=== PATIENT | female | born 1995 | race Caucasian/White ===

== ENCOUNTER 2022-11-21 16:41 | Outpatient (AMB) | payer OTHER, SELFPAY ==
--- NOTE | 2022-11-21 15:57 | MHC.PC.OV ---
Intake Visit Reasons: Chronic conditions and medication discussion Intake Note: Patient is here to discuss medications and chronic conditions.Patient would like to talk about medication refills. Allergies doxycycline Allergy (Mild, Verified 11/21/22 16:02) Hives bactrim Allergy (Intermediate, Uncoded 11/21/22 16:02) Hives Tobacco use date assessed: 11/21/22 Dental Screening Dental Screen Date: 11/21/22 Did you have a dental visit in the last 12 months?: No Did you have a dental problem in the last 6 months where you did not have access to dental care?: No Was dental information given to patient?: No HPI Chronic conditions and medication discussion HPI Details Patient was scheduled for a new patient appointment today but her pT1 ride did not show up Will address acute issues with patient today and she is already reschedule for new patient appointment on December 16 Acute Issues: Medication refills Patient is a type 1 diabetic - no current forestry support specialist Fairly recent left BKA awaiting healing so she can be fitted with a prosthesis Hx of substance abuse and some self-harm. Chronic Pain: Neuropathy & Fibromyalgia Depression requests [facility] Currently not doing any rehab/physical therapy. Uses hydroxyzine for anxiety but states has not helped. She reports symptoms of anxiety are constant. 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 Depression Diabetes 1.5, managed as type 1 Diabetic retinopathy Encephalopathy chronic Fibromyalgia Neuropathy Family History (Updated 11/21/22 @ 16:18 by Dariana De Los Santos, [facility]) Mother Substance abuse Other Mental health disorder Social History Housing: Apartment Cigarette Packs Per Day: 1 e-Cigarette/Vaping Use: Currently Using service: No Current occupational status: disabled Cognitive needs: No Hearing needs: No Vision needs: Yes (Patient needs eye exM) Questionnaire PHQ-9 Over the last 2 weeks, how often have you been bothered by any of the following problems? 1. Little interest or pleasure in doing things: more than half the days 2. Feeling down, depressed, or hopeless: more than half the days 3. Trouble falling or staying asleep, or sleeping too much: several days 4. Feeling tired or having little energy: nearly every day 5. Poor appetite or overeating: nearly every day 6. Feeling bad about yourself - or that you are a failure or have let yourself or your family down: several days 7. Trouble concentrating on things, such as reading the newspaper or watching television: more than half the days 8. Moving or speaking so slowly that other people could have noticed. Or the opposite - being so fidgety or restless that you have been moving around a lot more than usual: nearly every day 9. Thoughts that you would be better off or of hurting yourself in some way: not at all Total score: 17 Source: Developed by Drs. Alex Alicea, Vero Reyes, Dimitrios Wesley and colleagues, with an educational nehemias from [employer]. Thrive Questionnaire I am a: Patient What is your living situation today?: I have a steady place to live Within the past 12 months, did the food you bought not last and you didn't have the money to get more?: Often true Within the past 12 months, did you worry whether your food would run out before you got money to buy more?: Often true Do you have trouble paying for medicines?: No Do you have trouble getting transportation to medical appointments?: Yes Do you have trouble paying your heating and electricity bill?: No Do you have trouble taking care of your child, family member or friend?: No Do you have trouble with day-to-day activities such as bathing, preparing meals, shopping, managing finances, etc.?: Yes Are you currently unemployed and looking for a job?: No Are you interested in more education?: No AUDIT C Alcohol Use Questionnaire (AUDIT-C) 1. How often do you have a drink containing alcohol?: Monthly or less 2. How many drinks containing alcohol do you have on a typical day when you are drinking?: 1 or 2 3. How often do you have six or more drinks on one occasion?: Never Total Score: 1 JEANE-7 AMB Questionnaire JEANE-7 Feeling nervous, anxious, or on edge: 3 = Nearly every day Not being able to stop or control worryin = More than half the days Worrying too much about different things: 2 = More than half the days Trouble relaxin = Nearly every day Being so restless that it is hard to sit still: 3 = Nearly every day Becoming easily annoyed or irritable: 3 = Nearly every day Feeling afraid as if something awful might happen: 1 = Several days Total JEANE-7 score (0-4 normal; 5-9 mild; 10-14 moderate; 15-21 severe): 17 Source: Developed by Drs. Alex Alicea, Vero Reyes, Dimitrios Wesley and colleagues, with an educational nehemias from [employer]. ACT Questionnaire In the past 4 weeks, how much of the time did your asthma keep you from getting as much done at work, school or at home?: None of the time During the past 4 weeks, how often have you had shortness of breath?: Not at all During the past 4 weeks, how often did your asthma symptoms wake you up at night or earlier than usual in the morning?: Not at all During the past 4 weeks, how often have you had to use your rescue inhaler or nebulizer medication?: Not at all How would you rate your asthma control during the past 4 weeks?: Completely controlled Score: 25 Physical exam (Primary Care) Tobacco/Smoking Status: Tobacco use Status Tobacco use date assessed 11/21/22 11/21/22 16:25 e-Cigarette/Vaping Use Currently Using 11/21/22 16:25 PHQ-9: PHQ-9 Score PHQ-9: Total score 17 11/21/22 16:39 Telehealth Telehealth Location of provider rendering services: practice address Location of patient: address on file Patient Identification confirmed using: Name, : Yes Telehealth method: voice only Patient verbally consented to treatment: Yes Patient verbally consented to billing insurance company: Yes Patient informed of any privacy concerns related to visit: Yes Minutes spent on Phone/Video with Pt.: 21 Assessment and Plan Assessment & Plan (1) Diabetes 1.5, managed as type 1: Code(s): E13.9 - Other specified diabetes mellitus without complications Plan: Essentially type 1 diabetic and on Lantus and list pro These have been refilled by her prior forestry support specialist Continue current medications for now Will follow and will make a referral for endocrinology (2) Fibromyalgia: Code(s): M79.7 - Fibromyalgia Plan: Chronic pain, neuropathy and fibromyalgia. She is on gabapentin and ibuprofen for pain also taking muscle relaxants No recent pain management evaluation Has not started rehab for physical therapy after her amputation She mentions that she was told she would need to discuss additional pain medications with her PCP. History of substance abuse so will want to avoid abuse of all medications. 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 Declined to start a benzodiazepine at this point as she does have some history of substance abuse. Will follow closely Refer to nurse navigator and I think she should have a therapist and psych med provider. (5) Neuropathy: Code(s): G62.9 - Polyneuropathy, unspecified Plan: Currently on gabapentin. She says she has tried Lyrica in the past Continue gabapentin (6) Chronic pain: Code(s): G89.29 - Other chronic pain Plan: Referred to pain management Starting physical therapy as she also has fibromyalgia and should begin an exercise program though she has recently had a at left BKA for which she needs rehab Orders: Orders PT Evaluation and Treatment 11/21/22 M79.7 - Fibromyalgia, S88.112A - Complete traumatic amputation at level between knee and ankle, left lower leg, initial encounter Referrals Pain Management Referral G62.9 - Polyneuropathy, unspecified, G89.29 - Other chronic pain, M79.7 - Fibromyalgia, S88.112A - Complete traumatic amputation at level between knee and ankle, left lower leg, initial encounter Nurse Navigator Referral F41.8 - Other specified anxiety disorders Medications: New citalopram (Celexa) 10 mg PO DAILY 30 days 30 tabs 0RF Coding Level of Care Code Est Pt Level 3 (80521) Diagnoses Diabetes 1.5, managed as type 1 E13.9 Fibromyalgia M79.7 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
== END 2022-11-21 17:00 | disposition home or self-care (01) ==
LOC: HO.HMGFM 16:41
PROVIDERS: PCP Family Medicine; Visit Provider Family Medicine
DX: E13.9 Other specified diabetes mellitus without complications (principal); M79.7 Fibromyalgia; S88.112A Complete traumatic amputation at level between knee and ankle, left lower leg, initial encounter; F41.8 Other specified anxiety disorders; G62.9 Polyneuropathy, unspecified; G89.29 Other chronic pain
CPT/HCPCS: 99213

== ENCOUNTER 2022-12-21 12:49 | Outpatient (AMB) | payer OTHER, SELFPAY ==
--- NOTE | 2022-12-21 12:51 | MHC.PC.OV ---
Vital Signs 12/21/22 13:01 BMI Reason not done Patient refused/unable BP 98/64 Blood Pressure Location Rt brachial Position Sitting Respiration 12 Pulse 95 Pulse Source Pulse Oximeter Temp 97.8 F Temp Source Temporal Artery Scan Pulse Oximetry (%) 99 Oxygen Delivery Method Room Air Intake Visit Reasons: NPV - Preop Physical and Meds Intake Note: Patient states that she needs pre-op physical for an eye surgery that is coming up. Patient states that she needs meds filled due to her leaving her old practice. Patient is wondering if its possible to go up on dose for Gabapentin. Patient would also like a referral to PT. [employer] Required: No Accompanied by: fiance Allergies doxycycline Allergy (Mild, Verified 11/21/22 16:02) Hives almonds Allergy (Intermediate, Uncoded 12/21/22 13:07) Hives bactrim Allergy (Intermediate, Uncoded 11/21/22 16:02) Hives Medication List - Last Reconciled 12/21/22 by Alexander Coughlin MD albuterol sulfate 90 mcg/actuation (Ventolin HFA) 2 puffs inhalation Q4H PRN baclofen 20 mg PO TID 30 days blood sugar diagnostic (FreeStyle Lite Strips) 3 times a day testing blood-glucose meter (FreeStyle Lite Meter kit) As directed citalopram (Celexa) 10 mg PO DAILY 30 days gabapentin 600 mg PO TID 30 days hydroxyzine pamoate 50 mg PO Q12H PRN 30 days ibuprofen 800 mg PO Q6H insulin glargine (Lantus Solostar U-100 Insulin) 20 units (0.2 mL) subcut DAILY insulin lispro 0-10units subcutaneously 3 times a day; insulin syringe-needle U-100 (BD Insulin Syringe Ultra-Fine) 3 times a day insulin injection lancets (FreeStyle Lancets) As directed loperamide (Anti-Diarrheal (loperamide)) 4 mg (2 x 2 mg) PO Q6H PRN 30 days melatonin 3 mg PO BEDTIME PRN pen needle, diabetic (BD [place] 2nd Gen Pen Needle) As directed Tobacco use date assessed: 11/21/22 Dental Screening Dental Screen Date: 12/21/22 Did you have a dental visit in the last 12 months?: No Did you have a dental problem in the last 6 months where you did not have access to dental care?: Yes Was dental information given to patient?: Yes HPI NPV - Preop Physical and Meds HPI Details Pt presents to f/u meds and preop physical. She is on celexa 10mg daily for her anxiety/depression. She states she sees pain management on Saturday. Pt reports diarrhea daily and uses imodium. Needs briefs, Fibercon. [facility] PMHx: Diabetes 1.5 managed as type 1, neuropathy, smoking, Fibromyalgia, Hep. C, Diarrhea Surgeries: L BKA, T&A. Cyst removal scalp. L Retinal detachment & laser b/l eyes, Social Hx: Cigs 1 ppd x12 years. EtOH Occasionnal 1-2. MJ Occasional to daily. Cocaine methadone clinic. Needs new WC PT for recent L BKA Cardiac Hx: No hx of heart disease. Pulmonary Hx: None Date: January [address] Santiago [facility] No bleeding or clotting disorders. 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 Depression Diabetes 1.5, managed as type 1 Diabetic retinopathy Eczema Encephalopathy chronic Fibromyalgia Incontinence Memory loss Neuropathy PTSD (post-traumatic stress disorder) Surgical History Amputated left leg H/O detached retina repair H/O removal of cyst History of adenoidectomy History of tonsillectomy Hx of LASIK Family History (Updated 12/21/22 @ 13:21 by Clarita Houston MA) Mother Substance abuse Asthma Psychiatric disorder Father Psychiatric disorder Maternal Grandmother Cancer Other Mental health disorder Social History Housing: Apartment Patient Tobacco Use Status: Current everyday Tobacco user Tobacco use type: Cigarette Cigarette Packs Per Day: 1 e-Cigarette/Vaping Use: Currently Using service: No Current occupational status: disabled Cognitive needs: No Hearing needs: No Vision needs: Yes (Patient needs eye exM) Questionnaire PHQ-9 Over the last 2 weeks, how often have you been bothered by any of the following problems? 1. Little interest or pleasure in doing things: more than half the days 2. Feeling down, depressed, or hopeless: more than half the days 3. Trouble falling or staying asleep, or sleeping too much: more than half the days 4. Feeling tired or having little energy: more than half the days 5. Poor appetite or overeating: more than half the days 6. Feeling bad about yourself - or that you are a failure or have let yourself or your family down: more than half the days 7. Trouble concentrating on things, such as reading the newspaper or watching television: more than half the days 8. Moving or speaking so slowly that other people could have noticed. Or the opposite - being so fidgety or restless that you have been moving around a lot more than usual: more than half the days 9. Thoughts that you would be better off or of hurting yourself in some way: more than half the days Total score: 18 Depression Screening Interpretation: Positive 30167 - PHQ-9 Billing: Yes Source: Developed by Drs. Alex Alicea, Vero Reyes, Dimitrios Wesley and colleagues, with an educational nehemias from [employer]. Thrive Questionnaire Date Thrive assessed: 12/21/22 I am a: Patient What is your living situation today?: I have a place to live, but I am worried about losing it in the future Within the past 12 months, did the food you bought not last and you didn't have the money to get more?: Sometimes True Within the past 12 months, did you worry whether your food would run out before you got money to buy more?: Sometimes True Do you have trouble paying for medicines?: Yes Do you have trouble getting transportation to medical appointments?: Yes Do you have trouble paying your heating and electricity bill?: No Do you have trouble taking care of your child, family member or friend?: Yes Do you have trouble with day-to-day activities such as bathing, preparing meals, shopping, managing finances, etc.?: Yes Are you currently unemployed and looking for a job?: Yes Are you interested in more education?: Yes Please select the resources that you would like help with: Housing/Jail, Food, Paying for medicine and Transportation Currently or been in a relationship where the following occur: no concerns reported JEANE-7 AMB Questionnaire JEANE-7 Date JEANE - 7 assessed: 12/21/22 Feeling nervous, anxious, or on edge: 2 = More than half the days Not being able to stop or control worryin = More than half the days Worrying too much about different things: 2 = More than half the days Trouble relaxin = More than half the days Being so restless that it is hard to sit still: 2 = More than half the days Becoming easily annoyed or irritable: 3 = Nearly every day Feeling afraid as if something awful might happen: 2 = More than half the days Total JEANE-7 score (0-4 normal; 5-9 mild; 10-14 moderate; 15-21 severe): 15 Source: Developed by Drs. Alex Alicea, Vero Reyes, Dimitrios Wesley and colleagues, with an educational nehemias from [employer]. Review of Systems Const Denies chills, Denies fatigue, Denies fever(s), Denies headache(s) and Denies weakness ENT Denies dizziness and Denies headache(s) Card Denies chest pain, Denies lightheadedness, Denies dyspnea and Denies other (Palpitations) Resp Denies cough, Denies dyspnea, Denies wheezing and Denies other ( shortness of breath) Musc Denies numbness and Denies tingling Neuro Denies dizziness, Denies headache(s), Denies numbness, Denies tingling, Denies paresthesias and Denies weakness Psych Denies anxiety and Denies depression Endo Denies fatigue Aller/Immun Denies wheezing Physical exam (Primary Care) Vital Signs: Last Vital Signs Temp 97.8 F 12/21/22 13:01 Pulse 95 12/21/22 13:01 Resp 12 12/21/22 13:01 BP 98/64 12/21/22 13:01 Pulse Ox 99 12/21/22 13:01 Oxygen Delivery Method Room Air 12/21/22 13:01 Tobacco/Smoking Status: Tobacco use Status Tobacco use date assessed 11/21/22 12/21/22 12:53 Patient Tobacco Use Status Current everyday Tobacco 12/21/22 13:21 Tobacco use type Cigarette 12/21/22 13:21 e-Cigarette/Vaping Use Currently Using 12/21/22 12:53 PHQ-9: PHQ-9 Score PHQ-9: Total score 18 12/21/22 13:23 Depression Screening Interpretation: Positive Thrive Assessment: Date of Thrive Assessment Date Thrive assessed 12/21/22 12/21/22 13:21 Currently or been in a relationship where the following occur: no concerns reported Const General: no acute distress and well developed Nutritional Appearance: well nourished Orientation/consciousness: patient oriented x3 HENMT Head: Yes normocephalic and Yes atraumatic Eyes General: appearance normal, both eyes and all related structures Pupils: Equal, round and reactive pupils present EOM: EOMs intact bilaterally Resp Effort & Inspection: normal respiratory effort Auscultation: clear to auscultation bilaterally Cardio Rate: regular rate Rhythm: regular rhythm Heart sounds: S1 normal heart sound present, S2 normal heart sound present, no gallops, no murmurs and no rubs Neuro General: patient oriented x3 and gait normal Cranial nerves: Yes Equal, round and reactive pupils present Psych Affect: normal affect Assessment and Plan Assessment & Plan (1) Depression with anxiety: Code(s): F41.8 - Other specified anxiety disorders Plan: Had started patient on Celexa. She has not noticed any improvement but is only on a 10 mg dose. Will increase this to 20 mg. If she is tolerating this but not noting much improvement with her anxiety, will consider a 2nd line medication with caution. (2) Fibromyalgia: Code(s): M79.7 - Fibromyalgia Plan: Fibromyalgia and she has tried duloxetine in the past Has also tried Lyrica She is on gabapentin 600 mg 3 times a day. She notes that she was on 800 mg 4 times a day. Recommended 800 mg 3 times a day. If she is needing greater relief, she can discuss with pain management whom she will see about a week Needs physical therapy (3) History of hepatitis C: Code(s): Z86.19 - Personal history of other infectious and parasitic diseases Plan: Personal history of hepatitis C infection. Patient says she has never been treated for this Will check labs including viral load and genotype Will refer to Gastroenterology (4) Neuropathy: Code(s): G62.9 - Polyneuropathy, unspecified Plan: Increasing gabapentin as above Control blood sugar (5) Diabetes 1.5, managed as type 1: Code(s): E13.9 - Other specified diabetes mellitus without complications Plan: Checking labs Referred to endocrinology Followed by ophthalmology for diabetic retinopathy (6) Smoker: Code(s): F17.200 - Nicotine dependence, unspecified, uncomplicated Plan: Encouraged cessation but patient is precontemplative currently. Will readdress (7) Diarrhea: Code(s): R19.7 - Diarrhea, unspecified Plan: Currently using Imodium Encouraged good hydration and she can use a soluble fiber. Can use Imodium as needed as well She is also needing adult briefs; 2 per day medium (8) Open wound of skin: Code(s): T14.8XXA - Other injury of unspecified body region, initial encounter Plan: Open wounds on left forearm and right ramirez. Patient has anxiety and substance use disorder and says that she picks at her skin. Currently keeping this covered with Xeroform and gauze and she says it has been improving. She will watch for any signs or symptoms of infection which were reviewed with her today and let me know. Would start antibiotics and refer her to wound care. I will follow-up with her in a few weeks and if not improved may send her to wound care. (9) Substance abuse: Code(s): F19.10 - Other psychoactive substance abuse, uncomplicated Plan: Patient goes to the methadone clinic Still using some substances and I encouraged cessation Can follow-up on this and can recommend the addiction medicine clinic at [facility] at next visit. Orders: Orders Comprehensive [place]. Panel Fast Today Z00.00 - Encounter for general adult medical examination without abnormal findings Lipid Panel Today Z00.00 - Encounter for general adult medical examination without abnormal findings TSH reflex Free T4 Today Z00.00 - Encounter for general adult medical examination without abnormal findings Microalbumin, Random (w Creat) Today I10 - Essential (primary) hypertension Complete Blood Count Auto Diff Today Z00.00 - Encounter for general adult medical examination without abnormal findings HIV Ab/Ag Today Z11.3 - Encounter for screening for infections with a predominantly sexual mode of transmission Syphilis Screen Today Z11.3 - Encounter for screening for infections with a predominantly sexual mode of transmission UA and rflx microscopic Today Z00.00 - Encounter for general adult medical examination without abnormal findings Hepatitis B,C Profile Today Z11.3 - Encounter for screening for infections with a predominantly sexual mode of transmission Hepatitis C Genotype Today Z86.19 - Personal history of other infectious and parasitic diseases Hepatitis C Viral Load Today Z86.19 - Personal history of other infectious and parasitic diseases PT Evaluation and Treatment Today M79.7 - Fibromyalgia, S88.112A - Complete traumatic amputation at level between knee and ankle, left lower leg, initial encounter AMB Hemoglobin A1c Today E13.9 - Other specified diabetes mellitus without complications, Z13.9 - Encounter for screening, unspecified CT NG by PCR Today Z11.3 - Encounter for screening for infections with a predominantly sexual mode of transmission Referrals Endocrinology Referral E13.9 - Other specified diabetes mellitus without complications Gastroenterology Referral Z86.19 - Personal history of other infectious and parasitic diseases Medications: New calcium polycarbophil (FiberCon) 625 mg PO DAILY 90 days 90 tabs 1RF diaper,brief,adult,disposable (Disposable Brief) Adult brief, medium. 2 times a day As directed, 90 days 180 ea 3RF E13.9 - Other specified diabetes mellitus without complications, G62.9 - Polyneuropathy, unspecified, R19.7 - Diarrhea, unspecified miscellaneous medical supply Wheelchair. Daily As directed, 999 Days 1 ea 0RF S88.112A - Complete traumatic amputation at level between knee and ankle, left lower leg, initial encounter miscellaneous medical supply Wheelchair. Daily As directed, 999 Days 1 ea 0RF S88.112A - Complete traumatic amputation at level between knee and ankle, left lower leg, initial encounter Changed From gabapentin 600 mg PO TID 30 days 90 tabs 0RF To gabapentin 800 mg PO TID 30 days 90 tabs 0RF From citalopram (Celexa) 10 mg PO DAILY 30 days 30 tabs 0RF To citalopram 20 mg PO DAILY 30 days 30 tabs 2RF Coding Level of Care Code Est Pt Level 4 (36509) Diagnoses Depression with anxiety F41.8 Fibromyalgia M79.7 History of hepatitis C Z86.19 Neuropathy G62.9 Diabetes 1.5, managed as type 1 E13.9 Smoker F17.200 Diarrhea R19.7 Open wound of skin T14.8XXA Substance abuse F19.10
[2022-12-21 13:01] VITALS: BP 98/64; PULSE 95; RESP 12; TEMP 36.6; O2SAT 99
== END 2022-12-21 14:04 | disposition home or self-care (01) ==
PROVIDERS: PCP Family Medicine; Visit Provider Family Medicine
DX: F41.8 Other specified anxiety disorders (principal); E13.9 Other specified diabetes mellitus without complications; Z86.19 Personal history of other infectious and parasitic diseases; F17.210 Nicotine dependence, cigarettes, uncomplicated; F19.10 Other psychoactive substance abuse, uncomplicated; M79.7 Fibromyalgia; G62.9 Polyneuropathy, unspecified; R19.7 Diarrhea, unspecified; T14.8XXA Other injury of unspecified body region, initial encounter
CPT/HCPCS: 99214

== ENCOUNTER 2022-12-31 09:32 | Outpatient (REF) | payer OTHER, SELFPAY | END 2022-12-31 09:33 | disposition home or self-care (01) | LOC: HO.WFDLDS 09:32 | PROVIDERS: Visit Provider Family Medicine | DX: Z13.89 Encounter for screening for other disorder (principal) | CPT/HCPCS: 36415; 85025; 86704; 86706; 87340 ==

== ENCOUNTER 2023-01-08 07:50 | Outpatient (REF) | payer OTHER, SELFPAY ==
[2023-01-08 11:28] LABS: MANUAL DIFF FLAG NO
[2023-01-08 11:34] LABS: Basophils Absolute Auto 0.1 X10*3/uL (0.0-0.2); Basophils Percent Auto 0.6 % (0-2); Eosinophils Absolute Auto 0.3 X10*3/uL (0.0-0.4); Eosinophils Percent Auto 3.5 % (0-4); Hematocrit 34.4 % (37.0-47.0); Hemoglobin 11.2 g/dl (12.0-16.0); Imm Gran Abs Auto 0.02 X10*3/uL (0.00-0.03); Imm Gran Pct Auto 0.2 % (0.0-0.4); Lymphocytes Absolute Auto 3.7 X10*3/uL (1.2-4.9); Lymphocytes Percent Auto 44.2 % (20-40); Mean Corpuscular HGB Conc 32.6 g/dl (31.0-35.0); Mean Corpuscular Hemoglobin 27.2 pg (27.0-33.0); Mean Corpuscular Volume 83.5 fL (80.0-98.0); Mean Platelet Volume 10.7 fL (9.4-12.3); Monocytes Absolute Auto 0.5 X10*3/uL (0.1-1.2); Monocytes Percent Auto 5.5 % (2-11); Neutrophils Absolute Auto 3.8 x10*3/uL (2.0-8.3); Platelet Count 336 X10*3/uL (160-400); Red Blood Count 4.12 X10*6/uL (4.20-5.50); White Blood Count 8.3 X10*3/uL (4.8-10.8)
[2023-01-08 11:42] LABS: Appearance Urine Turbid; Color Urine Yellow; Glucose Urine UA >=1000 mg/dL (Negative); Leukocyte Esterase Urine Moderate (2+) (Negative); Nitrite Urine Negative (Negative); PH 5.5 (5.0-9.0); Specific Gravity - Urine 1.025 (1.005-1.025); UMIC TRIGGER UA YES; Urine Blood Large (3+) (Negative); Urine Ketones Trace mg/dL (Negative); Urine Protein >=1000 (4+) mg/dL (Neg-Trace)
[2023-01-08 11:58] LABS: Bacteria Urine 4+ (None Seen); Hyaline Casts Urine >20 /LPF (0-2); WBC Clumps Urine Present; WBC Urine >50 /HPF (0-5)
[2023-01-08 12:47] LABS: Creatinine Urine 60.65 mg/dL
[2023-01-08 13:01] LABS: Microalbum/Creatinine Ratio Ur 3297.6 ug/mg cr (<30); Microalbumin Urine > 2000.0 mg/L
[2023-01-08 14:56] LABS: Alanine Aminotransferase 17 U/L (0-31); Albumin Level 3.2 g/dL (3.5-5.0); Alkaline Phosphatase 131 U/L (39-117); Anion Gap 13 (12-20); Aspartate Amino Transferase 14 U/L (5-31); Bilirubin Total 0.3 mg/dL (0.0-1.0); Blood Urea Nitrogen 19 mg/dL (9-16); Calcium 9.3 mg/dL (8.4-10.2); Carbon Dioxide 28 mmol/L (22-29); Chloride 97 mmol/L (96-108); Cholesterol 193 mg/dL (<200); Estimated Glomerular Filt Rate > 60; Glucose Fasting 227 mg/dL (60-99); HDL Cholesterol 47 mg/dL (>40); LDL Cholesterol Calculated 82 mg/dL (<100); Potassium 4.7 mmol/L (3.3-5.1); Sodium 133 mmol/L (135-145); TSH reflex Free T4 1.93 uIU/mL (0.32-4.0); Total Protein 7.2 g/dL (6.5-8.0); Triglycerides 322 mg/dL (<150)
[2023-01-09 04:32] LABS: HBS Num1 30.09 mIU/mL (0-7.99); HBc Num1 0.13 S/CO (0.00-0.79); HBsAGNum1 0.46 S/CO (0.00-0.99); HIV AB/AG Nonreactive (Nonreactive); HIV Num 1 0.05 S/CO (0.00-0.99); Hepatitis B Core Antibody Nonreactive (Nonreactive); Hepatitis B Surface Antigen Negative (Negative); ~Hepatitis B Surface Antibody REACTIVE (Nonreactive); ~Hepatitis C Antibody Reactive (Nonreactive)
[2023-01-09 04:39] LABS: Syphilis Screen Nonreactive (Nonreactive)
[2023-01-09 14:48] LABS: HCV Log PCR <1.18 NOT DETECTED Log IU/mL (NOT DETECTED); HepC Viral Load <15 NOT DETECTED IU/mL (NOT DETECTED)
[2023-01-14 15:13] LABS: Hepatitis C Genotype Not Detected
== END 2023-01-08 07:51 | disposition home or self-care (01) ==
LOC: HO.WFDLDS 07:50
PROVIDERS: Visit Provider Family Medicine
DX: Z00.00 Encounter for general adult medical examination without abnormal findings (principal); Z11.3 Encounter for screening for infections with a predominantly sexual mode of transmission; Z11.4 Encounter for screening for human immunodeficiency virus [HIV]; I10 Essential (primary) hypertension; Z86.19 Personal history of other infectious and parasitic diseases
CPT/HCPCS: 36415; 80053; 80061; 81001; 82043; 82570; 84443; 85025; 86704; 86706; 86780; 86803; 87340; 87389; 87522; 87902

== ENCOUNTER 2023-01-17 09:32 | Outpatient (AMB) | payer OTHER, SELFPAY ==
--- NOTE | 2023-01-17 10:09 | AM.OFFVISNUR ---
Intake Intake Visit Reasons: ekg for upcoming procedure Allergies doxycycline Allergy (Mild, Verified 11/21/22 16:02) Hives almonds Allergy (Intermediate, Uncoded 12/21/22 13:07) Hives bactrim Allergy (Intermediate, Uncoded 11/21/22 16:02) Hives Nursing Note pt is here for pre-op EKG. done. pt is alert and cooperative. result given to dr for review. Office Procedures EKG [id number], Complete Coding CPT Codes EKG - CPT: 72601-[id number], Complete ([id number])
== END 2023-01-17 10:16 | disposition home or self-care (01) ==
PROVIDERS: PCP Family Medicine; Visit Provider Family Medicine
DX: Z01.810 Encounter for preprocedural cardiovascular examination (principal)
CPT/HCPCS: 93000

== ENCOUNTER 2023-11-04 12:29 | Outpatient (AMB) | payer OTHER, SELFPAY ==
--- NOTE | 2023-11-04 12:35 | A.OFFPC_ITS ---
Vital Signs 11/04/23 12:36 BP 122/64 Blood Pressure Location Rt brachial Position Sitting Respiration 12 Pulse 116 H Pulse Source Pulse Oximeter Pulse Oximetry (%) 98 Oxygen Delivery Method Room Air Intake Visit Reasons: ep/ medication refill- NEEDS A1C/ hos discharge Intake Note: Patient is here for a hospital follow up, [facility] and a medication refill. Patient also has paperwork she needs her provider to sign. Intramural Director Required: No Accompanied by: Self / Same As Patient Allergies doxycycline Allergy (Mild, Verified 11/04/23 13:02) Hives almonds Allergy (Intermediate, Uncoded 11/04/23 12:40) Hives bactrim Allergy (Intermediate, Uncoded 11/04/23 12:40) Hives Medication List - Last Reconciled 11/04/23 by ZACH Us-NATALY acetaminophen (Infant's Tylenol) 960 mg (30 mL) PO .q8 PRN 30 days albuterol sulfate 90 mcg/actuation (ProAir HFA) 2 puffs inhalation Q4-6H PRN 30 days apixaban (Eliquis) mg PO BID blood sugar diagnostic (FreeStyle Lite Strips) 3 times a day testing blood-glucose meter (FreeStyle Lite Meter kit) As directed buprenorphine ER (Sublocade) mg subcut buprenorphine-naloxone 12-3 mg (Suboxone) film sublingual calcium polycarbophil (FiberCon) 625 mg PO DAILY 90 days cyclobenzaprine 10 mg PO TID diaper,brief,adult,disposable (Disposable Brief) Adult brief, medium. 2 times a day As directed, 90 days ergocalciferol (vitamin D2) 1,250 mcg PO QWEEK escitalopram oxalate (Lexapro) 10 mg PO DAILY gabapentin 600 mg PO TID gabapentin 600 mg PO TID hydroxyzine HCl 50 mg PO TID PRN insulin glargine (Lantus Solostar U-100 Insulin) 13 units in AM, 16 units at Bedtime subcutaneously 2 times a day; insulin lispro 0-10units subcutaneously 3 times a day; insulin syringe-needle U-100 (BD Insulin Syringe Ultra-Fine) 3 times a day insulin injection lancets (FreeStyle Lancets) As directed loperamide (Anti-Diarrheal (loperamide)) 4 mg (2 x 2 mg) PO Q6H PRN 30 days loratadine (Allergy Relief (loratadine)) 10 mg PO DAILY miscellaneous medical supply Wheelchair. 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 C, Diarrhea, CKD, polysub abuse Surgeries: L BKA, T&A. Cyst removal scalp. L Retinal detachment & laser b/l eyes, Social Hx: Cigs 1 ppd x12 years. EtOH Occasional 1-2. MJ Occasional to daily. Cocaine methadone clinic Here today for a Transitional Care Management Visit Discharge summary reviewed. Admission Date: 10/01/2023 Discharge Date: 10/16/2023 Hospital: [facility] Pending diagnostic tests/treatments: Pending consults: Infectious Dz Dr Ed Villegas 10/24/23 and 11/07/2023, [facility] [place], Orthopedics, DME: no new orders PT/OT/CADDY: I see order for [facility]NA however pt and boyfriend report services have not yet started. Needs help w/ wound care, med mgmt and compliance. 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 Medications reconciled & updated. During todays TCM visit, the d/c summary was reviewed, along with the need for or follow-up on pending diagnostic tests and treatments, as necessary interaction with other health transition of care specialist who will assume or reassume care of the beneficiary?s system-specific problems was done or is being worked on, education was provided to the beneficiary, family, guardian, and/or caregiver, referrals to establish or re-establish and arrange needed community resources we completed, assistance in scheduling required follow-up with community providers and services & finally updated medication list given to patient/caregiver This was a very complex admission and discharge. 28-year-old female with active polysubst ance abuse, diabetes type 1 with complication admitted to [facility] with DKA and pancreatitis in the setting of MRSA bacteremia treated with vancomycin. Status post OR aspiration of left joint to rule out septic arthritis. Found to have a pulmonary embolism and was started on Eliquis. Hospital course complicated by iron-deficiency anemia requiring 2 units of packed red blood cells. Course further complicated by pain control. She was discharged home with dalbavacin infusions to be done at the infusion center x2 upon discharge on 10/23 and 11/06. She does have a history of a DVT in the left upper extremity of which Eliquis was prescribed in the past however the patient has been noncompliant. The CTA showed the pulmonary embolism in the right lower lobe. She was also noted to have pancreatitis which is resolved. This is noted on the CT of the abdomen. Recommendation to increase her escitalopram from 10 mg to 20 mg to help with her mood. She was started on vitamin-D for 8 weeks due to low vitamin-D and calcium while hospitalized. Hypophosphatemia which was repleted. Patient will need further workup to include urine phos. Potassium imbalances resolved status post treatment of DKA A1c done today 12.4% Plan: Follow up with Infectious Disease as scheduled for infusions Follow up with endocrinology at [facility]. He referral has been placed in the past however it has been updated and placed stat today. Follow up with Orthopedics, referral to [facility] [place]'s orthopedic replaced today. Continue all medications as currently prescribed the time of discharge. Refills sent for 1 month. Defer to PCP on increase in escitalopram. At this time cont 10mg QD. We will place a nurse navigation referral to ensure that Visiting nurses in place and coming to the home. She also brought in DTA paperwork for disability stating that it is overdue. I did remind her and sig other of our policy regarding paperwork completion 7-10 business days. Advised i would give form to PCP staff & she can get this back when she comes to her visit next week, as she needs close f/u given her chronic conditions. Sig other states they need RX for dressing supplies; advised this can come from the VNA orders & asked him to f/u with them. RTO 1 week with PCP for complex dz mgmt Exam: Chronically ill-appearing sitting in a wheelchair accompanied by boyfriend Conjunctiva injected bilat Eyes closed most of the visit Tachycardic Lung sounds clear to auscultation Left [id number] amputation, open area to left lateral lower leg status post drain without drainage or erythema Skin to bilat arms with open scabbed areas. Patient reports from picking. Patient also reports that she has multiple open areas scattered all over her right lower extremity. However declined for me to look at these today reporting that she just provided dressing care to these and does not want to unwrap them for the visit. 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 Anxiety Depression Asthma Diabetes 1.5, managed as type 1 Surgical History Hx of LASIK H/O detached retina repair History of adenoidectomy History of tonsillectomy H/O removal of cyst Amputated left leg Family History (Updated 12/21/22 @ 13:21 by DB Mccall) Mother Substance abuse Asthma Psychiatric disorder Father Psychiatric disorder Maternal Grandmother Cancer Other Mental health disorder Social History Housing: Apartment Patient Tobacco Use Status: Current everyday Tobacco user Tobacco use type: Cigarette Cigarette Packs Per Day: 1 e-Cigarette/Vaping Use: Currently Using service: No Current occupational status: disabled Cognitive needs: No Hearing needs: No Vision needs: Yes (Patient needs eye exM) Questionnaire PHQ-9 Over the last 2 weeks, how often have you been bothered by any of the following problems? 1. Little interest or pleasure in doing things: nearly every day 2. Feeling down, depressed, or hopeless: nearly every day 3. Trouble falling or staying asleep, or sleeping too much: more than half the days 4. Feeling tired or having little energy: more than half the days 5. Poor appetite or overeating: several days 6. Feeling bad about yourself - or that you are a failure or have let yourself or your family down: nearly every day 7. Trouble concentrating on things, such as reading the newspaper or watching television: not at all 8. Moving or speaking so slowly that other people could have noticed. Or the opposite - being so fidgety or restless that you have been moving around a lot more than usual: nearly every day 9. Thoughts that you would be better off or of hurting yourself in some way: not at all Total score: 17 Depression Screening Interpretation: Positive Depression Screening Follow-up: Existing condition Depression Screening Done: Yes 33644 - PHQ-9 Billing: Yes Source: Developed by Drs. Alex Alicea, Vero Reyes, Dimitrios Wesley and colleagues, with an educational nehemias from [employer]. Thrive Questionnaire Date Thrive assessed: 11/04/23 I am a: Patient What is your living situation today?: I choose not to answer this question Within the past 12 months, did the food you bought not last and you didn't have the money to get more?: I choose not to answer this question Within the past 12 months, did you worry whether your food would run out before you got money to buy more?: I choose not to answer this question Do you have trouble paying for medicines?: I choose not to answer this question Do you have trouble getting transportation to medical appointments?: I choose not to answer this question Do you have trouble paying your heating and electricity bill?: I choose not to answer this question Do you have trouble taking care of your child, family member or friend?: I choose not to answer this question Do you have trouble with day-to-day activities such as bathing, preparing meals, shopping, managing finances, etc.?: I choose not to answer this question Are you currently unemployed and looking for a job?: I choose not to answer this question Are you interested in more education?: I choose not to answer this question Please select the resources that you would like help with: None Currently or been in a relationship where the following occur: No concerns reported THRIVE Score: 0 AUDIT C Alcohol Use Questionnaire (AUDIT-C) 1. How often do you have a drink containing alcohol?: Monthly or less 2. How many drinks containing alcohol do you have on a typical day when you are drinking?: 1 or 2 3. How often do you have six or more drinks on one occasion?: Never Total Score: 1 Score Reviewed/Action Taken: Yes JEANE-7 AMB Questionnaire JEANE-7 Date JEANE - 7 assessed: 11/04/23 Feeling nervous, anxious, or on edge: 2 = More than half the days Not being able to stop or control worryin = More than half the days Worrying too much about different things: 2 = More than half the days Trouble relaxin = More than half the days Being so restless that it is hard to sit still: 0 = Not at all Becoming easily annoyed or irritable: 2 = More than half the days Feeling afraid as if something awful might happen: 2 = More than half the days Total JEANE-7 score (0-4 normal; 5-9 mild; 10-14 moderate; 15-21 severe): 12 Source: Developed by Drs. Alex Alicea, Vero Reyes, Dimitrios Wesley and colleagues, with an educational nehemias from [employer]. JEANE-7 Assessment Billing JEANE-7 Assessment Tool: JEANE-7 Assessment 17932 Review of Systems Const All systems reviewed & are unremarkable except as noted in HPI and below Physical exam (Primary Care) Vital Signs: Last Vital Signs Pulse 116 H 11/04/23 12:36 Resp 12 11/04/23 12:36 BP 122/64 11/04/23 12:36 Pulse Ox 98 11/04/23 12:36 Oxygen Delivery Method Room Air 11/04/23 12:36 Tobacco/Smoking Status: Tobacco use Status Tobacco use date assessed 11/04/23 11/04/23 12:46 Patient Tobacco Use Status Current everyday Tobacco 11/04/23 12:36 Tobacco use type Cigarette 11/04/23 12:36 e-Cigarette/Vaping Use Currently Using 11/04/23 12:36 PHQ-9: PHQ-9 Score PHQ-9: Total score 17 11/04/23 12:59 Depression Screening Interpretation: Positive Depression Screening Follow-up: Existing condition Thrive Assessment: Date of Thrive Assessment Date Thrive assessed 11/04/23 11/04/23 12:54 Currently or been in a relationship where the following occur: No concerns reported Results AMB Hemoglobin A1c AMB Hemoglobin A1c 12.4 % Last Edit by Lee Ann Finch CMA on 4 12:57 AMB Hemoglobin A1c AMB Hemoglobin A1c 12.4 % Last Edit by ZACH Us-BC on 4 15:27 Results Reviewed Results Reviewed: Laboratory Last Values Hgb A1c (Clinic) 12.4 % (4.0-6.0) H 11/04/23 12:55 Assessment and Plan Assessment & Plan (1) Hospital discharge follow-up: Code(s): Z09 - Encounter for follow-up examination after completed treatment for conditions other than malignant neoplasm (2) Diabetes 1.5, managed as type 1: Code(s): E13.9 - Other specified diabetes mellitus without complications (3) 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: Code(s): S88.112A - Complete traumatic amputation at level between knee and ankle, left lower leg, initial encounter Qualifiers: Encounter type: sequela Qualified Code(s): S88.112S - Complete traumatic amputation at level between knee and ankle, left lower leg, sequela (4) Secondary hypercoagulability disorder: Comment: on eliquis for RLL PE 10/2023 and LUE DVT Code(s): D68.69 - Other thrombophilia (5) Pulmonary emboli: Code(s): I26.99 - Other pulmonary embolism without acute cor pulmonale Qualifiers: Pulmonary embolism type: single subsegmental (without acute cor pulmonale) Qualified Code(s): I26.93 - Single subsegmental pulmonary embolism without acute cor pulmonale (6) Substance abuse: Code(s): F19.10 - Other psychoactive substance abuse, uncomplicated (7) MRSA bacteremia: Code(s): R78.81 - Bacteremia; B95.62 - Methicillin resistant Staphylococcus aureus infection as the cause of diseases classified elsewhere (8) Anemia requiring transfusions: Code(s): D64.9 - Anemia, unspecified (9) MDD (major depressive disorder), recurrent episode: Code(s): F33.9 - Major depressive disorder, recurrent, unspecified Qualifiers: Major depression episode severity: severe Psychotic features: without psychotic features Qualified Code(s): F33.2 - Major depressive disorder, recurrent severe without psychotic features (10) Long-term insulin use: Code(s): Z79.4 - senior care (current) use of insulin Plan This note is constructed using voice recognition software. While every effort has been made to ensure accuracy in financial sales professional, still errors may have been included Sometimes, these errors may affect the content or meaning of the given sentence . Total time spent caring for the patient today was 75 minutes. This includes time spent before the visit reviewing the chart, time spent during the visit, and time spent after the visit on documentation Orders: Orders AMB Hemoglobin A1c Today E11.9 - Type 2 diabetes mellitus without complications Referrals Nurse Navigator Referral E13.9 - Other specified diabetes mellitus without complications, F19.10 - Other psychoactive substance abuse, uncomplicated Orthopedics Referral S88.112S - Complete traumatic amputation at level between knee and ankle, left lower leg, sequela Endocrinology Referral E13.9 - Other specified diabetes mellitus without complications, S88.112A - Complete traumatic amputation at level between knee and ankle, left lower leg, initial encounter Medications: New apixaban (Eliquis) 5 mg PO BID 60 tabs 0RF ergocalciferol (vitamin D2) for 8 weeks, started 10/16/2023 1,250 mcg PO QWEEK 4 caps 0RF gabapentin 600 mg PO TID 90 tabs 0RF escitalopram oxalate (Lexapro) 10 mg PO DAILY 30 tabs 0RF Changed From insulin lispro 0-10units subcutaneously 3 times a day; E13.9 - Other specified diabetes mellitus without complications, Z79.4 - terminal worker (current) use of insulin To insulin lispro 10-16 units subcutaneously breakfast & lunch, 7-16 units at dinner PRN ISS 15 mL 0RF hyperglycemia E13.9 - Other specified diabetes mellitus without complications, Z79.4 - terminal worker (current) use of insulin Refilled insulin glargine (Lantus Solostar U-100 Insulin) 20 units (0.2 mL) subcut DAILY 6 mL 0RF E13.9 - Other specified diabetes mellitus without complications Coding Level of Care Code Est Pt Level 5 (27575) Diagnoses Hospital discharge follow-up Z09 Diabetes 1.5, managed as type 1 E13.9 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, sequela S88.112S Encounter type: sequela Secondary hypercoagulability disorder D68.69 Single subsegmental pulmonary embolism without acute cor pulmonale I26.93 Pulmonary embolism type: single subsegmental (without acute cor pulmonale) Substance abuse F19.10 MRSA bacteremia R78.81; B95.62 Anemia requiring transfusions D64.9 Severe episode of recurrent major depressive disorder, without psychotic features F33.2 Major depression episode severity: severe Psychotic features: without psychotic features Long-term insulin use Z79.4 CPT Codes [facility] OUTPT/OFFICE VIS - G2212 Additional Codes JEANE-7 Assessment Billing - JEANE-7 Assessment Tool: JEANE-7 Assessment 14835 ([id number])
[2023-11-04 12:36] VITALS: BP 122/64; PULSE 116; RESP 12; O2SAT 98
== END 2023-11-04 13:35 | disposition home or self-care (01) ==
PROVIDERS: PCP Family Medicine; Visit Provider Nurse Practitioner Family
DX: E11.9 Type 2 diabetes mellitus without complications (principal); D68.69 Other thrombophilia; I26.93 Single subsegmental thrombotic pulmonary embolism without acute cor pulmonale; S88.112S Complete traumatic amputation at level between knee and ankle, left lower leg, sequela; F19.10 Other psychoactive substance abuse, uncomplicated; F33.2 Major depressive disorder, recurrent severe without psychotic features; Z79.4 Long term (current) use of insulin; Z09 Encounter for follow-up examination after completed treatment for conditions other than malignant neoplasm; R78.81 Bacteremia; B95.62 Methicillin resistant Staphylococcus aureus infection as the cause of diseases classified elsewhere; D64.9 Anemia, unspecified
CPT/HCPCS: 83036; 99215; 99417

== ENCOUNTER 2023-11-22 15:01 | Outpatient (AMB) | payer OTHER, SELFPAY ==
--- NOTE | 2023-11-22 15:02 | A.OFFVIS_ITS ---
Vital Signs 11/22/23 15:19 Height 5 ft 4 in BMI Reason not done Patient refused/unable BP 98/58 L Blood Pressure Location Rt brachial Position Sitting Pulse 96 Pulse Source Pulse Oximeter Intake Visit Reasons: T1DM/VMailbox full Intake Note: New patient presents today to establish treatment for DMT1 Last diabetic eye exam was on- 05/2023 Last Podiatry visit was on- Pt does not see a Tab Card Press Operator Random Glucose- 286 mg/dL, Today Most resent HgA1C- 12.4%, 11/04/2023 Paste Mixer Required: No Accompanied by: Significant Other Allergies doxycycline Allergy (Mild, Verified 11/22/23 15:12) Hives almonds Allergy (Intermediate, Uncoded 11/22/23 15:12) Hives bactrim Allergy (Intermediate, Uncoded 11/22/23 15:12) Hives HPI Comments Details: 28-year-old female seen in consultation for T1DM at the request of PCP. She has a h/o of active polysubstance abuse recently started on sublocade, left bka secondary to non healing heel ulcer, diabetes type 1 with multiple prior hospitalizations for DKA,neuropathy, neuropathy, severe retinopathy and cataracts followed by a retinal specialist and pruritus caused by anxiety. She was recently discharged from [facility] with DKA and pancreatitis in the setting of MRSA bacteremia treated with vancomycin in October. She had 2 blood transfusions during her hospital admission. Initially diagnosed with T1DM in [4 year old] has been on insulin since that time. Diabetes has been poorly controlled most of her life. She has been on and off an insulin pump a number of times with her last being a [employer]. She reports she had better control while on a pump. She is interested on in going on a G7. She reports she does check her sugars regularly but did not bring her meter in today. She reports she has high sugars with occasional lows as well. Her current diabetes medications: Lantus 13 units in the morning 16 units in the evening Humalog t.i.d. with meals on a sliding scale from 11/05/2015. She states she has a sliding scale that she follows written at home but does not remember the specifics of the scale. Reports low sugars [occ]. Treats lows with [glucose tablets]. [Checks] sugar after to ensure it is rising. [Follows] the rule of 15's. Has eyes checked yearly, last eye exam [followed several times per year], [severe] retinopathy. [+] neuropathy, does not see podiatry, refused foot exam today. [+] nephropathy, Not on statin. She is due for labs at her PCP and prefers to have them done at her pcp. [Denies] history of CAD. [Had] diabetes education. Diet/Carb counting: [] Weight: [] [Multiple] prior episodes of DKA requiring hospitalization. 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 Hx of LASIK H/O detached retina repair History of adenoidectomy History of tonsillectomy H/O removal of cyst Family History Mother Substance abuse Asthma Psychiatric disorder Father Psychiatric disorder Maternal Grandmother Cancer Other Mental health disorder Social History Housing: Apartment Patient Tobacco Use Status: Current everyday Tobacco user Tobacco use type: Cigarette Cigarette Packs Per Day: 1 e-Cigarette/Vaping Use: Currently Using service: No Current occupational status: disabled Cognitive needs: No Hearing needs: No Vision needs: Yes (Patient needs eye exM) Physical Exam Vital Signs: Last Vital Signs Pulse 96 11/22/23 15:19 BP 98/58 L 11/22/23 15:19 Absence of Cushingoid features. Absence of acromegalic features. Neck exam reveals nl size thyroid about 15 gms. No thyroid nodules palpable. No carotid bruits present. Lungs CTA. Heart S1 S2, Reg R/R. No M/R/ G. Skin exam reveals absence of vitiligo or acanthosis nigricans. Abdominal exam reveals Soft NT/ND with NA BS. No organomegaly present. Const General: no acute distress and tired appearing Nutritional Appearance: average body habitus Orientation/consciousness: oriented to person Resp Effort & Inspection: normal respiratory effort Auscultation: clear to auscultation bilaterally Cardio Jugular venous distension: no JVD Rate: regular rate Rhythm: regular rhythm Heart sounds: S1 normal heart sound present and S2 normal heart sound present Neuro General: oriented to person Extrem Other: patient refused foot exam no edema right bka, left leg with multiple excoriated lesions without s/s infection Results Reviewed Results Reviewed: Laboratory Last Values Glucose (Clinic) 286 mg/dL (60-115) H 11/22/23 15:20 Laboratory Tests 01/08/23 11/04/23 08:00 15:27 Fasting Glucose 227 H Hgb A1c (Clinic) 12.4 H Triglycerides 322 H Cholesterol 193 LDL Cholesterol, Calc 82 HDL Cholesterol 47 Assessment & Plan Assessment & Plan (1) Type 1 diabetes: Code(s): E10.9 - Type 1 diabetes mellitus without complications Category: Medical Plan: Type 1 diabetic since age 4 with longstanding history of poor control and multiple complications and comorbidities. She is requesting to go back on an insulin pump and sensor. She reports her control was best when she was on an insulin pump. She recently started on Sublocade and has a history of active polysubstance abuse so I do not believe we can make a decision on a insulin pump at this time but could proceed to G7. We will switch her from Lantus to Tresiba. Continue same dosing of NovoLog and she was asked to bring her scale in with her on her next visit. She declined blood work here and will have it done at her primary care office at her next visit we can request this. Follow-up with DM educator to start on G7. Patient teaching: Symptoms of DKA were reviewed: early: frequent urination, dry mouth, ketones in the urine, severe symptoms: abdominal pain, nausea, vomiting and weakness. It is important to hydrate with sugar free liquids every 30 minutes and bring the s ugars down to normal levels. The patient was counseled to always carry a source of sugar and on the rule of 15's: Take 3 glucose tablets and repeat again in 15 minutes if blood sugar is not in normal range. Continue to repeat every 15 minutes until blood sugar is normal. Medications: New acetone (urine) test (Ketone Urine Test strips) As directed prn high glucose, nausea/vomiting 50 ea 1RF E10.9 - Type 1 diabetes mellitus without complications insulin degludec (Tresiba FlexTouch U-200 insulin) 30 units (0.15 mL) subcut BEDTIME 30 days 6 mL 3RF E10.9 - Type 1 diabetes mellitus without complications blood-glucose meter,continuous (Dexcom G7 Piggery Worker) As directed 1 ea 1RF blood-glucose sensor (Dexcom G7 Sensor device) As directed 3 ea 11RF Coding Level of Care Code New Pt Level 5 (71017) Complex EM visit Add On G2211 Diagnoses Type 1 diabetes E10.9 Time Spent (min) 60 Comment Time spent reviewing labs/previous provider notes, face to face, chart documentation
[2023-11-22 15:19] VITALS: BP 98/58; PULSE 96
[2023-11-22 15:24] LABS: Glucose, Whole Blood 286 mg/dL (60-115)
== END 2023-11-22 15:54 | disposition home or self-care (01) ==
PROVIDERS: PCP Family Medicine; Visit Provider Nurse Practitioner Adult Health
DX: E10.9 Type 1 diabetes mellitus without complications (principal)
CPT/HCPCS: 99205; G2211

== ENCOUNTER → 2023-11-22 15:01 | Outpatient (BNVA) | payer OTHER, SELFPAY | PROVIDERS: PCP Family Medicine; Visit Provider Nurse Practitioner Adult Health | DX: E10.40 Type 1 diabetes mellitus with diabetic neuropathy, unspecified (principal); E10.319 Type 1 diabetes mellitus with unspecified diabetic retinopathy without macular edema; Z96.41 Presence of insulin pump (external) (internal); Z79.4 Long term (current) use of insulin | CPT/HCPCS: 82947; 99202 ==

== ENCOUNTER 2024-01-21 15:07 | Outpatient (RCR) | payer OTHER, SELFPAY | END 2024-02-10 09:22 | disposition home or self-care (01) | LOC: HO.PT 15:07 | PROVIDERS: PCP Family Medicine; Visit Provider Nurse Practitioner Family | DX: S88 Traumatic amputation of lower leg (principal) | CPT/HCPCS: 97163 ==

== ENCOUNTER 2024-01-23 10:52 | Outpatient (REF) | payer OTHER, SELFPAY ==
[2024-01-23 14:56] LABS: MANUAL DIFF FLAG NO
[2024-01-23 15:10] LABS: Basophils Percent Auto 0.5 % (0-2); Eosinophils Absolute Auto 0.2 X10*3/uL (0.0-0.4); Eosinophils Percent Auto 2.7 % (0-4); Hematocrit 27.8 % (37.0-47.0); Hemoglobin 9.1 g/dl (12.0-16.0); Imm Gran Abs Auto 0.02 X10*3/uL (0.00-0.03); Imm Gran Pct Auto 0.3 % (0.0-0.4); Lymphocytes Absolute Auto 2.4 X10*3/uL (1.2-4.9); Mean Corpuscular HGB Conc 32.7 g/dl (31.0-35.0); Mean Corpuscular Hemoglobin 24.6 pg (27.0-33.0); Mean Corpuscular Volume 75.1 fL (80.0-98.0); Mean Platelet Volume 9.7 fL (9.4-12.3); Monocytes Absolute Auto 0.4 X10*3/uL (0.1-1.2); Monocytes Percent Auto 5.8 % (2-11); Neutrophils Absolute Auto 3.2 x10*3/uL (2.0-8.3); Neutrophils Percent Auto 51.7 % (45-73); Platelet Count 395 X10*3/uL (160-400); Red Cell Distribution Width 13.5 % (11.0-16.0); White Blood Count 6.2 X10*3/uL (4.8-10.8)
[2024-01-23 16:39] LABS: Alanine Aminotransferase 21 U/L (0-31); Albumin Level 2.4 g/dL (3.5-5.0); Alkaline Phosphatase 141 U/L (39-117); Anion Gap 11 (12-20); Aspartate Amino Transferase 32 U/L (5-31); Bilirubin Total 0.1 mg/dL (0.0-1.0); Blood Urea Nitrogen 32 mg/dL (9-16); Calcium 7.7 mg/dL (8.4-10.2); Carbon Dioxide 24 mmol/L (22-29); Chloride 100 mmol/L (96-108); Estimated Glomerular Filt Rate 52; Glucose Random 511 mg/dL (60-115); Potassium 4.6 mmol/L (3.3-5.1); Sodium 130 mmol/L (135-145)
== END 2024-01-23 10:53 | disposition home or self-care (01) ==
LOC: HO.WFDLDS 10:52
PROVIDERS: PCP Family Medicine; Visit Provider Family Medicine
DX: E10.65 Type 1 diabetes mellitus with hyperglycemia (principal); M25.562 Pain in left knee; F19.10 Other psychoactive substance abuse, uncomplicated; H26.9 Unspecified cataract; G62.9 Polyneuropathy, unspecified; T14.8XXA Other injury of unspecified body region, initial encounter; Z89.512 Acquired absence of left leg below knee
CPT/HCPCS: 36415; 80053; 85025; 99212

== ENCOUNTER 2024-01-23 10:52 | Outpatient (AMB) | payer OTHER, SELFPAY ==
--- NOTE | 2024-01-23 11:12 | MHC.PC.OV ---
Vital Signs 01/23/24 11:16 Height 5 ft 4 in Weight 130 lb BMI 22.3 BP 110/60 Blood Pressure Location Rt brachial Position Sitting Respiration 16 Pulse 93 Pulse Source Pulse Oximeter Temp 98 F Temp Source Tympanic Pulse Oximetry (%) 98 Oxygen Delivery Method Room Air Intake Visit Reasons: tcm discharge from [facility] Intake Note: discharge follow up Allergies doxycycline Allergy (Mild, Verified 01/23/24 11:13) Hives almonds Allergy (Intermediate, Uncoded 12/05/23 09:39) Hives bactrim Allergy (Intermediate, Uncoded 12/05/23 09:39) Hives Tobacco use date assessed: 11/04/23 Dental Screening Dental Screen Date: 11/04/23 HPI tcm discharge from [facility] HPI Details Patient?was?admitted?to?[facility]?on?01/13/2024?and?discharged?on?01/16/2024. She?presented?on?January??with?complaints?of?fatigue/malaise?as?well?as?nausea?and?chills?and?complaints?of?left?knee?pain. She?was?found?to?have?hyperglycemia?with?blood?sugars?greater?than?500. Concern?was?for?DKA?and?also?septic?arthritis?of?the?left?knee. ?Both?of?these?conditions?however?were?ruled?out. Patient's?blood?sugar?was?treated?with?IV?fluids?and?insulin?though?it?was?strongly?noted?that?patient?was?not?compliant?with regimen?and?was?found?eating?outside?fast?food?on?numerous?occasions. ?She?also?did?have?ongoing?complaints?of?left?knee?pain likely?secondary?to left?knee?arthritis. Patient?was?discharged?on?her?pre-hospital?diabetes?regimen and?no?active?infection?was?found. A1c 11/04/23 12.4%. A1c today 01/23/24 is 12.8%. Has an appt. scheduled to set up a continuous glucose monitor. Thye note blood sugar at home varies. They report low blood sugars from -. Does not follow a diet. TCM TCM Information Date of Discharge 01/16/24 Discharged From Other ([facility]) Interactive Contact Date (Reference documentation from this date) 01/23/24 HPI Comments History of Present Illness Details Documentation assistance for Alexander Coughlin MD, was provided by Abelardo Diaz,? Cloth Washer Back Tender on 01/23/2024 at 11:30 AM EST. I, Dr. Coughlin, have read, observed, and verified documentation. [facility] Medical History (Updated 01/23/24 @ 11:47 by Abelardo Diaz) Type 1 diabetes Skin-picking disorder Polysubstance use disorder DKA (diabetic ketoacidosis) Depression with anxiety PTSD (post-traumatic stress disorder) Anxiety and depression Eczema Memory loss Incontinence delivery delivered Encephalopathy chronic Diabetic retinopathy Fibromyalgia Neuropathy 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 Anxiety Depression Asthma Diabetes 1.5, managed as type 1 Surgical History 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 Hx of LASIK H/O detached retina repair History of adenoidectomy History of tonsillectomy H/O removal of cyst Family History Mother Substance abuse Asthma Psychiatric disorder Father Psychiatric disorder Maternal Grandmother Cancer Other Mental health disorder Social History Housing: Apartment Patient Tobacco Use Status: Current everyday Tobacco user Tobacco use type: Cigarette Cigarette Packs Per Day: 1 e-Cigarette/Vaping Use: Currently Using service: No Current occupational status: disabled Cognitive needs: No Hearing needs: No Vision needs: Yes (Patient needs eye exM) Questionnaire Thrive Questionnaire Date Thrive assessed: 11/04/23 JEANE-7 AMB Questionnaire JEANE-7 Date JEANE - 7 assessed: 11/04/23 Source: Developed by Drs. Alex Alicea, Vero Reyes, Dimitrios Wesley and colleagues, with an educational nehemias from [employer]. Review of Systems Const Denies chills, Denies fatigue, Denies fever(s), Denies headache(s) and Denies weakness ENT Denies dizziness and Denies headache(s) Card Denies dyspnea Resp Denies cough, Denies dyspnea, Denies wheezing and Denies other (shortness of breath) Musc Denies numbness and Denies tingling Neuro Denies dizziness, Denies headache(s), Denies numbness, Denies tingling and Denies weakness Psych Denies anxiety and Denies depression Endo Denies fatigue Aller/Immun Denies wheezing Physical exam (Primary Care) Vital Signs: Last Vital Signs Temp 98 F 01/23/24 11:16 Pulse 93 01/23/24 11:16 Resp 16 01/23/24 11:16 BP 110/60 01/23/24 11:16 Pulse Ox 98 01/23/24 11:16 Oxygen Delivery Method Room Air 01/23/24 11:16 BMI result Body Mass Index 22.3 Tobacco/Smoking Status: Tobacco use Status Tobacco use date assessed 11/04/23 01/23/24 11:18 Patient Tobacco Use Status Current everyday Tobacco 01/23/24 11:18 Tobacco use type Cigarette 01/23/24 11:18 e-Cigarette/Vaping Use Currently Using 01/23/24 11:18 Thrive Assessment: Date of Thrive Assessment Date Thrive assessed 11/04/23 01/23/24 11:18 Const General: well developed; No acute distress Nutritional Appearance: well nourished Orientation/consciousness: patient oriented x3 [facility] Head: Yes normocephalic and Yes atraumatic Eyes General: appearance normal, both eyes and all related structures Pupils: Equal, round and reactive pupils present EOM: EOMs intact bilaterally Resp Effort & Inspection: normal respiratory effort Auscultation: clear to auscultation bilaterally Cardio Rate: regular rate Rhythm: regular rhythm Heart sounds: S1 normal heart sound present, S2 normal heart sound present, no gallops, no murmurs and no rubs Skin Other: Large open wound on L arm and R leg Neuro General: patient oriented x3 and gait normal Cranial nerves: Yes Equal, round and reactive pupils present Psych Affect: normal affect Assessment and Plan Assessment & Plan (1) Type 1 diabetes: Code(s): E10.9 - Type 1 diabetes mellitus without complications Plan: Recent?hospital?admission?for?hyperglycemia?in?a?patient?with?type?1?diabetes. Difficulties?with?compliance?with?her?medications?and?diabetic?diet She?is?getting?some?low?blood?sugars?as?low?as?20s-40s?though?her?A1c?is?12.8%?today She?has?an?upcoming?appointment?with?her?pipeliner. I?did?not?make?any?changes?to?her?medications?today?due?to?some?significant?lows. I?did?recommend?that?she?work?on?compliance?with?taking?her?medications?and?a?diabetic?diet. (2) Hyperglycemia: Code(s): R73.9 - Hyperglycemia, unspecified Plan: As?above (3) Left knee pain: Code(s): M25.562 - Pain in left knee Plan: Patient?has?a?history?of?fibromyalgia?and?polyarthralgias.??She?has?a?left?vefci-xpw-fohs?amputation. Complaints?left?knee?pain. She?had?been?referred?to?pain?management?in?the?past?and?I?will?refer?her?back?to?pain?management. (4) Substance abuse: Code(s): F19.10 - Other psychoactive substance abuse, uncomplicated Plan: Patient?is?using?IV?drugs?though?she?is?trying?to?discontinue?this She?should?follow-up?with?[facility]?Clinic Continue?to?work?at?abstinence (5) Cataract, left eye: Code(s): H26.9 - Unspecified cataract Plan: Patient?needs?clearance?before?she?can?get?left?cataract?surgery. She?has?an?upcoming?appointment?and?we?will?get?preop?clearance?that?day (6) Wound of skin: Code(s): T14.8XXA - Other injury of unspecified body region, initial encounter Plan: Multiple?wounds?on?skin?at?left?arm?and?right?leg IVDU?patient. Encouraged?abstinence She?can?which?a?triple?antibiotic?ointment?over?wounds?while?awaiting?wound?care?consult. Referred?to?wound?care Orders: Referrals Wound Care Referral T14.8XXA - Other injury of unspecified body region, initial encounter Pain Management Referral G62.9 - Polyneuropathy, unspecified, M25.562 - Pain in left knee, M79.7 - Fibromyalgia, S88.112S - Complete traumatic amputation at level between knee and ankle, left lower leg, sequela Medications: Refilled acetaminophen (Infant's Tylenol) 960 mg (30 mL) PO .q8 30 days PRN 120 mL 3RF pain Coding Level of Care Code TCM Mod MDM <= 7 Days Diagnoses Type 1 diabetes E10.9 Hyperglycemia R73.9 Left knee pain M25.562 Substance abuse F19.10 Cataract, left eye H26.9 Wound of skin T14.8XXA
[2024-01-23 11:16] VITALS: BP 110/60; PULSE 93; RESP 16; TEMP 36.6; O2SAT 98; BMI 22.3
== END 2024-01-23 13:20 | disposition home or self-care (01) ==
PROVIDERS: PCP Family Medicine; Visit Provider Family Medicine
DX: E10.65 Type 1 diabetes mellitus with hyperglycemia (principal); F19.10 Other psychoactive substance abuse, uncomplicated; M25.562 Pain in left knee; H26.9 Unspecified cataract; T14.8XXA Other injury of unspecified body region, initial encounter

== ENCOUNTER 2024-02-06 08:56 | Outpatient (AMB) | payer OTHER, SELFPAY ==
--- NOTE | 2024-02-06 09:03 | A.OFFVIS_ITS ---
Intake Intake Visit Reasons: Type 1 DM-conf Health Counselor Required: No Accompanied by: Other Relationship Allergies doxycycline Allergy (Mild, Verified 01/23/24 11:13) Hives almonds Allergy (Intermediate, Uncoded 12/05/23 09:39) Hives bactrim Allergy (Intermediate, Uncoded 12/05/23 09:39) Hives HPI Comprehensive Diabetes Asmnt General Diabetes type type 1 and insulin-requiring Age of onset 3 y/o Do any samaritan or cultural beliefs play a role in diabetes care No Comorbidities reports history of amputations and depression Most Recent Diabetes Results: Creatinine 1.22 mg/dL (0.5-1.4) 01/23/24 Blood Urea Nitrogen 32 mg/dL (9-16) H 01/23/24 Sodium 130 mmol/L (135-145) L 01/23/24 Potassium 4.6 mmol/L (3.3-5.1) 01/23/24 Chloride 100 mmol/L (96-108) 01/23/24 Carbon Dioxide 24 mmol/L (22-29) 01/23/24 Calcium 7.7 mg/dL (8.4-10.2) L 01/23/24 AST 32 U/L (5-31) H 01/23/24 ALT 21 U/L (0-31) 01/23/24 Total Protein 6.0 g/dL (6.5-8.0) L 01/23/24 Albumin 2.4 g/dL (3.5-5.0) L 01/23/24 [facility] Medical History (Updated 01/23/24 @ 11:47 by Abelardo Diaz) Type 1 diabetes Skin-picking disorder Polysubstance use disorder DKA (diabetic ketoacidosis) Depression with anxiety PTSD (post-traumatic stress disorder) Anxiety and depression Eczema Memory loss Incontinence delivery delivered Encephalopathy chronic Diabetic retinopathy Fibromyalgia Neuropathy 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 Anxiety Depression Asthma Diabetes 1.5, managed as type 1 Surgical History 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 Hx of LASIK H/O detached retina repair History of adenoidectomy History of tonsillectomy H/O removal of cyst Family History Mother Substance abuse Asthma Psychiatric disorder Father Psychiatric disorder Maternal Grandmother Cancer Other Mental health disorder Social History Housing: Apartment Patient Tobacco Use Status: Current everyday Tobacco user Tobacco use type: Cigarette Cigarette Packs Per Day: 1 e-Cigarette/Vaping Use: Currently Using service: No Current occupational status: disabled Cognitive needs: No Hearing needs: No Vision needs: Yes (Patient needs eye exM) Assessment & Plan Assessment & Plan (1) Type 1 diabetes: Code(s): E10.9 - Type 1 diabetes mellitus without complications Plan: Patient at visit to set up an insert Dexcom G7 sensor Instructed patient sensors water proof you can shower, or swim do not submerge sensor in water for over 30 minutes Is sensor falls off cannot put back in you need to replace sensor, customer service number given to patient for sensor replacement Sensor placed on the back of left arm Patient left visit with sensor in warmup Reviewed how to interpret trend arrows Reminded patient that to check finger sticks if symptoms do not match sensor reading. Discussed lag time between finger stick and sensor data.? Instructed patient she should always keep blood glucometer for backup testing if needed Reviewed delay of CGM from fingersticks Reminded pt that if symptoms do not match sensor still needs to check fingersticks. Pt connected to Clinic Dexcom Clarity account Portions of this note were created using voice recognition software, please excuse any words or phrases that may have been misinterpreted. Patient Instructions: Patient instruction: CGM provides information on blood glucose control throughout the day, including hyperglycemia and hypoglycemia. ? Continue to [facility] blood glucose as instructed. Follow nutrition guidelines provided. Report any discomfort promptly to health care provider. ?Stay well-hydrated. You can bathe ,shower, swim and exercise while wearing the glucose sensor. Do not submerge glucose sensor in water for more than 30 minutes. Coding Level of Care Code Est Pt Level 1 (89386) Diagnoses Type 1 diabetes E10.9
== END 2024-02-06 09:39 | disposition home or self-care (01) ==
PROVIDERS: PCP Family Medicine; Visit Provider Registered Nurse Diabetes Educator
DX: E10.9 Type 1 diabetes mellitus without complications (principal)

== ENCOUNTER 2024-02-06 08:56 | Outpatient (AMB) | payer OTHER, SELFPAY ==
--- NOTE | 2024-02-06 07:57 | A.OFFVIS_ITS ---
Vital Signs 02/06/24 09:55 Height 5 ft 4 in BMI Reason not done Patient refused/unable BP 128/72 Blood Pressure Location Rt brachial Position Sitting Pulse 99 Pulse Source Pulse Oximeter Intake Visit Reasons: T1DM(same day as Birgit per pt convenience) Intake Note: Patient presents today for a follow-up on Type 1 Diabetes Mellitus: Last Diabetic eye exam was on: 05/2023 Last Podiatry exam was on: Does not see a Veterinary Technician Instructor Most recent HbA1c: 12.6%, 02/06/2024 Random Glucose- >600 mg/dL, Today at 9:57 AM. Laborer Required: No Accompanied by: Self / Same As Patient Allergies doxycycline Allergy (Mild, Verified 01/23/24 11:13) Hives almonds Allergy (Intermediate, Uncoded 12/05/23 09:39) Hives bactrim Allergy (Intermediate, Uncoded 12/05/23 09:39) Hives HPI Comments Details: 28-year-old female seen in f/u for T1DM. She was last seen as a consult on 11/22/2023 and was started on Tresiba due to multiple lows and inability to achieve reasonable glycemic control. She has a h/o of active polysubstance abuse and is followed by a Addiction Treatment program. Most recent hemoglobin A1c 12.6% on 02/06/2024. Patient?was?admitted?to?[facility]?Center?on?01/13/2024?and?discharged?on?04/2024 for dka, blood clot now on Eliquis and possible septic knee which was ruled out. She saw the tractor mechanic apprentice today to get started on a Dexcom sensor. Glucose in the clinic today was 600. She declined urine sample for ketones as she had just used the restroom. I recommended hospitalization which the patient declined. She had not taken insulin since yesterday morning as she ran out and did not get to the pharmacy which she plans to do immediately. She declined 15 units of insulin and was advised that if she is in DKA that refusal to take insulin/ER evaluation could result in coma, extended hospital stay or . PMH: Polysubstance abuse, left bka secondary to non healing heel ulcer, diabetes type 1 with multiple prior hospitalizations for DKA,neuropathy, neuropathy, fibromyalgia, severe retinopathy and cataracts followed by a retinal specialist and pruritus caused by anxiety. She was discharged 11/2023 from [facility] with DKA and pancreatitis in the setting of MRSA bacteremia treated with vancomycin in October. Initially diagnosed with T1DM at age 4 and has been on insulin since that time. Diabetes has been poorly controlled most of her life. She has been on and off an insulin pump a number of times with her last being a [employer] insulin pump. She reports she had better control while on a pump. She reports she does check her sugars regularly but does not have a glucometer. She has not had any recent lows other than when she was in the hospital and she was unable to take Tresiba. She reports her blood sugars have been running in the 200 range. At her last visit she was given a prescription for ketone test strips which were denied by her insurance and she was also asked to bring in her specific sliding scale for short-acting insulin coverage which she not do today. She does overall report her sugars have been less labile since transitioning from Lantus twice daily to Tresiba. Tresiba 30 units Humalog t.i.d. with meals on a sliding scale from 11/05/2015. She states she has a sliding scale that she follows written at home but does not remember the specifics of the scale. Treats lows with glucose tablets. Checks sugar after to ensure it is rising. Follows the rule of 15's. Has severe retinopathy: Has eyes several times per year and needs to have a cataract extraction for which she has surgical clearance scheduled with her PCP.. + neuropathy: does not see podiatry, self care +nephropathy:01/09/24: eGFR 52 01/26:microalbumin >2000. [Denies] history of CAD. Denies nausea, vomiting, weakness Has low calcium: corrected calcium (low albumin) 8.98. Has had diabetes education. Multiple prior episodes of DKA requiring hospitalization. [facility] Medical History (Updated 01/23/24 @ 11:47 by Abelardo Diaz) Type 1 diabetes Skin-picking disorder Polysubstance use disorder DKA (diabetic ketoacidosis) Depression with anxiety PTSD (post-traumatic stress disorder) Anxiety and depression Eczema Memory loss Incontinence delivery delivered Encephalopathy chronic Diabetic retinopathy Fibromyalgia Neuropathy 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 Anxiety Depression Asthma Diabetes 1.5, managed as type 1 Surgical History 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 Hx of LASIK H/O detached retina repair History of adenoidectomy History of tonsillectomy H/O removal of cyst Family History Mother Substance abuse Asthma Psychiatric disorder Father Psychiatric disorder Maternal Grandmother Cancer Other Mental health disorder Social History Housing: Apartment Patient Tobacco Use Status: Current everyday Tobacco user Tobacco use type: Cigarette Cigarette Packs Per Day: 1 e-Cigarette/Vaping Use: Currently Using service: No Current occupational status: disabled Cognitive needs: No Hearing needs: No Vision needs: Yes (Patient needs eye exM) Physical Exam Vital Signs: Last Vital Signs Pulse 99 02/06/24 09:55 BP 128/72 02/06/24 09:55 Const Other: Presents in wheelchair, Absence of Cushingoid features. Absence of acromegalic features.Skin exam reveals absence of vitiligo or acanthosis nigricans. She has multiple areas of excoriation. Left BKA. Foot exam deferred. Results AMB Hemoglobin A1c AMB Hemoglobin A1c 12.6 % Last Edit by KAM Greenwood on 02/06/24 10:0 6 Results Reviewed Results Reviewed: Laboratory Last Values Glucose (Clinic) > 600 mg/dL (60-115) H* 02/06/24 09:57 Hgb A1c (Clinic) 12.6 % (4.0-6.0) H 02/06/24 10:05 Laboratory Tests 01/08/23 11/04/23 01/23/24 08:00 12:55 Unknown Potassium 4.6 Creatinine 1.22 Estimated GFR 52 Random Glucose 511 H* Hgb A1c (Clinic) 12.4 H Calcium 7.7 L D Albumin 2.4 L Triglycerides 322 H Cholesterol 193 LDL Cholesterol, Calc 82 HDL Cholesterol 47 Urine Microalbumin > 2000.0 Microalb/Creat Ratio 3297.6 H Assessment & Plan Assessment & Plan (1) Type 1 diabetes: Code(s): E10.9 - Type 1 diabetes mellitus without complications Category: Medical Plan: This is a 28-year-old poorly controlled type 1 diabetic with a history of active substance abuse, nephropathy, retinopathy, neuropathy and multiple recent hospital admissions for DKA. I advised that she go to the emergency room today she declined in addition to declining insulin and reports she will go immediately to the pharmacy to sweet pickle maker her insulin. She was advised this was against medical advice and could lead to coma, prolonged ICU stay or . She agrees to return to clinic early next week. She was offered an appointment tomorrow or Saturday which she declined. She was unable to sweet pickle maker ketone test strips as they were not covered by her insurance. She was recommended that she could purchase these [id number] or through [employer] but I will process of prior authorization to see if we can get insurance to cover these. She is aware of the protocol on when to use ketone test strips and how to treat diabetic ketoacidosis. She admits to immediately going to pharmacy to sweet pickle maker her insulin and to resume an insulin. She has had a longstanding history of poorly controlled diabetes with multiple micro/macrovascular complications in his agreed to intensive management until we get her sugars under better control. I advised her that I would be able to either see or speak with her weekly for the next month or two as needed but that it was absolutely essential that she get her DM under control. Foot exam was deferred today as the patient declined and she wanted to get immediately to the pharmacy. Case was discussed with Dr. Bowens. Orders: Orders AMB Hemoglobin A1c Today E10.9 - Type 1 diabetes mellitus without complications Patient Instructions: Symptoms of DKA were reviewed: early: frequent urination, dry mouth, fatigue, feeling ill, severe symptoms: ketones in the urine, abdominal pain, nausea, vomiting and weakness. It is important to hydrate with sugar free liquids every 30 minutes and bring the sugars down to normal levels. The patient was counseled to achieve a target A1C of 7% (154 avg).Reviewed the relationship between poor diabetic control and the developement of complications Coding Level of Care Code Est Pt Level 4 (27376) Diagnoses Type 1 diabetes E10.9
[2024-02-06 09:55] VITALS: BP 128/72; PULSE 99
[2024-02-06 10:02] LABS: Glucose, Whole Blood > 600 mg/dL (60-115)
== END 2024-02-06 10:13 | disposition home or self-care (01) ==
PROVIDERS: PCP Family Medicine; Visit Provider Nurse Practitioner Adult Health
DX: E10.9 Type 1 diabetes mellitus without complications (principal)
CPT/HCPCS: 99214

== ENCOUNTER → 2024-02-06 08:56 | Outpatient (BNVA) | payer OTHER, SELFPAY | PROVIDERS: PCP Family Medicine; Visit Provider Nurse Practitioner Adult Health | DX: E10.9 Type 1 diabetes mellitus without complications (principal); Z79.4 Long term (current) use of insulin | CPT/HCPCS: 82947; 83036; 99211; 99212 ==

== ENCOUNTER 2024-02-11 14:22 | Outpatient (AMB) | payer OTHER, SELFPAY ==
--- NOTE | 2024-02-11 11:25 | A.OFFVIS_ITS ---
Vital Signs 02/11/24 14:26 Height 5 ft 4 in BMI Reason not done Patient refused/unable BP 100/60 Blood Pressure Location Rt brachial Position Sitting Pulse 107 H Pulse Source Pulse Oximeter Intake Visit Reasons: T1DM Intake Note: Patient presents today for a follow-up on Type 1 Diabetes Mellitus: Last Diabetic eye exam was on: 05/2023 Last Podiatry exam was on: Does not see a Uptwister Tender Most recent HbA1c: 12.6%, 02/06/2024 Random Glucose- 241mg/dL, Today Rn Relief Charge Required: No Accompanied by: Self / Same As Patient Allergies doxycycline Allergy (Mild, Verified 02/11/24 14:25) Hives almonds Allergy (Intermediate, Uncoded 02/11/24 14:25) Hives bactrim Allergy (Intermediate, Uncoded 02/11/24 14:25) Hives HPI Comments Details: 28-year-old female seen in f/u for T1DM. She was last seen 5 days ago at which time she had been off insulin for 36 hours as she did not go to the pharmacy to mushroom picker her prescription. Glucose was 600 and she declined ER visit/insulin in clinic. She prevoiusly was seen as a consult on 11/22/2023 and was started on Tresiba due to multiple lows and inability to achieve reasonable glycemic control. She has a h/o of active polysubstance abuse and is followed by a Addiction Treatment program. She has now been on Sublocade + daily film for 4 months. She reports that she is still using some of the time. Most recent hemoglobin A1c 12.6% on 02/06/2024. She is now on a Dexcom glucose sensor. Patient?was?admitted[facility]to[facility]Center?on?01/13/2024?and?disc harged?on?01/16/2024 for dka, blood clot now on Eliquis and possible septic knee which was ruled out. PMH: Polysubstance abuse, left bka secondary to non healing heel ulcer, diabetes type 1 with multiple prior hospitalizations for DKA,neuropathy, neuropathy, fibromyalgia, severe retinopathy and cataracts followed by a retinal specialist and pruritus caused by anxiety. She was discharged 11/2023 from [facility] with DKA and pancreatitis in the setting of MRSA bacteremia treated with vancomycin in October. Initially diagnosed with T1DM at age 4 and has been on insulin since that time. Diabetes has been poorly controlled most of her life. She has been on and off an insulin pump a number of times with her last being a Medtronic insulin pump. She reports she had better control while on a pump. Tresiba 30 units Humalog t.i.d. with meals on a sliding scale from 11/05/2015. 100-129 7 units 130-159 8 units 160-189 9 units 190-219 10 units 220-249 11 units 250-279 12 units 280-309 13 units 310-339 14 units 340-369 15 units 370-399 16 units over 400 17 units Dexcom average glucose: 277 14 day continuous glucose monitor report reviewed Glucose Managment indicator 9.9 % Days with CGM data 99.7 % TIme in ranges: 57 % very high (above 250) 22 % high ?(181-250) 20 % in range ?(70-180] 1 % low (69-55) 1 % ?very low (below 54) Coefficient of variation 37.9% desired less than 36% Interpretation [she is having some low in the morning on 9 and again at 12:00. Because for sliding scale she does not take insulin for less than 100 and subsequently has significant highs after the meals when she does not covered with any insulin. ] Treats lows with glucose tablets. Checks sugar after to ensure it is rising. Follows the rule of 15's. Has severe retinopathy: Has eyes several times per year and needs to have a cataract extraction for which she has surgical clearance scheduled with her PCP.. + neuropathy: does not see podiatry, self care severe neuropathy +nephropathy:01/09/24: eGFR 52 01/26:microalbumin >2000. [Denies] history of CAD. Denies nausea, vomiting, weakness Electrolytes out of balance last check 01/27 while glucose was elevated to 50. She has lab orders to repeat her blood work. Has had diabetes education. Multiple prior episodes of DKA requiring hospitalization. 2023: Malvin accompanies her to visits. 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 Hx of LASIK H/O detached retina repair History of adenoidectomy History of tonsillectomy H/O removal of cyst Family History Mother Substance abuse Asthma Psychiatric disorder Father Psychiatric disorder Maternal Grandmother Cancer Other Mental health disorder Social History Housing: Apartment Patient Tobacco Use Status: Current everyday Tobacco user Tobacco use type: Cigarette Cigarette Packs Per Day: 1 e-Cigarette/Vaping Use: Currently Using service: No Current occupational status: disabled Cognitive needs: No Hearing needs: No Vision needs: Yes (Patient needs eye exM) Physical Exam Vital Signs: Last Vital Signs Pulse 107 H 02/11/24 14:26 BP 100/60 02/11/24 14:26 Const Other: Absence of Cushingoid features. Absence of acromegalic features. Neck exam reveals nl size thyroid about 15 gms. No thyroid nodules palpable. Heart S1 S2, Reg R/R. No M/R G. Skin exam reveals absence of vitiligo or acanthosis nigricans. No edema multiple areas of excoriation left forearm 1/2 inch by 2inch, no purulence or erythema Visual exam of foot performed. Charcot foot right, amputation left No ulcerations or open lesions. No inter digit maceration or fissuring. Few scattered areas of excoriation that look clean, positive onychomycosis on shorty ral nail beds, no callouses. Sensation to monofilament exa: Caused pain Vibratory sensation absent with the exception of pain with 128 Hz tuning fork. Office Procedures Glucose Monitoring Details Details: See [facility] [id number] - Glucose monitoring, continuous-physician I&R Procedure code (CPT) selection complete Results Reviewed Results Reviewed: Laboratory Last Values Glucose (Clinic) 241 mg/dL (60-115) H 02/11/24 14:31 Assessment & Plan Assessment & Plan (1) Type 1 diabetes: Code(s): E10.9 - Type 1 diabetes mellitus without complications Category: Medical Qualifiers: Diabetes mellitus complication status: with other specified complication Qualified Code(s): E10.69 - Type 1 diabetes mellitus with other specified complication Plan: 28-year-old poorly controlled type 1 diabetic on basal bolus insulin with history of retinopathy, nephropathy and severe neuropathy. Glucose sensor shows a lows around 9 in the morning and again at 12pm. On the days she is less than 100 for lunch she does not take any lunch coverage and her blood sugars rise to the 300 range. Tresiba 28 units Humalog t.i.d. with meals on a sliding scale from 11/05/2015. Less than 100 meat 1st wait until sugars start to rise then take 4 units 100-129 7 units 130-159 8 units 160-189 9 units 190-219 10 units 220-249 11 units 250-279 12 units 280-309 13 units 310-339 14 units 340-369 15 units 370-399 16 units over 400 17 units She has regular follow up with Ophthalmology and I will refer her to Podiatry for severe neuropathy, Charcot foot and history of amputation left foot. The patient will call me weekly for the next 3 weeks and we will look at her sensor results and make adjustments on her insulin. I will see her back in 4 weeks' time. She again expressed an interest in going on a pump and I advised her until she is substance free and managed on Sublocade/daily film that I could not consider putting her on an insulin pump. Orders: Orders AMB Glucose Monitoring Today E10.69 - Type 1 diabetes mellitus with other specified complication Medications: Changed From insulin degludec (Tresiba FlexTouch U-200 insulin) 30 units (0.15 mL) subcut BEDTIME 30 days 6 mL 3RF E10.9 - Type 1 diabetes mellitus without complications To insulin degludec (Tresiba FlexTouch U-200 insulin) 28 units (0.14 mL) subcut BEDTIME 90 days 12.6 mL 3RF E10.9 - Type 1 diabetes mellitus without complications From pen needle, diabetic (BD [place] 2nd Gen Pen Needle) As directed 1x daily with lantus 100 ea 1RF To pen needle, diabetic (BD [place] 2nd Gen Pen Needle) As directed 4x daily 500 ea 3RF Patient Instructions: The patient was counseled to achieve a target A1C of 7% (154 avg). Fasting blood sugars should be 90-130 in the morning and less than 180 two hours after meals. Reviewed the relationship between poor diabetic control and the development of complications. Symptoms of DKA were reviewed: early: frequent urination, dry mouth, fatigue, feeling ill, severe symptoms: ketones in the urine, abdominal pain, nausea, vomiting and weakness. It is important to hydrate with sugar free liquids every 30 minutes and bring the sugars down to normal levels. The patient was counseled to wear closed toe shoes, never walk barefooted and to inspect the feet daily. For any signs of infection or open wound patient should notify PCP or go to urgent care. Coding Level of Care Code Est Pt Level 5 (37260) Diagnoses Type 1 diabetes mellitus with other specified complication E10.69 Diabetes mellitus complication status: with other specified complication CPT Codes Details - CPT: 75452 - Glucose monitoring, continuous-physician I&R ([id number]) Time Spent (min) 40 Comment Time spent reviewing labs/provider notes, glucose,sensor reports, face to face, chart doc
[2024-02-11 14:26] VITALS: BP 100/60; PULSE 107
[2024-02-11 14:35] LABS: Glucose, Whole Blood 241 mg/dL (60-115)
== END 2024-02-11 14:58 | disposition home or self-care (01) ==
PROVIDERS: PCP Family Medicine; Visit Provider Nurse Practitioner Adult Health
DX: E10.69 Type 1 diabetes mellitus with other specified complication (principal)
CPT/HCPCS: 95251; 99215

== ENCOUNTER → 2024-02-11 14:22 | Outpatient (BNVA) | payer OTHER, SELFPAY | PROVIDERS: PCP Family Medicine; Visit Provider Nurse Practitioner Adult Health | DX: E10.69 Type 1 diabetes mellitus with other specified complication (principal); Z79.4 Long term (current) use of insulin | CPT/HCPCS: 82947; 99212 ==

== ENCOUNTER 2024-03-10 13:52 | Outpatient (AMB) | payer OTHER, SELFPAY ==
--- NOTE | 2024-03-10 13:55 | A.OFFVIS_ITS ---
Vital Signs 03/10/24 14:06 Height 5 ft 4 in BMI Reason not done Patient refused/unable BP 126/78 Blood Pressure Location Rt brachial Position Sitting Pulse 109 H Pulse Source Pulse Oximeter Intake Visit Reasons: T1DM Intake Note: Patient presents today for a follow-up on Type 1 Diabetes Mellitus: Last Diabetic eye exam was on: 05/2023 Last Podiatry exam was on: Does not see a Gut Cleaner Most recent HbA1c: 12.6%, 02/06/2024 Random Glucose- 361 mg/dL, Today [facility] Required: No Accompanied by: Significant Other Allergies doxycycline Allergy (Mild, Verified 03/10/24 13:55) Hives almonds Allergy (Intermediate, Uncoded 03/10/24 13:55) Hives bactrim Allergy (Intermediate, Uncoded 03/10/24 13:55) Hives HPI Comments Details: 28-year-old female seen in f/u for T1DM. She was last seen 02/11/24 at which time she agreed to call weekly if her numbers were running over 250 which she did not. She is on a dexcom sensor now. She was started on Tresiba insulin several months ago due to multiple lows and inability to achieve reasonable glycemic control on twice daily lantus. She has a h/o of active polysubstance abuse and is followed by a Addiction Treatment program. She has now been on Sublocade + daily film for 5 months. She reports that she is still using some of the time. Most recent hemoglobin A1c 12.6% on 02/06/2024. Patient?was?admitted[facility]to[facility]Center?on?01/13/2024?and?discharged?on?04/2024 for dka, blood clot now on Eliquis and possible septic knee which was ruled out. PMH: Polysubstance abuse, left bka secondary to non healing heel ulcer, diabetes type 1 with multiple prior hospitalizations for DKA,neuropathy, neuropathy, fibromyalgia, severe retinopathy and cataracts followed by a retinal specialist and pruritus caused by anxiety. She was discharged 11/2023 from [facility] with DKA and pancreatitis in the setting of MRSA bacteremia treated with vancomycin in October. Initially diagnosed with T1DM at age 4 and has been on insulin since that time. Diabetes has been poorly controlled most of her life. She has been on and off an insulin pump a number of times with her last being a Medtronic insulin pump. She reports she had better control while on a pump. Currently taking: Has missed several doses of Tresiba over the past week Tresiba 30 units Humalog t.i.d. with meals less than 100 eat first and take 4 units afterward IF she is not eating, she will only take 2 units, if she is eating light she will reduce dosing in half 100-129 7 units 130-159 8 units 160-189 9 units 190-219 10 units 220-249 11 units 250-279 12 units 280-309 13 units 310-339 14 units 340-369 15 units 370-399 16 units over 400 17 units Dexcom average glucose: 342 14 day continuous glucose monitor report reviewed Glucose Managment indicator 11.7% TIme in ranges: 82 % very high (above 250) 11 % high ?(181-250) 7 % in range ?(70-180] 0% low (69-55) Interpretation Persistant highs wigh some near normal readings around 12noon Treats lows with glucose tablets. Checks sugar after to ensure it is rising. Follows the rule of 15's. Has severe retinopathy: Has eyes several times per year and needs to have a cataract extraction for which she has surgical clearance scheduled with her PCP.. + neuropathy: does not see podiatry, self care severe neuropathy has h/o bka +nephropathy:01/09/24: eGFR 52 01/26:microalbumin >2000. [Denies] history of CAD. Denies nausea, vomiting, weakness Has had diabetes education. Multiple prior episodes of DKA requiring hospitalization. 2023: Malvin accompanies her to visits. Two children 5 and 7 Tresiba 30 units Humalog t.i.d. with meals on a sliding scale from 11/05/2015. Less than 100 meat 1st wait until sugars start to rise then take 4 units 100-129 7 units 130-159 8 units 160-189 9 units 190-219 10 units 220-249 11 units 250-279 12 units 280-309 13 units 310-339 14 units 340-369 15 units 370-399 16 units over 400 17 units [facility] Medical History Type 1 diabetes Skin-picking disorder Polysubstance use disorder DKA (diabetic ketoacidosis) Depression with anxiety PTSD (post-traumatic stress disorder) Anxiety and depression Eczema Memory loss Incontinence delivery delivered Encephalopathy chronic Diabetic retinopathy Fibromyalgia Neuropathy 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 Anxiety Depression Asthma Diabetes 1.5, managed as type 1 Surgical History 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 Hx of LASIK H/O detached retina repair History of adenoidectomy History of tonsillectomy H/O removal of cyst Family History Mother Substance abuse Asthma Psychiatric disorder Father Psychiatric disorder Maternal Grandmother Cancer Other Mental health disorder Social History Housing: Apartment Patient Tobacco Use Status: Current everyday Tobacco user Tobacco use type: Cigarette Cigarette Packs Per Day: 1 e-Cigarette/Vaping Use: Currently Using service: No Current occupational status: disabled Cognitive needs: No Hearing needs: No Vision needs: Yes (Patient needs eye exM) Physical Exam Vital Signs: Last Vital Signs Pulse 109 H 03/10/24 14:06 BP 126/78 03/10/24 14:06 Const Other: Absence of Cushingoid features. Absence of acromegalic features. Neck exam reveals nl size thyroid about 15 gms. No thyroid nodules palpable. Heart S1 S2, Reg R/R. No M/R G. Skin exam reveals multiple areas of excoriation, no active bleeding or infection. Wheel chair bound. BKD left Office Procedures Glucose Monitoring Details Details: [facility] [id number] - Glucose monitoring, continuous-physician I&R Procedure code (CPT) selection complete Results Reviewed Results Reviewed: Laboratory Last Values Glucose (Clinic) 361 mg/dL (60-115) H* 03/10/24 14:04 Assessment & Plan Assessment & Plan (1) Type 1 diabetes: Code(s): E10.9 - Type 1 diabetes mellitus without complications Category: Medical Qualifiers: Diabetes mellitus complication status: with other specified complication Qualified Code(s): E10.69 - Type 1 diabetes mellitus with other specified complication Plan: TYpe 1 diabetic with longstanding history of poorly controlled diabetes s/p amputation, retinopathy, neuropathy and substance abuse presents with poor glycemic control. She is missing some doses of Tresiba and she was counseled to regularly take her insulin.Would gradually increase her tresiba as she has had some prior lows in the past.I don't believe going on a pump with her h/o substance abuse and non complicance would be a good idea. I suggested that she discuss with the drywall hanger helper tomorrow using a phone based adam with a correction factor for carbs and glucose readings. Both she and her thought this would be too difficult but it is worth broaching this subject again as she does miss meals and still needs insulin as she is high. She and her will see educator tomorrow. Could consider using a bolus calculator for meal correction only with a standard fixed dose of insulin. Tresiba increased to 32 units (most likely needs additional increase but had missed several doses. Humalog tid with meals If she is not eating, she takes 2 units (may need this increased) If less than 100, eat first then take 4 units 100-129 7 units 130-159 8 units 160-189 9 units 190-219 10 units 220-249 11 units 250- 279 12 units 280- 309 13 units 310-339 14 units over this take 16 units I will see her back in one week. I discussed plan or care with Birgit OSBORNE who she will be seeing tomorrow. The patient had an opportunity to ask questions regarding treatment plan. The patient expressed understanding and agreement with the above treatment plan. The patient is aware they should contact our office by phone for worsening glucose readings or for any low blood sugars which may warrant a change in diabetes medication. Compliance is encouraged with medications and any followup testing/consults which may have been ordered. Orders: Orders AMB Glucose Monitoring Today E10.69 - Type 1 diabetes mellitus with other specified complication Coding Level of Care Code Est Pt Level 4 (11934) Diagnoses Type 1 diabetes mellitus with other specified complication E10.69 Diabetes mellitus complication status: with other specified complication CPT Codes Details - CPT: 35379 - Glucose monitoring, continuous-physician I&R ([id number]) Time Spent (min) 45 Comment Time spent reviewing labs/provider notes, glucose,sensor reports, face to face, chart doc
[2024-03-10 14:06] VITALS: BP 126/78; PULSE 109
[2024-03-10 14:10] LABS: Glucose, Whole Blood 361 mg/dL (60-115)
== END 2024-03-10 14:36 | disposition home or self-care (01) ==
LOC: HO.ENCR 13:53
PROVIDERS: PCP Family Medicine; Visit Provider Nurse Practitioner Adult Health
DX: E10.69 Type 1 diabetes mellitus with other specified complication (principal)
CPT/HCPCS: 95251; 99214

== ENCOUNTER → 2024-03-10 13:52 | Outpatient (BNVA) | payer OTHER, SELFPAY | PROVIDERS: PCP Family Medicine; Visit Provider Nurse Practitioner Adult Health | DX: E10.69 Type 1 diabetes mellitus with other specified complication (principal); E10.10 Type 1 diabetes mellitus with ketoacidosis without coma; E10.319 Type 1 diabetes mellitus with unspecified diabetic retinopathy without macular edema | CPT/HCPCS: 82947; 99212 ==

== ENCOUNTER 2024-03-13 14:26 | Outpatient (AMB) | payer OTHER, SELFPAY ==
--- NOTE | 2024-03-13 14:27 | MHC.OFFVIS ---
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 Tender Required: No Allergies doxycycline Allergy (Mild, Verified 03/13/24 14:33) Hives sulfamethoxazole [From Bactrim] Allergy (Unknown, Verified 03/13/24 14:33) Hives trimethoprim [From Bactrim] Allergy (Unknown, Verified 03/13/24 14:33) Hives almonds Allergy (Intermediate, Uncoded 03/10/24 13:55) Hives HPI HPI Left knee pain: Details: Patient is a 28 years old female with complex past medical history, including type 1 DM (diagnosed at age 4, recent A1C=12.6), left BKA due to non-healing heel ulcer, right knee pain with h/o fracture and restricted ROM to 10 degrees, chronic low back pain, recent hospitalization for MRSA with bacteremia, SUSHANT with recent blood transfusion x2, pancreatitis, aspiration of left joint to rule out septic arthritis and PE right lower lobe in October-November 2023 (started on Eliquis), h/o left upper extremity DVT, multiple hospitalizations for DKA, severe retinopathy and cataracts, pruritis, depression and anxiety, PTSD, fibromyalgia, neuropathy, active polysubstance abuse, presents today for initial evaluation of left knee pain and lower back pain. Patient arrived via wheelchair and accompanied by her fiance who is her primary caregiver. Back pain is localized to the midline back around L4-L5 level with significant tenderness and positive SLR testing. Patient also reports global anterior knee pain bilaterally, worse on the left and paresthesias around left stump. Reports history of back injections at [place] about 8 years ago with mixed results. 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 Reports recent IVDU cocaine on 03/07/24 but is trying to stop it. She is followed at [facility] for Suboxone. She also takes gabapentin with minimal relief. Reports minimal benefit with Mental Therapist in the past. Pain negatively affects her daily activities and functioning, mobility and transfers, sleep, mood, and quality of life. She is awaiting new prosthesis but reports non-weight bearing on the right due to restricted ROM to 10 degrees since right knee fracture. Location: Left knee, lower spine midline back pain Duration: Chronic pain 2 years Characteristics of symptom or complaint: Aching, numbness, tingling, cramping, stabbing, shooting, numbness Aggravating or associated factors: Any movement, bending, cold weather, changing positions Relieving factors: nothing tried duloxetine, gabapentin, Tylenol, cyclobenzaprine Treatment: PT, back injections, multiple ER visits for pain meds [facility] Medical History Type 1 diabetes Skin-picking disorder Polysubstance use disorder DKA (diabetic ketoacidosis) Depression with anxiety PTSD (post-traumatic stress disorder) Anxiety and depression Eczema Memory loss Incontinence delivery delivered Encephalopathy chronic Diabetic retinopathy Fibromyalgia Neuropathy 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 Anxiety Depression Asthma Diabetes 1.5, managed as type 1 Surgical History 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 Hx of LASIK H/O detached retina repair History of adenoidectomy History of tonsillectomy H/O removal of cyst Family History Mother Substance abuse Asthma Psychiatric disorder Father Psychiatric disorder Maternal Grandmother Cancer Other Mental health disorder Social History (Updated 03/13/24 @ 14:35 by Rachel Pagan) Housing: Apartment Alcohol intake: current Alcohol intake frequency: a few times a month Patient Tobacco Use Status: Current everyday Tobacco user Tobacco use type: Cigarette Cigarette Packs Per Day: 1 e-Cigarette/Vaping Use: Currently Using service: No Current occupational status: disabled Cognitive needs: No Hearing needs: No Vision needs: Yes (Patient needs eye exM) Review of Systems Const All systems reviewed & are unremarkable except as noted in HPI and below Reports as per HPI, Denies chills, Reports difficulty sleeping, Reports fatigue, Denies fever(s), Reports headache(s) and Denies malaise ENT Reports headache(s) Card Denies dyspnea on exertion Resp Denies cough and Denies dyspnea on exertion GI Denies abdominal pain and Denies fecal incontinence Denies urinary incontinence Musc Reports as per HPI, Reports back pain, Reports arthralgias, Reports limited range of motion, Reports numbness, Reports radiating pain into limb, Reports stiffness and Reports tingling Skin/Breast Reports as per HPI Neuro Reports burning sensations, Reports headache(s), Reports numbness, Reports tingling and Reports paresthesias Psych Reports anxiety, Reports depression, Reports difficulty concentrating, Denies homicidal ideation and Denies suicidal ideation Endo Reports fatigue Physical Exam Vital Signs: Last Vital Signs Pulse 113 H 03/13/24 14:30 BP 146/71 H 03/13/24 14:30 Pulse Ox 96 03/13/24 14:30 Oxygen Delivery Method Room Air 03/13/24 14:30 BMI result Body Mass Index 23.2 General: Appears afebrile. Alert and oriented. Mood and affect appropriate. Follows and participates in conversation appropriately. Respiratory effort is unlabored. No cough. Patient arrived via W/C. Right BKA. Restricted ROM left knee. Unable to perform lumbar ROM due to pain. +SLR on the left. Significant midline TTP in L4-L5 level. No midline tenderness in the cervical or thoracic spine. Multiple widespread TTPs 16/16 bilaterally, including upper and lower extremities.?? Back/Spine/Pelvis Back: back tenderness Cervical Spine: loss of normal cervical lordosis, cervical muscular tenderness, pain with cervical ROM and No Cervical spine tenderness Thoracic/Lumbar Spine: Lasegue's sign positive on the left and diffuse, pain with thoraco-lumbar ROM, paraspinal muscle tenderness, thoraco-lumbar ROM limited, No thoracic spinal tenderness and lumbar spinal tenderness at L4 and at L5 Extrem Right lower extremity: lower leg (Restricted ROM right knee. Multiple scabbed/healing wounds.) Left lower extremity: knee (Left BKA, +paresthesia dorsal aspect of stump. ) Details: tenderness (global anterior knee) and crepitus; no swelling Results Reviewed Results Reviewed: No imaging reports are available for review. 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: Code(s): S88.112A - Complete traumatic amputation at level between knee and ankle, left lower leg, initial encounter Category: Medical Qualifiers: Encounter type: sequela Qualified Code(s): S88.112S - Complete traumatic amputation at level between knee and ankle, left lower leg, sequela (4) Fibromyalgia: Code(s): M79.7 - Fibromyalgia Category: Medical (5) Lumbar radiculopathy: Code(s): M54.16 - Radiculopathy, lumbar region Category: Medical (6) Low back pain radiating to left lower extremity: Code(s): M54.50 - Low back pain, unspecified; M79.605 - Pain in left leg Category: Medical Plan Advised patient to go to ER for significant midline lower spine tenderness and multiple scabbed and various stages healing wounds, worse in RLE with swelling and redness. Patient reports she has to take PT1 home and then will consider ER evaluation. I will put urgent lumbar spine MRI for concern of osteomyelitis in the setting of active substance use, reported IVDU cocaine 03/07/24, receives Suboxone via [facility]. Current A1C at 12.6, not candidate for therapeutic injections or implantable short or longer term implants given skin-picking disorder and active IVDU. Briefly discussed diagnostic injections for potential RFA procedures in the future, once osteomyelitis is ruled out and A1C is below 8.0. All questions and concerns have been answered and patient agreed with the treatment plan. Follow-up for MRI results and sooner as needed. Orders: Orders MR lumbar spine wo/w con 03/13/24 F19.10 - Other psychoactive substance abuse, uncomplicated, M54.16 - Radiculopathy, lumbar region, M54.50 - Low back pain, unspecified, M79.605 - Pain in left leg, Z86.14 - Personal history of Methicillin resistant Staphylococcus aureus infection Coding Level of Care Code New Pt Level 4 (50826) Diagnoses Substance abuse F19.10 Left knee pain M25.562 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, sequela S88.112S Encounter type: sequela Fibromyalgia M79.7 Lumbar radiculopathy M54.16 Low back pain radiating to left lower extremity M54.50; M79.605
[2024-03-13 14:30] VITALS: BP 146/71; PULSE 113; O2SAT 96; BMI 23.2
== END 2024-03-13 15:00 | disposition home or self-care (01) ==
PROVIDERS: PCP Family Medicine; Visit Provider Nurse Practitioner Family
DX: F19.10 Other psychoactive substance abuse, uncomplicated (principal); M25.562 Pain in left knee; S88.112S Complete traumatic amputation at level between knee and ankle, left lower leg, sequela; M79.7 Fibromyalgia; M54.16 Radiculopathy, lumbar region; M54.50 Low back pain, unspecified; M79.605 Pain in left leg
CPT/HCPCS: 99204

== ENCOUNTER → 2024-03-13 14:26 | Outpatient (BNVA) | payer OTHER, SELFPAY | PROVIDERS: PCP Family Medicine; Visit Provider Nurse Practitioner Family | DX: F19.10 Other psychoactive substance abuse, uncomplicated (principal); M25.562 Pain in left knee; M79.7 Fibromyalgia; M54.16 Radiculopathy, lumbar region; M54.50 Low back pain, unspecified; M79.605 Pain in left leg; S88.112D Complete traumatic amputation at level between knee and ankle, left lower leg, subsequent encounter | CPT/HCPCS: 99202 ==

== ENCOUNTER 2024-03-17 14:08 | Outpatient (AMB) | payer OTHER, SELFPAY ==
--- NOTE | 2024-03-17 09:44 | A.OFFVIS_ITS ---
Vital Signs 03/17/24 14:45 Height 5 ft 4 in BMI Reason not done Patient refused/unable BP 124/78 Blood Pressure Location Rt brachial Position Sitting Pulse 90 Pulse Source Pulse Oximeter Comment A1c 12.6%, 02/06/2024 Intake Visit Reasons: DM Intake Note: Patient presents today for a follow-up on Type 1 Diabetes Mellitus: Last Diabetic eye exam was on: 05/2023 Last Podiatry exam was on: Does not see a Fish Bait Processing Supervisor Most recent HbA1c: 12.6%, 02/06/2024 Random Glucose- 230 mg/dL, Today Vmware Architect Required: No Accompanied by: Significant Other Allergies doxycycline Allergy (Mild, Verified 03/17/24 14:10) Hives sulfamethoxazole [From Bactrim] Allergy (Unknown, Verified 03/17/24 14:10) Hives trimethoprim [From Bactrim] Allergy (Unknown, Verified 03/17/24 14:10) Hives almonds Allergy (Intermediate, Uncoded 03/17/24 14:10) Hives Medication List - Last Reconciled 03/17/24 by Melody Blackburn NP acetaminophen (Infant's Tylenol) 960 mg (30 mL) PO .q8 PRN 30 days acetaminophen (Pain Relief (acetaminophen)) mg PO acetone (urine) test (Ketone Urine Test strips) As directed prn high glucose, nausea/vomiting albuterol sulfate 90 mcg/actuation (ProAir HFA) 2 puffs inhalation Q4-6H PRN 30 days apixaban (Eliquis) 5 mg PO BID benzocaine 20% 1 appl mucous membrane TID PRN 3 days blood sugar diagnostic (FreeStyle Lite Strips) 3 times a day testing blood-glucose meter (FreeStyle Lite Meter kit) As directed blood-glucose meter,continuous (Dexcom G7 Final Dressing Cutter) As directed blood-glucose meter,continuous (DexLa [place] G7 Final Dressing Cutter) As directed blood-glucose sensor (PhotoFix [place] G7 Sensor device) As directed blood-glucose sensor (Dexcom G7 Sensor device) As directed buprenorphine ER (Sublocade) mg subcut buprenorphine-naloxone 12-3 mg (Suboxone) film sublingual buprenorphine-naloxone 8-2 mg (Suboxone) 1 film sublingual DAILY calcium polycarbophil (FiberCon) 625 mg PO DAILY 90 days cyclobenzaprine 10 mg PO TID 30 days diaper,brief,adult,disposable (Disposable Brief) Adult brief, medium. 2 times a day As directed, 90 days ergocalciferol (vitamin D2) 1,250 mcg PO QWEEK escitalopram oxalate (Lexapro) 10 mg PO DAILY 90 days gabapentin 600 mg PO BID 30 days gabapentin 800 mg PO DAILY 30 days glucose (Dex4 Glucose) 16 grams (4 x 4 gram) PO Q15M PRN 30 days MDD 16 tablets hydroxyzine HCl 50 mg PO TID PRN 30 days insulin degludec (Tresiba FlexTouch U-200 insulin) 32 units subcut BEDTIME insulin lispro Sliding Scale 10-16 units subcutaneously 3 times a day PRN; ISS insulin syringe-needle U-100 (BD Insulin Syringe Ultra-Fine) 3 times a day insulin injection lancets (FreeStyle Lancets) As directed loperamide (Anti-Diarrheal (loperamide)) 4 mg (2 x 2 mg) PO Q6H PRN 30 days loperamide mg PO loratadine (Allergy Relief (loratadine)) 10 mg PO DAILY melatonin 3 mg PO BEDTIME PRN 30 days miscellaneous medical supply Wheelchair. Daily As directed, 999 Days naloxone 4 mg/actuation 1 spray intranasal DAILY PRN pen needle, diabetic (BD [place] 2nd Gen Pen Needle) As directed 4x daily tamsulosin 0.4 mg PO DAILY HPI Comments Details: 28-year-old female seen in f/u for T1DM. She was last seen 03/10/24 at which time Tresiba and Humalog were increased due to an avrage glucose of 340. She has a h/o of active polysubstance abuse and is followed by a Addiction Treatment program. She has now been on Sublocade + daily film for 5 months. She reports that she is still using some of the time. Most recent hemoglobin A1c 12.6% on 02/06/2024. Patient?was?admitted[facility]to[facility]on[facility]01/13/2024?and?discharge d?on?01/16/2024 for dka, blood clot now on Eliquis and possible septic knee which was ruled out. PMH: Polysubstance abuse, left bka secondary to non healing heel ulcer, diabetes type 1 with multiple prior hospitalizations for DKA,neuropathy, neuropathy, fibromyalgia, severe retinopathy and cataracts followed by a retinal specialist and pruritus caused by anxiety. She was discharged 11/2023 fr [facility] with DKA and pancreatitis in the setting of MRSA bacteremia treated with vancomycin in October. Initially diagnosed with T1DM at age 4 and has been on insulin since that time. Diabetes has been poorly controlled most of her life. She has been on and off an insulin pump a number of times with her last being a Tiempotronic insulin pump. She reports she had better control while on a pump. SHE REPORTS SHE HAS NOT SKIPPED ANY INSULIN DOSES SINCE LAST VISIT Currently taking: Tresiba 32 units Humalog tid with meals If she is not eating, she takes 2 units If less than 100, eat first then take 4 units 100-129 7 units 130-159 8 units 160-189 9 units 190-219 10 units 220-249 11 units 250- 279 12 units 280- 309 13 units 310-339 14 units over this take 16 units Dexcom average glucose: 336 14 day continuous glucose monitor report reviewed Glucose Managment indicator 11.3 % Days with CGM data 100 % TIme in ranges: 82 % very high (above 250) 10 % high ?(181-250) 8 % in range ?(70-180] 0 % low (69-55) 0 % ?very low (below 54) 82 Standard Deviation Interpretation: highs during the day night time some highs but was 80 on several occasions Treats lows with glucose tablets. Checks sugar after to ensure it is rising. Follows the rule of 15's. Has severe retinopathy: Has eyes several times per year and needs to have a cataract extraction for which she has surgical clearance scheduled with her PCP. seen opth 02/2024 + neuropathy: does not see podiatry, self care severe neuropathy has h/o bka +nephropathy:01/09/24: eGFR 52 01/26:microalbumin >2000. [Denies] history of CAD. Denies nausea, vomiting, weakness Has had diabetes education. Multiple prior episodes of DKA requiring hospitalization. 2023: Malvin accompanies her to visits. 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 Anxiety Depression Asthma Diabetes 1.5, managed as type 1 Surgical History 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 Hx of LASIK H/O detached retina repair History of adenoidectomy History of tonsillectomy H/O removal of cyst Family History Mother Substance abuse Asthma Psychiatric disorder Father Psychiatric disorder Maternal Grandmother Cancer Other Mental health disorder Social History Housing: Apartment Alcohol intake: current Alcohol intake frequency: a few times a month Patient Tobacco Use Status: Current everyday Tobacco user Tobacco use type: Cigarette Cigarette Packs Per Day: 1 e-Cigarette/Vaping Use: Currently Using service: No Current occupational status: disabled Cognitive needs: No Hearing needs: No Vision needs: Yes (Patient needs eye exM) Physical Exam Vital Signs: Last Vital Signs Pulse 90 03/17/24 14:45 BP 124/78 03/17/24 14:45 Const Other: Absence of Cushingoid features. Absence of acromegalic features. Heart S1 S2, Reg R/R. No M/R G. Skin exam reveals absence of vitiligo or acanthosis nigricans. No edema left leg amputation She declined fooot eam which was last done:02/11/24 Office Procedures Glucose Monitoring Details Details: see hpi [id number] - Glucose monitoring, continuous-physician I&R Procedure code (CPT) selection complete Results Reviewed Results Reviewed: Laboratory Last Values Glucose (Clinic) 230 mg/dL (60-115) H 03/17/24 14:21 Assessment & Plan Assessment & Plan (1) Type 1 diabetes: Code(s): E10.9 - Type 1 diabetes mellitus without complications Category: Medical Qualifiers: Diabetes mellitus complication status: with other specified complication Qualified Code(s): E10.69 - Type 1 diabetes mellitus with other specified complication Plan: Type 1 diabetic with nephropathy, neuropathy and retinopathy with poor A1c. She reports she is now consistently taking her insulin dosing. I recommended that she increase her fast acting by 3 units for each part of the scale which she was reluctant to do. I gave her a new scale with a 2 unit increase per 30 points. She was given a sheet to track her blood sugar and how much insulin she took and she will schedule a follow up with the family educator to convert to a insulin carb and correction factor ratio in her phone. We will keep Mable the same as she had some nights where her sugar was in the 80 range. Mable 32 units Humalog tid with meals If she is not eating, she takes 2 units If less than 100, eat first then take 4 units 100-129 9 units 130-159 10 units 160-189 11 units 190-219 12 units 220-249 13 units 250- 279 14 units 280- 309 15 units 310-339 16 units over this take 17 units Orders: Orders AMB Glucose Monitoring Today E10.69 - Type 1 diabetes mellitus with other specified complication Patient Instructions: The patient was counseled to always carry a source of sugar and on the rule of 15's: Take 3 glucose tablets and repeat again in 15 minutes if blood sugar is not in normal range. Continue to repeat every 15 minutes until blood sugar is normal. The patient was counseled to achieve a target A1C of 7% (154 avg). Fasting blood sugars should be 90-130 in the morning and less than 180 two hours after meals. Reviewed the relationship between poor diabetic control and the development of complications. DKA Coding Level of Care Code Tele Est Pt Level 3 (69292) Diagnoses Type 1 diabetes mellitus with other specified complication E10.69 Diabetes mellitus complication status: with other specified complication CPT Codes Details - CPT: 41100 - Glucose monitoring, continuous-physician I&R ([id number]) Time Spent (min) 20 Comment Time spent reviewing labs/provider notes, glucose,sensor reports, face to face, chart doc
[2024-03-17 14:28] LABS: Glucose, Whole Blood 230 mg/dL (60-115)
[2024-03-17 14:45] VITALS: BP 124/78; PULSE 90
== END 2024-03-17 14:39 | disposition home or self-care (01) ==
PROVIDERS: PCP Family Medicine; Visit Provider Nurse Practitioner Adult Health
DX: E10.69 Type 1 diabetes mellitus with other specified complication (principal)
CPT/HCPCS: 95251; 99213

== ENCOUNTER → 2024-03-17 14:08 | Outpatient (BNVA) | payer OTHER, SELFPAY | PROVIDERS: PCP Family Medicine; Visit Provider Nurse Practitioner Adult Health | DX: E10.69 Type 1 diabetes mellitus with other specified complication (principal); E10.21 Type 1 diabetes mellitus with diabetic nephropathy; E10.40 Type 1 diabetes mellitus with diabetic neuropathy, unspecified; E10.319 Type 1 diabetes mellitus with unspecified diabetic retinopathy without macular edema; E10.65 Type 1 diabetes mellitus with hyperglycemia; Z79.4 Long term (current) use of insulin | CPT/HCPCS: 82947 ==

== ENCOUNTER 2024-03-25 11:32 | Outpatient (AMB) | payer OTHER, SELFPAY ==
--- NOTE | 2024-03-25 11:41 | MHC.PC.OV ---
Vital Signs 03/25/24 11:46 03/25/24 12:02 Height 5 ft 4 in BMI Reason not done Patient refused/unable BP 189/84 H 174/80 H Blood Pressure Location Rt radial Rt radial Position Sitting Sitting Respiration 14 Pulse 115 H Pulse Source Pulse Oximeter Temp 97.7 F Temp Source Temporal Artery Scan Pulse Oximetry (%) 99 Oxygen Delivery Method Room Air Intake Visit Reasons: med f/u Intake Note: medication f/u Allergies doxycycline Allergy (Mild, Verified 03/25/24 11:42) Hives sulfamethoxazole [From Bactrim] Allergy (Unknown, Verified 03/25/24 11:42) Hives trimethoprim [From Bactrim] Allergy (Unknown, Verified 03/25/24 11:42) Hives almonds Allergy (Intermediate, Uncoded 03/17/24 14:10) Hives Tobacco use date assessed: 11/04/23 Dental Screening Dental Screen Date: 11/04/23 HPI med f/u HPI Details 28 y/o female presents to f/u meds. Blood pressure today 174/80, 115p. Has complaints of L upper extremity pain and wounds of upper arms/legs. 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 Anxiety Depression Asthma Diabetes 1.5, managed as type 1 Surgical History 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 Hx of LASIK H/O detached retina repair History of adenoidectomy History of tonsillectomy H/O removal of cyst Family History Mother Substance abuse Asthma Psychiatric disorder Father Psychiatric disorder Maternal Grandmother Cancer Other Mental health disorder Social History Housing: Apartment Alcohol intake: current Alcohol intake frequency: a few times a month Patient Tobacco Use Status: Current everyday Tobacco user Tobacco use type: Cigarette Cigarette Packs Per Day: 1 e-Cigarette/Vaping Use: Currently Using service: No Current occupational status: disabled Cognitive needs: No Hearing needs: No Vision needs: Yes (Patient needs eye exM) Questionnaire PHQ-9 Over the last 2 weeks, how often have you been bothered by any of the following problems? 1. Little interest or pleasure in doing things: several days 3. Trouble falling or staying asleep, or sleeping too much: several days 4. Feeling tired or having little energy: several days 5. Poor appetite or overeating: not at all 6. Feeling bad about yourself - or that you are a failure or have let yourself or your family down: several days 7. Trouble concentrating on things, such as reading the newspaper or watching television: several days 8. Moving or speaking so slowly that other people could have noticed. Or the opposite - being so fidgety or restless that you have been moving around a lot more than usual: several days 9. Thoughts that you would be better off or of hurting yourself in some way: not at all Source: Developed by Drs. Alex Alicea, Vero Reyes, Dimitrios Wesley and colleagues, with an educational nehemias from [employer]. Thrive Questionnaire Date Thrive assessed: 11/04/23 I am a: Patient What is your living situation today?: I choose not to answer this question Within the past 12 months, did the food you bought not last and you didn't have the money to get more?: Sometimes True Within the past 12 months, did you worry whether your food would run out before you got money to buy more?: Sometimes True Do you have trouble paying for medicines?: I choose not to answer this question Do you have trouble getting transportation to medical appointments?: Yes Do you have trouble paying your heating and electricity bill?: Yes Do you have trouble taking care of your child, family member or friend?: I choose not to answer this question Do you have trouble with day-to-day activities such as bathing, preparing meals, shopping, managing finances, etc.?: Yes Are you currently unemployed and looking for a job?: I choose not to answer this question Are you interested in more education?: No Please select the resources that you would like help with: Housing/Penitentiary and Food Currently or been in a relationship where the following occur: I choose not to answer THRIVE Score: 4 AUDIT C Alcohol Use Questionnaire (AUDIT-C) 1. How often do you have a drink containing alcohol?: Never Total Score: 0 JEANE-7 AMB Questionnaire JEANE-7 Date JEANE - 7 assessed: 11/04/23 Feeling nervous, anxious, or on edge: 1 = Several days Not being able to stop or control worryin = Several days Worrying too much about different things: 1 = Several days Trouble relaxin = Several days Being so restless that it is hard to sit still: 1 = Several days Becoming easily annoyed or irritable: 1 = Several days Feeling afraid as if something awful might happen: 1 = Several days Total JEANE-7 score (0-4 normal; 5-9 mild; 10-14 moderate; 15-21 severe): 7 Source: Developed by Drs. Alex Alicea, Vero Reyes, Dimitrios Wesley and colleagues, with an educational nehemias from [employer]. Review of Systems Const Denies chills, Denies fatigue, Denies fever(s), Denies headache(s) and Reports weakness ENT Denies dizziness and Denies headache(s) Card Denies dyspnea Resp Denies cough, Denies dyspnea, Denies wheezing and Denies other (shortness of breath) Musc Details: L upper extremity pain Neuro Denies dizziness, Denies headache(s) and Reports weakness Psych Details: Difficulty sleeping Denies anxiety and Denies depression Endo Denies fatigue Aller/Immun Denies wheezing Physical exam (Primary Care) Vital Signs: Last Vital Signs Temp 97.7 F 03/25/24 11:46 Pulse 115 H 03/25/24 11:46 Resp 14 03/25/24 11:46 BP 174/80 H 03/25/24 12:02 Pulse Ox 99 03/25/24 11:46 Oxygen Delivery Method Room Air 03/25/24 11:46 Tobacco/Smoking Status: Tobacco use Status Tobacco use date assessed 11/04/23 03/25/24 11:47 Patient Tobacco Use Status Current everyday Tobacco 03/25/24 11:47 Tobacco use type Cigarette 03/25/24 11:47 e-Cigarette/Vaping Use Currently Using 03/25/24 11:47 Thrive Assessment: Date of Thrive Assessment Date Thrive assessed 11/04/23 03/25/24 11:47 Currently or been in a relationship where the following occur: I choose not to answer Const General: well developed; No acute distress Nutritional Appearance: well nourished Orientation/consciousness: patient oriented x3 HENMT Head: Yes normocephalic and Yes atraumatic Eyes General: appearance normal, both eyes and all related structures Pupils: Equal, round and reactive pupils present EOM: EOMs intact bilaterally Resp Effort & Inspection: normal respiratory effort Auscultation: clear to auscultation bilaterally Cardio Rate: tachycardic Rhythm: regular rhythm Heart sounds: S1 normal heart sound present, S2 normal heart sound present, no gallops, no murmurs and no rubs Neuro General: patient oriented x3 and gait normal Cranial nerves: Yes Equal, round and reactive pupils present Psych Affect: normal affect Coding Level of Care Code Est Pt Level 4 (51256) Diagnoses Hypertension I10 Pain of left upper extremity M79.602 Wound of skin T14.8XXA Difficulty sleeping G47.9 Tachycardia R00.0 Assessment & Plan Assessment & Plan (1) Hypertension: Code(s): I10 - Essential (primary) hypertension Category: Medical Plan: Blood?pressure?is?much?too?high. Start?metoprolol?XR?25?mg?b.i.d. Will?have?her?return?next?week?for?a?nurse?visit?to?ensure?blood?pressure?is?improving Should?follow-up?with?me?in?3?weeks?for?hypertension (2) Pain of left upper extremity: Code(s): M79.602 - Pain in left arm Category: Medical Plan: Pain?and?swelling?at?left?upper?extremity Circulation,?motor?and?sensation?intact?distal?fingertips. Concern?however?for DVT?verses?thrombophlebitis Ultrasound?ordered (3) Wound of skin: Code(s): T14.8XXA - Other injury of unspecified body region, initial encounter Category: Medical Plan: Patient?has?multiple?wounds?on?skin?of?left?leg?and?left?upper?extremity Current?IV?drug?use?and?skin?picking Referred?wound (4) Difficulty sleeping: Code(s): G47.9 - Sleep disorder, unspecified Category: Medical Plan: Continue?melatonin (5) Tachycardia: Code(s): R00.0 - Tachycardia, unspecified Category: Medical Plan: Appear?somewhat?dehydrated he?has?complaints?left?arm Increase?hydration Starting?metoprolol?for blood?pressure?and?tachycardia Orders: Orders US venous duplex UE LT Today M79.603 - Pain in arm, unspecified, M79.89 - Other specified soft tissue disorders Referrals Wound Care Referral T14.8XXA - Other injury of unspecified body region, initial encounter Medications: New metoprolol succinate ER 25 mg PO BID 30 days 60 tabs 1RF amoxicillin-pot clavulanate 500-125 mg (Augmentin) 1 tab PO Q12H 10 days 20 tabs 0RF Changed From melatonin 3 mg PO BEDTIME 30 days PRN 30 tabs 1RF sleep To melatonin 6 mg (2 x 3 mg) PO BEDTIME 30 days PRN 60 tabs 2RF sleep From gabapentin Takes 600mg AM, 800mg midday, 600mg PM 800 mg PO DAILY 30 days 30 tabs 1RF To gabapentin Takes 600mg AM, 800mg midday, 600mg PM 800 mg PO TID 30 days 90 tabs 3RF Discontinued gabapentin Takes 600mg AM, 800mg midday, 600mg PM Discontinued Reason: Doctor's Order 600 mg PO BID 30 days 60 tabs 1RF
[2024-03-25 11:46] VITALS: BP 189/84; PULSE 115; RESP 14; TEMP 36.5; O2SAT 99
[2024-03-25 12:02] VITALS: BP 174/80
== END 2024-03-25 14:02 | disposition home or self-care (01) ==
PROVIDERS: PCP Family Medicine; Visit Provider Family Medicine
DX: I10 Essential (primary) hypertension (principal); M79.602 Pain in left arm; T14.8XXA Other injury of unspecified body region, initial encounter; G47.9 Sleep disorder, unspecified; R00.0 Tachycardia, unspecified

== ENCOUNTER → 2024-03-25 11:32 | Outpatient (BNVA) | payer OTHER, SELFPAY | PROVIDERS: PCP Family Medicine; Visit Provider Family Medicine | DX: I10 Essential (primary) hypertension (principal); M79.602 Pain in left arm; T14.8XXA Other injury of unspecified body region, initial encounter; G47.9 Sleep disorder, unspecified; R00.0 Tachycardia, unspecified | CPT/HCPCS: 96127; 99212 ==

== ENCOUNTER 2024-03-27 14:50 | Outpatient (REF) | payer OTHER, SELFPAY ==
--- NOTE | ~2024-03-27 | US_ITS ---
EXAMINATION: US TRIPLEX UPPER EXTREMITY, LEFT CLINICAL INFORMATION: Left arm pain COMPARISON: None available. TECHNIQUE: Color-flow triplex imaging with spectral analysis and compression Doppler was performed on the left upper extremity. FINDINGS: The left internal jugular, subclavian, and axillary veins are patent and free of thrombus. The imaged segment of the left brachiocephalic vein is patent. Spectral doppler waveforms are normal. The brachial, basilic, cephalic, radial, and ulnar veins are patent and compressible. US/US venous duplex UE LT IMPRESSION: No evidence of deep venous thrombosis involving the left upper extremity. Electronically signed by: Dino Melgoza MD 03/27/2024 04:49 PM JAMMIE RP
== END 2024-03-27 14:51 | disposition home or self-care (01) ==
LOC: HO.US 14:50
PROVIDERS: PCP Family Medicine; Visit Provider Family Medicine
DX: M79.602 Pain in left arm (principal); R60.0 Localized edema
CPT/HCPCS: 93971

== ENCOUNTER 2024-03-31 15:01 | Outpatient (AMB) | payer OTHER, SELFPAY ==
--- NOTE | 2024-03-31 15:03 | A.OFFVIS_ITS ---
Vital Signs 03/31/24 15:04 Height 5 ft 4 in BMI Reason not done Patient refused/unable BP 118/76 Blood Pressure Location Rt brachial Position Sitting Pulse 98 Pulse Source Pulse Oximeter Intake Visit Reasons: DM/CONF Intake Note: Patient presents today for a follow-up on Type 1 Diabetes Mellitus: Last Diabetic eye exam was on: 05/2023 Last Podiatry exam was on: Does not see a [employer] Most recent HbA1c: 12.6%, 02/06/2024 Random Glucose- 159 mg/dL, Today Storage Specialist Required: No Accompanied by: Significant Other Allergies doxycycline Allergy (Mild, Verified 04/21/24 09:41) Hives sulfamethoxazole [From Bactrim] Allergy (Unknown, Verified 04/21/24 09:41) Hives trimethoprim [From Bactrim] Allergy (Unknown, Verified 04/21/24 09:41) Hives almonds Allergy (Intermediate, Uncoded 03/31/24 15:04) Hives HPI Comments Details: 28-year-old female seen in f/u for T1DM. She was last seen 03/10/24 at which time Tresiba and Humalog were increased due to an avrage glucose of 340. She has a h/o of active polysubstance abuse and is followed by a Addiction Treatment program. She has now been on Sublocade + daily film for 5 months. She reports that she is still using some of the time. Most recent hemoglobin A1c 12.6% on 02/06/2024. Patient?was?admitted[facility]to[facility]on[facility]01/13/2024?a nd?discharged?on?01/16/2024 for dka, blood clot now on Eliquis and possible septic knee which was ruled out. PMH: Polysubstance abuse, left bka secondary to non healing heel ulcer, diabetes type 1 with multiple prior hospitalizations for DKA,neuropathy, neuropathy, fibromyalgia, severe retinopathy and cataracts followed by a retinal specialist and pruritus caused by anxiety. She was discharged 11/2023 from [facility] with DKA and pancreatitis in the setting of MRSA bacteremia treated with vancomycin in October. Initially diagnosed with T1DM at age 4 and has been on insulin since that time. Diabetes has been poorly controlled most of her life. She has been on and off an insulin pump a number of times with her last being a [employer] insulin pump. She reports she had better control while on a pump. SHE REPORTS SHE HAS NOT SKIPPED ANY INSULIN DOSES SINCE LAST VISIT Currently taking: Tresiba 32 units am Humalog tid with meals If she is not eating, she takes 2 units If less than 100, eat first then take 4 units 100-129 9 units 130-159 10 units 160-189 11 units 190-219 12 units 220-249 13 units 250- 279 14 units 280- 309 15 units 310-339 16 units over this take 17 units Treats lows with glucose tablets. Checks sugar after to ensure it is rising. Follows the rule of 15's. A1c 222 on dexcom download down from 336 last visit Has severe retinopathy: Has eyes several times per year and needs to have a cataract extraction for which she has surgical clearance scheduled with her PCP. seen opth 02/2024 + neuropathy: does not see podiatry, self care severe neuropathy has h/o bka +nephropathy:01/09/24: eGFR 52 01/26:microalbumin >2000. [Denies] history of CAD. Denies nausea, vomiting, weakness Has had diabetes education. Multiple prior episodes of DKA requiring hospitalization. 2023: Malvin accompanies her to visits. Two children 5 and 7 [facility] Medical History Type 1 diabetes Skin-picking disorder Polysubstance use disorder DKA (diabetic ketoacidosis) Depression with anxiety PTSD (post-traumatic stress disorder) Anxiety and depression Eczema Memory loss Incontinence delivery delivered Encephalopathy chronic Diabetic retinopathy Fibromyalgia Neuropathy 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 Anxiety Depression Asthma Diabetes 1.5, managed as type 1 Surgical History 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 Hx of LASIK H/O detached retina repair History of adenoidectomy History of tonsillectomy H/O removal of cyst Family History Mother Substance abuse Asthma Psychiatric disorder Father Psychiatric disorder Maternal Grandmother Cancer Other Mental health disorder Social History Housing: Apartment Alcohol intake: current Alcohol intake frequency: a few times a month Patient Tobacco Use Status: Current everyday Tobacco user Tobacco use type: Cigarette Cigarette Packs Per Day: 1 e-Cigarette/Vaping Use: Currently Using service: No Current occupational status: disabled Cognitive needs: No Hearing needs: No Vision needs: Yes (Patient needs eye exM) Physical Exam Vital Signs: Last Vital Signs Pulse 98 03/31/24 15:04 BP 118/76 03/31/24 15:04 Const Other: Absence of Cushingoid features. Absence of acromegalic features. Neck exam reveals nl size thyroid about 15 gms. No thyroid nodules palpable. Heart S1 S2, Reg R/R. No M/R G. Skin exam reveals absence of vitiligo or acanthosis nigricans. Status post amputation Results Reviewed Results Reviewed: Laboratory Last Values Glucose (Clinic) 159 mg/dL (60-115) H 03/31/24 15:10 Assessment & Plan Assessment & Plan (1) Type 1 diabetes: Code(s): E10.9 - Type 1 diabetes mellitus without complications Category: Medical Qualifiers: Diabetes mellitus complication status: with other specified complication Qualified Code(s): E10.69 - Type 1 diabetes mellitus with other specified complication Plan: Improving glucose numbers on a type 1 diabetic with multiple comorbidities. Insulin adjusted. She will follow up with health educator to get insulin to carb ratio and correction factor adam set up in her phone Medications: Changed From blood sugar diagnostic 3 times a day testing 100 ea 1RF diabetes mellitus To blood sugar diagnostic (FreeStyle Lite Strips) 3 times a day testing 100 ea 1RF diabetes mellitus Coding Level of Care Code Est Pt Level 4 (01811) Complex EM visit Add On G2211 Diagnoses Type 1 diabetes mellitus with other specified complication E10.69 Diabetes mellitus complication status: with other specified complication Time Spent (min) 30 Comment Time spent reviewing labs/provider notes, face to face, chart doc
[2024-03-31 15:04] VITALS: BP 118/76; PULSE 98
[2024-03-31 15:17] LABS: Glucose, Whole Blood 159 mg/dL (60-115)
== END 2024-03-31 15:52 | disposition home or self-care (01) ==
PROVIDERS: PCP Family Medicine; Visit Provider Nurse Practitioner Adult Health
DX: E10.69 Type 1 diabetes mellitus with other specified complication (principal)
CPT/HCPCS: 99214; G2211

== ENCOUNTER → 2024-03-31 15:01 | Outpatient (BNVA) | payer OTHER, SELFPAY | PROVIDERS: PCP Family Medicine; Visit Provider Nurse Practitioner Adult Health | DX: E10.69 Type 1 diabetes mellitus with other specified complication (principal) | CPT/HCPCS: 82947; 99212 ==

== ENCOUNTER 2024-04-08 13:53 | Outpatient (REF) | payer OTHER, SELFPAY ==
--- NOTE | ~2024-04-08 | XR_ITS ---
EXAMINATION: XR ANKLE, RIGHT CLINICAL INFORMATION: Pain in right ankle and joints of right foot. COMPARISON: None available. TECHNIQUE: AP, lateral, and mortise views of the right ankle. FINDINGS: No acute fracture or dislocation. The ankle mortise is maintained. No talar osteochondral lesion. No joint space narrowing and marginal osteophytes. No osseous erosion. Circumferential soft tissue swelling. XR/XR ankle RT min 3V IMPRESSION: Circumferential soft tissue swelling without acute osseous abnormality. Electronically signed by: Helio Richards MD 04/09/2024 12:02 PM JAMMIE ALLRED
== END 2024-04-08 13:54 | disposition home or self-care (01) ==
LOC: HO.XRAY 13:53
PROVIDERS: PCP Family Medicine; Visit Provider Family Medicine
DX: M25.571 Pain in right ankle and joints of right foot (principal)
CPT/HCPCS: 73610

== ENCOUNTER 2024-04-15 10:08 | Outpatient (AMB) | payer OTHER, SELFPAY ==
--- NOTE | 2024-04-15 10:28 | A.OFFPC_ITS ---
Vital Signs 04/15/24 10:30 Height 5 ft 4 in BMI Reason not done Patient refused/unable BP 140/67 H Blood Pressure Location Rt radial Position Sitting Respiration 14 Pulse 97 Pulse Source Pulse Oximeter Temp 98.2 F Temp Source Temporal Artery Scan Pulse Oximetry (%) 97 Oxygen Delivery Method Room Air Intake Visit Reasons: f/u hypertension, chronic conditions Intake Note: f/u for HTN and chronic conditions Allergies doxycycline Allergy (Mild, Verified 04/15/24 10:30) Hives sulfamethoxazole [From Bactrim] Allergy (Unknown, Verified 04/15/24 10:30) Hives trimethoprim [From Bactrim] Allergy (Unknown, Verified 04/15/24 10:30) Hives almonds Allergy (Intermediate, Uncoded 03/31/24 15:04) Hives Tobacco use date assessed: 11/04/23 Dental Screening Dental Screen Date: 11/04/23 HPI f/u hypertension, chronic conditions HPI Details 28 y/o female presents to f/u hypertensi on. Had ordered venous duplex ultrasound of her L upper extremity to rule out DVT vs thrombophlebitis. Venous duplex 03/27/24 showed no evidence of DVT. Blood pressure today 140/67, 97p. She is on metoprolol 25mg b.i.d. Has upcoming dental extractions. She is on eliquis. Denies any heart disease/valvular problems. [facility] Medical History Type 1 diabetes Skin-picking disorder Polysubstance use disorder DKA (diabetic ketoacidosis) Depression with anxiety PTSD (post-traumatic stress disorder) Anxiety and depression Eczema Memory loss Incontinence delivery delivered Encephalopathy chronic Diabetic retinopathy Fibromyalgia Neuropathy 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 Anxiety Depression Asthma Diabetes 1.5, managed as type 1 Surgical History 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 Hx of LASIK H/O detached retina repair History of adenoidectomy History of tonsillectomy H/O removal of cyst Family History Mother Substance abuse Asthma Psychiatric disorder Father Psychiatric disorder Maternal Grandmother Cancer Other Mental health disorder Social History Housing: Apartment Alcohol intake: current Alcohol intake frequency: a few times a month Patient Tobacco Use Status: Current everyday Tobacco user Tobacco use type: Cigarette Cigarette Packs Per Day: 1 e-Cigarette/Vaping Use: Currently Using service: No Current occupational status: disabled Cognitive needs: No Hearing needs: No Vision needs: Yes (Patient needs eye exM) Questionnaire PHQ-9 Over the last 2 weeks, how often have you been bothered by any of the following problems? 2. Feeling down, depressed, or hopeless: several days Source: Developed by Drs. Alex Alicea, Vero Reyes, Dimitrios Wesley and colleagues, with an educational nehemias from [employer]. Thrive Questionnaire Date Thrive assessed: 03/25/24 I am a: Patient What is your living situation today?: I choose not to answer this question Within the past 12 months, did the food you bought not last and you didn't have the money to get more?: Sometimes True Within the past 12 months, did you worry whether your food would run out before you got money to buy more?: Sometimes True Do you have trouble paying for medicines?: I choose not to answer this question Do you have trouble getting transportation to medical appointments?: Yes Do you have trouble paying your heating and electricity bill?: Yes Do you have trouble taking care of your child, family member or friend?: I choose not to answer this question Do you have trouble with day-to-day activities such as bathing, preparing meals, shopping, managing finances, etc.?: Yes Are you currently unemployed and looking for a job?: I choose not to answer this question Are you interested in more education?: No Currently or been in a relationship where the following occur: I choose not to answer THRIVE Score: 4 JEANE-7 AMB Questionnaire JEANE-7 Date JEANE - 7 assessed: 11/04/23 Source: Developed by Drs. Alex Alicea, Vero Reyes, Dimitrios Wesley and colleagues, with an educational nehemias from [employer]. Physical exam (Primary Care) Vital Signs: Last Vital Signs Temp 98.2 F 04/15/24 10:30 Pulse 97 04/15/24 10:30 Resp 14 04/15/24 10:30 BP 140/67 H 04/15/24 10:30 Pulse Ox 97 04/15/24 10:30 Oxygen Delivery Method Room Air 04/15/24 10:30 Tobacco/Smoking Status: Tobacco use Status Tobacco use date assessed 11/04/23 04/15/24 10:29 Patient Tobacco Use Status Current everyday Tobacco 04/15/24 10:29 Tobacco use type Cigarette 04/15/24 10:29 e-Cigarette/Vaping Use Currently Using 04/15/24 10:29 Thrive Assessment: Date of Thrive Assessment Date Thrive assessed 03/25/24 04/15/24 10:29 Currently or been in a relationship where the following occur: I choose not to answer Coding Level of Care Code Est Pt Level 4 (87955) Diagnoses Secondary hypercoagulability disorder D68.69 Lumbar radiculopathy M54.16 Sprain of right ankle S93.401A Open wound of skin T14.8XXA Bilateral knee pain M25.561; M25.562 Assessment & Plan Assessment & Plan (1) Secondary hypercoagulability disorder: Comment: on eliquis for RLL PE 10/2023 and LUE DVT Code(s): D68.69 - Other thrombophilia Category: Medical Plan: Patient?will?be?undergoing?dental?work?with?up?to?4?extractions?once Can?hold?Eliquis?on?day?of?extractions?and?then?resume?the?following?day No?implanted?hardware?and?patient?does?not?need?antibiotic?prophylaxis. Filled?out?forms?for?patient (2) Lumbar radiculopathy: Code(s): M54.16 - Radiculopathy, lumbar region Category: Medical Plan: Patient?has?chronic?pain?with?lumbar?radiculopathy?bilateral?knee?pain?and?al so?recent?R ankle?sprain She?is?seen?by?pain?management?for?back?and?advised?him?to?see?her?for?the?knees ?and?ankle?as?well. History?of?substance?abuse?and?recent?use.??Not?a?good?candidate?for?opioid s?however?she?is?already?on?Eliquis?we?are?trying?to?decrease?NSAID?use Did?not?get?much?benefit?from?celecoxib.??Will?give?her?a?short?course?of?nabume tone, judiciously She?can?resume?celecoxib?after?nabumetone?runs?out Follow-up?with?pain?management (3) Sprain of right ankle: Code(s): S93.401A - Sprain of unspecified ligament of right ankle, initial encounter Category: Medical Plan: X-ray?showed?no?fracture?just?sprain I?had?sent?a?script?for?a?an?ankle?brace Patient?is?having?some?difficulty?getting?this Asking?the?office?to?help?this (4) Open wound of skin: Code(s): T14.8XXA - Other injury of unspecified body region, initial encounter Category: Medical Plan: Had referred to woundcare but patient?has?not?been?contacted?yet. Asked?the?office?to?get?her?scheduled (5) Bilateral knee pain: Code(s): M25.561 - Pain in right knee; M25.562 - Pain in left knee Category: Medical Plan: As?above,?referred?to?pain?management Orders: Referrals Pain Management Referral M25.561 - Pain in right knee, M25.562 - Pain in left knee, M25.571 - Pain in right ankle and joints of right foot, M54.16 - Radiculopathy, lumbar region Medications: New nabumetone 500 mg PO BID 7 days 14 tabs 0RF Changed From escitalopram oxalate (Lexapro) 10 mg PO DAILY 90 days 90 tabs 2RF To escitalopram oxalate 20 mg PO DAILY 90 days 90 tabs 2RF
[2024-04-15 10:30] VITALS: BP 140/67; PULSE 97; RESP 14; TEMP 36.8; O2SAT 97
== END 2024-04-15 10:55 | disposition home or self-care (01) ==
PROVIDERS: PCP Family Medicine; Visit Provider Family Medicine
DX: D68.69 Other thrombophilia (principal); M54.16 Radiculopathy, lumbar region; S93.401A Sprain of unspecified ligament of right ankle, initial encounter; T14.8XXA Other injury of unspecified body region, initial encounter; M25.561 Pain in right knee; M25.562 Pain in left knee

== ENCOUNTER → 2024-04-15 10:08 | Outpatient (BNVA) | payer OTHER, SELFPAY | PROVIDERS: PCP Family Medicine; Visit Provider Family Medicine | DX: D68.69 Other thrombophilia (principal); M54.16 Radiculopathy, lumbar region; M25.561 Pain in right knee; M25.562 Pain in left knee; S93.401D Sprain of unspecified ligament of right ankle, subsequent encounter | CPT/HCPCS: 99212 ==

== ENCOUNTER 2024-04-16 13:43 | Outpatient (REF) | payer OTHER, SELFPAY ==
--- NOTE | ~2024-04-16 | MR_ITS ---
EXAMINATION: MR LUMBAR SPINE WITHOUT AND WITH CONTRAST CLINICAL INFORMATION: Radiculopathy COMPARISON: None available. TECHNIQUE: MRI of the lumbar spine was obtained using routine sequences with and without contrast. Intravenous contrast: Magnevist 7 mL FINDINGS: There are 5 nonrib-bearing lumbar-type vertebrae. Resolution of the normal lumbar lordosis. Normal alignment. No acute bone marrow abnormality or suspicious bone marrow enhancement. The vertebral body heights are preserved. The disc spaces are also preserved. The visualized spinal cord is normal in caliber. No abnormal cord signal or enhancement. The conus medullaris terminates at T12. T12-L1: No significant canal or neural foraminal narrowing. L1-2: No significant spinal canal and neural foraminal narrowing. L2-3: Shallow right foraminal disc protrusion. No significant spinal canal or neural foraminal narrowing. L3-4: No significant spinal canal and neural foraminal narrowing. L4-5: No significant spinal canal or neural foraminal narrowing. L5-S1: No significant spinal canal or neural foraminal narrowing. The paravertebral soft tissues are unremarkable. Partially imaged large urinary bladder. There is also prominence of the left renal pelvis extending to the proximal segment of the ureter. MR/MR lumbar spine wo/w con IMPRESSION: -Shallow right foraminal disc protrusion at L2-L3. Otherwise, no significant degenerative changes throughout the lumbar spine and no spinal canal or neural foraminal narrowing. -Partially imaged large urinary bladder and prominence of the left renal pelvis extending to the proximal ureter. This may reflect urinary retention. Electronically signed by: Oralia Blanco MD 04/16/2024 04:21 PM JAMMIE
[2024-04-16] MEDS: gadobutroL 7.5 ML VIAL IVPUSH (14:55)
== END 2024-04-16 13:44 | disposition home or self-care (01) ==
LOC: HO.MRI 13:43
PROVIDERS: PCP Family Medicine; Visit Provider Nurse Practitioner Family
DX: M79.605 Pain in left leg (principal); M54.50 Low back pain, unspecified; M54.16 Radiculopathy, lumbar region; F19.10 Other psychoactive substance abuse, uncomplicated; Z86.14 Personal history of Methicillin resistant Staphylococcus aureus infection
CPT/HCPCS: 72158; A9585

== ENCOUNTER 2024-04-21 09:33 | Outpatient (AMB) | payer OTHER, SELFPAY ==
--- NOTE | 2024-04-21 09:35 | A.OFFVIS_ITS ---
Vital Signs 04/21/24 09:40 Height 5 ft 4 in BMI Reason not done Patient refused/unable BP 183/95 H Blood Pressure Location Rt brachial Position Sitting Pulse 108 H Pulse Source Pulse Oximeter Pulse Oximetry (%) 95 Oxygen Delivery Method Room Air Intake Visit Reasons: Lumbar Radiculopathy/ MRI results Intake Note: Pain today 12/13 Rn Call Center Required: No Accompanied by: Spouse Allergies doxycycline Allergy (Mild, Verified 04/21/24 09:41) Hives sulfamethoxazole [From Bactrim] Allergy (Unknown, Verified 04/21/24 09:41) Hives trimethoprim [From Bactrim] Allergy (Unknown, Verified 04/21/24 09:41) Hives almonds Allergy (Intermediate, Uncoded 03/31/24 15:04) Hives HPI Comments Details: Patient presents today for follow up to discuss recent lumbar spine MRI results. Denies any recent cough, cold, infection, fever or other significant changes in medical history since last office visit. PRIOR: Patient is a 28 years old female with complex past medical history, including type 1 DM (diagnosed at age 4, recent A1C=12.6), left BKA due to non-healing heel ulcer, right knee pain with h/o fracture and restricted ROM to 10 degrees, chronic low back pain, recent hospitalization for MRSA with bacteremia, SUSHANT with recent blood transfusion x2, pancreatitis, aspiration of left joint to rule out septic arthritis and PE right lower lobe in October-November 2023 (started on Eliquis), h/o left upper extremity DVT, multiple hospitalizations for DKA, severe retinopathy and cataracts, pruritis, depression and anxiety, PTSD, fibromyalgia, neuropathy, active polysubstance abuse, presents today for initial evaluation of left knee pain and lower back pain. Patient arrived via wheelchair and accompanied by her fiance who is her primary caregiver. Back pain is localized to the midline back around L4-L5 level with significant tenderness and positive SLR testing. Patient also reports global anterior knee pain bilaterally, worse on the left and paresthesias around left stump. Reports history of back injections at [facility] about 8 years ago with mixed results. 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 Reports recent IVDU cocaine on 03/07/24 but is trying to stop it. She is followed at [facility] for Suboxone. She also takes gabapentin with minimal relief. Reports minimal benefit with Mental Therapist in the past. Pain negatively affects her daily activities and functioning, mobility and transfers, sleep, mood, and quality of life. She is awaiting new prosthesis but reports non-weight bearing on the right due to restricted ROM to 10 degrees since right knee fracture. Location: Left knee, lower spine midline back pain Duration: Chronic pain 2 years Characteristics of symptom or complaint: Aching, numbness, tingling, cramping, stabbing, shooting, numbness Aggravating or associated factors: Any movement, bending, cold weather, changing positions Relieving factors: nothing tried duloxetine, gabapentin, Tylenol, cyclobenzaprine Treatment: PT, back injections, multiple ER visits for pain meds 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 Anxiety Depression Asthma Diabetes 1.5, managed as type 1 Surgical History 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 Hx of LASIK H/O detached retina repair History of adenoidectomy History of tonsillectomy H/O removal of cyst Family History Mother Substance abuse Asthma Psychiatric disorder Father Psychiatric disorder Maternal Grandmother Cancer Other Mental health disorder Social History Housing: Apartment Alcohol intake: current Alcohol intake frequency: a few times a month Patient Tobacco Use Status: Current everyday Tobacco user Tobacco use type: Cigarette Cigarette Packs Per Day: 1 e-Cigarette/Vaping Use: Currently Using service: No Current occupational status: disabled Cognitive needs: No Hearing needs: No Vision needs: Yes (Patient needs eye exM) Review of Systems Const All systems reviewed & are unremarkable except as noted in HPI and below Physical Exam Vital Signs: Last Vital Signs Pulse 108 H 04/21/24 09:40 BP 183/95 H 04/21/24 09:40 Pulse Ox 95 04/21/24 09:40 Oxygen Delivery Method Room Air 04/21/24 09:40 General: Appears afebrile. Alert and oriented. Mood and affect appropriate. Follows and participates in conversation appropriately. Respiratory effort is unlabored. No cough. Patient arrived via W/C. Right BKA. Restricted ROM left knee. Unable to perform lumbar ROM due to pain. Mild midline TTP in L4-L5 level. No midline tenderness in the cervical or thoracic spine. Multiple widespread TTPs /16 bilaterally, including upper and lower extremities.?? Back/Spine/Pelvis Back: back tenderness Cervical Spine: loss of normal cervical lordosis, cervical muscular tenderness, pain with cervical ROM and No Cervical spine tenderness Thoracic/Lumbar Spine: thoracic and lumbar spine normal to inspection, Lasegue's sign positive on the left and diffuse, pain with thoraco-lumbar ROM, paraspinal muscle tenderness, thoraco-lumbar ROM limited, No thoracic spinal tenderness and lumbar spinal tenderness at L4 and at L5 Pelvis: buttock tenderness on the left Sacroiliac joints: bilaterally tender to palpation Extrem Right lower extremity: lower leg (Restricted ROM right knee. Multiple scabbed/healing wounds.) Left lower extremity: knee (Left BKA, +paresthesia dorsal aspect of stump. ) Details: tenderness (global anterior knee) and crepitus; no swelling Results Reviewed Results Reviewed: MR LUMBAR SPINE WITHOUT AND WITH CONTRAST 04/16/24 CLINICAL INFORMATION: Radiculopathy FINDINGS: There are 5 nonrib-bearing lumbar-type vertebrae. Resolution of the normal lumbar lordosis. Normal alignment. No acute bone marrow abnormality or suspicious bone marrow enhancement. The vertebral body heights are preserved. The disc spaces are also preserved. The visualized spinal cord is normal in caliber. No abnormal cord signal or enhancement. The conus medullaris terminates at T12. T12-L1: No significant canal or neural foraminal narrowing. L1-2: No significant spinal canal and neural foraminal narrowing. L2-3: Shallow right foraminal disc protrusion. No significant spinal canal or neural foraminal narrowing. L3-4: No significant spinal canal and neural foraminal narrowing. L4-5: No significant spinal canal or neural foraminal narrowing. L5-S1: No significant spinal canal or neural foraminal narrowing. The paravertebral soft tissues are unremarkable. Partially imaged large urinary bladder. There is also prominence of the left renal pelvis extending to the proximal segment of the ureter. IMPRESSION: -Shallow right foraminal disc protrusion at L2-L3. Otherwise, no significant degenerative changes throughout the lumbar spine and no spinal canal or neural foraminal narrowing. -Partially imaged large urinary bladder and prominence of the left renal pelvis extending to the proximal ureter. This may reflect urinary retention. 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: Code(s): S88.112A - Complete traumatic amputation at level between knee and ankle, left lower leg, initial encounter Category: Medical Qualifiers: Encounter type: sequela Qualified Code(s): S88.112S - Complete traumatic amputation at level between knee and ankle, left lower leg, sequela (6) Fibromyalgia: Code(s): M79.7 - Fibromyalgia Category: Medical (7) Lumbar radiculopathy: Code(s): M54.16 - Radiculopathy, lumbar region Category: Medical (8) Low back pain radiating to left lower extremity: Code(s): M54.50 - Low back pain, unspecified; M79.605 - Pain in left leg Category: Medical Plan Lumbar spine MRI results were discussed with patient and family today. MRI negative for osteomyelitis. She continues with mild midline tenderness in the lower spine and axial low back pain. She is interested in diagnostic lumbar MBBs to confirm axial low back pain for potential RFA. Lumbar MRI showed shallow right foraminal disc protrusion at L2-L3. Otherwise, no significant degenerative changes throughout the lumbar spine and no spinal canal or neural foraminal narrowing. MRI also showed partially imaged large urinary bladder and prominence of the left renal pelvis extending to the proximal ureter. This may reflect urinary ret ention. Patient will follow up for this with Urology. Referral sent today. Patient receives Suboxone via [facility]. Reports last IVDU cocaine use on 03/07/24. Patient is now follows with [facility]. Current A1C at 12.6, not candidate for therapeutic injections or implantable short or longer term implants given skin-picking disorder and active IVDU. All questions and concerns have been answered and patient agreed with the treatment plan. Follow-up xray results and sooner as needed. Orders: Orders XR lumbar spine 2-3V Today M47.816 - Spondylosis without myelopathy or radiculopathy, lumbar region, M54.50 - Low back pain, unspecified Referrals Urology Referral R33.9 - Retention of urine, unspecified Coding Level of Care Code Est Pt Level 4 (56501) Complex EM visit Add On G2211 Diagnoses Low back pain M54.50 Lumbar spondylosis M47.816 Urinary retention R33.9 Left knee pain M25.562 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, sequela S88.112S Encounter type: sequela Fibromyalgia M79.7 Lumbar radiculopathy M54.16 Low back pain radiating to left lower extremity M54.50; M79.605
[2024-04-21 09:40] VITALS: BP 183/95; PULSE 108; O2SAT 95
== END 2024-04-21 10:11 | disposition home or self-care (01) ==
PROVIDERS: PCP Family Medicine; Referring Provider Family Medicine; Visit Provider Nurse Practitioner Family
DX: M54.50 Low back pain, unspecified (principal); M47.816 Spondylosis without myelopathy or radiculopathy, lumbar region; R33.9 Retention of urine, unspecified; M25.562 Pain in left knee; S88.112S Complete traumatic amputation at level between knee and ankle, left lower leg, sequela; M79.7 Fibromyalgia; M54.16 Radiculopathy, lumbar region; M79.605 Pain in left leg
CPT/HCPCS: 99214; G2211

== ENCOUNTER → 2024-04-21 09:33 | Outpatient (BNVA) | payer OTHER, SELFPAY | PROVIDERS: PCP Family Medicine; Referring Provider Family Medicine; Visit Provider Nurse Practitioner Family | DX: M54.50 Low back pain, unspecified (principal); M47.816 Spondylosis without myelopathy or radiculopathy, lumbar region; M25.562 Pain in left knee; M79.7 Fibromyalgia; M54.16 Radiculopathy, lumbar region; M79.605 Pain in left leg; R33.9 Retention of urine, unspecified; Z89.512 Acquired absence of left leg below knee | CPT/HCPCS: 99212 ==

== ENCOUNTER 2024-04-27 10:01 | Outpatient (REF) | payer OTHER, SELFPAY | END 2024-04-27 10:02 | disposition home or self-care (01) | LOC: HO.XRAY 10:01 | PROVIDERS: PCP Family Medicine; Visit Provider Nurse Practitioner Family | DX: M54.50 Low back pain, unspecified (principal); M47.816 Spondylosis without myelopathy or radiculopathy, lumbar region | CPT/HCPCS: 72100 ==

== ENCOUNTER 2024-05-19 14:39 | Outpatient (AMB) | payer OTHER, SELFPAY ==
--- NOTE | 2024-05-19 14:00 | A.OFFVIS_ITS ---
Vital Signs 05/19/24 14:47 Height 5 ft 4 in BMI Reason not done Patient refused/unable BP 122/82 Blood Pressure Location Rt brachial Position Sitting Pulse 85 Pulse Source Pulse Oximeter Intake Visit Reasons: T1DM Intake Note: Patient presents today for a follow-up on Type 1 Diabetes Mellitus: Last Diabetic eye exam was on: 05/2023 Last Podiatry exam was on: Does not see a Shirt Sorter Most recent HbA1c : 8.4%, 02/06/2024 Random Glucose- 178 mg/dL, Today Licensed Physical Therapy Assistant Required: No Accompanied by: Significant Other Allergies doxycycline Allergy (Mild, Verified 04/21/24 09:41) Hives sulfamethoxazole [From Bactrim] Allergy (Unknown, Verified 04/21/24 09:41) Hives trimethoprim [From Bactrim] Allergy (Unknown, Verified 04/21/24 09:41) Hives almonds Allergy (Intermediate, Uncoded 03/31/24 15:04) Hives HPI Comments Details: 28-year-old female seen in f/u for T1DM. She was last seen 03/31/24 at which time Tresiba and Humalog were increased due to an elevated readings. She has a h/o of active polysubstance abuse and is followed by a Addiction Treatment program. She is on Sublocade + daily film which was started last year. Most recent hemoglobin A1c 05/19/24 down to 8.4%, 12.6% on 02/06/2024. Patient?was?admitted[facility]to[facility]on?01/13/2024?and?discharged?on?04/2024 for dka, blood clot now on Eliquis and possible septic knee which was ruled out. PMH: Polysubstance abuse, left bka secondary to non healing heel ulcer, diabetes type 1 with multiple prior hospitalizations for DKA,neuropathy, neuropathy, fibromyalgia, severe retinopathy and cataracts followed by a retinal specialist and pruritus caused by anxiety. She was discharged 11/2023 from [facility] with DKA and pancreatitis in the setting of MRSA bacteremia treated with vancomycin in October. Initially diagnosed with T1DM at age 4 and has been on insulin since that time. Diabetes has been poorly controlled most of her life. She has been on and off an insulin pump a number of times with her last being a [employer]onic insulin pump. She reports she had better control while on a pump. SHE REPORTS SHE HAS NOT SKIPPED ANY INSULIN DOSES SINCE LAST VISIT She has a h/o picking disorder secondary to anxiety. She has previously declined foot exam at all recent visits but today agrees to this. Currently taking: Tresiba 34 units am Humalog tid with meals If she is not eating, she takes 2 units If less than 100, eat first then take 4 units 100-129 9 units 130-159 10 units 160-189 11 units 190-219 12 units 220-249 13 units 250- 279 14 units 280- 309 15 units 310-339 16 units over this take 17 units Treats lows with glucose tablets. Checks sugar after to ensure it is rising. Follows the rule of 15's. Dexcom average glucose: 247 14 day continuous glucose monitor report reviewed Glucose Managment indicator 9.2 % Days with CGM data 99 % TIme in ranges: 38 % very high (above 250) 42 % high ?(181-250) 20 % in range ?(70-180] 0 % low (69-55) 0 % ?very low (below 54) 34.2 coefficient of variation desired less than 36 Interpretation [on 7 of the 14 days patient was consistently in the 180 range, other day she had gross elevation of glucose throughout the 24 hours and some days control increased after lunch meal ] Has severe retinopathy: Has eyes several times per year and needs to have a cataract extraction for which she has surgical clearance scheduled with her PCP. seen opth 02/2024 + neuropathy: does not see podiatry, self care severe neuropathy has h/o bka +nephropathy:01/09/24: eGFR 52 :microalbumin >2000. [Denies] history of CAD. Denies nausea, vomiting, weakness HAS REFERRAL FOR WOUND CARE she has several areas on her legs that are excoriated and open but do not look infected. 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 Multiple prior episodes of DKA requiring hospitalization. 2023: Malvin accompanies her to visits. 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 Hx of LASIK H/O detached retina repair History of adenoidectomy History of tonsillectomy H/O removal of cyst Family History Mother Substance abuse Asthma Psychiatric disorder Father Psychiatric disorder Maternal Grandmother Cancer Other Mental health disorder Social History Housing: Apartment Alcohol intake: current Alcohol intake frequency: a few times a month Patient Tobacco Use Status: Current everyday Tobacco user Tobacco use type: Cigarette Cigarette Packs Per Day: 1 e-Cigarette/Vaping Use: Currently Using service: No Current occupational status: disabled Cognitive needs: No Hearing needs: No Vision needs: Yes (Patient needs eye exM) Physical Exam Vital Signs: Last Vital Signs Pulse 85 05/19/24 14:47 BP 122/82 05/19/24 14:47 Const Other: Absence of Cushingoid features. Absence of acromegalic features. Neck exam reveals nl size thyroid about 15 gms. No thyroid nodules palpable. Heart S1 S2, Reg R/R. No M/R G. Skin exam reveals absence of vitiligo or acanthosis nigricans. Wheelchair-bound. Dswxw-oxx-waoc amputation left Visual exam of foot performed. No ulcerations or open lesions on the foot. No inter digit maceration or fissuring. Bunion and extensive callusing Sensation absent to monofilament exam. Vibratory sensation absent with 128 Hz tuning fork. Foot slight cool, slight diminished pulse. dry skin Leg right: several area open appox 2 inches clean with no drainage, multiple area of excoriation. Office Procedures Glucose Monitoring Details Details: see hpi Procedure code (CPT) selection complete Results AMB Hemoglobin A1c AMB Hemoglobin A1c 8.4 % Last Edit by KAM Greenwood on 05/19/24 15:25 Results Reviewed Results Reviewed: Laboratory Last Values Glucose (Clinic) 178 mg/dL (60-115) H 05/19/24 15:07 Hgb A1c (Clinic) 8.4 % (4.0-6.0) H 05/19/24 15:24 Assessment & Plan Assessment & Plan (1) Type 1 diabetes: Code(s): E10.9 - Type 1 diabetes mellitus without complications Category: Medical Qualifiers: Diabetes mellitus complication status: with other specified complication Qualified Code(s): E10.69 - Type 1 diabetes mellitus with other specified complication Plan: Type 1 diabetic on basal bolus insulin with multiple comorbidities including amputation, opioid use disorde, prior history of DKA admissions, severe retinopathy, neuropathy and nephropathy with recent A1c of % on 05/19/2024. Two week pump download shows half of the time she is in reasonable control with a flat 180 average. Several days she was in the 300+ range throughout the entire 24 hour which she reports she was ill at the time. And some postprandial increases after breakfast. She will meet with the elementary educator to set up insulin to carb and co rrection factor adam on her phone as she reports she had better control when she was taking into account for carbs. Secondary to opioid use on Suboxone I do not believe she would be a good pump candidate. Increase Tresiba to 36 units. After one week if am readings over 160 land no lows can increase to 8 units. Urgent referral to [facility], [facility] care and podiatry. The patient had an opportunity to ask questions regarding treatment plan. The patient expressed understanding and agreement with the above treatment plan. The patient is aware they should contact our office by phone for worsening glucose readings or for any low blood sugars which may warrant a change in diabetes medication. Compliance is encouraged with medications and any followup testing/consults which may have been ordered. Orders: Orders AMB Hemoglobin A1c 05/19/24 E13.9 - Other specified diabetes mellitus without complications AMB Glucose Monitoring Today E13.9 - Other specified diabetes mellitus without complications Referrals Wound Care Referral L97.909 - Non-pressure chronic ulcer of unspecified part of unspecified lower leg with unspecified severity Podiatry Referral G62.9 - Polyneuropathy, unspecified, L97.909 - Non-pressure chronic ulcer of unspecified part of unspecified lower leg with unspecified severity Vascular Surgery Referral L97.909 - Non-pressure chronic ulcer of unspecified part of unspecified lower leg with unspecified severity, S88.112S - Complete traumatic amputation at level between knee and ankle, left lower leg, sequela Podiatry Referral E10.69 - Type 1 diabetes mellitus with other specified complication Patient Instructions: The patient was counseled to achieve a target A1C of 7% (154 avg). Fasting blood sugars should be 90-130 in the morning and less than 180 two hours after meals. Reviewed the relationship between poor diabetic control and the development of complications. Check your feet daily looking for any signs of infection, ulceration and seek medical attention if this occurs. Break in shoes gradually and do not wear open-toed shoes or walk barefooted. Symptoms of DKA (diabetic ketoacidosis): early: frequent urination, dry mouth, fatigue, feeling ill, severe symptoms: ketones in the urine, abdominal pain, nausea, vomiting and weakness. It is important to hydrate with sugar free liquids every 15-30 minutes and bring the sugars down to normal levels. If you are moderate or severe with ketones or unable to bring glucose to less than 200, go to the emergency room. Coding Level of Care Code Est Pt Level 5 (68895) Diagnoses Type 1 diabetes mellitus with other specified complication E10.69 Diabetes mellitus complication status: with other specified complication Time Spent (min) 40 Comment Time spent reviewing labs/provider notes, glucose,sensor reports, face to face, chart doc
[2024-05-19 14:47] VITALS: BP 122/82; PULSE 85
[2024-05-19 15:13] LABS: Glucose, Whole Blood 178 mg/dL (60-115)
== END 2024-05-19 15:33 | disposition home or self-care (01) ==
PROVIDERS: PCP Family Medicine; Visit Provider Nurse Practitioner Adult Health
DX: E10.69 Type 1 diabetes mellitus with other specified complication (principal)
CPT/HCPCS: 99215

== ENCOUNTER → 2024-05-19 14:39 | Outpatient (BNVA) | payer OTHER, SELFPAY | PROVIDERS: PCP Family Medicine; Visit Provider Nurse Practitioner Adult Health | DX: E10.69 Type 1 diabetes mellitus with other specified complication (principal); Z79.4 Long term (current) use of insulin | CPT/HCPCS: 82947; 83036; 99212 ==

== ENCOUNTER 2024-07-09 09:14 | Outpatient (AMB) | payer OTHER, SELFPAY ==
--- NOTE | 2024-07-09 09:27 | A.OFFVIS_ITS ---
Intake Intake Visit Reasons: Set up bolus on phone. Advertising Sales Executive Required: No Accompanied by: Significant Other Allergies doxycycline Allergy (Mild, Verified 04/21/24 09:41) Hives sulfamethoxazole [From Bactrim] Allergy (Unknown, Verified 04/21/24 09:41) Hives trimethoprim [From Bactrim] Allergy (Unknown, Verified 04/21/24 09:41) Hives almonds Allergy (Intermediate, Uncoded 03/31/24 15:04) Hives HPI Comprehensive Diabetes Asmnt Most Recent Diabetes Results: No Data to Display [facility] Medical History (Updated 05/19/24 @ 16:24 by Melody Blackburn NP) Neuropathy Leg ulcer Type 1 diabetes Skin-picking disorder Polysubstance use disorder DKA (diabetic ketoacidosis) Depression with anxiety PTSD (post-traumatic stress disorder) Anxiety and depression Eczema Memory loss Incontinence delivery delivered Encephalopathy chronic Diabetic retinopathy Fibromyalgia Neuropathy 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 Anxiety Depression Asthma Diabetes 1.5, managed as type 1 Surgical History 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 Hx of LASIK H/O detached retina repair History of adenoidectomy History of tonsillectomy H/O removal of cyst Family History Mother Substance abuse Asthma Psychiatric disorder Father Psychiatric disorder Maternal Grandmother Cancer Other Mental health disorder Social History Housing: Apartment Alcohol intake: current Alcohol intake frequency: a few times a month Patient Tobacco Use Status: Current everyday Tobacco user Tobacco use type: Cigarette Cigarette Packs Per Day: 1 e-Cigarette/Vaping Use: Currently Using service: No Current occupational status: disabled Cognitive needs: No Hearing needs: No Vision needs: Yes (Patient needs eye exM) Assessment & Plan Assessment & Plan (1) Type 1 diabetes: Code(s): E10.9 - Type 1 diabetes mellitus without complications Qualifiers: Diabetes mellitus complication status: with other specified complication Qualified Code(s): E10.69 - Type 1 diabetes mellitus with other specified complication Plan: Carb Counting Basic Patient presents for appointment carbohydrate counting education. Reviewed the basic principles of carbohydrate counting.? Insulin to carb ratio, and insulin sensitivity factor calculated based on rule of 450 for insulin to carb ratio, and rule of 1500 for insulin sensitivity factor. Instructed patient on the importance of accurate calculation of the amount of carbs per meal for optimal glucose control Reviewed how to calculate mealtime bolus with insulin to carb ratio Reviewed how to calculate correction dose with insulin sensitivity factor Patient's TDD estimate 39 units Insulin to Carbohydrate ratio:1:12 Correction factor:1:38 Target: 120 mg/dL Diet Recall: Breakfast: Hash browns with eggs, approximately 1 cup of potatoes 45 g Patient given carbohydrate counting handout, with food logs to fill out and bring back to BENCH PRESS OPERATOR visit on 07/16/24 Patient given healthy plate handout, for resource for carbohydrate counting Encourage patient to fill out food logs, estimating carbohydrates at meals, noting glucose number prior to meal, and how many units of insulin taken prior to meals Bolus calculator downloaded onto patient's cell phone, insulin to carb ratio, correction factor and target set in adam Demonstrated to patient how to use adam to calculate insulin doses Patient given healthy plate handout with carb list, also recommended to patient she download Medaxion adam to assist in carbohydrate counting Pt able to calculated needed insulin based on estimated carbohydrate content Instructed patient that there may need to be adjustment to insulin to carb ratio and sensitivity factor based on blood glucose trends. Portions of this note were created using voice recognition software, please excuse any words or phrases that may have been misinterpreted. Patient Instructions: Contact Diabetes Education nurse with questions Bring food log to BENCH PRESS OPERATOR appointment on 07/16/24 Follow-up with family living educator in 3 months Coding Level of Care Code Est Pt Level 1 (91974) Diagnoses Type 1 diabetes mellitus with other specified complication E10.69 Diabetes mellitus complication status: with other specified complication
--- OUTSIDE RECORDS SUMMARY | 2024-07-09 10:14 | XMS_ITS | Clinical Summary ---
Author Organization [facility]ly [facility] Facility Address [address] [address] Care Team Providers Care Senior Java J2Ee Developer Name Role Phone Uriel Cyr MD Primary Care Provider Un available Social History Tobacco Use Types Packs/Day Years Used Date Smoking Tobacco: Never Assessed Comments Unknown Sex and Gender Information Value Date Recorded Sex Assigned at Not on file Legal Sex Female 2:54 PM EST Gender Identity Not on file Sexual Orientation Not on file Plan of Treatment Health Maintenance Due Date Last Done Comments Pneumococcal Vaccine: Pediat rics (0 to 5 Years) and At-Risk Patients (6 to 64 Years) (1 of 2 - PCV) 2000 Hepatitis B Vaccine (1 of 3 - 19+ 3-dose series) 10/07 Diabetes: Hemoglobin A1C 06/06/2022 Diabetes: Ophthalmology Exam 06/06/2022 Diabetes: Pedal Pulse Checked 06/06/2022 Diabetes: Sensory Foot Exam 06/06/2022 Diabetes: Visual Foot Exam 06/06/2022 Influenza Vaccine (#1) 2024 Insurance [facility] MEDICAID Care Teams Senior Java J2Ee Developer Relationship Specialty Start Date End Date Uriel Cyr MD PCP - General Family Medicine 06/05/22
--- OUTSIDE RECORDS SUMMARY | 2024-07-09 10:14 | XMS_ITS | Data Portability ---
Author Organization [facility] Omar Katz Nejabari [facility] Surgeons [facility], [facility] Address [address] [place] [address] Assessment Encounter Date Assessment Date Assessment LastModified by Organization Details LastModified Time 10/22/2023 10/22/2023 CC FU after left knee arthrotomy for septic arthritis with bactermia HPI Radha comes from home accompanied by her fiance. She complains of left knee pain. She tells me she was discharged from hospital last week after completeing the course of ABX. She tells me that she was prescribed three days of pain medications. She request another prescription for pain medications. Radha has diabetes and opiate use disorder. EXAM Chronically ill appearing but no acute distress She is in a wheel chair The left knee lateral incision is sealed, the knee is swollen but not warm, motion is guarded A/P FU after surgical and abx treatment for left knee septic arthritis with bacteremia, abx course completed. She complains of significant knee pain and request prescriptions for pain medications. Following safety guidelines I will not presribe these because of the active opiate use disorder. I explained this to her. She has not systemic symptoms of infection. But I cannot say that her knee pain is not due to a persistent infection. I recomended testing with knee joint fluid arthrocentesis. She agreed to this. I performed arthrocentesis staged after injecting the area with lidocain to reduce pain. I skin preped with betadine. In placed the 18 g. needle through a lateral superior patellar spot and obtained a flash of blood tinged clear fluid obtaining 1 cc. This will be sent to lab for analysis ideally cell count gram stain and culture. A routine recheck is in 2 weeks. [email or web address] Not available 10/22/2023 15:23:38 06/16/2024 06/16/2024 SUBJECTIVE Chief Complaint Right knee pain, stiff with deformity. History of Present Illness Radha Olivera, a 28-year-old female, has a history of left knee septic arthritis, arthrotomy in October 2023, left bologna amputation due to complications from a non-healing heel wound, and right knee septic arthritis with a right tibial plateau fracture. She also has poorly controlled diabetes with complications and a history of polysubstance abuse. Radha is accompanied by her significant other and is seeking to correct the right knee deformity to restore motion and begin walking using a prosthesis on the left lower extremity. She is currently receiving treatment for right leg wounds related to compulsive picking and scratching at a wound care clinic in [place]. Radha reports improved diabetes control with a recent hemoglobin A1c of about 8. OBJECTIVE Examination Right lower extremity: Knee flexion fixed at approximately 70 degrees with varus angulation, skin wounds over anterior leg. Imaging X-rays ordered, obtained, and reviewed by me today at [facility] of the right knee show a fusion between the tibia and femur with varus angulation and lateral translation. 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 - Status post left bologna amputation. - Diabetes poorly controlled with complications including neuropathy, hemoglobin A1c at 8. - Active wounds on the right leg. - Substance abuse. PLAN I discussed with Radha Olivera surgical reconstruction options for the right knee deformity, including above knee amputation or osteotomy through the fusion site with refusion in a straight position more compatible with ambulation. Due to her history of infection and poorly controlled diabetes, conversion of the knee fusion to arthroplasty is not advisable. Prior to elective surgery, I would like to see all wounds healed, better diabetes control, substance abuse in remission, and tobacco use discontinued to reduce the risk of wound healing problems and infectious complications. Radha understands these conditions and will plan a recheck appointment once her right leg wounds have healed. [email or web address] Not available 06/16/2024 15:44:56 Plan of Treatment Reminders Order Date Submit Date Provider Last Modified By Organization Details Last Modified Time Details Appointments None recorded. Lab gram stain, synovial fluid - LEFT KNEE STAT 2023 024 [facility], [address], [address], [place], [address], 14:14:05 cell count, synovial fluid - LEFT KNEE STAT 2023 024 [facility], [address], [address], [place], [address], 4 08:07:04 Referral None recorded. Procedures None recorded. Surgeries None recorded. Imaging XR, knee, 1 or 2 view 2024 025 [facility], [address], [facility] [address], [place], [address], 5 15:37:43 Medication Orders None recorded. Patient TargetsNo targets recorded. Patient InstructionsNo instructions recorded. Reason for Referral None Reported. Results Created Date Observation Date Name Description Value Unit Range Abnormal Flag Note LastModifiedBy Organization Detail LastModifiedTime 01/04/20 24 06/05/2022 imagi ng/di agnos tic resul t No observ ation record ed. [email or web address] Not Available 12/06 01:54:57 06/16/19 25 06/16/2024 XR, knee, 1 or 2 view [email or web address] ?Encry pted=s hAaTro YD8dLq bEUv6g %2BXZw aYqtaq 0bqfl% 2Fg9IQ a4ajBk vP9nXo QUaueC m3YtLR FvZlgJ JJ8mAn HZtai3 [id number] AC0Kqb HqBVaC jKiQtr MwF INTERFACE [facility] Office [address], [place], [address], 06/16/2024 13:54:53 06/16/19 25 06/16/2024 XR, knee, 1 or 2 view [email or web address] ?Encry pted=s hAaTro YD8dLq bEUv6g %2BXZw aYqtaq 0bqfl% 2Fg9IQ a4ajBk vP9nXo QUaueC m3YtLR FvZlgJ J8mAn HZtai3 [id number] AC0Kqb HqBVaC jKiQtr MwF INTERFACE [facility] [address], [place], [address], 06/16/2024 13:54:55 Result Notes None recorded. Procedures Surgical History None recorded. Imaging Results Imaging Date Name Status LastModified by Organiz ation Details LastModified Time 06/05/2022 imaging/diag nostic result completed [email or web address] Information not available 01/04/2024 01:54:57 06/16/2024 XR, knee, 1 or 2 view completed INTERFACE [email or web address] [address], [place], [address], 06/16/2024 13:54:53 06/16/2024 XR, knee, 1 or 2 view completed INTERFACE [email or web address] Office [address], [place], [address], 06/16/2024 13:54:55 Procedure Notes None recorded. Medical Equipment None Reported. Allergies Allergen ID Allergen Name Allergen Category Reaction Reaction Severity Criticality Documentation Date Start Date Code Code System Note Provider Name and Address Organization Details Recorded Time 615460 almond oil food,medi cation Not available Not available Not available 07/08/20232021 37569 38 RxNorm Not Available [facility] 4 16:13:12 865348 doxycycli ne hyclate medicatio n Not available Not available Not available 07/08/20232021 18051 RxNorm Not Available [facility] 4 16:13:12 685774 Bactrim medicatio n Not available Not available Not available 07/08/20232021 04548 9 RxNorm Not Available [facility] 4 16:13:12 Medications Name Sig Start Date Stop Date Status Note LastModified by Organization Details LastModified Time cyclobenzap rine 10 mg tablet TAKE 1 TABLET BY MOUTH 3 TIMES A DAY active Not Available Not Available No t Available Anti-Diarrh eal (loperamide ) 2 mg tablet TAKE 2 CAPSULES BY MOUTH EVERY 6 HOURS NEEDED FOR LOOSE STOOL FOR 30 DAYS active Not Available Not Available No t Available clonidine HCl 0.1 mg tablet PLEASE SEE ATTACHED FOR DETAILED DIRECTION S active Not Available Not Available No t Available gabapentin 600 mg tablet TAKE 1 TABLET BY MOUTH TWICE A DAY (MORNING AND EVENING) 06/16 completed Not Available Not Available Not Available nicotine 14 mg/24 hr daily transdermal patch APPLY 1 PATCH TOPICALLY EVERY DAY. REMOVE OLD PATCH BEFORE APPLYING NEW ONE. 10/21 completed Not Available Not Available Not Available loperamide 2 mg capsule TAKE 2 CAPSULE BY MOUTH EVERY 6 HOURS NEEDED FOR LOOSE STOOL 06/16 completed Not Available Not Available Not Available azithromyci n 250 mg tablet TAKE 2 TABLETS BY MOUTH TODAY, THEN TAKE 1 TABLET DAILY FOR 4 DAYS DIRECTED 06/16 completed Not Available Not Available Not Available ibuprofen 800 mg tablet TAKE 1 TABLET BY MOUTH EVERY 6 HOURS active Not Available Not Available No t Available Lidocaine Viscous 2 % mucosal solution SWISH AND SPIT 10 ML BY MOUTH EVERY 4 HOURS NEEDED FOR MOUTH SORE PAIN active Not Available Not Available No t Available ofloxacin 0.3 % eye drops INSTILL 1 DROP INTO RIGHT EYE 4 TIMES A DAY STARTING 3 DAYS PRIOR TO SURGERY AND CONTINUIN G. 10/21 completed Not Available Not Available Not Available citalopram 10 mg tablet TAKE 1 TABLET BY MOUTH EVERY DAY active Not Available Not Available No t Available Nystop 100,000 unit/gram topical powder APPLY TOPICALLY TO AFFECTED AREA TWO TIMES A DAY 10/21 completed Not Available Not Available Not Available Fiber Laxative (calcium polycarboph il) 625 mg tablet TAKE 1 TABLET BY MOUTH DAILY active Not Available Not Available No t Available hydroxyzine pamoate 50 mg capsule TAKE 1 CAPSULE BY MOUTH EVERY 12 HOURS NEEDED FOR ANXIETY 10/21 completed Not Available Not Available Not Available hydroxyzine HCl 50 mg tablet TAKE 1 TABLET BY MOUTH 3 TIMES A DAY NEEDED FOR ANXIETY active Not Available Not Available No t Available melatonin 3 mg tablet TAKE 2 TABLETS BY MOUTH AT BEDTIME NEEDED FOR SLEEP active Not Available Not Available No t Available baclofen 20 mg tablet TAKE 1 TABLET BY MOUTH THREE TIMES A DAY 10/21 completed Not Available Not Available Not Available citalopram 20 mg tablet TAKE 1 TABLET BY MOUTH EVERY DAY 10/21 completed Not Available Not Available Not Available prednisolon e acetate 1 % eye drops,suspe nsion INSTILL 1 DROP INTO THE RIGHT EYE 4 TIMES A DAY. START DAY AFTER SURGERY AND CONTINUIN G. 10/21 completed Not Available Not Available Not Available tamsulosin 0.4 mg capsule TAKE 1 CAPSULE BY MOUTH EVERY DAY active Not Available Not Available No t Available gabapentin 800 mg tablet TAKE 1 TABLET BY MOUTH 3 TIMES A DAY active Not Available Not Available No t Available baclofen 10 mg tablet TAKE 1 TABLET BY MOUTH THREE TIMES A DAY active Not Available Not Available No t Available nicotine 21 mg/24 hr daily transdermal patch APPLY 1 PATCH TOPICALLY EVERY DAY. REMOVE OLD PATCH BEFORE APPLYING NEW ONE. 10/21 completed Not Available Not Available Not Available hydroxyzine HCl 25 mg tablet TAKE 1 TABLET BY MOUTH 3 TIMES A DAY FOR 5 DAYS NEEDED FOR ANXIETY, NAUSEA, OR RUNNY NOSE 06/16 completed Not Available Not Available Not Available mupirocin 2 % topical ointment APPLY TO AFFECTED AREA EVERY DAY active Not Available Not Available No t Available loperamide 2 mg-simethic one 125 mg tablet TAKE 1 TABLET BY MOUTH EVERY 6 HOURS NEEDED FOR LOOSE STOOL 10/21 completed Not Available Not Available Not Available metoprolol succinate ER 25 mg tablet,exte nded release 24 hr TAKE 1 TABLET BY MOUTH TWICE A DAY FOR 90 DAYS active Not Available Not Available No t Available insulin lispro (U-100) 100 unit/mL subcutaneou s solution INJECT 10 TO 19 UNITS SUBCUTANE OUSLY 2 TIMES A DAY PER BREAKFAST /LUNCH SLIDING SCALE AND INJECT 7 TO 16 UNITS EVERY DAY AT BEDTIME PER DINNER SCALE 06/16 completed Not Available Not Available Not Available ibuprofen 600 mg tablet TAKE 1 TABLET BY MOUTH 3 TIMES A DAY NEEDED FOR MODERATE PAIN 06/16 completed Not Available Not Available Not Available Vitamin D2 1,250 mcg (50,000 unit) capsule TAKE 1 CAPSULE BY MOUTH EVERY WEEK FOR 8 WEEKS active Not Available Not Available No t Available celecoxib 100 mg capsule TAKE 1 CAPSULE BY MOUTH 2 TIMES A DAY NEEDED FOR PAIN FOR 30 DAYS active Not Available Not Available No t Available ondansetron 4 mg disintegrat ing tablet PLACE 1 TABLET TWICE A DAY BY TRANSLING UAL ROUTE NEEDED FOR 7 DAYS active Not Available Not Available No t Available loratadine 10 mg tablet TAKE 1 TABLET BY MOUTH EVERY DAY active Not Available Not Available No t Available amoxicillin 875 mg-potassiu m clavulanate 125 mg tablet TAKE 1 TABLET BY MOUTH EVERY 12 HOURS FOR 10 DAYS 10/21 completed Not Available Not Available Not Available nabumetone 500 mg tablet TAKE 1 TABLET BY MOUTH TWICE A DAY FOR 7 DAYS active Not Available Not Available No t Available amoxicillin 500 mg-potassiu m clavulanate 125 mg tablet TAKE 1 TABLET BY MOUTH EVERY 12 HOURS FOR 10 DAYS 06/16 completed Not Available Not Available Not Available nicotine 7 mg/24 hr daily transdermal patch APPLY 1 PATCH TOPICALLY EVERY DAY. REMOVE OLD PATCH BEFORE APPLYING NEW ONE. 10/21 completed Not Available Not Available Not Available Ventolin HFA 90 mcg/actuati on aerosol inhaler INHALE 2 PUFFS EVERY 4 TO 6 HOURS NEEDED FOR WHEEZING OR FOR SHORTNESS OF BREATH active Not Available Not Available No t Available oxycodone 5 mg tablet TAKE 1 AND 1/2 (HALF) TABLET BY MOUTH EVERY 6 HOURS 10/21 completed Not Available Not Available Not Available insulin lispro (U-100) 100 unit/mL subcutaneou s pen PLEASE SEE ATTACHED FOR DETAILED DIRECTION S active Not Available Not Available No t Available escitalopra m 10 mg tablet TAKE 1 TABLET BY MOUTH EVERY DAY active Not Available Not Available No t Available escitalopra m 20 mg tablet TAKE 1 TABLET BY MOUTH EVERY DAY 06/16 completed Not Available Not Available Not Available BD Ultra-Fine Mini Pen Needle 31 gauge x /16 USE TO INJECT INSULIN 5 TIMES A DAY 10/21 completed Not Available Not Available Not Available Pain Relief (acetaminop hen) 160 mg/5 mL oral liquid GIVE 30 ML BY MOUTH EVERY 8 HOURS NEEDED FOR PAIN FOR 30 DAYS active Not Available Not Available No t Available BD Insulin Syringe Ultra-Fine 0.3 mL 30 gauge x 1/2 INJECT INSULIN 3 TIMES A DAY 06/16 completed Not Available Not Available Not Available FreeStyle Lite Meter kit USE DIRECTED 06/16 completed Not Available Not Available Not Available FreeStyle Lite Strips TEST 3 TIMES A DAY 06/16 completed Not Available Not Available Not Available Lantus Solostar U-100 Insulin 100 unit/mL (3 mL) subcutaneou s pen INJECT 13 UNITS SUBCUTANE OUSLY EVERY MORNING AND INJECT 16 UNITS SUBCUTANE OUSLY EVERY DAY AT BEDTIME. ROTATE INJECTION SITES 06/16 completed Not Available Not Available Not Available oxycodone 10 mg tablet TAKE 2 TABLETS BY MOUTH EVERY 8 HOURS FOR 7 DAYS 10/21 completed Not Available Not Available Not Available oxycodone HCl-oxycodo ne-ASA three times a day as needed for pain 10/21 completed Statu s: 'Curr ent'; Not Available Not Available Not Available Suboxone 8 mg-2 mg sublingual film DISSOLVE 1 FILM UNDER THE TONGUE DAILY FOR 5 DAYS NEEDED active Not Available Not Available No t Available Suboxone 4 mg-[address] 1 FILM BY SUBLINGUA L ROUTE EVERY DAY FOR 7 DAYS 06/16 completed Not Available Not Available Not Available Suboxone 12 mg-3 mg sublingual film DISSOLVE 1 FILM UNDER THE TONGUE DAILY NEEDED 06/16 completed Not Available Not Available Not Available Eliquis 5 mg tablet TAKE 1 TABLET BY MOUTH 2 TIMES A DAY active Not Available Not Available No t Available Tresiba FlexTouch U-200 insulin 200 unit/mL (3 mL) subcutaneou s pen INJECT 30 UNITS SUBCUTANE OUSLY AT BEDTIME active Not Available Not Available No t Available naloxone 4 mg/actuatio n nasal spray USE 1 SPRAY IN 1 NOSTRIL NEEDED DIRECTED active Not Available Not Available No t Available Sublocade 300 mg/1.5 mL solution,ex tended release subcutaneou s syringe active Not Available Not Available No t Available Lokelma 5 gram oral powder packet MIX 1 PACKET IN 45 ML OF WATER AND DRINK BY MOUTH DAILY FOR 5 DAYS. DO NOT TAKE WITHIN 2 HOURS OF OTHER MEDICATIO NS 10/21 completed Not Available Not Available Not Available BD [place] 2nd Gen Pen Needle 32 gauge x 5/32 DIRECTED 4X DAILY 06/16 completed Not Available Not Available Not Available insulin glargine-yf gn (U-100) 100 unit/mL (3 mL) subcutaneou s pen 06/16 completed Not Available Not Available Not Available Vitals Date Recorded Body height Body mass index (BMI) Body weight Provider Name and Address Organization Details Last Updated DateTime 10/22/2023 162.56 cm 25.7 kg/m2 29579.86 g LISA BROWN [place] - [facility] 10/22/2023 13:49:00 Date Recorded Body height Body mass index (BMI) Body weight Provider Name and Address Organization Details Last Updated DateTime 06/16/2024 162.56 cm 25.7 kg/m2 09453.86 g LISA BROWN [place] - [facility] 06/16/2024 13:32:58 Social History None recorded. Functional Status None recorded. Mental Status None recorded. Family History Nothing Reported. Medical History Condition Response Allergies/Hayfever N Coronary Artery Disease N Anxiety/Depression Y Breathing or lung disorders N Emphysema N Nerve Disorders Y Thyroid Problems N COPD N Pacemaker N Anemia N Kidney/Bladder Problems N Vascular Disease N Heart Trouble N Heart Attack ([place]) N Gastrointestinal Disease N Cholesterol N Diabetes Y Autoimmune disease N Bleeding Disorder N Orthotics N Arthritis N Seizures/Epilepsy N Blood Clot Y AIDS/HIV N Congestive Heart Failure (CHF) N Acid Reflux (GERD) N Cancer N Stroke N Asthma Y Circulation Problems Y Peripheral Vascular Disease N Sleep Apnea N Hepatitis Y Heart Disease N Rheumatoid Arthritis N Arrhythmia N Pulmonary Embolism Y Headaches Y Fibromyalgia N Hypertension N Osteoporosis N Gynecological HistoryNo gynecological history recorded. Obstetrics History GPAL:G 0 P 0 0 0 0 Past Encounters Encounter ID Performer Location Encounter Start Date Encounter Closed Date Diagnosis/Indication Diagnosis SNOMED-CT Code Diagnosis ICD10 Code Diagnosis Note [id number] MD [facility] [address] [place] [address] 10/22/2023 13:44:12 10/22/2023 15:52:39 Pain of left knee joint 2514647621 31101 M25.333 [id number] Abbi Mueller MD [facility] - [facility] [address] [place] [address] 06/16/2024 13:25:29 07/02/2024 15:37:43 Pain of knee region 8433510751 M25.561 Health Concerns Section Related Observation LastModified by Organization Detai ls LastModified Time None Recorded Concern Status LastModified by Organization Details LastModified Time None Recorded Advance Directives Directive None Recorded Payers Encounter Date Sequence Insurance Name Policy Number Policy Rios Covered Member ID Rios Member ID Guarantor Name 10/22/2023 1 [facility] - GROUP HOME OPTIONS - DUAL ELIGIBLE (MEDICARE-MEDI CAID REPLACEMENT HMO) [place] Oliver[place] [id number] Radha Olivera 06/16/2024 1 [facility] PL[facility] - GROUP HOME OPTIONS - DUAL ELIGIBLE (MEDICARE-MEDI CAID REPLACEMENT HMO) [facility] Radha Olivera [id number] Radha Olivera OBGyn Episode No OBEpisode recorded.
--- OUTSIDE RECORDS SUMMARY | 2024-07-09 10:14 | XMS_ITS | Continuity of Care Document ---
Author Organization [facility] - [facility], [facility] - [facility] [address] Address [address] [place] [address] Assessment Encounter Date Assessment Date Assessment LastModified by Organization Details LastModified Time 06/16/2024 06/16/2024 SUBJECTIVE Chief Complaint Right knee [...] scratching at a wound care clinic in [place]. Radha reports improved diabetes control with a recent hemoglobin A1c of about 8. OBJECTIVE Examination Right lower extremity: Knee flexion fixed at approximately 70 degrees with varus angulation, skin wounds over anterior leg. Imaging X-rays ordered, obtained, and reviewed by me today at [facility] of the right knee show [...] once her right leg wounds have healed. [email or web address] Not available 06/16/2024 15:44:56 Plan of Treatment Reminders Order Date Submit Date Provider Last Modified By Organization Details Last Modified Time Details Appointments None record ed. Lab None record ed. Referral None record ed. Procedures None record ed. Surgeries None record ed. Imaging XR, knee, 1 or 2 view 025 06/16/19 cstamand [facility], [address] [facility], [facility] [address], [place], [address], 15:37:43 Medication Orders None record ed. Patient TargetsNo targets recorded. Patient InstructionsNo instructions recorded. Reason for Referral None Reported. Results Created Date Observation Date Name Description Value Unit Range Abnormal Flag Note LastModifiedBy Organization Detail LastModifiedTime 06/16/19 25 06/16/2024 XR, knee, 1 or 2 view [email or web address] ?Encry pted=s hAaTro YD8dLq bEUv6g %2BXZw aYqtaq 0bqfl% 2Fg9IQ a4ajBk vP9nXo QUaueC m3YtLR FvZlgJ JJ8mAn HZtai3 [id number] AC0Kqb HqBVaC jKiQtr MwF INTERFACE [facility] Office [address], [place], [address], 06/16/2024 13:54:53 06/16/19 25 06/16/2024 XR, knee, 1 or 2 view [email or web address] ?Encry pted=s hAaTro YD8dLq bEUv6g %2BXZw aYqtaq 0bqfl% 2Fg9IQ a4ajBk vP9nXo QUaueC m3YtLR FvZlgJ JJ8mAn HZtai3 [id number] AC0Kqb HqBVaC jKiQtr [facility] INTERFACE [facility] Office [address] [facility] [address], [place], [address], 06/16/2024 13:54:55 Result Notes None recorded. Medical Equipment None Reported. Allergies Allergen ID Allergen Name Allergen Category Reaction Reaction Severity Criticality Documentation Date Start Date Code Code System Note Provider Name and Address Organization Details Recorded Time 10790608 almond oil food,medi cation Not available Not available Not available 07/08/20232021 56172 38 RxNorm Not Available [facility] 4 16:13:12 892578 doxycycli ne hyclate medicatio n Not available Not available Not available 07/08/20232021 73287 RxNorm Not Available [facility] 4 16:13:12 181458 Bactrim medicatio n Not available Not available Not available 07/08/20232021 45983 9 RxNorm Not Available [facility] 4 16:13:12 Medications Name Sig Start Date [...] Ultra-Fine Mini Pen Needle 31 gauge x 3/16 USE TO INJECT INSULIN 5 TIMES A [...] Updated DateTime 06/16/2024 162.56 cm 25.7 kg/m2 97003.86 g LISA BROWN [place] - [facility] 06/16/2024 13:32:58 Social History None recorded. Functional Status None recorded. Mental Status None recorded. Family History Nothing Reported. Medical History Condition Response Allergies/Hayfever N Coronary Artery Disease N Anxiety/Depression Y Breathing or lung disorders N Emphysema N Nerve Disorders Y Thyroid Problems N COPD N Pacemaker N Anemia N Kidney/Bladder Problems N Vascular Disease N Heart Trouble N Heart Attack ([place]) N Gastrointestinal Disease N Cholesterol N Diabetes [...] SNOMED-CT Code Diagnosis ICD10 Code Diagnosis Note [id number] MD [facility] [address] [place] [address] 06/16/2024 13:25:29 07/02/2024 15:37:43 Pain of knee region [id number] M25.561 Health Concerns Section Related Observation LastModified by Organization Detai ls LastModified Time None Recorded Concern Status LastModified by Organization Details LastModified Time None Recorded Payers Encounter Date Sequence Insurance Name Policy Number Policy Rios Covered Member ID Rios Member ID Guarantor Name 06/16/2024 1 [facility] [employer] PLAN - LONG TERM OPTIONS - DUAL ELIGIBLE (MEDICARE-MEDI CAID REPLACEMENT HMO) [facility] Radha Olivera [id number] Radha Olivera OBGyn Episode No OBEpisode recorded.
--- OUTSIDE RECORDS SUMMARY | 2024-07-09 10:15 | XMS_ITS | Data Portability ---
Author Organization [facility], Main Office Address [address] , [address] [place] [address] Care Team Providers Care Director Vaccine Name Role Phone ABYBAUTISTA JASSO Primary Care Provider [facility] ([facility]) OTHER Assessment No assessment recorded. Plan of Treatment Reminders Order Date Submit Date Provider Last Modified By Organization Details Last Modified Time Details Appointments None record ed. Lab None record ed. Referral None record ed. Procedures None record ed. Surgeries None record ed. Imaging None record ed. Medication Orders None record ed. Patient TargetsNo targets recorded. Patient Instructions Encounter Date Encounter Id Patient Instructions Last Modified By Organization Details Last Modified Time 09/19/2021 [id number] Dispo -- awaazalea g confirmation that she can move in with her BF and then will proceed with arranging necessary services and follow-up [email or web address] Not available 09/20/2021 13:14:39 Reason for Referral None Reported. Problems Name Problem SNOMED Code Status Onset Date Resolution Date Notes Provider Name and Address Organization Details Recorded Time Acute bacterial endocarditi s 588686969 Active 2020 ZACH Marin [address] [facility], [address], [place], [address], [facility] 1 14:06:57 Diabetic ketoacidosi s 563073606 Active 2020 ZACH Marin [address] [facility], [address], [place], [address], [facility] 1 14:07:04 Type 1 diabetes mellitus 09397800 Active 2020 ZACH Marin [address] [facility], [address], [place], [address], [facility] 08/06/202 1 14:07:12 Neuropathy 675479259 Active 2020 Britta Wright [employer] [address], [address], [place], [address], [facility] 14:07:31 Polysubstan ce abuse 286385890 Active 2020 Britta Wright [employer] [address], [address], [place], [address], [facility] 14:08:04 Renal mass 485045002 Active 2020 Britta Kyle [employer] [address], [address], [place], [address], [facility] 14:08:31 Posttraumat ic stress disorder 61554000 Active 2020 ZACH Marin [address], [address], [place], [address], [facility] 14:08:38 Chronic depression 846180963 Active 2020 ZACH Marin [address], [place], [address], [facility] 14:08:48 Acute nontraumati c kidney injury 1187950503140 03 Active 2020 Britta Wright [employer] [address], [address], [place], [address], [facility] 14:08:56 Gastrointes tinal hemorrhage 16680149 Active 2020 Britta Wright [employer] [address], [address], [place], [address], [facility] 14:09:04 Vitamin D deficiency 82165197 Active 2020 Britta Wright [employer] [address], [address], [place], [address], [facility] 10:22:19 Acute diarrhea 990093360 Active 2020 ZACH Marin [address], [address], [place], [address], [facility] 1 10:35:07 Low back pain 718561292 Active 2020 Nanette Dubois, [employer] [address] [facility], [address], [place], [address], [facility] 1 17:03:33 Quadriplegi a with quadripares is 6390833006303 0 Active 2020 Thu Li MD [address] [facility], [address], [place], [address], [facility] 1 02:35:48 Chronic pain syndrome 378747283 Active 2020 Thu Li MD [address] [facility], [address], [place], [address], [facility] 1 02:39:20 Uncontrolle d type 1 diabetes mellitus 250276050 Active 2020 Thu Li MD [address] [facility], [address], [place], [address], [facility] 1 02:40:14 Primary insomnia 7916771 Active 2022 Héctor Alexander MD [address] [facility], [address], [place], [address], [facility] 3 10:40:26 Problem Notes None recorded. Medical Equipment None Reported. Allergies Allergen ID Allergen Name Allergen Category Reaction Reaction Severity Criticality Documentation Date Start Date Code Code System Note Provider Name and Address Organization Details Recorded Time 12483 doxycycli ne Not available rash Not available Not available 12/09/2020 3640 RxNorm Not Available Not Available Not Available 79380 Substance with sulfonami de structure and antibacte rial mechanism of action (substanc e) medicatio n rash Not available Not available 12/09/2020 84147 8003 SNOMED Not Available Not Available Not Available 93462 trimethop rim medicatio n rash Not available Not available 12/09/2020 26306 RxNorm Not Available Not Available Not Available 56541 latex environme nt,medica tion hives rash Not available Not available Not available 12/09/2020 90846 91 RxNorm Not Available Not Available Not Available 75210 almond allergeni c extract food hives Not available Not available 12/09/2020 70207 7 RxNorm Not Available Not Available Not Available Medications Not known to be on any medication Vitals Date Recorded Body height Body temperature Respiratory rate Oxygen saturation Oxygen saturation in Arterial blood by Pulse oximetry Systolic blood pressure Diastolic blood pressure Provider Name and Address Organization Details Last Updated DateTime 2 162.56 cm 97.8 [degF] 20 /min 96 % 96 % 130 mm[Hg] 72 mm[Hg] ASA VALENTIN PA-C [address], [place], [address], [facility] 2 13:04:21 Date Recorded Body height Body temperature Respiratory rate Oxygen saturation Oxygen saturation in Arterial blood by Pulse oximetry Provider Name and Address Organization Details Last Updated DateTime 2 162.56 cm 97.8 [degF] 20 /min 96 % 96 % ZACH Marin [address] [facility], [address], [place], [address], [facility] 2 13:32:29 Date Recorded Body height Body temperature Respiratory rate Oxygen saturation Oxygen saturation in Arterial blood by Pulse oximetry Systolic blood pressure Diastolic blood pressure Provider Name and Address Organization Details Last Updated DateTime 2 162.56 cm 97.8 [degF] 20 /min 95 % 95 % 130 mm[Hg] 78 mm[Hg] ASA VALENTIN PA-C [address] [facility], [address], [place], [address], [facility] 2 14:57:39 Date Recorded Body height Body temperature Respiratory rate Heart rate Oxygen saturation Oxygen saturation in Arterial blood by Pulse oximetry Systolic blood pressure Diastolic blood pressure Provider Name and Address Organization Details Last Updated DateTime 2 162.56 cm 98 [degF] 20 /min 68 /min 96 % 96 % 138 mm[Hg] 76 mm[Hg] ASA VALENTIN PA-C [address], [place], [address], [facility] 2 14:40:34 Date Recorded Body height Systolic blood pressure Diastolic blood pressure Provider Name and Address Organization Details Last Updated DateTime 06/01/2022 162.56 cm 138 mm[Hg] 70 mm[Hg] Héctor Alexander MD [address] [facility], [address], [place], [address], [facility] 06/01/2022 10:15:03 Social History Question Answer Notes LastModified by Organizat ion Details LastModified Time Tobacco Smoking Status Current Every Day Smoker ASA VALENTIN PA-C [address] [facility], [address], [place], [address], [facility] 04/16/2021 13:23:32 Do You Have An Advance Directive? Yes Signed By Mother Due To Pt's Inability To Physically Sign For Herself Even Though Not Invoked [email or web address] Information not available 06/21/2021 What Is Your Level Of Alcohol Consumption? None [email or web address] Information not available 12/09/2020 What Is Your Code Status? Full Code [email or web address] Information not available 12/09/2020 Do You Or Have You Ever Used E-cigarettes Or Vape? Former User Of Electronic Cigarettes [email or web address] Information not available 04/16/2021 Legal Guardian? 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 06/21/2021 [email or web address] Information not available 06/21/2021 Do You Or Have You Ever Used Smokeless Tobacco? Never Used Smokeless Tobacco Information not available 04/16/2021 How Much Tobacco Do You Smoke? 1 PPW Information not available 04/16/2021 Do You Use Any Illicit Or Recreational Drugs? No Hx Opiates And Cocaine Information not available 06/21/2021 Has Tobacco Cessation Counseling Been Provided? Yes Not Interested In Quitting [email or web address] Information not available 04/16/2021 On What Date Was Tobacco Cessation Counseling Provided? 06/21/2021 [email or web address] Information not available 06/21/2021 How Many Years Have You Smoked Tobacco? 10 [email or web address] Information not available 04/16/2021 Do You Or Have You Ever Used Any Other Forms Of Tobacco Or Nicotine? Yes [email or web address] Information not available 04/16/2021 Sex: Unknown Functional Status None recorded. Mental Status None recorded. Family History Nothing Reported Notes:n/c Medical History No medical history recorded. Gynecological HistoryNo gynecological history recorded. Obstetrics History GPAL:G 0 P 0 0 0 0 Immunizations Vaccine Type Date Status Note Provider Herberth ku and Address Organization Details Recorded Time COVID-19, mRNA, LNP-S, PF, 30 mcg/0.3 mL dose 12/25/2020 completed ASA VALENTIN PA-C [address], [address], [place], [address], [facility] 12/29/2020 12:58:56 COVID-19, mRNA, LNP-S, PF, 30 mcg/0.3 mL dose 11/25/2020 completed ASA VALENTIN PA-C [address] [facility], [address], [place], [address], [facility] 02/24/2021 19:44:16 COVID-19, mRNA, LNP-S, PF, 30 mcg/0.3 mL dose 08/01/2021 completed ASA VALENTIN PA-C [address] [facility], [address], [place], [address], [facility] 08/05/2021 21:35:07 Past Encounters Encounter ID Performer Location Encounter Start Date Encounter Closed Date Diagnosis/Indication Diagnosis SNOMED-CT Code Diagnosis ICD10 Code Diagnosis Note [id number] ZACH Marin [facility] [address] [place] [address] 12/09/2020 13:59:04 12/20/2020 15:25:04 Acute bacterial endocarditis 301778199 I33.0 see hpifinishe d 6 week course of vanco in hospital, midline removedrep eat echo showed no vegetation staff working on obtaining discharge summary to see if pt needs f/u with ID Diabetic ketoacidosis 42 7208828 E13.10 resolvedla ntus 21 units q am, 25 units qhslispro sliding scaleaccuc hecks and adjust insulin prn Polysubstance abuse 4452 06477 F19.10 no suboxone or methadonep t currently on MSIR 30 mg q 4 hrs and butrans 15 mg patch q week Neuropathy 215755284 G62 .9 severe generalize d body paingabape ntin increased to 900 mg qidflexeri l 10 mg tidbutrans 15 mg patch q weekMSIR 30 mg q 4 hrsibuprof en 600 mg q 8 hrs prnlidocai ne patch left shoulderwi th hx of substance abuse Type 1 iam betes mellitus 77573732 E10.9 meds as above Renal mass 827813771 N28 .89 incidental finding on renal ULneeds out pt f/u with renal UL in 3-6 months or contrast enhanced CT or NILO abdomen Posttrauma tic stress disorder 09856426 F43.10 pt very upset todaygabap entin 900 mg qidcymbalt a 60 mg qdhydroxyz ine 10 mg tid prnpsych referralmo nitor mood Gastrointe stinal hemorrhage 19729977 K92.2 per progress note pt had GI bleed - no hx availables ucralfate 1 gram qidprotoni x 40 mg bidwaiting for dc summary for further recs Chronic depression 33443 0009 F34.1 meds as above Acute nont raumatic kidney injury 2161438292 07950 N17.9 resolved per progress notefollow bmp weeklyavoi d nephrotoxi c meds as able [id number] Bina Bingham MD [facility] on [address] [place] [address] 12/14/2020 06:25:48 12/20/2020 16:22:12 Polysubstance abuse 023283116 F19.10 social work to coordinate support, interdisci plinary team Type 1 iam betes mellitus 62750937 E10.9 Glargine insulin 21U dailyHumal og per sliding scalegabap entin 900 mg qid for neuropathy will monitor Fibromyalgia 829943935 M 79.7 cyclobenza nathen 10 mg tidduloxet ine 60 mg dailyButra ns weekly 15 mcg/hrmorp alison 30 mg q4h prngabapen tin 900 mg qidibuprof en 600 mg q8h prnwill monitor Mixed anxi ety and depressive disorder 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 x 6 weeksfu I.D. Asthenia 49914019 R53.1 PT/OTwill monitor and support as needed [id number] [place] [address] 12/16/2020 13:24:44 12/21/2020 10:09:49 Polysubstance abuse 574830594 F19.10 social work to coordinate support, interdisci plinary team Fibromyalgia 627199675 M 79.7 cyclobenza nathen 10 mg tidduloxet ine 60 mg dailyButra ns weekly 15 mcg/hrmorp alison 30 mg q4h prngabapen tin 900 mg qidibuprof en 600 mg q8h prnwill monitor Dry skin 54483287 L85.3 apply thick barrier cream to bilateral feet BIDmonitor for breakdown Posttrauma tic stress disorder 97238917 F43.10 patient with exaggerate d behaviors, could benefit from psych consult [id number] Isabelle Dowling [facility] on [address] [place] [address] 12/19/2020 15:30:29 12/21/2020 10:32:32 Sinus tachycardia 03178806 R00.0 Concern for infection- hx of endocardit isWill obtain STAT BMP, CBC w diff, blood cultures x 2, UA, C&SMonitor and if decompensa ting transfer to ED Visual hallucinations 64 507953 R44.1 Labs as above [id number] Isabelle Dowling [facility] on [address] [place] [address] 12/21/2020 12:57:39 12/23/2020 14:36:35 Urinary tract infectious disease 17406647 N39.0 Complete course KeflexWill review final urine culture/se nsitivitie s when available and adjust antibiotic PRN Neuropathy 468213749 G62 .9 Currently on Gabapentin 900 mg QID-will start slow taper to decrease this high dose graduallyM onitor for pain control and mental status Sinus tachycardia 789020 01 R00.0 Concern for infection- hx of endocardit isWill obtain STAT BMP, CBC w diff, blood cultures x 2, UA, C&SMonitor and if decompensa ting transfer to ED Visual hallucinations 64 135649 R44.1 Psych evalWill treat UTI and taper Gabapentin dose as aboveMonit or [id number] ZACH Marin [facility] [address] [place] [address] 12/27/2020 09:48:26 01/03/2021 14:49:32 Urinary tract infectious disease 68173891 N39.0 finish keflex 500 mg qid on 01/01monito r for resolution Neuropathy 675698870 G62 .9 see hpibutrans 15 mg patch weeklyibup rofen 600 mg q 8 hrs prn - pt has hx of gi bleed so will need to monitor usechanged flexeril to prn as abovewill need f/u with Dr Bernardo Middleton neurologis tthey will decide what further testing pt will needwill have staff call [facility] for results of copper lab Visual hallucinations 64 166678 R44.1 see hpioff morphine, gabapentin and trazodone with resolution of hallucinat ions and deleriumwi ll change flexeril to 10 mg tid prn spasms - as it was stated in body of DC note that it had been discontinu ed for hallucinat ions and delerium, though it was continued on med listmonito r for sxs Vitamin D deficiency 347 28625 E55.9 Vit D level at 9not started [facility] D 3 5,000 units qdrecheck Vit D level in 6 weeks Type 1 iam betes mellitus 56990582 E10.9 glargine 21 units q am, 25 units qhsaccuche cks with sliding scalemonit or and adjust insulin prn Posttrauma tic stress disorder 53894756 F43.10 mood stablecymb jair 60 mg qdwellbutr in sr 100 mg bidhydroxy zine 10 mg tid prnpsych referralmo nitor mood Polysubstance abuse 3072 49778 F19.10 no suboxone or methadoneb utrans 15 mg patch q week for pain Chronic depression 45686 0009 F34.1 meds as above Acute bact erial endocarditis 222309926 I33.0 finished 6 week course of vanco in hospital, midline removedrep eat echo showed no vegetation Acute diarrhea 037476172 R19.7 get stool for c diff and once results are back - if no c diff then can have imodium Gastrointe stinal hemorrhage 50699538 K92.2 hx of gi bleedsucra lfate 1 gram qidprotoni x 40 mg bid Renal mass 281297837 N28 .89 incidental finding on renal ULneeds out pt f/u with renal UL in 3-6 months or contrast enhanced CT or NILO abdomen [id number] ASA VALENTIN PA-C [facility] on [address] [place] [address] 12/29/2020 12:52:28 01/03/2021 15:28:58 Diarrhea 98532253 R19.7 Resolved without interventi on and prior to the initiation of oral Vancd/c Vanc - does not have acute c-diffPt educated to notify staff if diarrhea recurs of deveops abd painf/u prn Gastrointe stinal hemorrhage 23908234 K92.2 change Protonix 40 mg po bid to Prilosec at same dosing per insurance [id number] ZACH Marin [facility] on [address] [place] [address] 01/02/2021 15:39:37 01/05/2021 09:59:40 Visual hallucinations 18090963 R44.1 resolvedof f morphine, gabapentin and trazodone with resolution of hallucinat ions and deleriummo nitor for sxs Urinary tr act infectious disease 30506664 N39.0 resolvedmo nitor for recurrence Neuropathy 160017593 G62 .9 see hpibutrans 15 mg patch weeklyibup rofen 600 mg q 8 hrs prn - pt has hx of gi bleed so will need to monitor usechange flexeril to 10 mg TID scheduledf /u with Dr Bernardo Middleton neurologis t and they will decide what further testing pt will needresult s of copper lab : 1.3 Vitamin D deficiency 347 19704 E55.9 Vit D level at 9not started on supplement by CDHstarted here on Vit D 3 5,000 units qdrecheck Vit D level in 6 weeks Type 1 iam betes mellitus 94618927 E10.9 glargine 21 units q am, 25 units qhsaccuche cks with sliding scalemonit or and adjust insulin prn Posttrauma tic stress disorder 62715342 F43.10 mood stablecymb jair 60 mg qdwellbutr in sr 100 mg bidhydroxy zine 10 mg tid prnpsych referralmo nitor mood Polysubstance abuse 4452 16266 F19.10 no suboxone or methadoneb utrans 15 mg patch q week for pain Chronic depression 77398 0009 F34.1 meds as above Acute bact erial endocarditis 329557097 I33.0 finished 6 week course of vanco in hospital, midline removedrep eat echo showed no vegetation Gastrointe stinal hemorrhage 41984955 K92.2 hx of gi bleedsucra lfate 1 gram qidprilose c 40 mg bid Renal mass 605744944 N28 .89 incidental finding on renal ULneeds out pt f/u with renal UL in 3-6 months or contrast enhanced CT or NILO abdomen [id number] ZACH Costa [facility] [address] [place] [address] 01/07/2021 16:54:51 01/12/2021 12:58:35 Neuropathy 205105233 G62.9 voltaren gel 2 gm to hands QID. continue butrans 15 mg weekly and flexeril 10 mg TID. Follow up with neuro. Low back pain 909008971 M54.5 voltaren gel 4 gm to lower back QID. d/c lidoderm patch. continue to monitor. [id number] ZACH Marin [facility] [address] [place] [address] 01/13/2021 15:06:57 01/17/2021 12:02:09 Visual hallucinations 06898463 R44.1 resolved off morphine, gabapentin and trazodonem onitor for sxs Urinary tr act infectious disease 64926081 N39.0 resolvedmo nitor for recurrence Neuropathy 667641888 G62 .9 will trial gabapentin 100 mg 1 qd x 3 days then 1 bid x 3 days then 1 tid - stop if any mental status changes noted and notify NPbutrans 15 mg patch weeklyibup rofen 600 mg q 8 hrs prn - pt has hx of gi bleed so will need to monitor useoff flexeril nowf/u with Dr Bernardo Middleton neurologis t and they will decide what further testing pt will needresult s of copper lab : 1.3 Vitamin D deficiency 347 51196 E55.9 Vit D level at 9not started on supplement by CDHstarted here on Vit D 3 5,000 units qdrecheck Vit D level in 5 weeks Type 1 iam betes mellitus 12477841 E10.9 accuchecks btwn 70s and 300scontin ue glargine 21 units q am, 25 units qhsaccuche cks with sliding scalemonit or and adjust insulin prn Posttrauma tic stress disorder 88083116 F43.10 mood stablecymb jair 60 mg qdwellbutr in sr 100 mg bidhydroxy zine 10 mg tid prnpsych referralmo nitor mood Polysubstance abuse 4452 65446 F19.10 no suboxone or methadoneb utrans 15 mg patch q week for pain Chronic depression 98003 0009 F34.1 meds as above Acute bact erial endocarditis 478551344 I33.0 finished 6 week course of vanco in hospital, midline removedrep eat echo showed no vegetation Gastrointe stinal hemorrhage 53302456 K92.2 hx of gi bleedsucra lfate 1 gram qidprilose c 40 mg bid Renal mass 641398699 N28 .89 incidental finding on renal ULneeds out pt f/u with renal UL in 3-6 months or contrast enhanced CT or NILO abdomen [id number] ASA VALENTIN PA-C [facility] on [address] [place] [address] 01/19/2021 11:51:49 01/24/2021 10:53:20 Uncontrolled type 1 diabetes mellitus 622887132 E10.65 Start Humalog 2 ux SQ tidacConti nue correction al HumalogCon tinue Lantus 21 ux SQ q am and 25 ux SQ qhsMonitor sugars and adjust meds prn Quadripleg ia with quadriparesis 6407121341 9100 G82.50 PT/OTNeuro followingR ecent very extensive and essentiall y negative w/uConvers ion D/O should be in the DDx given hx PTSDMonito r and f/u prn Vitamin D deficiency 347 24604 E55.9 RepletingC ontinue D3 5k ux po dailyHas f/iu level next month Gastrointe stinal hemorrhage 56100858 K92.2 Prilosec 40 mg po bid-consid er reduction trial to once daily since GI bleed was 3 months agoConside r d/c Motrin since hx GI bleed and also getting scheduled topical diclofenac Renal mass 754842324 N28 .89 renal u/s to f/u 2.9 cm heterogeno us hypoechoic mildly vascular mass-like structure upper pole of R kidney seen on u[facility]s 11[facility]2020 [facility] [id number] [facility] [address] [place] [address] 01/27/2021 15:01:35 01/31/2021 08:15:11 Uncontrolled type 1 diabetes mellitus 757627990 E10.65 Humalog 2 ux SQ tidacConti nue correction al HumalogCon tinue Lantus 21 ux SQ q am and 25 ux SQ qhsMonitor sugars and adjust meds prn Quadripleg ia with quadriparesis 0238206230 9100 G82.50 cont PT/OTNeeds cervical and lumbar MRI w contrast scheduledA lso request EMG testingRef er to neuro for consultSta rt Baclofen 5 mg TID for spasmsAlso will add Oxycodone 2.5 mg Q6h PRN-patien t states she has tolerated this in pastIf hallucinat ions recur will d/c oxycodone [id number] Isabelle [facility] on [address] [place] [address] 01/30/2021 15:56:19 02/01/2021 12:39:58 Quadriplegia with quadriparesis 7240583612 9100 G82.50 cont PT/OTNeeds cervical and lumbar MRI w contrast scheduledE MG testing orderedAwa iting neuro consultInc rease Baclofen 10 mg TID for spasmsIncr ease Oxycodone 5 mg Q6h PRNIf hallucinat ions recur will d/c oxycodone- patient aware [id number] Thu Li MD [facility] on [address] [place], [place] [address] [address] 02/07/2021 20:14:48 02/13/2021 13:28:21 Quadriplegia with quadriparesis 6808155152 9100 G82.50 Continues to need intensive PT/OT for strengthen ing, balance, gait training, safety and function.C ontinue Baclofen 10 mg TID, voltaren gel to hands, APAP 650 mg q 4 hrs prn, and oxycodone 5 mg q 6 hrs prn.Monito r safety and function. Uncontroll ed type 1 diabetes mellitus 882518235 E10.65 Poor control.Co ntinue Lantus 21 ux SQ q am and 25 ux SQ qhs, humalog 2U with meals and SS as ordered.Mo nitor sugars and adjust meds prn Vitamin D deficiency 347 60878 E56.8 Continue D3 5000 IU qd.Recheck level next month. Gastrointe stinal hemorrhage 75242018 K92.89 Continue omeprazole 40 mg BID.Taper as able.Monit or sxs. Renal mass 878454612 N28 .89 incidental finding on renal ULneeds out pt f/u with renal UL in 3-6 months or contrast enhanced CT or NILO abdomen Visual hallucinations 64 479319 R44.1 No further sxs since return from hospital.M onitor MS. Neuropathy 670291548 G62 .89 As above.F/U with neuro Posttrauma tic stress disorder 91448025 F43.12 Continue duloxetine 60 mg qd, wellbutrin SR 100 mg BID and hydroxyzin e 10 mg TID prnPsych involved. Polysubstance abuse 2962 46383 F19.10 no suboxone or methadoneb utrans 15 mg patch q week for pain Chronic depression 00406 0009 F34.1 meds as above Acute bact erial endocarditis 288005595 I33.0 finished 6 week course of vanco in hospital, midline removedrep eat echo showed no vegetation Chronic pain syndrome 37 6444257 G89.4 Continue meds as above and gabapentin 100 mg TID, butrans 15 mg patch weekly, and ibuprofen 600 mg q 8 hrs prn.Monito r sxs. [id number] ASA VALENTIN PA-C [facility] on [address] [place] [address] [phone] 3 02/10/2021 17:13:12 02/13/2021 14:51:22 Eruption [id number] R21 refuses exam bumps could be a number of thingschec k urine for GC/chlam-f /u when results are availableR e-approach pt for exam next weekNo indication for U/APt educated about:-imp ortance of not having sexual encounters with other patients on the unit-prote cting against HIV/STIs if she is going to engage in such behavior-w as not interested in participat ing in this discussion [id number] ASA VALENTIN PA-C [facility] on [address] [place] [address] [phone] 3 02/17/2021 16:48:48 02/20/2021 16:13:30 Chronic pain syndrome 908687436 G89.4 Increase Baclofen from 10 ux tid to 15 ux tid and titrate aggressive lyd/c Voltaren gel since ineffectiv eStart Lidocaine 3% cream tid prn hand painConsid er rheum w/u given [place] neck deformitie s of handsMonit or and f/u prn Uncontroll ed type 1 diabetes mellitus 595336336 E10.65 Decrease hs Lantus from 25 to 23 uxContinue Lantus 21 ux SQ q amd/c Humalog 2 ux SQ tidacHumal og 4 ux SQ daily with breakfast but hold until eats at least 50% of mealHumalo g 6 ux q lunchHumal og 4 ux q dinnercont inue correction al insulinMon itor sugars and adjust meds prnNot on ERIC/ARB for renal protection -BPs low at times so will hold off on adding at this time but consider in the future Eruption [id number] R21 Bumps resolved per ptNo symptoms or dysuriaRev iew GC/chlam when results are available [id number] ASA VALENTIN PA-C [facility] on [address] [place] [address] [phone] 3 02/23/2021 16:16:37 02/27/2021 16:18:42 Chronic pain syndrome 738784315 G89.4 Increase Baclofen from 15 mg po tid to 20 mg po tidNo change in oxycodone IR 5 mg po q 6 h prn at this time despite her request to make is q 4 h prnCheck CBCD, CMP, RF, RANJAN, and ACPA (anti-citr ullinated peptide antibodies )Monitor and f/u prn [id number] ASA VALENTIN PA-C [facility] on [address] [place] [address] [phone] 3 03/06/2021 18:28:01 03/08/2021 11:32:59 Acute otitis externa 03801334 H60.509 Left ear Cortispori n otic suspension 4 gtt L ear qid x 10 days-benef its of abx outweigh risks of non-treatm ent in this patient Chronic pain syndrome 37 4350592 G89.4 Increase Cymbalta from 60 mg po q am to 60 mg po q am and 30 mg po q 1700Recent labs not revealingM onitor and f/u prn [id number] ASA VALENTIN PA-C [facility] on [address] [place] [address] [phone] 3 03/10/2021 09:35:25 03/14/2021 11:07:45 Unintentional weight loss 520464227 R63.4 Increase frequency of monitoring weights to weekly x 4 weeks then monthly-we ight via same method each time and include when [facility] weightsRD also followingU pdate TSH Uncontroll ed type 1 diabetes mellitus 581801912 E10.65 Pre-lunch sugar remain high, reflecting need for increased pre-breakf ast Humalog-wi ll increase pre-breakf ast Humalog from 4 ux to 6 ux-continu e to hold until pt eats at least 50% of mealHS sugars remain elevated, reflecting need to increase pre-dinner Humalog-wi ll increase pre-dinner Humalog from 4 ux to 6 uxContinue Humalog 6 ux with lunchconti nue correction al insulinMor annika sugars slightly elevated, reflecting need to increase hs Lantus-inc rease Lantus from 23 ux to 24 ux (sugars were a bit low when she was on 25 ux at hs)HS sugars also up but will hold off on adjusting morning Lantus until effect of increased pre-dinner Humalog is observed-p t tends to be non-compli ant with diabetic restrictio ns with dinner as that is when she most often orders take-outMo nitor sugars and adjust meds prnNot on ERIC/ARB for renal protection -BPs low at times so will hold off on adding at this time but consider in the futureUpda te A1c Chronic pain syndrome 37 7832940 G89.4 Continue Cymbalta 60 mg po q am and 30 mg po q 1700-room to increaseIn crease gabapentin from 100 mg po tid to 200 mg po tid-monito r for response, sedation, hallucinat ions-pt agreeable to this trialUnlik mando RA based on labsConsul t rheum for completene ss Vitamin D deficiency 347 36942 E55.9 RepletingC ontinue D3 5k ux po dailyUpdat e Total Vit D-level planned for this month; will coordinate draw with TSH Quadripleg ia with quadriparesis [id number] 9100 G82.50 PT/OTClari fy status of neuro f/u and EMG previously orderedRec ent very extensive and essentiall y negative w/uConvers ion D/O should be in the DDx given hx PTSDMonito r and f/u prn Gastrointe stinal hemorrhage 61639212 K92.2 Continue Prilosec 40 mg po bid for nowd/c CarafateCo nsider decrease Prilosec once she can be assessed off Carafate [id number] ASA VALENTIN PA-C [facility] on [address] [place] [address] 03/13/2021 17:28:09 03/21/2021 10:47:41 Chronic pain syndrome 097352986 G89.4 Increase Cymbalta from 60 mg po q am and 30 mg po q 1700 to 60 mg po bidNo changes to oxycodone at this time script for oxycodone IR 5 mg #60 no refills given to nurse Dyslipidemia 957469608 E 78.5 Add Lipitor 20 mg po qhslipid panel 8 weeks [id number] ASA VALENTIN PA-C [facility] on [address] [place] [address] 3 03/21/2021 18:30:14 03/28/2021 12:19:54 Acute otitis media 8376921 H66.92 Augmentin 875/125 mg po bid x 10 days-benef its of abx outweigh risks of non-treatm ent in this patientDif lucan 150 mg po x 1 on days 2 and 5 to prevent richard vaginitisM onitor and f/u prn [id number] ASA VALENTIN PA-C [facility] on [address] [place] [address] [phone] 3 03/28/2021 19:45:13 04/06/2021 13:45:41 Chronic pain syndrome 571972761 G89.4 Given the interrupti ons in her Butrans beyond her control, will change prn oxycodone 5 mg from q 6 to q 4 h for nowNo other changes at this timeMonito r and f/u prn Pruritic disorder 441581 002 L29.9 Benadryl 50 mg po q 6 h prn itching [id number] ASA VALENTIN PA-C [facility] on [address] [place] [address] [phone] 3 04/06/2021 16:31:22 04/17/2021 16:27:20 Paronychia of toe of left foot [id number] 6832133 L03.032 warm soak L foot qid x 5 days for paronychia L 1st toeNo evidence of cellulitis and no indication for topical or oral abx at this timeMonito r and f/u prn [id number] ASA VALENTIN [facility] on [address] [place] [address] [phone] 3 04/07/2021 16:52:11 04/17/2021 16:31:27 Paronychia of toe of left foot [id number] 5000383 L03.032 Triple antibiotic bid x 5 days L 1st toeAdd Vit C 500 mg po bid x 30 days, Zinc 220 mg po bid x 14 days, and Vit A 10k ux po daily x 10 days to promote wound healing in a diabetic.N o evidence of cellulitis -abx not indicated at this timeMonito r and f/u prn Blister of foot 64183092 3 S90.822A HeelProtec tive dressingMo nitor and f/u prn [id number] ASA VALENTIN PA-C [facility] on [address] [place] [address] [phone] 3 04/13/2021 18:55:30 04/18/2021 09:45:53 Chronic pain syndrome 252767074 G89.4 add Zanaflex 2 mg po q 8 h prn stiffness- monitor for sedation, hallucinat ions-titra te to comfort-pt agreeable to triald/c Lipitor as likely worsening chronic pain Migraine 28724934 G43.90 9 Add Riboflavin 400 mg po daily for migraine prevention -educated that this will likely cause her urine to turn bright yellow-exp lained that it may take up to 3-4 months to experience an improvemen t in migraines- pt agreeable to try this [id number] ASA VALENTIN PA-C [facility] on [address] [place] [address] [phone] 3 04/17/2021 13:27:26 04/20/2021 08:54:46 Uncontrolled type 1 diabetes mellitus 675362299 E10.65 d/c prandial Humalog since meal intake widely variableCo ntinue Humalog sliding scale (correctio nal Humalog) but change to the following: -151-200 1 ux; 201-250 2 ux; 251-300 3 ux; 301-350 4 ux; >350 5 uxNo changes in LantusAsk nursing to document when she requests a lower dose of insulin than what is orderedMon itor sugars and adjust meds prnNot on an ERIC/ARB for renal protection due to soft BPs [id number] Bina Bingham MD [facility] on [address] [place] [address] [phone] 3 04/28/2021 08:13:19 05/01/2021 14:06:27 Type 1 diabetes mellitus 59756447 E10.42 Lantus insulin 24U in eveningHum alog per sliding scalegabap entin 200 mg tid for neuropathy - see meds for chronic painwill monitor Muscle weakness 48559092 M62.81 quadripare sis -seems improved at today's visit - consider psychiatri c componentM RI Cspine, LS spine with contrast recommende dfu neurologyP T/OTwill monitor and support as needed Chronic pain 21402100 G8 9.29 ibuprofen 600 mg q8h prnduloxet ine 60 mg dailygabap entin 200 mg tidtizanid ine 2 mg q8h prnoxycodo ne 5 mg q4h prnButrans patch 15 mcg/hr weeklyAPAP 650 mg q4h prnwill monitorPT/ OT prn Mixed anxi ety and depressive disorder 440081840 F41.8 trazodone 50 mg at hsduloxeti ne 60 mg dailybupro pion 100 mg bidgabapen tin 900 mg tidhydroxy zine 10 mg q8h prnwill monitor and support as needed Gastroesop hageal reflux disease without esophagitis 981547511 K21.9 omeprazole 40 mg bidwill monitor [id number] ASA VALENTIN PA-C [facility] on [address] [place] [address] [phone] 3 05/02/2021 18:19:07 05/04/2021 14:35:08 Uncontrolled type 1 diabetes mellitus 191828371 E10.65 Given morning hypoglycem ia, will d/c hs Lantus 24 ux since can cause thisContin ue morning Lantus 21 ux SQ q amContinue individual ized correction al Humalog-ap preciate that nursing has been documentin g when she refuses coverage or requests a reduced dose of insulin-no coverage at hsSome degree of hyperglyce adri preferable to hypoglycem iaWas on an insulin pump in the past, which was d/c'd when she was hospitaliz edMonitor sugars and adjust meds prnNot on an ERIC/ARB for renal protection due to soft BPs Chronic pain syndrome 37 2663863 G89.4 Complaints out of proportion to exam findingsRe schedule Brain MRI ASAPNo changes to meds at this timeConsid er Chronic Widespread Pain (CWP) Syndrome/C entralized Pain Syndrome-R heum consult still pending [id number] ASA VALENTIN PA-C [facility] on [address] [place] [address] [phone] 3 05/08/2021 17:47:50 05/15/2021 16:00:40 Uncontrolled type 1 diabetes mellitus 896831977 E10.65 Increase Lantus from 21 ux SQ q am to 23 ux SQ q amContinue individual ized correction al insulin, which she still often refusesMon itor sugars and adjust meds prnNot on an ERIC/ARB for renal protection due to soft BPs [id number] ASA VALENTIN PA-C [facility] on [address] [place] [address] 3 05/10/2021 15:19:30 05/16/2021 08:53:19 Nausea 020336163 R11.0 Nausea likely secondary to hyperglyce adri and less likely from Cymbalta although not impossible Has been on Prilosec 40 mg po bid since 12/30/20d/ c Vit C due to nauseaAdd Zofran ODT 4 mg po q 6 h prn N/V-ok to continue despite increased risk of serotonin syndrome with Cymbalta and Wellbutrin Stool for H. pyloriStoo l guaiac x 3Wellbutri n DNRI and Cymbalta SNRI = increased norepi-dec rease Wellbutrin from 100 mg po bid to just once q amCBCD, CMP, Amylase, Lipase, Total CK, ESR, CRP on 05/12/21 Uncontroll ed type 1 diabetes mellitus 135773663 E10.65 Increase Lantus from 23 ux SQ q am to 25 ux SQ q amContinue individual ized correction al insulin, which she still often refusesMon itor sugars and adjust meds prnNot on an ERIC/ARB for renal protection due to soft BPs Chronic pain syndrome 37 3847164 G89.4 Complaints out of proportion to exam findingsRe schedule Brain MRI ASAPIncrea se Baclofen from 20 mg po tid to max dose of 20 mg po qidPlenty of room to increase gabapentin and Zanaflex but do not want to make more than 1 med change at a time with re: pain management Chronic Widespread Pain (CWP) Syndrome/C entralized Pain Syndrome still on DDx-Rheum consult still pending- marty total CK since pain mostly muscularly based Migraine 24748449 G43.90 9 Continue Riboflavin 400 mg po daily for migraine prevention -re-educat ed that this will likely cause her urine to turn bright yellow-re- explained that it may take up to 3-4 months to experience an improvemen t in migrainesA lready has prn oxycodone in place [id number] ASA VALENTIN PA-C [facility] on [address] [place] [address] [phone] 3 05/12/2021 15:20:29 05/22/2021 18:13:36 Chronic pain syndrome 116754504 G89.4 CPK slightly above normal range.DDx includes:- Diabetic muscle infarction -Inflammat ory myopathies EMG, Brain MRI, Neuro consult, and Rheum consult pend-adan fy statusIf diabetic muscle infarction , need to get sugars under much better control as they remain out of control for patient reasons.-e ducate pt about thisKnown chronic widespread pain syndrome, fka fibromyalg iaNo changes at this time Anemia 960635185 D64.9 H&H down from priorStool guaiacs pend and will be reviewed when availableM onitor labs Uncontroll ed type 1 diabetes mellitus 025880836 E10.65 Lantus increased 2 days agoContinu e individual ized correction al insulin, which she still often refusesMon itor sugars and adjust meds prnNot on an ERIC/ARB for renal protection due to soft BPs [id number] ASA VALENTIN PA-C [facility] on [address] [place] [address] [phone] 3 05/24/2021 14:47:08 05/31/2021 11:17:09 Chronic pain syndrome 683907845 G89.4 Talked about diabetic muscle infarction as a possible explanatio n of her muscular pain, which dominates her pain complaints .No changes to pain meds at this time Avulsion i njury of fingernail 639778276 S61.308A No evidence of infectionL ocal careMonito r and f/u prn Anxiety di sorder due to a general medical condition 54917687 F06.4 increase Wellbutrin back to bidadd anxiety x 14 days to the prn Benadryl indication -not adding hydroxyzin e since on Benadryl-b enzos not indicated [id number] ASA VALENTIN PA-C [facility] on [address] [place] [address] [phone] 3 05/25/2021 15:11:09 06/05/2021 13:42:02 COVID-19 896578905 U07.1 Vaccinated , <65 y/o, with at least 1 risk factor for progressio n to severe disease (uncontrol led DM) so would be a candidate for remdesivir ; however she does not want to have an IV placed; she would be a candidate for monoclonal antibody therapy; however, she does not want anything parenteral . She would be a candidate for Paxlovid (nirmatrel vir-ritona vir 300/100 mg po bid x 5 days. Will see if pharmacy can procure this.Suppo rtive careFollow clinically Precaution s per facility protocol Paronychia of finger 444 326177 L03.019 Bacitracin and bandaid to affected fingers daily x 5 daysFollow clinically Uncontroll ed type 1 diabetes mellitus 731374984 E10.65 Increase Lantus from 25 to 28 ux SQ q amContinue individual ized correction al insulin, which she still often refusesMon itor sugars and adjust meds prnNot on an ERIC/ARB for renal protection due to soft BPs [id number] ASA VALENTIN PA-C [facility] on [address] [place] [address] [phone] 3 06/07/2021 19:12:01 06/13/2021 11:45:27 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 SSRIs ideal for this as well as for dermatillo jessica-On Cymbalta (SNRI) and Wellbutrin (DNI)-need s more serotonin- taper Wellbutrin ; would ideally add sertraline ; however, due to ongoing c/o diarrhea, would not choose this so will trial fluoxetine 10 mg po daily with goal of titrating to at least 20 mg (starting low since pt seems to be sensitive to some meds)Hesit ant to add short-acti ng benzo (Ativan,) which seems to be her goal based on her rejection of non-benzo alternativ es-if a brief trial of Ativan were to be introduced while waiting for SSRI to take effect, there is significan t concern that attempts to withdraw the benzo would be met with serious resistance and behavioral disturbanc e COVID-19 332311818 U07.1 Clinically recovered [id number] ASA VALENTIN PA-C [facility] on [address] [place] [address] [phone] 3 06/08/2021 12:10:18 06/13/2021 12:56:00 Uncontrolled type 1 diabetes mellitus 429249149 E10.65 Increase Lantus from 28 to 32 ux SQ q am (conservat ively increasing )Continue individual ized correction al insulin, which she still often refusesMon itor sugars and adjust meds prnNot on an ERIC/ARB for renal protection due to soft BPs [id number] A[facility] VALENTIN [facility] [address] [place] [address] 91802-636 3 06/12/2021 14:19:02 06/29/2021 12:52:22 Uncontrolled type 1 diabetes mellitus 249185281 E10.65 Continue Lantus 32 ux SQ q am-pt hesistant to increase despite elevated sugars due to sugar 67 yesterday amContinue individual ized correction al insulin, which she still often refuses or takes less ofMonitor sugars and adjust meds prnNot on an ERIC/ARB for renal protection due to soft BPs [id number] A[facility] VALENTIN [facility] [address] [place] [address] 72540-524 3 06/21/2021 13:12:50 06/30/2021 10:08:01 Uncontrolled type 1 diabetes mellitus 418513549 E10.65 Continue Lantus 32 ux SQ q am-pt remains hesitant to increase dose despite elevated sugars for fear of hypoglycem iaContinue individual ized correction al insulin, which she still often refuses or takes less ofConsider insulin pump, which she has been on in the past although would need to clarify if can be used in the SNF settingMon itor sugars and adjust meds prnNot on an ERIC/ARB for renal protection due to soft BPs Cellulitis of finger of right hand [id number] 2196620 L03.011 Keflex-cherry efits of abx outweigh risks of non-treatm ent in this patientPro bioticMoni tor and f/u prn Pruritic disorder 770338 002 L29.9 Restart prn BenadrylUn clear of allergen-m ediated or somatiform Monitor and f/u prn Anxiety 33683429 F41.9 Definitely OCD component/ excoriatio n d/o/onycho tillomania Did not tolerate increase in Prozac, which has since been reduced-ex plained to her that the long T1/2 may cause a delay in experienin g the new lower doseIncrea se prn Trazodone from 12.5 mg po q 12 h to 25 mg po q 4 h prn anxiety x 14 days then review to determine ongoing needPsych followingC onsider individual therapy if not already doing thisBenzos still inappropri ate and would be difficult to rescind once startedFlu voxamine would be an option but has too many drug interactio ns Chronic pain syndrome 37 3246529 G89.4 Schedule the Zanaflex and titrateCla rify status of rheum consultCon tinue all other meds as currently orderedPT/ OT prn Nausea 053371455 R11.0 seems improvedf/ u prn Tobacco de pendence syndrome 22790337 F17.200 Counseled 4 minutes on cessation; not interested in quitting Anemia 169472842 D64.9 Clarify stool guaiac resultsUpd ate CBC [id number] ASA VALENTIN PA-C [facility] on [address] [place] [address] 75712-841 3 06/23/2021 16:48:19 06/30/2021 10:48:25 Cellulitis of finger of right hand [id number] 9957828 L03.011 d/c KeflexStar t Levaquin 750 mg po daily x 7 days (since also has uncontroll ed DM)-benefi ts of abx outweigh risks iof non-treatm ent in this patientR hand x-ray to assess for periostial lift although osteo less likelyCons ider labs if not improved with change in abx Uncontroll ed type 1 diabetes mellitus 776413878 E10.65 Monitor sugars and adjust meds prnNot on an ERIC/ARB for renal protection due to soft BPs [id number] ASA VALENTIN PA-C [facility] on [address] [place] [address] 32171-433 3 06/27/2021 18:45:15 07/11/2021 15:46:45 Cellulitis of finger of right hand 5191469181 8900734 L03.011 Improved on LevaquinX- ray without periostial lift or other suggestion s of osteoMonit or and f/u prn Uncontroll ed type 1 diabetes mellitus 621712636 E10.65 Sugars hard to interpret since time-stamp on entered values and pt's report that sugars often aren't being done until after meals supports that these are post-prand ial resultsPt does not want to change current regimen due to fear of hypoglycem iaPrevious ly did best on insulin pump-still exploring feasabilit y of this at HVMonitor sugars and adjust meds prnNot on an ERIC/ARB for renal protection due to soft BPs Chronic pain syndrome 37 7134988 G89.4 Multi-leve l spinal MRIs are unrevealin gHer identifica tion of extreme DKA as the trigger for ongoing pain as well as her poorly controlled sugars/per sistent hyperglyce adri would support diabetic muscle infarction although does not have acute/suba cute onset of worsening pain and does not have rotating isolated sites of pain-had mildly increased CPK-muscle biopsy not required-n eed to improve glycemic control-co nsider adding daily ASA, which would also be helpful in cardioprot ection given her poorly controlled DM although she is also on a prn NSAID, which she utilizes frequently Conversion d/o still on the DDx-consid er neuropsych testingCla rify status of rheum consultNo changes to current pain regimen at this timeFollow clinically Mixed anxi ety and depressive disorder 614297784 F41.8 Improved on decreased ProzacPer EMAR review, pt has been using the Trazodone 25 mg po q 4 h prn anxiety at least once per day on most days, often at night with effect-con application support lead scheduling 25 mg po qhs-renew Trazodone 25 mg po q 4 h prn anxiety x 6 months then review again with provider to determine ongoing needNot at all surprised that she found the Ativan to be very effective at targeting her anxiety; however, benzodiaze pine use would be inappropri ate in this patient.Ps ych also following [id number] ASA VALENTIN [facility] [address] [place] [address] [phone] 3 07/03/2021 16:00:31 07/12/2021 14:25:23 Candidiasis of vagina 39820192 B37.3 Diflucan 150 mg po x 1f/u prn [id number] ASA VALENTIN [facility] [address] [place] [address] [phone] 3 07/07/2021 13:46:53 07/18/2021 14:54:36 Chronic pain syndrome 359074274 G89.4 Reviewed the records from [facility] with pt with focus on insulin neuritis, hyperalges ia secondary to diabetic neuropathy , and somatoform d/o. Reviewed that fernando helm has been unable to provide an explanatio n for her symptoms. Reviewed how sugars remain out of control, partially due to her dietary non-compli ance, partially due to her dictating the amount of insulin she will take despite what is ordered, and partially due to the fact that DM1 can be challengin g to control. No changes to pain meds and this time. Pt would benefit from physiatry referral given that OMT was helpful in the past. Need to plan on taper of oxycodone as opiates are not indicated for this type of pain. Will keep gabapentin for now but also does not seem to be helpful. NSAIDs, which are currently prescribed to her, are not ideal given her hx GI bleed although she remains on PPI for now. Uncontroll ed type 1 diabetes mellitus 069832652 E10.65 Discussed importance of diabetes management , especially in light of new dx end-stage proliferat blaze diabetic retinopath yPt's mother will schedule a follow-up with pt's ankur fisher Endocrinol ogist-like kristie will recommend insulin pump since she was most successful with that-discu ssed with pt concerns that she would inappropri ately bolus herself-sherman ku said that she would not and the only time she ever misused it was when she was in a [facility] program and food was withheld so she would make herself hypoglycem ic in order to be given snacks-she reiterated that she knows that was stupid and she would never do that ever again and would like the opportunit y to have the pump if recommende d by endo Monitor sugars and adjust meds prnNot on an ERIC/ARB for renal protection due to soft BPs 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 [id number] 9101 E10.3593 Oxycodone 10 mg po x 1 upon departure to retinal laser surgery vivian hyde scheduled and prn as recommende d by retinal specialist Anxiety 50904837 F41.9 Willing to trial Abilify 2 mg po daily as recommende d by psych-risk s/benefits /side effects discussed with ptPsych also following [id number] ASA VALENTIN PA-C [facility] on [address] [place] [address] [phone] 3 07/13/2021 14:02:12 07/18/2021 15:54:18 Edema of lower extremity [id number] R60.0 TEDs dailyGabap entin and Motrin can cause/exac erbate edema-cons ider d/c gabapentin as previously referenced Diarrhea 36013861 R19.7 Given comorbidit ies, likely has IBS, diarrhea predominan t-this can be evaluated as an outpatient with GI after d/c back to the communityM ay also be at least partially attributab le to osmotic effects of hyperglyce miaAdjust Imodium to usual dosing of 4 mg po at onset of loose stools then 2 mg for each subsequent loose stool NTE 16 g/24 hMonitor and f/u prn 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 [id number] 9101 E10.3593 Ativan 0.5 mg po x 1 upon departure to laser eye surgery-ok to given with oxycodone IR 10 mg that has also been ordered-sc ript for 0.5 mg #2 with 1 refill given to nurse [id number] ASA VALENTIN PA-C [facility] on [address] [place] [address] [id number] 3 07/24/2021 16:43:31 08/01/2021 15:48:41 Edema of lower extremity [id number] R60.0 Clarify status of TEDsTaper gabapentin -pt in agreement with trial offNo cardiopulm onary symptomsMo nitor and f/u prn 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 on [address] [place] [address] [phone] 3 08/10/2021 15:54:07 08/17/2021 12:42:18 Proliferative retinopathy due to type 1 diabetes mellitus [id number] 9101 E10.3593 No changes to pre-med are indicatedM onitor and f/u prn [id number] Bina Bingham MD [facility] on [address] [place] [address] [phone] 3 08/23/2021 08:11:31 08/25/2021 16:09:18 Quadriplegia with quadriparesis [id number] 9100 G82.50 Type 1 iam betes mellitus 09093836 E10.42 Lantus insulin 32U in eveningHum alog per sliding scalefor neuropathy - see meds for chronic painwill monitor 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 [id number] 9101 E10.3593 fu retina specialist Chronic pain 80765550 G8 9.29 ibuprofen 600 mg q8h prnduloxet ine 60 mg dailytizan idine 2 mg tidoxycodo ne 5 mg q4h prnbaclofe n 20 mg qidButrans patch 15 mcg/hr weeklyAPAP 650 mg q4h prnwill monitorPT/ OT prn Mixed anxi ety and depressive disorder 009859760 F41.8 trazodone 25 mg at hsaripipra zole 2 mg dailydulox etine 60 mg dailywill monitor and support as needed Gastroesop hageal reflux disease without esophagitis 081603111 K21.9 omeprazole 40 mg bidwill monitor [id number] ASA VALENTIN PA-C [facility] on [address] [place] [address] [phone] 3 08/28/2021 20:07:37 08/30/2021 13:12:41 Proliferative retinopathy due to type 1 diabetes mellitus [id number] 9101 E10.3593 Increase Klonopin from 0.5 to 1 mg po upon departure to laser surgery-sc ript for 1 mg #2 with 1 refill given to nurseLaquita gonzalez oxycodone IR 15 mg po upon departure to laser surgery Chronic pain syndrome 37 3734059 G89.4 Pt has been on oxycodone IR 5 mg po q 4 h prn mod-severe pain, which she takes regularly- considerin g that she was on an extended overnight BARBARA without her oxycodone and did not seem to have any negative effects, need to start tapering oxycodone as she has demonstrat ed that she does not require it [id number] ASA VALENTIN PA-C [facility] on [address] [place] [address] [phone] 3 09/08/2021 16:01:05 09/11/2021 15:44:46 Proliferative retinopathy due to type 1 diabetes mellitus [id number] 9101 E10.3593 Klonopin 1 mg and oxycodone IR 15 mg po x 1 upon departure to laser eye surgery-sc ript for Klonopin 1 mg #4 with 5 refills given to nurse [id number] ASA VALENTIN PA-C [facility] on [address] [place] [address] [phone] 3 09/12/2021 14:24:10 09/14/2021 12:35:31 Candidiasis of vagina 81125883 B37.3 Diflucan 150 mg po x 1-ok despite increased risk of QT prolongati on with Abilify-cisneros s tolerated before and Diflucan is a one-time doseReiter ated importance of glycemic control-sa ys she knows this but still chooses to eat foods inconsiste nt with diabetic dietShould have HIV testing - she's not sure yet if she wants to do thisf/u prn [id number] ASA VALENTIN PA-C [facility] on [address] [place] [address] [phone] 3 09/15/2021 15:05:55 09/18/2021 13:39:17 Chronic pain syndrome 905579626 G89.4 Given that patient lied about having an appointmen t and that she has repeatedly gone on overnight LOAs without her oxycodone, it is clear that she does not require the oxycodone for pain management . Will taper oxycodone. Still has Butrans as well as several other meds for pain management . Given that recent MRIs were unrevealin g, conversion d/o is still on the top of the list of DDxMonitor and f/u prn [id number] ASA VALENTIN PA-C [facility] on [address] [place] [address] [phone] 3 09/19/2021 09:24:39 09/21/2021 10:26:50 Pain of right knee joint [id number] 45589 M25.561 no indication for imaging at this timePT consultHas plenty of meds in place for pain management Ice as toleratedW BATLikely patellofem oral syndrome [id number] ZACH Marin [facility] on [address] [place] [address] [phone] 3 09/22/2021 13:31:46 09/25/2021 15:35:51 Pain of right knee joint 4302641712 90436 M25.561 per GAGE who saw pt on 09/19 continues with no indication for imaging at this timecontin ue PT OTHas plenty of meds in place for pain management and explained to pt that I would not increase pain meds at this timeIce as toleratedW BAT [id number] ASA VALENTIN PA-C [facility] on [address] [place] [address] [id number] 3 10/04/2021 20:07:11 10/10/2021 09:10:24 Pain of right knee joint [id number] 26216 M25.561 Would probably benefit from MRI R knee but will defer this [facility]ris [facility] will [facility] need for referral to [facility] plenty of meds in place for pain management -no indication to adjust oxycodoneI ce as toleratedW BATLikely patellofem oral syndrome 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 [id number] 9101 E10.3593 Once appointmen t at [facility] is verified, pt can have Klonopin 1 mg and oxycodone IR 15 mg upon departure to appointmen t [id number] ASA VALENTIN PA-C [facility] on [address] [place] [address] [phone] 3 10/12/2021 13:57:35 10/18/2021 14:48:50 Allergic rhinitis 70449278 J30.9 Add Flonase 1 spray per nostril bid-consid er change to prn when seasons changesNot adding systemic non-sedati ng antihistam ine since has prn Benadryl orderMonit or and f/u prn [id number] Héctor Alexander MD [facility] on [address] [place] [address] [phone] 3 06/01/2022 10:14:03 07/06/2022 12:56:40 Sepsis 06175903 A41.89 see HPIvanco and zosyn through 06/14/22 then to be [facility] cc to ID and update with obieho Juan helm, acting DNS, [employer] REPRESENTATIVE, and therapy present during attempted exampatien t has been refusing to be touched or cared for since arrival at facilityse rachel anxiety / agitiation patient is recent BKA with probable need for new AKA right lower extremitya s she is refusing any care from any staff member including initial skin check she needs to return to an acute setting due to need for care.Patie nt would benefit from in patient medical / psychiatri c admission greater than 90 minutes spent on review and coordinati on of care with staff, nursing, acting DNS, CNAs and therapy Acute oste omyelitis of ankle and/or foot [id number] M86.172 now s/p left BKAplan was tofollow ortho recsPT OT eval and treatstron g concern for need for right AKAupdate ortho and ID with concernsho wever now see above Chronic pain syndrome 37 4140088 G89.4 plan was belowchron ic pain syndrome with polysubsta nce abusenow on oxycodone 30 mg q 6 hours hold for sedationga bapentin 100 mg tidthis is less than patient was receiving in hospitalme dications to be crushed therefore cannot start long actingalso concern for patch utilizatio n that patient may swallow patchhowev er now transfer back to hospital Anemia due to blood loss 888168201 D50.0 acute on chronic anemia transfused with 4 units pRBC suffered delayed transfusio n reactionmo nitor cbc and need for further txheme eval prnadded to PMH Blood spann sfusion reaction 26310706 T80.89XD see abovesurge ry awareadded to PMH Polysubstance abuse 4452 74332 F19.180 polysubsta nce abuse hxadded to PMH Primary insomnia 6608305 F51.01 plan wasmelaton in 3 mg qhs prnmonitor for effect and need to titrateavo id benzo utilizatio nsee above Health Concerns Section Related Observation LastModified by Organization Detai ls LastModified Time None Recorded Concern Status LastModified by Organization Details LastModified Time None Recorded Advance Directives Directive Y: signed by mother due to p t's inability to physically sign for herself even though not invoked Payers Encounter Date Sequence Insurance Name Policy Number Policy Rios Covered Member ID Rios Member ID Guarantor Name 09/19/2021 1 [place] [facility] Radha Olivera [id number] Radha Olivera 09/22/2021 1 [place] [facility] Radha Olivera [id number] Radha Olivera 10/04/2021 1 [place] [facility] Radha Olivera [id number] Radha Olivera 10/12/2021 1 [place] [facility] Radha Olivera [id number] Radha Olivera 06/01/2022 1 [facility] Olivera [id number] Radha Olivera Notes Date Note Type Note Provider Name and Address Organization Details Recorded Time 2 text/html Pt seen for acute rounding visit today for discharge planning. Pt returned last evening from weekend [place]. Has been spending more time at her boyfriend's house in [place] and is hoping to move in with him pend approval from his mother. Having severe R knee pain. Did fall a few weeks ago when the front of her sneaker got stuck in carpeting. Did not sustain any injuries at the time but now reports that she has severe pain and can't even stand up. Convinced she tore something. Continues to work with rehab on ambulation. Prn oxycodone decreased last week after she had consistently demonstrated successful ability to go without it when she is on her LOAs. She was also caught in a lie on 09/18/21 am when she requested her pre-laser eye surgery oxycodone and Klonopin and then nurse confirmed with [facility] that pt never had an appointment for that day. When confronted about this today, pt said she only found out when her aunt picked her up that her aunt had rescheduled it from 09/18 to a different date. This was confirmed to not be true. PMHx reviewed Meds reviewed ASA VALENTIN PA-C [address] [place] [address], [address], [place], [address], [facility] 09/20/2021 13:15:34 2 text/html Pt seen for acute rounding visit today. pt is c/o right knee pain though this was addressed on 09/19/21 with GAGE who determined that she did not need further imaging. pt continues working with rehab. pt is also asking to have her pain meds increased. today. pt did fall a few weeks ago when the front of her sneaker got stuck in carpeting. Did not sustain any injuries at the time but now reports that she has severe pain and can't even stand up. Convinced she tore something. Continues to work with rehab on ambulation. Prn oxycodone decreased last week after she had consistently demonstrated successful ability to go without it when she is on her LOAs. She was also caught in a lie on 09/18/21 am when she requested her pre-laser eye surgery oxycodone and Klonopin and then nurse confirmed with [facility] that pt never had an appointment for that day. When confronted about this today, pt said she only found out when her aunt picked her up that her aunt had rescheduled it from 09/18 to a different date. This was confirmed to not be true. Britta Wright, ZACH [address] [facility], [address], [place], [address], [facility] 09/22/2021 13:37:01 2 text/html Pt seen for acute rounding visit for R knee pain and diabetic retinopathy. Approached by pt who would like an increase in her prn oxycodone. Dose was decreased a few weeks ago since she had been going on weekend BARBARA without the ability to take her oxycodone with her, which suggested that the oxycodone wasn't needed. When re-confronted with this logic, she said, that's mak I'm drinking and smoking. Was referred to [facility] for R knee pain. [place] that insurance referral is required. Says she has another laser eye surgery on 10/13/21 and will need pre-med again with Klonopin and oxycodone. Boyfriend's mother has yet to decide if Radha can move in. Continues to eat foods which are contrary to her diabetes diagnosis. ASA VALENTIN PA-C [address], [address], [place], [address], [facility] 10/09/2021 15:06:47 2 text/html Pt seen for acute rounding visit today for allergies. Approached by pt who requested to be seen for the above. Would like something due to the high pollen count. Main issue is sneezing and nasal congestion. No itchy/watery eyes. No wheezing. No rashes. No hoarse voice. PMHx relevant for: Tobacco use d/o; ; Acute COVID-19 infection 05/2021; DM1 with multiple micro- and macrovascular complications, uncontrolled; Mild-intermittent asthma; Xerophthalmia Meds reviewed and include:Artificial tears 2 gtt each eye qidBenadryl 50 mg po q 6 h prn itch (used once so far this month)Motrin 600 mg po q 8 h prn pain (frequent use)ProAir prn (no use so far this month) ASA VALENTIN PA-C [address] [facility], [address], [place], [address], [facility] 10/12/2021 14:53:35 3 text/html Patient is a 26 yo female admit from hospital after presenting with multiple lower extremity wounds. Blood cultures positive x 2 started on zosyn and vanco. Dx with osteomyelitis left heel, eval by ortho and underwent left BKA. Followed by ID to remain on vanco and zosyn through 06/14/22 then to be re-evaluated by ID. Pain difficult to control in hospital on dilaudid, oxycodone, gabapentin, ibuprophen and tylenol. Discharged to facility only on decreased dose of oxycodone. Of note after arrival at facility by report patient with found with oxycodone in her bed. This was confiscated and destroyed by nursing now with medications to be crushed. Ortho f/u in [address] with strong concern for need to undergo right AKA. Complicated by acute on chronic anemia transfused with 4 units pRBC suffered delayed transfusion reaction. PMH is significant forpolysubstance abusehx GI bleedPTSDdmdepression / anxiety admit to facility for continued care and therapy Héctor Alexander MD [address] [facility], [address], [place], [address], [facility] 06/01/2022 11:42:48 OBGyn Episode No OBEpisode recorded.
== END 2024-07-09 10:03 | disposition home or self-care (01) ==
PROVIDERS: PCP Family Medicine; Visit Provider Registered Nurse Diabetes Educator
DX: E10.69 Type 1 diabetes mellitus with other specified complication (principal)

== ENCOUNTER → 2024-07-09 09:14 | Outpatient (BNVA) | payer OTHER, SELFPAY | PROVIDERS: PCP Family Medicine; Visit Provider Registered Nurse Diabetes Educator | DX: E13.69 Other specified diabetes mellitus with other specified complication (principal); E87.5 Hyperkalemia; D64.9 Anemia, unspecified; F19.10 Other psychoactive substance abuse, uncomplicated; S81.801A Unspecified open wound, right lower leg, initial encounter; X58.XXXA Exposure to other specified factors, initial encounter; Y93.9 Activity, unspecified; Y92.9 Unspecified place or not applicable; Y99.9 Unspecified external cause status; Z89.511 Acquired absence of right leg below knee | CPT/HCPCS: 99211; 99212 ==

== ENCOUNTER 2024-07-09 13:48 | Outpatient (AMB) | payer OTHER, SELFPAY ==
--- NOTE | 2024-07-09 14:09 | A.OFFPC_ITS ---
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 Tresiba?and?lispro?were?adjusted Patient?notes?that?blood?sugars?controlled?again Potassium?level?was?high?and?she?was?given?Lokelma She?has?had?an?ongoing?anemia. Ongoing?right?knee?pain Also?wounds?right?proximal?ramirez?above?amputation. She?is?followed?by?wound?care?but?she?says?that?she?has?not?received?the?dressin g?supplies?that?they?ordered Her?boyfriend?is?using?plain?gau ze?to?wrap?wounds.??These?seem?to?be?getting?stuck?to?the?wound?with?the?dressin g?change. --- Patient?also?notes?that she?has?upcoming dental?procedures?and?Lasix?procedure.??Requests?medication?to ?help?keep?her?calm?during?these Patient?also?notes?that?she?has?had?hepatitis-C?testing?with varying?results. She?would?like?hepatitis?C?testing?again?and?a?referral?to?GI. 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 Hx of LASIK H/O detached retina repair History of adenoidectomy History of tonsillectomy H/O removal of cyst Family History Mother Substance abuse Asthma Psychiatric disorder Father Psychiatric disorder Maternal Grandmother Cancer Other Mental health disorder Social History Housing: Apartment Alcohol intake: current Alcohol intake frequency: a few times a month Patient Tobacco Use Status: Current everyday Tobacco user Tobacco use type: Cigarette Cigarette Packs Per Day: 1 e-Cigarette/Vaping Use: Currently Using service: No Current occupational status: disabled Cognitive needs: No Hearing needs: No Vision needs: Yes (Patient needs eye exM) Questionnaire PHQ-9 Over the last 2 weeks, how often have you been bothered by any of the following problems? 1. Little interest or pleasure in doing things: several days 2. Feeling down, depressed, or hopeless: several days 3. Trouble falling or staying asleep, or sleeping too much: several days 4. Feeling tired or having little energy: several days 5. Poor appetite or overeating: not at all 6. Feeling bad about yourself - or that you are a failure or have let yourself or your family down: not at all 7. Trouble concentrating on things, such as reading the newspaper or watching television: several days 8. Moving or speaking so slowly that other people could have noticed. Or the opposite - being so fidgety or restless that you have been moving around a lot more than usual: not at all 9. Thoughts that you would be better off or of hurting yourself in some way: not at all Total score: 5 Source: Developed by Drs. Alex Alicea, Dimitrios Bahnea and colleagues, with an educational nehemias from [employer]. Thrive Questionnaire Date Thrive assessed: 03/25/24 I am a: Patient What is your living situation today?: I have a steady place to live Within the past 12 months, did the food you bought not last and you didn't have the money to get more?: Sometimes True Within the past 12 months, did you worry whether your food would run out before you got money to buy more?: Sometimes True Do you have trouble paying for medicines?: No Do you have trouble getting transportation to medical appointments?: No Do you have trouble paying your heating and electricity bill?: No Do you have trouble taking care of your child, family member or friend?: Yes Do you have trouble with day-to-day activities such as bathing, preparing meals, shopping, managing finances, etc.?: Yes Are you currently unemployed and looking for a job?: No Are you interested in more education?: No Please select the resources that you would like help with: None Currently or been in a relationship where the following occur: I choose not to answer THRIVE Score: 2 AUDIT C Alcohol Use Questionnaire (AUDIT-C) 1. How often do you have a drink containing alcohol?: Never Total Score: 0 JEANE-7 AMB Questionnaire JEANE-7 Date JEANE - 7 assessed: 11/04/23 Feeling nervous, anxious, or on edge: 1 = Several days Not being able to stop or control worryin = Several days Worrying too much about different things: 1 = Several days Trouble relaxin = Several days Being so restless that it is hard to sit still: 1 = Several days Becoming easily annoyed or irritable: 1 = Several days Feeling afraid as if something awful might happen: 1 = Several days Total JEANE-7 score (0-4 normal; 5-9 mild; 10-14 moderate; 15-21 severe): 7 Source: Developed by Vero Macdonald Kurt Kroenke and colleagues, with an educational nehemias from [employer]. Review of Systems Const Denies chills, Denies fatigue, Denies fever(s), Denies headache(s) and Denies weakness ENT Denies dizziness and Denies headache(s) Card Denies chest pain, Denies lightheadedness, Denies dyspnea and Denies other (Palpitations) Resp Denies cough, Denies dyspnea, Denies wheezing and Denies other ( shortness of breath) Musc Details: Right?leg/knee?pain Denies numbness and Denies tingling Skin/Breast Details: Right?ramirez?wounds?and?surrounding?tenderness Neuro Denies dizziness, Denies headache(s), Denies numbness, Denies tingling, Denies paresthesias and Denies weakness Psych Denies anxiety and Denies depression Endo Denies fatigue Aller/Immun Denies wheezing Physical exam (Primary Care) Vital Signs: Last Vital Signs Temp 98.4 F 07/09/24 14:15 Pulse 83 07/09/24 14:15 Resp 16 07/09/24 14:15 BP 150/80 H 07/09/24 14:15 Pulse Ox 99 07/09/24 14:15 Oxygen Delivery Method Room Air 07/09/24 14:15 Tobacco/Smoking Status: Tobacco use Status Tobacco use date assessed 11/04/23 07/09/24 14:18 Patient Tobacco Use Status Current everyday Tobacco 07/09/24 14:18 Tobacco use type Cigarette 07/09/24 14:18 e-Cigarette/Vaping Use Currently Using 07/09/24 14:18 PHQ-9: PHQ-9 Score PHQ-9: Total score 5 07/09/24 14:18 Thrive Assessment: Date of Thrive Assessment Date Thrive assessed 03/25/24 07/09/24 14:18 Currently or been in a relationship where the following occur: I choose not to answer Const General: no acute distress and well developed Nutritional Appearance: well nourished Orientation/consciousness: patient oriented x3 HENMT Head: Yes normocephalic and Yes atraumatic Eyes General: appearance normal, both eyes and all related structures Pupils: Equal, round and reactive pupils present EOM: EOMs intact bilaterally Resp Effort & Inspection: normal respiratory effort Auscultation: clear to auscultation bilaterally Cardio Rate: regular rate Rhythm: regular rhythm Heart sounds: S1 normal heart sound present, S2 normal heart sound present, no gallops, no murmurs and no rubs Skin Other: Open?wounds?right?proximal?ramirez?with?surrounding?erythema?and?tenderness. Neuro Other: In?wheelchair General: patient oriented x3 Cranial nerves: Yes Equal, round and reactive pupils present Extrem Other: BKA - in?wheelchair Psych Affect: normal affect Coding Level of Care Code Est Pt Level 5 (30301) Diagnoses Diabetes 1.5, managed as type 1 E13.9 Hyperkalemia E87.5 Open wound of skin T14.8XXA History of hepatitis C Z86.19 Anemia D64.9 Substance abuse F19.10 Assessment & Plan Assessment & Plan (1) Diabetes 1.5, managed as type 1: Code(s): E13.9 - Other specified diabetes mellitus without complications Category: Medical Plan: Type?1?diabetes. Had?been?admitted?for?hypoglycemia. Tresiba?and?lispro?adjusted Blood?sugars?now?better?controlled Continue?diabetic?regimen?as?prescribed. (2) Hyperkalemia: Code(s): E87.5 - Hyperkalemia Category: Medical Plan: Check?potassium (3) Open wound of skin: Code(s): T14.8XXA - Other injury of unspecified body region, initial encounter Category: Medical Plan: Mildly?infected Will?give?her?a?script?for?cephalexin Asking?office?to?contact?wound?care?guarding?getting?her dressing?supplies?and?also?getting?her?a?follow-up?appointment (4) History of hepatitis C: Code(s): Z86.19 - Personal history of other infectious and parasitic diseases Category: Medical Plan: Referred?to?Gastroenterology?as?request (5) Anemia: Code(s): D64.9 - Anemia, unspecified Category: Medical Plan: Check?CBC?and?Iron (6) Substance abuse: Comment: IVDU cocaine last use 03/07/24 per patient Code(s): F19.10 - Other psychoactive substance abuse, uncomplicated Category: Medical Plan: Encouraged?abstinence Orders: Orders Hepatitis B,C Profile Today F19.10 - Other psychoactive substance abuse, uncomplicated, Z11.3 - Encounter for screening for infections with a predominantly sexual mode of transmission Complete Blood Count Auto Diff Today T14.8XXA - Other injury of unspecified body region, initial encounter, Z00.00 - Encounter for general adult medical examination without abnormal findings IRON PROFILE Today D64.9 - Anemia, unspecified, T14.8XXA - Other injury of unspecified body region, initial encounter Comprehensive Met. Panel Today T14.8XXA - Other injury of unspecified body region, initial encounter Medications: New cephalexin 500 mg PO Q12H 10 days 20 caps 0RF lorazepam Multiple Procedures. take 30 minutes prior to procedure. 1 mg PO DAILY 10 days PRN 8 tabs 0RF Procedure anxiety blood pressure monitor Automatic, Digital. Dx: I10. Daily As directed, 999 days/lifetime 1 ea 0RF I95.9 - Hypotension, unspecified
[2024-07-09 14:15] VITALS: BP 150/80; PULSE 83; RESP 16; TEMP 36.9; O2SAT 99
--- OUTSIDE RECORDS SUMMARY | 2024-07-09 16:49 | XMS_ITS | Clinical Summary ---
Author Organization [facility] Facility Address [address] [address] Care Team Providers Care Internet Application Developer Name Role Phone Uriel Cyr MD [...] Exam 06/06/2022 Influenza Vaccine (#1) 2024 Insurance [facility] MEDICAID Care Teams Internet Application Developer Relationship Specialty Start Date End Date Uriel Cyr MD PCP - General Family Medicine 06/05/22
== END 2024-07-09 17:05 | disposition home or self-care (01) ==
PROVIDERS: PCP Family Medicine; Visit Provider Family Medicine
DX: E87.5 Hyperkalemia (principal); E13.9 Other specified diabetes mellitus without complications; F19.10 Other psychoactive substance abuse, uncomplicated; T14.8XXA Other injury of unspecified body region, initial encounter; Z86.19 Personal history of other infectious and parasitic diseases; D64.9 Anemia, unspecified

== ENCOUNTER 2024-07-09 15:03 | Outpatient (REF) | payer OTHER, SELFPAY ==
[2024-07-09 17:47] LABS: MANUAL DIFF FLAG NO
[2024-07-09 18:00] LABS: Basophils Percent Auto 0.6 % (0-2); Eosinophils Absolute Auto 0.4 X10*3/uL (0.0-0.4); Eosinophils Percent Auto 6.7 % (0-4); Hemoglobin 7.4 g/dl (12.0-16.0); Imm Gran Abs Auto 0.02 X10*3/uL (0.00-0.03); Imm Gran Pct Auto 0.3 % (0.0-0.4); Mean Corpuscular HGB Conc 29.6 g/dl (31.0-35.0); Mean Corpuscular Hemoglobin 21.6 pg (27.0-33.0); Mean Corpuscular Volume 72.9 fL (80.0-98.0); Mean Platelet Volume 9.8 fL (9.4-12.3); Monocytes Absolute Auto 0.4 X10*3/uL (0.1-1.2); Neutrophils Absolute Auto 2.6 x10*3/uL (2.0-8.3); Neutrophils Percent Auto 40.4 % (45-73); Platelet Count 340 X10*3/uL (160-400); Red Blood Count 3.43 X10*6/uL (4.20-5.50); Red Cell Distribution Width 18.4 % (11.0-16.0); White Blood Count 6.5 X10*3/uL (4.8-10.8)
[2024-07-09 18:20] LABS: Alanine Aminotransferase 12 U/L (0-31); Albumin Level 2.5 g/dL (3.5-5.0); Alkaline Phosphatase 109 U/L (39-117); Anion Gap 9 (12-20); Aspartate Amino Transferase 22 U/L (5-31); Bilirubin Total 0.1 mg/dL (0.0-1.0); Blood Urea Nitrogen 26 mg/dL (9-16); Calcium 7.7 mg/dL (8.4-10.2); Carbon Dioxide 22 mmol/L (22-29); Chloride 110 mmol/L (96-108); Estimated Glomerular Filt Rate 52; Glucose Random 95 mg/dL (60-115); Iron 29 mcg/dL (30-160); Percent Iron Saturation 12 % (15-50); Potassium 5.5 mmol/L (3.3-5.1); Sodium 135 mmol/L (135-145); Total Iron Binding Capacity 237 mcg/dL (228-428); Total Protein 5.7 g/dL (6.5-8.0); Unsaturated Iron Binding 208 ug/dL
--- OUTSIDE RECORDS SUMMARY | 2024-07-09 18:36 | XMS_ITS | Clinical Summary ---
Author Organization [facility] Facility Address [address] [address] Care Team Providers Care Fastener Technologist Name Role Phone Uriel Cyr MD Primary [...] Exam 06/06/2022 Influenza Vaccine (#1) 2024 Insurance [facility] MEDICAID Care Teams Fastener Technologist Relationship Specialty Start Date End Date Uriel Cyr MD PCP - General Family Medicine 06/05/22
[2024-07-10 09:19] LABS: HBS Num1 10.17 mIU/mL (0-7.99); HBc Num1 0.17 S/CO (0.00-0.79); HBsAGNum1 0.31 S/CO (0.00-0.99); Hepatitis B Core Antibody Nonreactive (Nonreactive); Hepatitis B Surface Antigen Negative (Negative); ~HepC Num1 13.54 S/CO (0.00-0.79); ~Hepatitis C Antibody Reactive (Nonreactive)
[2024-07-10 11:36] LABS: HBS Num2 9.83 mIU/mL (0-7.99); HBS Num3 10.54 mIU/mL (0-7.99); ~Hepatitis B Surface Antibody GRAYZONE (Nonreactive)
== END 2024-07-09 15:04 | disposition home or self-care (01) ==
LOC: HO.WFDLDS 15:03
PROVIDERS: Visit Provider Family Medicine
DX: Z00.00 Encounter for general adult medical examination without abnormal findings (principal); D64.9 Anemia, unspecified; F19.10 Other psychoactive substance abuse, uncomplicated; Z11.3 Encounter for screening for infections with a predominantly sexual mode of transmission; T14.8XXA Other injury of unspecified body region, initial encounter
CPT/HCPCS: 36415; 80053; 83540; 85025; 86704; 86706; 86803; 87340

== ENCOUNTER → 2024-08-03 10:38 | Outpatient (BNVA) | payer OTHER, SELFPAY | PROVIDERS: PCP Family Medicine; Visit Provider Family Medicine | DX: R33.9 Retention of urine, unspecified (principal) | CPT/HCPCS: 51798; 99202 ==

== ENCOUNTER 2024-08-03 13:32 | Outpatient (AMB) | payer OTHER, SELFPAY ==
--- NOTE | 2024-08-03 14:27 | A.OFFVIS_ITS ---
Intake Visit Reasons: Retention of Urine Intake Note: New Patient presents for initial visit for retention of urine Urology Medications: tamsulosin Blood Thinner: apixaban PVR: 0ml's Senior Field Engineer Required: No Accompanied by: Unknown Allergies doxycycline Allergy (Mild, Verified 08/03/24 14:55) Hives sulfamethoxazole [From Bactrim] Allergy (Unknown, Verified 08/03/24 14:55) Hives trimethoprim [From Bactrim] Allergy (Unknown, Verified 08/03/24 14:55) Hives almonds Allergy (Intermediate, Uncoded 08/03/24 14:55) Hives Medication List - Last Reconciled 08/03/24 by YEVGENIY Ramirez acetaminophen (Pain Relief (acetaminophen)) mg PO acetaminophen ('s Tylenol) 960 mg (30 mL) PO .q8 PRN 30 days acetone (urine) test (Ketone Urine Test strips) As directed prn high glucose, nausea/vomiting acetone (urine) test (Ketone Urine Test strips) prn glucose over 250, nausea, vomiting or illness up to tid albuterol sulfate 90 mcg/actuation 2 puffs inhalation Q4-6H PRN 30 days apixaban (Eliquis) 5 mg PO BID benzocaine 20% 1 appl mucous membrane TID PRN 3 days blood pressure monitor Automatic, Digital. Dx: I10. Daily As directed, 999 days/lifetime blood sugar diagnostic (FreeStyle Lite Strips) 3 times a day testing blood-glucose meter (FreeStyle Lite Meter kit) As directed blood-glucose meter,continuous ([employer] G7 Science Faculty Member) As directed blood-glucose sensor (Dexcom G7 Sensor device) As directed blood-glucose sensor (Dexcom G7 Sensor device) As directed buprenorphine ER (Sublocade) mg subcut buprenorphine-naloxone 12-3 mg (Suboxone) film sublingual buprenorphine-naloxone 8-2 mg (Suboxone) 1 film sublingual DAILY calcium polycarbophil (FiberCon) 625 mg PO DAILY 90 days cyclobenzaprine 10 mg PO TID 30 days diaper,brief,adult,disposable (Disposable Brief) Adult brief, medium. 2 times a day As directed, 90 days ergocalciferol (vitamin D2) 1,250 mcg PO QWEEK escitalopram oxalate 20 mg PO DAILY 90 days gabapentin 800 mg PO TID 30 days glucose (Dex4 Glucose) 16 grams (4 x 4 gram) PO Q15M PRN 30 days MDD 16 tablets insulin degludec (Tresiba FlexTouch U-200 insulin) 18 units subcut BEDTIME insulin lispro Sliding Scale 10-16 units subcutaneously 3 times a day PRN; ISS insulin syringe-needle U-100 (BD Insulin Syringe Ultra-Fine) 3 times a day insulin injection lancets (FreeStyle Lancets) As directed leg brace (Ankle Brace) Right ankle brace, As directed, 42 days lidocaine 5% 1 ea topical BID PRN 30 days loperamide 4 mg (2 x 2 mg) PO Q6H PRN loratadine (Allergy Relief (loratadine)) 10 mg PO DAILY lorazepam mg PO melatonin 6 mg (2 x 3 mg) PO BEDTIME PRN 90 days metoprolol succinate ER 25 mg PO BID 90 days miscellaneous medical supply Wheelchair. Daily As directed, 999 Days naloxone 4 mg/actuation 1 spray intranasal DAILY PRN pen needle, diabetic (BD [place] 2nd Gen Pen Needle) As directed 4x daily tamsulosin 0.4 mg PO DAILY HPI Comments Details: Radha is a very pleasant 28-year-old female patient of Dr. Coughlin. She has a past medical history neuropathy, leg ulcer, type 1 diabetes, polysubstance abuse, depression, anxiety, PTSD, eczema, memory loss, diabetic retinopathy, fibromyalgia, complete [id number] amputation of lower left lower extremity, and asthma. She presents to the office today as a new patient for urinary retention. In discussion with the patient today she reports feeling her need to urinate is very infrequent. She reports feeling she only utilizes the bathroom 2 to 4 times a day. Unable to provide urine for urinalysis today however PVR 0 mL. She reports having had an episode of urinary retention when at [facility] and has since been on Flomax and feels this has been helpful. She is requesting refill today. She otherwise denies urinary urgency, urinary frequency, incontinence, nocturia, hematuria, dysuria, foul smelling urine, changes to urinary stream, flank pain, fever, and or chills. We discussed potential for neurogenic bladder given history of type 1 diabetes and patient's symptoms. Will obtain retroperitoneal ultrasound for further assessment evaluation. We discussed potential causes of neurogenic bladder as well as further treatment options and risks and benefits of these treatment options she otherwise offers no other issues or concerns at this time. 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 Hx of LASIK H/O detached retina repair History of adenoidectomy History of tonsillectomy H/O removal of cyst Family History Mother Substance abuse Asthma Psychiatric disorder Father Psychiatric disorder Maternal Grandmother Cancer Other Mental health disorder Social History Housing: Apartment Alcohol intake: current Alcohol intake frequency: a few times a month Patient Tobacco Use Status: Current everyday Tobacco user Tobacco use type: Cigarette Cigarette Packs Per Day: 1 e-Cigarette/Vaping Use: Currently Using service: No Current occupational status: disabled Cognitive needs: No Hearing needs: No Vision needs: Yes (Patient needs eye exM) Review of Systems Eyes Reports as per HPI ENT Reports no additional complaints Card Reports as per HPI Resp Reports as per HPI GI Reports as per HPI Reports as per HPI Musc Reports as per HPI Skin/Breast Reports as per HPI Neuro Reports as per HPI Psych Reports as per HPI Endo Reports as per HPI Physical Exam Const General: cooperative, comfortable, no acute distress, well developed, alert and awake Orientation/consciousness: patient oriented x3 Limitations: wheelchair HEENT Head: Yes normal to inspection, Yes normocephalic and Yes atraumatic Ears: hearing grossly normal bilaterally Eyes General: appearance normal, both eyes and all related structures Neck Neck: Yes normal visual inspection and Yes trachea midline Chest Chest palpation & inspection: normal inspection of the chest Resp Effort & Inspection: normal respiratory effort and able to speak in complete sentences Cardio Rate: regular rate GI Inspection: Yes normal to inspection General: Yes no CVA tenderness Back/Spine/Pelvis Back: no CVA tenderness Skin General skin exam: no rashes or lesions noted Neuro General: patient oriented x3 Extrem Other: Patient with [id number] amputation to left lower extremity Psych Appearance: grossly normal and well kempt Mental Status: mental status grossly normal Speech and movement: Normal speech and movement present and Clear speech present Affect: normal affect Attitude: cooperative Thought process: Normal thought process present Thought content: Normal thought content present Insight: Fair insight present (Psych) Judgement: Fair judgement present (Psych) Office Procedures Post Void Residual Post Residual Void Post Void Residual (PVR): 0 [id number] Void Residual by ultrasound Assessment & Plan Assessment & Plan (1) Urinary retention: Code(s): R33.9 - Retention of urine, unspecified Category: Medical Plan Unable to obtain urine for urinalysis however PVR 0 mL. Will obtain retroperitoneal ultrasound for further assessment evaluation. We discussed attempting to timed/scheduled voiding. Continue Flomax as discussed and prescribed; refill provided. We discussed further treatment options of potential neurogenic bladder. We discussed importance of management and diabetes for improvement in bladder health as well as overall health and well-being. We discussed potential near future in office cystoscopy and or urodynamics if symptoms persist and/or worsen. Orders: Orders AMB Post Void Residual by ultrasound Today R33.9 - Retention of urine, unspecified US retroperitoneal comp Today R33.9 - Retention of urine, unspecified Medications: Changed From tamsulosin 0.4 mg PO DAILY To tamsulosin 0.4 mg PO DAILY 90 days 90 caps 1RF Patient Instructions: The patient had an opportunity to ask questions regarding the treatment plan. All questions were answered. Physical exam, labs, and imaging were discussed and reviewed in detail. As well as risks, benefits, and discussion of treatment choices. No major barriers to understanding were identified. The patient expressed understanding and agreement with the above treatment plan. The patient was made aware they should contact our office by phone for worsening of their current condition, the appearance of new symptoms, or with any questions or concerns. Compliance is encouraged with any medications and follow up testing that is ordered. It is a privilege to be allowed the opportunity to participate in? your urological care.? Again, if you have any questions or concerns If you have any questions or concerns please do not hesitate to contact me. The office is [phone]. This note is constructed using voice recognition software. While every effort has been made to ensure accuracy maintenance and utilities supervisor errors may have been included. Yours sincerely, YEVGENIY Ramirez Coding Level of Care Code New Pt Level 3 (38093) Diagnoses Urinary retention R33.9 CPT Codes Post Residual Void - PVR CPT Code: 90858-Zgwn Void Residual by ultrasound ([id number])
--- OUTSIDE RECORDS SUMMARY | 2024-08-03 15:17 | XMS_ITS | Data Portability ---
Author Organization [facility], Main Office Address [address] , [address] [place] [address] Care Team Providers Care Workcell Operator Name Role Phone ABYBAUTISTA JASSO Primary Care Provider [facility] OTHER Assessment No assessment recorded. Plan [...] By Organization Details Last Modified Time 09/19/2021 [id number] Dispo -- awaazalea g confirmation that she can move in with her BF and then will proceed with arranging necessary services and follow-up [email or web address] Not available 09/20/2021 13:14:39 Reason for Referral None Reported. Problems Name Problem SNOMED Code Status Onset Date Resolution Date Notes Provider Name and Address Organization Details Recorded Time Acute bacterial endocarditi s 536972858 Active 2020 ZACH Marin [address] [facility] [facility], [address], [place], [address], [facility] 14:06:57 Diabetic ketoacidosi s 769037871 Active 2020 ZACH Marin [address] [facility] [facility] [facility], [address], [place], [address], [facility] 1 14:07:04 Type 1 diabetes mellitus 96419723 Active 2020 ZACH Marin [address] [facility] [facility] [facility], [address], [place], [address], [facility] 08/06/202 1 14:07:12 Neuropathy 067126842 Active 2020 Britta Wright CREDENTIALING COORDINATOR [address], [address], [place], [address], [facility] 14:07:31 Polysubstan ce abuse 527785362 Active 2020 Britta Wright CREDENTIALING COORDINATOR [address], [address], [place], [address], [facility] 14:08:04 Renal mass 351396149 Active 2020 Britta Kyle CREDENTIALING COORDINATOR [address], [address], [place], [address], [facility] 14:08:31 Posttraumat ic stress disorder 67634117 Active 2020 ZACH Marin [address], [address], [place], [address], [facility] 14:08:38 Chronic depression 907030832 Active 2020 ZACH Marin [address], [place], [address], [facility] 14:08:48 Acute nontraumati c kidney injury 3436165022892 03 Active 2020 Britta Wright CREDENTIALING COORDINATOR [address], [address], [place], [address], [facility] 14:08:56 Gastrointes tinal hemorrhage 97761655 Active 2020 Britta Wright CREDENTIALING COORDINATOR [address], [address], [place], [address], [facility] 14:09:04 Vitamin D deficiency 67521551 Active 2020 Britta Wright CREDENTIALING COORDINATOR [address], [address], [place], [address], [facility] 10:22:19 Acute diarrhea 466954893 Active 2020 ZACH Marin [address], [address], [place], [address], [facility] 1 10:35:07 Low back pain 733437384 Active 2020 Nanette Dubois, CREDENTIALING COORDINATOR [address] [facility] [facility], [address], [place], [address], [facility] 1 17:03:33 Quadriplegi a with quadripares is 1965222055723 0 Active 2020 Thu Li MD [address] [facility], [address], [place], [address], [facility] 1 02:35:48 Chronic pain syndrome 438635412 Active 2020 Thu Li MD [address] [facility] [facility] [facility], [address], [place], [address], [facility] 1 02:39:20 Uncontrolle d type 1 diabetes mellitus 901421723 Active 2020 Thu Li MD [address] [facility] [address] [facility] [facility], [address], [place], [address], [facility] 1 02:40:14 Primary insomnia 4720147 Active 2022 Héctor Alexander MD [address] [facility] [facility] [facility], [address], [place], [address], [facility] 3 10:40:26 Problem Notes None recorded. Medical Equipment None Reported. Allergies Allergen ID Allergen Name Allergen Category Reaction Reaction Severity Criticality Documentation Date Start Date Code Code System Note Provider Name and Address Organization Details Recorded Time 62177 doxycycli ne Not available rash Not available Not available 12/09/2020 3640 RxNorm Not Available Not Available Not Available 41238 Substance with sulfonami de structure and antibacte rial mechanism of action (substanc e) medicatio n rash Not available Not available 12/09/2020 81642 8003 SNOMED Not Available Not Available Not Available 52093 trimethop rim medicatio n rash Not available Not available 12/09/2020 54302 RxNorm Not Available Not Available Not Available 79342 latex environme nt,medica tion hives rash Not available Not available Not available 12/09/2020 05041 91 RxNorm Not Available Not Available Not Available 22931 almond allergeni c extract food hives Not available Not available 12/09/2020 56171 7 RxNorm Not Available Not Available Not [...] mm[Hg] 72 mm[Hg] ASA VALENTIN PA-C [address], [place], [address], [facility] 2 13:04:21 Date Recorded Body height Body temperature Respiratory rate Oxygen saturation Oxygen saturation in Arterial blood by Pulse oximetry Provider Name and Address Organization Details Last Updated DateTime 2 162.56 cm 97.8 [degF] 20 /min 96 % 96 % ZACH Marin [address] [facility] [facility] [facility], [address], [place], [address], [facility] 2 13:32:29 Date Recorded Body height Body temperature Respiratory rate Oxygen saturation Oxygen saturation in Arterial blood by Pulse oximetry Systolic blood pressure Diastolic blood pressure Provider Name and Address Organization Details Last Updated DateTime 2 162.56 cm 97.8 [degF] 20 /min 95 % 95 % 130 mm[Hg] 78 mm[Hg] ASA VALENTIN PA-C [address] [facility], [address], [place], [address], [facility] 2 14:57:39 Date Recorded Body height Body temperature Respiratory rate Heart rate Oxygen saturation Oxygen saturation in Arterial blood by Pulse oximetry Systolic blood pressure Diastolic blood pressure Provider Name and Address Organization Details Last Updated DateTime 2 162.56 cm 98 [degF] 20 /min 68 /min 96 % 96 % 138 mm[Hg] 76 mm[Hg] ASA VALENTIN PA-C [address], [place], [address], [facility] 2 14:40:34 Date Recorded Body height Systolic blood pressure Diastolic blood pressure Provider Name and Address Organization Details Last Updated DateTime 06/01/2022 162.56 cm 138 mm[Hg] 70 mm[Hg] Héctor Alexander MD [address] [facility] [address] [facility] [facility], [address], [place], [address], [facility] 06/01/2022 10:15:03 Social History Question Answer Notes LastModified by Organizat ion Details LastModified Time Tobacco Smoking Status Current Every Day Smoker ASA VALENTIN PA-C [address] [facility] [address] [facility] [facility], [address], [place], [address], [facility] 04/16/2021 13:23:32 Do You Have An Advance Directive? Yes Signed By Mother Due To Pt's Inability To Physically Sign For Herself Even Though Not Invoked [email or web address] Information not available 06/21/2021 What Is Your Level Of Alcohol Consumption? None [email or web address] Information not available 12/09/2020 What Is Your Code Status? Full Code [email or web address] Information not available 12/09/2020 Do You Or Have You Ever Used E-cigarettes Or Vape? Former User Of Electronic Cigarettes [email or web address] Information not available 04/16/2021 Legal Guardian? No [email or web address] Informati on not available 12/09/2020 Do You Have A Medical Power Of Explosive Operator Fuse? Yes Valid HCP On Chart, Not Invoked [email or web address] Information not available 12/29/2020 What Was The Date Of Your Most Recent Tobacco Screening? 06/21/2021 Information not available 06/21/2021 Do You Or Have You Ever Used Smokeless Tobacco? Never Used Smokeless Tobacco [email or web address] Information not available 04/16/2021 How Much Tobacco Do You Smoke? 1 PPW [email or web address] Information not available 04/16/2021 Do You Use Any Illicit Or Recreational Drugs? No Hx Opiates And Cocaine Information not available 06/21/2021 Has Tobacco Cessation Counseling Been Provided? Yes Not Interested In Quitting [email or web address] Information not available 04/16/2021 On What Date Was Tobacco Cessation Counseling Provided? 06/21/2021 [email or web address] Information not available 06/21/2021 How Many Years Have You Smoked Tobacco? 10 [email or web address] Information not available 04/16/2021 Do You Or Have You Ever Used Any Other Forms Of Tobacco Or Nicotine? Yes [email or web address] Information not available 04/16/2021 Sex: Unknown Functional [...] dose 12/25/2020 completed ASA VALENTIN PA-C [address], [address], [place], [address], [facility] 12/29/2020 12:58:56 COVID-19, mRNA, LNP-S, PF, 30 mcg/0.3 mL dose 11/25/2020 completed ASA VALENTIN PA-C [address] [facility] [address] [facility] [facility], [address], [place], [address], [facility] 02/24/2021 19:44:16 COVID-19, mRNA, LNP-S, PF, 30 mcg/0.3 mL dose 08/01/2021 completed ASA VALENTIN PA-C [address] [facility] [address] [facility] [facility], [address], [place], [address], [facility] 08/05/2021 21:35:07 Past Encounters Encounter ID Performer Location Encounter Start Date Encounter Closed Date Diagnosis/Indication Diagnosis SNOMED-CT Code Diagnosis ICD10 Code Diagnosis Note [id number] ZACH Marin [facility] [address] [place] [address] 12/09/2020 13:59:04 12/20/2020 15:25:04 Acute bacterial endocarditis 707531418 I33.0 see hpifinishe d 6 week course of vanco in hospital, midline removedrep eat echo showed no vegetation staff working on obtaining discharge summary to see if pt needs f/u with ID Diabetic ketoacidosis 42 8492301 E13.10 resolvedla ntus 21 units q am, 25 units qhslispro sliding scaleaccuc hecks and adjust insulin prn Polysubstance abuse 4452 26052 F19.10 no suboxone or methadonep t currently on MSIR 30 mg q 4 hrs and butrans 15 mg patch q week Neuropathy 738386649 G62 .9 severe generalize d body paingabape ntin increased to 900 mg qidflexeri l 10 mg tidbutrans 15 mg patch q weekMSIR 30 mg q 4 hrsibuprof en 600 mg q 8 hrs prnlidocai ne patch left shoulderwi th hx of substance abuse Type 1 iam betes mellitus 38507730 E10.9 meds as above Renal mass 053768010 N28 .89 incidental finding on renal ULneeds out pt f/u with renal UL in 3-6 months or contrast enhanced CT or NILO abdomen Posttrauma tic stress disorder 41165572 F43.10 pt very upset todaygabap entin 900 mg qidcymbalt a 60 mg qdhydroxyz ine 10 mg tid prnpsych referralmo nitor mood Gastrointe stinal hemorrhage 60858181 K92.2 per progress note pt had GI bleed - no hx availables ucralfate 1 gram qidprotoni x 40 mg bidwaiting for dc summary for further recs Chronic depression 08743 0009 F34.1 meds as above Acute nont raumatic kidney injury 4229742147 75056 N17.9 resolved per progress notefollow bmp weeklyavoi d nephrotoxi c meds as able [id number] Bina Bingham MD [facility] on [address] [place] [address] 12/14/2020 06:25:48 12/20/2020 16:22:12 Polysubstance abuse 773629737 F19.10 social work to coordinate support, interdisci plinary team Type 1 iam betes mellitus 03584439 E10.9 Glargine insulin 21U dailyHumal og per sliding scalegabap entin 900 mg qid for neuropathy will monitor Fibromyalgia 820885287 M 79.7 cyclobenza nathen 10 mg tidduloxet ine 60 mg dailyButra ns weekly 15 mcg/hrmorp alison 30 mg q4h prngabapen tin 900 mg qidibuprof en 600 mg q8h prnwill monitor Mixed anxi ety and depressive disorder 005351134 F41.8 trazodone 50 mg at hsduloxeti ne 60 mg dailybupro pion 100 mg bidgabapen tin 900 mg tidhydroxy zine 10 mg q8h prnwill monitor and support as needed Gastroesop hageal reflux disease without esophagitis 139013908 K21.9 sucralfate 1 gm qidpantopr azole 40 mg bidwill monitor Bacteremia caused by Methicillin resistant Staphylococcus aureus 7152420482 1926265 R78.81 with likely endocardit isvancomyc in per I.D. x 6 weeksfu I.D. Asthenia 96590774 R53.1 PT/OTwill monitor and support as needed [id number] [place] [address] 12/16/2020 13:24:44 12/21/2020 10:09:49 Polysubstance abuse 690615092 F19.10 social work to coordinate support, interdisci plinary team Fibromyalgia 963312910 M 79.7 cyclobenza nathen 10 mg tidduloxet ine 60 mg dailyButra ns weekly 15 mcg/hrmorp alison 30 mg q4h prngabapen tin 900 mg qidibuprof en 600 mg q8h prnwill monitor Dry skin 13499118 L85.3 apply thick barrier cream to bilateral feet BIDmonitor for breakdown Posttrauma tic stress disorder 36554483 F43.10 patient with exaggerate d behaviors, could benefit from psych consult [id number] Isabelle Dowling [facility] on [address] [place] [address] 12/19/2020 15:30:29 12/21/2020 10:32:32 Sinus tachycardia 09237182 R00.0 Concern for infection- hx of endocardit isWill obtain STAT BMP, CBC w diff, blood cultures x 2, UA, C&SMonitor and if decompensa ting transfer to ED Visual hallucinations 64 055251 R44.1 Labs as above [id number] Isabelle Dowling [facility] on [address] [place] [address] 12/21/2020 12:57:39 12/23/2020 14:36:35 Urinary tract infectious disease 30063228 N39.0 Complete course KeflexWill review final urine culture/se nsitivitie s when available and adjust antibiotic PRN Neuropathy 965703352 G62 .9 Currently on Gabapentin 900 mg QID-will start slow taper to decrease this high dose graduallyM onitor for pain control and mental status Sinus tachycardia 867840 01 R00.0 Concern for infection- hx of endocardit isWill obtain STAT BMP, CBC w diff, blood cultures x 2, UA, C&SMonitor and if decompensa ting transfer to ED Visual hallucinations 64 291462 R44.1 Psych evalWill treat UTI and taper Gabapentin dose as aboveMonit or [id number] ZACH Marin [facility] [address] [place] [address] 12/27/2020 09:48:26 01/03/2021 14:49:32 Urinary tract infectious disease 64106820 N39.0 finish keflex 500 mg qid on 01/01monito r for resolution Neuropathy 819336163 G62 .9 see hpibutrans 15 mg patch weeklyibup rofen 600 mg q 8 hrs prn - pt has hx of gi bleed so will need to monitor usechanged flexeril to prn as abovewill need f/u with Dr Bernardo Middleton neurologis tthey will decide what further testing pt will needwill have staff call [facility] for results of copper lab Visual hallucinations 64 351659 R44.1 see hpioff morphine, gabapentin and trazodone with resolution of hallucinat ions and deleriumwi ll change flexeril to 10 mg tid prn spasms - as it was stated in body of DC note that it had been discontinu ed for hallucinat ions and delerium, though it was continued on med listmonito r for sxs Vitamin D deficiency 347 45042 E55.9 Vit D level at 9not started on supplement [facility] Vit D 3 5,000 units qdrecheck Vit D level in 6 weeks Type 1 iam betes mellitus 69916973 E10.9 glargine 21 units q am, 25 units qhsaccuche cks with sliding scalemonit or and adjust insulin prn Posttrauma tic stress disorder 21674048 F43.10 mood stablecymb jair 60 mg qdwellbutr in sr 100 mg bidhydroxy zine 10 mg tid prnpsych referralmo nitor mood Polysubstance abuse 5112 70895 F19.10 no suboxone or methadoneb utrans 15 mg patch q week for pain Chronic depression 69123 0009 F34.1 meds as above Acute bact erial endocarditis 963839263 I33.0 finished 6 week course of vanco in hospital, midline removedrep eat echo showed no vegetation Acute diarrhea 455000273 R19.7 get stool for c diff and once results are back - if no c diff then can have imodium Gastrointe stinal hemorrhage 76169637 K92.2 hx of gi bleedsucra lfate 1 gram qidprotoni x 40 mg bid Renal mass 743765337 N28 .89 incidental finding on renal ULneeds out pt f/u with renal UL in 3-6 months or contrast enhanced CT or NILO abdomen [id number] ASA VALENTIN PA-C [facility] on [address] [place] [address] 12/29/2020 12:52:28 01/03/2021 15:28:58 Diarrhea 23478005 R19.7 Resolved without interventi on and prior to the initiation of oral Vancd/c Vanc - does not have acute c-diffPt educated to notify staff if diarrhea recurs of deveops abd painf/u prn Gastrointe stinal hemorrhage 22667984 K92.2 change Protonix 40 mg po bid to Prilosec at same dosing per insurance [id number] ZACH Marin [facility] on [address] [place] [address] 01/02/2021 15:39:37 01/05/2021 09:59:40 Visual hallucinations 66031686 R44.1 resolvedof f morphine, gabapentin and trazodone with resolution of hallucinat ions and deleriummo nitor for sxs Urinary tr act infectious disease 73069192 N39.0 resolvedmo nitor for recurrence Neuropathy 467959567 G62 .9 see hpibutrans 15 mg patch weeklyibup rofen 600 mg q 8 hrs prn - pt has hx of gi bleed so will need to monitor usechange flexeril to 10 mg TID scheduledf /u with Dr Bernardo Middleton neurologis t and they will decide what further testing pt will needresult s of copper lab : 1.3 Vitamin D deficiency 347 23843 E55.9 Vit D level at 9not started on supplement by CDHstarted here on Vit D 3 5,000 units qdrecheck Vit D level in 6 weeks Type 1 iam betes mellitus 59684223 E10.9 glargine 21 units q am, 25 units qhsaccuche cks with sliding scalemonit or and adjust insulin prn Posttrauma tic stress disorder 97053746 F43.10 mood stablecymb jair 60 mg qdwellbutr in sr 100 mg bidhydroxy zine 10 mg tid prnpsych referralmo nitor mood Polysubstance abuse 4452 12593 F19.10 no suboxone or methadoneb utrans 15 mg patch q week for pain Chronic depression 13781 0009 F34.1 meds as above Acute bact erial endocarditis 764331767 I33.0 finished 6 week course of vanco in hospital, midline removedrep eat echo showed no vegetation Gastrointe stinal hemorrhage 16384023 K92.2 hx of gi bleedsucra lfate 1 gram qidprilose c 40 mg bid Renal mass 533380484 N28 .89 incidental finding on renal ULneeds out pt f/u with renal UL in 3-6 months or contrast enhanced CT or NILO abdomen [id number] ZACH Costa [facility] [address] [place] [address] 01/07/2021 16:54:51 01/12/2021 12:58:35 Neuropathy 236371955 G62.9 voltaren gel 2 gm to hands QID. continue butrans 15 mg weekly and flexeril 10 mg TID. Follow up with neuro. Low back pain 204108909 M54.5 voltaren gel 4 gm to lower back QID. d/c lidoderm patch. continue to monitor. [id number] ZACH Marin [facility] on [address] [place] [address] 01/13/2021 15:06:57 01/17/2021 12:02:09 Visual hallucinations 92961474 R44.1 resolved off morphine, gabapentin and trazodonem onitor for sxs Urinary tr act infectious disease 44564219 N39.0 resolvedmo nitor for recurrence Neuropathy 174964676 G62 .9 will trial gabapentin 100 mg [...] lab : 1.3 Vitamin D deficiency 347 89592 E55.9 Vit D level at 9not started on supplement by CDHstarted here on Vit D 3 5,000 units qdrecheck Vit D level in 5 weeks Type 1 iam betes mellitus 35266017 E10.9 accuchecks btwn 70s and 300scontin ue glargine 21 units q am, 25 units qhsaccuche cks with sliding scalemonit or and adjust insulin prn Posttrauma tic stress disorder 08100469 F43.10 mood stablecymb jair 60 mg qdwellbutr in sr 100 mg bidhydroxy zine 10 mg tid prnpsych referralmo nitor mood Polysubstance abuse 4452 04726 F19.10 no suboxone or methadoneb utrans 15 mg patch q week for pain Chronic depression 90560 0009 F34.1 meds as above Acute bact erial endocarditis 859111677 I33.0 finished 6 week course of vanco in hospital, midline removedrep eat echo showed no vegetation Gastrointe stinal hemorrhage 66391415 K92.2 hx of gi bleedsucra lfate 1 gram qidprilose c 40 mg bid Renal mass 516778159 N28 .89 incidental finding on renal ULneeds out pt f/u with renal UL in 3-6 months or contrast enhanced CT or NILO abdomen [id number] ASA VALENTIN PA-C [facility] on [address] [place] [address] 01/19/2021 11:51:49 01/24/2021 10:53:20 Uncontrolled type 1 diabetes mellitus 944965548 E10.65 Start Humalog 2 ux SQ tidacConti nue correction al HumalogCon tinue Lantus 21 ux SQ q am and 25 ux SQ qhsMonitor sugars and adjust meds prn Quadripleg ia with quadriparesis 0107795141 9100 G82.50 PT/OTNeuro followingR ecent very extensive and essentiall y negative w/uConvers ion D/O should be in the DDx given hx PTSDMonito r and f/u prn Vitamin D deficiency 347 18873 E55.9 RepletingC ontinue D3 5k ux po dailyHas f/iu level next month Gastrointe stinal hemorrhage 33458747 K92.2 Prilosec 40 mg po bid-consid er reduction trial to once daily since GI bleed was 3 months agoConside r d/c Motrin since hx GI bleed and also getting scheduled topical diclofenac Renal mass 065578525 N28 .89 renal u/s to f/u 2.9 cm heterogeno us hypoechoic mildly vascular mass-like structure upper pole of R kidney seen on u/s 11/2020 at [place] [id number] [facility] [address] [place] [address] 01/27/2021 15:01:35 01/31/2021 08:15:11 Uncontrolled type 1 diabetes mellitus 877849513 E10.65 Humalog 2 ux SQ tidacConti nue correction al HumalogCon tinue Lantus 21 ux SQ q am and 25 ux SQ qhsMonitor sugars and adjust meds prn Quadripleg ia with quadriparesis 0113874727 9100 G82.50 cont PT/OTNeeds cervical and lumbar MRI w contrast scheduledA lso request EMG testingRef er to neuro for consultSta rt Baclofen 5 mg TID for spasmsAlso will add Oxycodone 2.5 mg Q6h PRN-patien t states she has tolerated this in pastIf hallucinat ions recur will d/c oxycodone [id number] Isabelle [facility] on [address] [place] [address] 01/30/2021 15:56:19 02/01/2021 12:39:58 Quadriplegia with quadriparesis 9558468201 9100 G82.50 cont PT/OTNeeds cervical and lumbar MRI w contrast scheduledE MG testing orderedAwa iting neuro consultInc rease Baclofen 10 mg TID for spasmsIncr ease Oxycodone 5 mg Q6h PRNIf hallucinat ions recur will d/c oxycodone- patient aware [id number] Thu Li MD [facility] on [address] [place], [place] [address] [address] 02/07/2021 20:14:48 02/13/2021 13:28:21 Quadriplegia with quadriparesis 3927690679 9100 G82.50 Continues to need intensive PT/OT for strengthen ing, balance, gait training, safety and function.C ontinue Baclofen 10 mg TID, voltaren gel to hands, APAP 650 mg q 4 hrs prn, and oxycodone 5 mg q 6 hrs prn.Monito r safety and function. Uncontroll ed type 1 diabetes mellitus 794387830 E10.65 Poor control.Co ntinue Lantus 21 ux SQ q am and 25 ux SQ qhs, humalog 2U with meals and SS as ordered.Mo nitor sugars and adjust meds prn Vitamin D deficiency 347 72926 E56.8 Continue D3 5000 IU qd.Recheck level next month. Gastrointe stinal hemorrhage 36212977 K92.89 Continue omeprazole 40 mg BID.Taper as able.Monit or sxs. Renal mass 795679053 N28 .89 incidental finding on renal ULneeds out pt f/u with renal UL in 3-6 months or contrast enhanced CT or NILO abdomen Visual hallucinations 64 648202 R44.1 No further sxs since return from hospital.M onitor MS. Neuropathy 055036267 G62 .89 As above.F/U with neuro Posttrauma tic stress disorder 74096886 F43.12 Continue duloxetine 60 mg qd, wellbutrin SR 100 mg BID and hydroxyzin e 10 mg TID prnPsych involved. Polysubstance abuse 1922 22548 F19.10 no suboxone or methadoneb utrans 15 mg patch q week for pain Chronic depression 39510 0009 F34.1 meds as above Acute bact erial endocarditis 569438344 I33.0 finished 6 week course of vanco in hospital, midline removedrep eat echo showed no vegetation Chronic pain syndrome 37 8779823 G89.4 Continue meds as above and gabapentin 100 mg TID, butrans 15 mg patch weekly, and ibuprofen 600 mg q 8 hrs prn.Monito r sxs. [id number] ASA VALENTIN PA-C [facility] on [address] [place] [address] 02/10/2021 17:13:12 02/13/2021 14:51:22 Eruption 412637482 R21 refuses exam bumps could be a number of thingschec k urine for GC/chlam-f /u when results are availableR e-approach pt for exam next weekNo indication for U/APt educated about:-imp ortance of not having sexual encounters with other patients on the unit-prote cting against HIV/STIs if she is going to engage in such behavior-w as not interested in participat ing in this discussion [id number] ASA VALENTIN PA-C [facility] on [address] [place] [address] [phone] 3 02/17/2021 16:48:48 02/20/2021 16:13:30 Chronic pain syndrome 136517532 G89.4 Increase Baclofen from 10 ux tid to 15 ux tid and titrate aggressive lyd/c Voltaren gel since ineffectiv eStart Lidocaine 3% cream tid prn hand painConsid er rheum w/u given Crivitz neck deformitie s of handsMonit or and f/u prn Uncontroll ed type 1 diabetes mellitus 229827845 E10.65 Decrease hs Lantus from 25 to [...] time but consider in the future Eruption 128403204 R21 Bumps resolved per ptNo symptoms or dysuriaRev iew GC/chlam when results are available [id number] ASA VALENTIN PA-C [facility] on [address] [place] [address] [phone] 3 02/23/2021 16:16:37 02/27/2021 16:18:42 Chronic pain syndrome 087185540 G89.4 Increase Baclofen from 15 mg po tid to 20 mg po tidNo change in oxycodone IR 5 mg po q 6 h prn at this time despite her request to make is q 4 h prnCheck CBCD, CMP, RF, RANJAN, and ACPA (anti-citr ullinated peptide antibodies )Monitor and f/u prn [id number] ASA VALENTIN PA-C [facility] on [address] [place] [address] [phone] 3 03/06/2021 18:28:01 03/08/2021 11:32:59 Acute otitis externa 48922241 H60.509 Left ear Cortispori n otic suspension 4 gtt L ear qid x 10 days-benef its of abx outweigh risks of non-treatm ent in this patient Chronic pain syndrome 37 8218898 G89.4 Increase Cymbalta from 60 mg po q am to 60 mg po q am and 30 mg po q 1700Recent labs not revealingM onitor and f/u prn [id number] ASA VALENTIN PA-C [facility] on [address] [place] [address] [id number] 3 03/10/2021 09:35:25 03/14/2021 11:07:45 Unintentional weight loss 476680379 R63.4 Increase frequency of monitoring weights to weekly x 4 weeks then monthly-we ight via same method each time and include when [facility] weightsRD also followingU pdate TSH Uncontroll ed type 1 diabetes mellitus 841875403 E10.65 Pre-lunch sugar remain high, reflecting need [...] futureUpda te A1c Chronic pain syndrome 37 5291055 G89.4 Continue Cymbalta 60 mg po q am and 30 mg po q 1700-room to increaseIn crease gabapentin from 100 mg po tid to 200 mg po tid-monito r for response, sedation, hallucinat ions-pt agreeable to this trialUnlik mando RA based on labsConsul t rheum for completene ss Vitamin D deficiency 347 16947 E55.9 RepletingC ontinue D3 5k ux po dailyUpdat e Total Vit D-level planned for this month; will coordinate draw with TSH Quadripleg ia with quadriparesis [id number] 9100 G82.50 PT/OTClari fy status of neuro f/u and EMG previously orderedRec ent very extensive and essentiall y negative w/uConvers ion D/O should be in the DDx given hx PTSDMonito r and f/u prn Gastrointe stinal hemorrhage 14716472 K92.2 Continue Prilosec 40 mg po bid for nowd/c CarafateCo nsider decrease Prilosec once she can be assessed off Carafate [id number] ASA VALENTIN PA-C [facility] on [address] [place] [address] 3 03/13/2021 17:28:09 03/21/2021 10:47:41 Chronic pain syndrome 494924321 G89.4 Increase Cymbalta from 60 mg po q am and 30 mg po q 1700 to 60 mg po bidNo changes to oxycodone at this time script for oxycodone IR 5 mg #60 no refills given to nurse Dyslipidemia 800502511 E 78.5 Add Lipitor 20 mg po qhslipid panel 8 weeks [id number] ASA VALENTIN PA-C [facility] on [address] [place] [address] 3 03/21/2021 18:30:14 03/28/2021 12:19:54 Acute otitis media 0509639 H66.92 Augmentin 875/125 mg po bid x 10 days-benef its of abx outweigh risks of non-treatm ent in this patientDif lucan 150 mg po x 1 on days 2 and 5 to prevent richard vaginitisM onitor and f/u prn [id number] ASA VALENTIN PA-C [facility] on [address] [place] [address] [phone] 3 03/28/2021 19:45:13 04/06/2021 13:45:41 Chronic pain syndrome 509654346 G89.4 Given the interrupti ons in her Butrans beyond her control, will change prn oxycodone 5 mg from q 6 to q 4 h for nowNo other changes at this timeMonito r and f/u prn Pruritic disorder 240532 002 L29.9 Benadryl 50 mg po q 6 h prn itching [id number] ASA VALENTIN PA-C [facility] on [address] [place] [address] [phone] 3 04/06/2021 16:31:22 04/17/2021 16:27:20 Paronychia of toe of left foot 0517587313 0229731 L03.032 warm soak L foot qid x 5 days for paronychia L 1st toeNo evidence of cellulitis and no indication for topical or oral abx at this timeMonito r and f/u prn [id number] ASA VALENTIN [facility] on [address] [place] [address] [id number] 3 04/07/2021 16:52:11 04/17/2021 16:31:27 Paronychia of toe of left foot 2569178635 0984475 L03.032 Triple antibiotic bid x 5 days L 1st toeAdd Vit C 500 mg po bid x 30 days, Zinc 220 mg po bid x 14 days, and Vit A 10k ux po daily x 10 days to promote wound healing in a diabetic.N o evidence of cellulitis -abx not indicated at this timeMonito r and f/u prn Blister of foot 84648690 3 S90.822A HeelProtec tive dressingMo nitor and f/u prn [id number] ASA VALENTIN PA-C [facility] on [address] [place] [address] [phone] 3 04/13/2021 18:55:30 04/18/2021 09:45:53 Chronic pain syndrome 220314409 G89.4 add Zanaflex 2 mg po q 8 h prn stiffness- monitor for sedation, hallucinat ions-titra te to comfort-pt agreeable to triald/c Lipitor as likely worsening chronic pain Migraine 51616196 G43.90 9 Add Riboflavin 400 mg po daily for migraine prevention -educated that this will likely cause her urine to turn bright yellow-exp lained that it may take up to 3-4 months to experience an improvemen t in migraines- pt agreeable to try this [id number] ASA VALENTIN PA-C [facility] on [address] [place] [address] [phone] 3 04/17/2021 13:27:26 04/20/2021 08:54:46 Uncontrolled type 1 diabetes mellitus 953724320 E10.65 d/c prandial Humalog since meal intake [...] for renal protection due to soft BPs [id number] Bina Bingham MD [facility] on [address] [place] [address] [phone] 3 04/28/2021 08:13:19 05/01/2021 14:06:27 Type 1 diabetes mellitus 97557064 E10.42 Lantus insulin 24U in eveningHum alog per sliding scalegabap entin 200 mg tid for neuropathy - see meds for chronic painwill monitor Muscle weakness 01058238 M62.81 quadripare sis -seems improved at today's visit - consider psychiatri c componentM RI Cspine, LS spine with contrast recommende dfu neurologyP T/OTwill monitor and support as needed Chronic pain 19433386 G8 9.29 ibuprofen 600 mg q8h prnduloxet ine 60 mg dailygabap entin 200 mg tidtizanid ine 2 mg q8h prnoxycodo ne 5 mg q4h prnButrans patch 15 mcg/hr weeklyAPAP 650 mg q4h prnwill monitorPT/ OT prn Mixed anxi ety and depressive disorder 046495060 F41.8 trazodone 50 mg at hsduloxeti ne 60 mg dailybupro pion 100 mg bidgabapen tin 900 mg tidhydroxy zine 10 mg q8h prnwill monitor and support as needed Gastroesop hageal reflux disease without esophagitis 482067843 K21.9 omeprazole 40 mg bidwill monitor [id number] ASA VALENTIN PA-C [facility] on [address] [place] [address] [phone] 3 05/02/2021 18:19:07 05/04/2021 14:35:08 Uncontrolled type 1 diabetes mellitus 601417287 E10.65 Given morning hypoglycem ia, will d/c [...] to soft BPs Chronic pain syndrome 37 6107372 G89.4 Complaints out of proportion to exam findingsRe schedule Brain MRI ASAPNo changes to meds at this timeConsid er Chronic Widespread Pain (CWP) Syndrome/C entralized Pain Syndrome-R heum consult still pending [id number] ASA VALENTIN PA-C [facility] on [address] [place] [address] [phone] 3 05/08/2021 17:47:50 05/15/2021 16:00:40 Uncontrolled type 1 diabetes mellitus 385481143 E10.65 Increase Lantus from 21 ux SQ q am to 23 ux SQ q amContinue individual ized correction al insulin, which she still often refusesMon itor sugars and adjust meds prnNot on an ERIC/ARB for renal protection due to soft BPs [id number] ASA VALENTIN PA-C [facility] on [address] [place] [address] 3 05/10/2021 15:19:30 05/16/2021 08:53:19 Nausea 440470707 R11.0 Nausea likely secondary to hyperglyce adri [...] 05/12/21 Uncontroll ed type 1 diabetes mellitus 547052087 E10.65 Increase Lantus from 23 ux SQ q am to 25 ux SQ q amContinue individual ized correction al insulin, which she still often refusesMon itor sugars and adjust meds prnNot on an ERIC/ARB for renal protection due to soft BPs Chronic pain syndrome 37 1885263 G89.4 Complaints out of proportion to exam [...] CK since pain mostly muscularly based Migraine 98610961 G43.90 9 Continue Riboflavin 400 mg po daily for migraine prevention -re-educat ed that this will likely cause her urine to turn bright yellow-re- explained that it may take up to 3-4 months to experience an improvemen t in migrainesA lready has prn oxycodone in place [id number] ASA VALENTIN PA-C [facility] on [address] [place] [address] [phone] 3 05/12/2021 15:20:29 05/22/2021 18:13:36 Chronic pain syndrome 579352853 G89.4 CPK slightly above normal range.DDx includes:- Diabetic muscle infarction -Inflammat ory myopathies EMG, Brain MRI, Neuro consult, and Rheum consult pend-adan fy statusIf diabetic muscle infarction , need to get sugars under much better control as they remain out of control for patient reasons.-e ducate pt about thisKnown chronic widespread pain syndrome, fka fibromyalg iaNo changes at this time Anemia 137091268 D64.9 H&H down from priorStool guaiacs pend and will be reviewed when availableM onitor labs Uncontroll ed type 1 diabetes mellitus 865931134 E10.65 Lantus increased 2 days agoContinu e individual ized correction al insulin, which she still often refusesMon itor sugars and adjust meds prnNot on an ERIC/ARB for renal protection due to soft BPs [id number] ASA VALENTIN PA-C [facility] on [address] [place] [address] [phone] 3 05/24/2021 14:47:08 05/31/2021 11:17:09 Chronic pain syndrome 796228130 G89.4 Talked about diabetic muscle infarction as a possible explanatio n of her muscular pain, which dominates her pain complaints .No changes to pain meds at this time Avulsion i njury of fingernail 747488127 S61.308A No evidence of infectionL ocal careMonito r and f/u prn Anxiety di sorder due to a general medical condition 34595918 F06.4 increase Wellbutrin back to bidadd anxiety x 14 days to the prn Benadryl indication -not adding hydroxyzin e since on Benadryl-b enzos not indicated [id number] ASA VALENTIN PA-C [facility] on [address] [place] [address] [phone] 3 05/25/2021 15:11:09 06/05/2021 13:42:02 COVID-19 613276600 U07.1 Vaccinated , <65 y/o, with at [...] per facility protocol Paronychia of finger 444 414743 L03.019 Bacitracin and bandaid to affected fingers daily x 5 daysFollow clinically Uncontroll ed type 1 diabetes mellitus 838327295 E10.65 Increase Lantus from 25 to 28 ux SQ q amContinue individual ized correction al insulin, which she still often refusesMon itor sugars and adjust meds prnNot on an ERIC/ARB for renal protection due to soft BPs [id number] ASA VALENTIN PA-C [facility] on [address] [place] [address] [phone] 3 06/07/2021 19:12:01 06/13/2021 11:45:27 Onychotillomania 15623094 F98.8 SSRIs ideal for this as well [...] serious resistance and behavioral disturbanc e COVID-19 584094304 U07.1 Clinically recovered [id number] ASA VALENTIN PA-C [facility] on [address] [place] [address] [phone] 3 06/08/2021 12:10:18 06/13/2021 12:56:00 Uncontrolled type 1 diabetes mellitus 662682859 E10.65 Increase Lantus from 28 to 32 ux SQ q am (conservat ively increasing )Continue individual ized correction al insulin, which she still often refusesMon itor sugars and adjust meds prnNot on an ERIC/ARB for renal protection due to soft BPs [id number] ASA VALENTIN PA[facility] [address] [place] [address] [phone] 3 06/12/2021 14:19:02 06/29/2021 12:52:22 Uncontrolled type 1 diabetes mellitus 131416537 E10.65 Continue Lantus 32 ux SQ q am-pt hesistant to increase despite elevated sugars due to sugar 67 yesterday amContinue individual ized correction al insulin, which she still often refuses or takes less ofMonitor sugars and adjust meds prnNot on an ERIC/ARB for renal protection due to soft BPs [id number] ASA VALENTIN PA[facility]C [facility] [address] [place] [address] [phone] 3 06/21/2021 13:12:50 06/30/2021 10:08:01 Uncontrolled type 1 diabetes mellitus 068001774 E10.65 Continue Lantus 32 ux SQ q [...] BPs Cellulitis of finger of right hand 3902389765 7541942 L03.011 Keflex-cherry efits of abx outweigh risks of non-treatm ent in this patientPro bioticMoni tor and f/u prn Pruritic disorder 567051 002 L29.9 Restart prn BenadrylUn clear of allergen-m ediated or somatiform Monitor and f/u prn Anxiety 32395016 F41.9 Definitely OCD component/ excoriatio n d/o/onycho [...] drug interactio ns Chronic pain syndrome 37 2620740 G89.4 Schedule the Zanaflex and titrateCla rify status of rheum consultCon tinue all other meds as currently orderedPT/ OT prn Nausea 124615537 R11.0 seems improvedf/ u prn Tobacco de pendence syndrome 08789850 F17.200 Counseled 4 minutes on cessation; not interested in quitting Anemia 810607499 D64.9 Clarify stool guaiac resultsUpd ate CBC [id number] ASA VALENTIN PA-C [facility] on [address] [place] [address] [phone] 3 06/23/2021 16:48:19 06/30/2021 10:48:25 Cellulitis of finger of right hand 0700762406 6808726 L03.011 d/c KeflexStar t Levaquin 750 mg po daily x 7 days (since also has uncontroll ed DM)-benefi ts of abx outweigh risks iof non-treatm ent in this patientR hand x-ray to assess for periostial lift although osteo less likelyCons ider labs if not improved with change in abx Uncontroll ed type 1 diabetes mellitus 686191839 E10.65 Monitor sugars and adjust meds prnNot on an ERIC/ARB for renal protection due to soft BPs [id number] ASA VALENTIN PA-C [facility] on [address] [place] [address] [id number] 3 06/27/2021 18:45:15 07/11/2021 15:46:45 Cellulitis of finger of right hand 3116705192 0940974 L03.011 Improved on LevaquinX- ray without periostial lift or other suggestion s of osteoMonit or and f/u prn Uncontroll ed type 1 diabetes mellitus 123587979 E10.65 Sugars hard to interpret since time-stamp [...] to soft BPs Chronic pain syndrome 37 4292276 G89.4 Multi-leve l spinal MRIs are unrevealin [...] clinically Mixed anxi ety and depressive disorder 891642919 F41.8 Improved on decreased ProzacPer EMAR review, pt has been using the Trazodone 25 mg po q 4 h prn anxiety at least once per day on most days, often at night with effect-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 25 mg po qhs-renew Trazodone 25 mg po q 4 h prn anxiety x 6 months then review again with provider to determine ongoing needNot at all surprised that she found the Ativan to be very effective at targeting her anxiety; however, benzodiaze pine use would be inappropri ate in this patient.Ps ych also following [id number] ASA VALENTIN PA-C [facility] [address] [place] [address] [phone] 3 07/03/2021 16:00:31 07/12/2021 14:25:23 Candidiasis of vagina 13265972 B37.3 Diflucan 150 mg po x 1f/u prn [id number] ASA VALENTIN PA-C [facility] on [address] [place] [address] [phone] 3 07/07/2021 13:46:53 07/18/2021 14:54:36 Chronic pain syndrome 215598751 G89.4 Reviewed the records from [place] with pt with focus on insulin neuritis, [...] now. Uncontroll ed type 1 diabetes mellitus 453022005 E10.65 Discussed importance of diabetes management , [...] retinopathy due to type 1 diabetes mellitus 5891352615 9101 E10.3593 Oxycodone 10 mg po x 1 upon departure to retinal laser surgery vivian hyde scheduled and prn as recommende d by retinal specialist Anxiety 00775506 F41.9 Willing to trial Abilify 2 mg po daily as recommende d by psych-risk s/benefits /side effects discussed with ptPsych also following [id number] ASA VALENTIN PA[facility] on [address] [place] [address] [phone] 3 07/13/2021 14:02:12 07/18/2021 15:54:18 Edema of lower extremity 139671968 R60.0 TEDs dailyGabap entin and Motrin can cause/exac erbate edema-cons ider d/c gabapentin as previously referenced Diarrhea 83983834 R19.7 Given comorbidit ies, likely has IBS, [...] retinopathy due to type 1 diabetes mellitus 5017532407 9101 E10.3593 Ativan 0.5 mg po x 1 upon departure to laser eye surgery-ok to given with oxycodone IR 10 mg that has also been ordered-sc ript for 0.5 mg #2 with 1 refill given to nurse [id number] ASA VALENTIN PA[facility]C [facility] on [address] [place] [address] [id number] 3 07/24/2021 16:43:31 08/01/2021 15:48:41 Edema of lower extremity 167107619 R60.0 Clarify status of TEDsTaper gabapentin -pt in agreement with trial offNo cardiopulm onary symptomsMo nitor and f/u prn 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 9871791116 9101 E10.3593 Following with retinal specialist Await official notes from today's visitRevis it pre-meds for next surgerySee if endo can do telehealth with her since she is an establishe d pt Anxiety 68328886 F41.9 re-add anxiety as prn indication for Benadryl since it has been effective and there is no clinical indication to schedule it-can renew x 6 months then review again to determine ongoing needPsych also following [id number] ZACH [facility] on [address] [place] [address] [phone] 3 07/31/2021 15:05:51 08/04/2021 10:55:17 Cellulitis of finger of right hand 3123609778 6522048 L03.011 keflex 500 mg 1 tid x 7 daysprobio tic 1 bid x 10 daysmonito r for resolution [id number] ASA VALENTIN PA-C [facility] on [address] [place] [address] [phone] 3 08/02/2021 19:38:36 08/08/2021 09:56:25 Proliferative retinopathy due to type 1 diabetes mellitus 3856336612 9101 E10.3593 Following with retinal specialist Has upcoming laser eye surgery-tr ial Klonopin 0.5 mg since longer T1/2-upon departure for laser eye surgery-pt agreeable to try this-scrip t for Klonopin 0.5 mg #2 with 5 refills given to nurse-Oxyc odone IR 15 mg po x 1 upon departure for laser eye surgery [id number] ASA VALENTIN PA-C [facility] on [address] [place] [address] [phone] 3 08/10/2021 15:54:07 08/17/2021 12:42:18 Proliferative retinopathy due to type 1 diabetes mellitus 0869247271 9101 E10.3593 No changes to pre-med are indicatedM onitor and f/u prn [id number] Bina Bingham MD [facility] on [address] [place] [address] [phone] 3 08/23/2021 08:11:31 08/25/2021 16:09:18 Quadriplegia with quadriparesis 6873521301 9100 G82.50 Type 1 iam betes mellitus 13876720 E10.42 Lantus insulin 32U in eveningHum alog per sliding scalefor neuropathy - see meds for chronic painwill monitor 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 5508730524 9101 E10.3593 fu retina specialist Chronic pain 94880828 G8 9.29 ibuprofen 600 mg q8h prnduloxet ine 60 mg dailytizan idine 2 mg tidoxycodo ne 5 mg q4h prnbaclofe n 20 mg qidButrans patch 15 mcg/hr weeklyAPAP 650 mg q4h prnwill monitorPT/ OT prn Mixed anxi ety and depressive disorder 096190945 F41.8 trazodone 25 mg at hsaripipra zole 2 mg dailydulox etine 60 mg dailywill monitor and support as needed Gastroesop hageal reflux disease without esophagitis 156335685 K21.9 omeprazole 40 mg bidwill monitor [id number] ASA VALENTIN PA-C [facility] on [address] [place] [address] [phone] 3 08/28/2021 20:07:37 08/30/2021 13:12:41 Proliferative retinopathy due to type 1 diabetes mellitus 9667345257 9101 E10.3593 Increase Klonopin from 0.5 to 1 mg po upon departure to laser surgery-sc ript for 1 mg #2 with 1 refill given to nurseLaquita gonzalez oxycodone IR 15 mg po upon departure to laser surgery Chronic pain syndrome 37 7562188 G89.4 Pt has been on oxycodone IR 5 mg po q 4 h prn mod-severe pain, which she takes regularly- considerin g that she was on an extended overnight BARBARA without her oxycodone and did not seem to have any negative effects, need to start tapering oxycodone as she has demonstrat ed that she does not require it [id number] ASA VALENTIN PA-C [facility] on [address] [place] [address] [phone] 3 09/08/2021 16:01:05 09/11/2021 15:44:46 Proliferative retinopathy due to type 1 diabetes mellitus 2670370511 9101 E10.3593 Klonopin 1 mg and oxycodone IR 15 mg po x 1 upon departure to laser eye surgery-sc ript for Klonopin 1 mg #4 with 5 refills given to nurse [id number] ASA VALENTIN PA-C [facility] on [address] [place] [address] [phone] 3 09/12/2021 14:24:10 09/14/2021 12:35:31 Candidiasis of vagina 01938567 B37.3 Diflucan 150 mg po x 1-ok despite increased risk of QT prolongati on with Abilify-cisneros s tolerated before and Diflucan is a one-time doseReiter ated importance of glycemic control-sa ys she knows this but still chooses to eat foods inconsiste nt with diabetic dietShould have HIV testing - she's not sure yet if she wants to do thisf/u prn [id number] ASA VALENTIN PA-C [facility] [address] [place] [address] [phone] 3 09/15/2021 15:05:55 09/18/2021 13:39:17 Chronic pain syndrome 187897816 G89.4 Given that patient lied about having [...] the list of DDxMonitor and f/u prn [id number] ASA VALENTIN PA-C [facility] [address] [place] [address] [id number] 3 09/19/2021 09:24:39 09/21/2021 10:26:50 Pain of right knee joint 2806262222 17259 M25.561 no indication for imaging at this timePT consultHas plenty of meds in place for pain management Ice as toleratedW BATLikely patellofem oral syndrome [id number] ZACH Marin [facility] [address] [place] [address] [id number] 3 09/22/2021 13:31:46 09/25/2021 15:35:51 Pain of right knee joint 5594553000 40809 M25.561 per GAGE who saw pt on 09/19 continues with no indication for imaging at this timecontin ue PT OTHas plenty of meds in place for pain management and explained to pt that I would not increase pain meds at this timeIce as toleratedW BAT [id number] ASA VALENTIN PA-C [facility] [address] [place] [address] [phone] 3 10/04/2021 20:07:11 10/10/2021 09:10:24 Pain of right knee joint 7991351856 16395 M25.561 Would probably benefit from MRI R knee but will defer this [facility]ris [facility] will [facility] need for referral to PSSPHas plenty of meds in place for pain management -no indication to adjust oxycodoneI ce as toleratedW BATLikely patellofem oral syndrome 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 7533457031 9101 E10.3593 Once appointmen t at [facility] is verified, pt can have Klonopin 1 mg and oxycodone IR 15 mg upon departure to appointmen t [id number] ASA VALENTIN PA-C [facility] on [address] [place] [address] [phone] 3 10/12/2021 13:57:35 10/18/2021 14:48:50 Allergic rhinitis 45545529 J30.9 Add Flonase 1 spray per nostril bid-consid er change to prn when seasons changesNot adding systemic non-sedati ng antihistam ine since has prn Benadryl orderMonit or and f/u prn [id number] Héctor Alexander MD [facility] on [address] [place] [address] [phone] 3 06/01/2022 10:14:03 07/06/2022 12:56:40 Sepsis 86989579 A41.89 see HPIvanco and zosyn through 06/14/22 then to be re-evaluat ed by IDmonitor [facility] labs cc to ID and update with obieho Juan helm, acting DNS, [employer]GING MACHINE [employer]TER, and therapy present during attempted exampatien t [...] Acute oste omyelitis of ankle and/or foot [id number] M86.172 now s/p left BKAplan was tofollow ortho recsPT OT eval and treatstron g concern for need for right AKAupdate ortho and ID with concernsho wever now see above Chronic pain syndrome 37 [id number] G89.4 plan was belowchron ic pain syndrome with polysubsta nce abusenow on oxycodone 30 mg q 6 hours hold for sedationga bapentin 100 mg tidthis is less than patient was receiving in hospitalme dications to be crushed therefore cannot start long actingalso concern for patch utilizatio n that patient may swallow patchhowev er now transfer back to hospital Anemia due to blood loss [id number] D50.0 acute on chronic anemia transfused with 4 units pRBC suffered delayed transfusio n reactionmo nitor cbc and need for further txheme eval prnadded to PMH Blood spann sfusion reaction [id number] T80.89XD see abovesurge ry awareadded to PMH Polysubstance abuse [id number] F19.180 polysubsta nce abuse hxadded to PMH Primary insomnia [id number] F51.01 plan wasmelaton in 3 mg qhs [...] Member ID Guarantor Name 09/19/2021 1 [place] [facility] Radha Olivera [id number] Radha Olivera 09/22/2021 1 [place] [facility] Radha Olivera [id number] Radha Olivera 10/04/2021 1 [place] [facility] Radha Olivera [id number] Radha Olivera 10/12/2021 1 [place] [facility] Radha Olivera [id number] Radha Olivera 06/01/2022 1 [facility] Olivera [id number] Radha Olivera Notes Date Note Type Note Provider Name and Address Organization Details Recorded Time 2 text/html Pt seen for acute rounding visit today for discharge planning. Pt returned last evening from weekend [place]. Has been spending more time at her boyfriend's house in [place] and is hoping to move in with [...] and Klonopin and then nurse confirmed with [facility] that pt never had an appointment for that day. When confronted about this today, pt said she only found out when her aunt picked her up that her aunt had rescheduled it from 09/18 to a different date. This was confirmed to not be true. PMHx reviewed Meds reviewed ASA VALENTIN PA-C [address] [place] [address], [address], [place], [address], [facility] 09/20/2021 13:15:34 2 text/html Pt seen for [...] and Klonopin and then nurse confirmed with [facility] that pt never had an appointment for that day. When confronted about this today, pt said she only found out when her aunt picked her up that her aunt had rescheduled it from 09/18 to a different date. This was confirmed to not be true. Britta Wright, ZACH [address], [address], [place], [address], [facility] 09/22/2021 13:37:01 2 text/html Pt seen [...] referred to [facility] for R knee pain. [place] that insurance referral is required. Says she has another laser eye surgery on 10/13/21 and will need pre-med again with Klonopin and oxycodone. Boyfriend's mother has yet to decide if Radha can move in. Continues to eat foods which are contrary to her diabetes diagnosis. ASA VALENTIN PA-C [address], [address], [place], [address], [facility] 10/09/2021 15:06:47 2 text/html Pt seen [...] far this month) ASA VALENTIN PA-C [address], [address], [place], [address], [facility] 10/12/2021 14:53:35 3 text/html Patient is [...] care and therapy Héctor Alexander MD [address], [address], [place], [address], [facility] 06/01/2022 11:42:48 OBGyn Episode No OBEpisode recorded.
--- OUTSIDE RECORDS SUMMARY | 2024-08-03 15:17 | XMS_ITS | Clinical Summary ---
Author Organization [facility] Facility Address [address] [address] Care Team Providers Care Movie Shot Cameraman Name Role Phone Uriel Cyr MD Primary [...] Exam 06/06/2022 Influenza Vaccine (#1) 2024 Insurance [employer] MEDICA[employer] Care Teams Movie Shot Cameraman Relationship Specialty Start Date End Date Uriel Cyr MD PCP - General Family Medicine 06/05/22
== END 2024-08-03 14:55 | disposition home or self-care (01) ==
LOC: HO.HUSH 13:33
PROVIDERS: PCP Family Medicine; Visit Provider Nurse Practitioner Family
DX: R33.9 Retention of urine, unspecified (principal)
CPT/HCPCS: 99203

== ENCOUNTER 2024-08-10 09:51 | Outpatient (REF) | payer OTHER, SELFPAY ==
--- OUTSIDE RECORDS SUMMARY | 2024-08-10 11:27 | XMS_ITS | Data Portability ---
Author Organization [facility], Main Office Address [address] , [address] [place] [address] Care Team Providers Care Bullet Slugs Inspector Name Role Phone ABYBAUTISTA JASSO Primary Care Provider [facility] ([facility]) OTHER Assessment No assessment recorded. Plan [...] By Organization Details Last Modified Time 09/19/2021 [id number] Dispo -- awaazalae g confirmation that she can move in with her BF and then will proceed with arranging necessary services and follow-up [email or web address] Not available 09/20/2021 13:14:39 Reason for Referral None Reported. Problems Name Problem SNOMED Code Status Onset Date Resolution Date Notes Provider Name and Address Organization Details Recorded Time Acute bacterial endocarditi s 985945411 Active 2020 ZACH Marin [address], [address], [place], [address], [facility] 1 14:06:57 Diabetic ketoacidosi s 589690134 Active 2020 ZACH Marin [address], [address], [place], [address], [facility] 1 14:07:04 Type 1 diabetes mellitus 50282721 Active 2020 ZACH Marin [address], [address], [place], [address], [facility] 08/06/202 1 14:07:12 Neuropathy 119185429 Active 2020 Britta Wright [employer] [address], [address], [place], [address], [facility] 14:07:31 Polysubstan ce abuse 648980077 Active 2020 Britta Wright [employer] [address], [address], [place], [address], [facility] 14:08:04 Renal mass 134130899 Active 2020 Britta Kyle [employer] [address], [address], [place], [address], [facility] 14:08:31 Posttraumat ic stress disorder 42340951 Active 2020 ZACH Marin [address], [address], [place], [address], [facility] 14:08:38 Chronic depression 844927313 Active 2020 ZACH Marin [address], [place], [address], [facility] 14:08:48 Acute nontraumati c kidney injury 9917914602755 03 Active 2020 Britta Wright [employer] [address], [address], [place], [address], [facility] 14:08:56 Gastrointes tinal hemorrhage 62287951 Active 2020 Britta Wright [employer] [address], [address], [place], [address], [facility] 14:09:04 Vitamin D deficiency 00214920 Active 2020 Britta Wright [employer] [address], [address], [place], [address], [facility] 10:22:19 Acute diarrhea 244544463 Active 2020 ZACH Marin [address], [address], [place], [address], [facility] 1 10:35:07 Low back pain 738851398 Active 2020 Nanette Dubois, [employer] [address], [address], [place], [address], [facility] 1 17:03:33 Quadriplegi a with quadripares is 3079737163049 0 Active 2020 Thu Li MD [address], [address], [place], [address], [facility] 1 02:35:48 Chronic pain syndrome 560998408 Active 2020 Thu Li MD [address], [address], [place], [address], [facility] 1 02:39:20 Uncontrolle d type 1 diabetes mellitus 382232967 Active 2020 Thu Li MD [address], [address], [place], [address], [facility] 1 02:40:14 Primary insomnia 4051074 Active 2022 Héctor Alexander MD [address], [address], [place], [address], [facility] 3 10:40:26 Problem Notes None recorded. Medical Equipment None Reported. Allergies Allergen ID Allergen Name Allergen Category Reaction Reaction Severity Criticality Documentation Date Start Date Code Code System Note Provider Name and Address Organization Details Recorded Time 80492 doxycycli ne Not available rash Not available Not available 12/09/2020 3640 RxNorm Not Available Not Available Not Available 70868 Substance with sulfonami de structure and antibacte rial mechanism of action (substanc e) medicatio n rash Not available Not available 12/09/2020 64389 8003 SNOMED Not Available Not Available Not Available 42159 trimethop rim medicatio n rash Not available Not available 12/09/2020 61865 RxNorm Not Available Not Available Not Available 34040 latex environme nt,medica tion hives rash Not available Not available Not available 12/09/2020 33966 91 RxNorm Not Available Not Available Not Available 29720 almond allergeni c extract food hives Not available Not available 12/09/2020 01273 7 RxNorm Not Available Not Available Not [...] mm[Hg] 72 mm[Hg] ASA VALENTIN PA-C [address] , [address], [place], [address], [facility] 2 13:04:21 Date Recorded Body height Body temperature Respiratory rate Oxygen saturation Oxygen saturation in Arterial blood by Pulse oximetry Provider Name and Address Organization Details Last Updated DateTime 2 162.56 cm 97.8 [degF] 20 /min 96 % 96 % ZACH Marin [address], [address], [place], [address], [facility] 2 13:32:29 Date Recorded Body height Body temperature Respiratory rate Oxygen saturation Oxygen saturation in Arterial blood by Pulse oximetry Systolic blood pressure Diastolic blood pressure Provider Name and Address Organization Details Last Updated DateTime 2 162.56 cm 97.8 [degF] 20 /min 95 % 95 % 130 mm[Hg] 78 mm[Hg] ASA VALENTIN PA-C [address], [address], [place], [address], [facility] 2 14:57:39 Date Recorded Body height Body temperature Respiratory rate Heart rate Oxygen saturation Oxygen saturation in Arterial blood by Pulse oximetry Systolic blood pressure Diastolic blood pressure Provider Name and Address Organization Details Last Updated DateTime 2 162.56 cm 98 [degF] 20 /min 68 /min 96 % 96 % 138 mm[Hg] 76 mm[Hg] ASA VALENTIN PA-C [address] , [address], [place], [address], [facility] 2 14:40:34 Date Recorded Body height Systolic blood pressure Diastolic blood pressure Provider Name and Address Organization Details Last Updated DateTime 06/01/2022 162.56 cm 138 mm[Hg] 70 mm[Hg] Héctor Alexander MD [address], [address], [place], [address], [facility] 06/01/2022 10:15:03 Social History Question Answer Notes LastModified by Organizat ion Details LastModified Time Tobacco Smoking Status Current Every Day Smoker ASA VALENTIN PA-C [address], [address], [place], [address], [facility] 04/16/2021 13:23:32 Do You Have An Advance Directive? Yes Signed By Mother Due To Pt's Inability To Physically Sign For Herself Even Though Not Invoked [email or web address] Information not available 06/21/2021 What Is Your Level Of Alcohol Consumption? None [email or web address] Information not available 12/09/2020 What Is Your Code Status? Full Code [email or web address] Information not available 12/09/2020 Do You Or Have You Ever Used E-cigarettes Or Vape? Former User Of Electronic Cigarettes Information not available 04/16/2021 Legal Guardian? No [email or web address] Informati on not available 12/09/2020 Do You Have A Medical Power Of Retail Zone Specialist? Yes Valid HCP On Chart, Not Invoked [email or web address] Information not available 12/29/2020 What Was The Date Of Your Most Recent Tobacco Screening? 06/21/2021 Information not available 06/21/2021 Do You Or Have You Ever Used Smokeless Tobacco? Never Used Smokeless Tobacco [email or web address] Information not available 04/16/2021 How Much Tobacco Do You Smoke? 1 PPW [email or web address] Information not available 04/16/2021 Do You Use Any Illicit Or Recreational Drugs? No Hx Opiates And Cocaine [email or web address] Information not available 06/21/2021 Has Tobacco Cessation Counseling Been Provided? Yes Not Interested In Quitting [email or web address] Information not available 04/16/2021 On What Date Was Tobacco Cessation Counseling Provided? 06/21/2021 [email or web address] Information not available 06/21/2021 How Many Years Have You Smoked Tobacco? 10 [email or web address] Information not available 04/16/2021 Do You Or Have You Ever Used Any Other Forms Of Tobacco Or Nicotine? Yes [email or web address] Information not available 04/16/2021 Sex: Unknown Functional [...] dose 12/25/2020 completed ASA VALENTIN PA-C [address], [address], [place], [address], [facility] 12/29/2020 12:58:56 COVID-19, mRNA, LNP-S, PF, 30 mcg/0.3 mL dose 11/25/2020 completed ASA VALENTIN PA-C [address], [address], [place], [address], [facility] 02/24/2021 19:44:16 COVID-19, mRNA, LNP-S, PF, 30 mcg/0.3 mL dose 08/01/2021 completed ASA VALENTIN PA-C [address], [address], [place], [address], [facility] 08/05/2021 21:35:07 Past Encounters Encounter ID Performer Location Encounter Start Date Encounter Closed Date Diagnosis/Indication Diagnosis SNOMED-CT Code Diagnosis ICD10 Code Diagnosis Note [id number] ZACH Marin [facility] on [address] [place] [address] 12/09/2020 13:59:04 12/20/2020 15:25:04 Acute bacterial endocarditis 373517038 I33.0 see hpifinishe d 6 week course of vanco in hospital, midline removedrep eat echo showed no vegetation staff working on obtaining discharge summary to see if pt needs f/u with ID Diabetic ketoacidosis 42 8461939 E13.10 resolvedla ntus 21 units q am, 25 units qhslispro sliding scaleaccuc hecks and adjust insulin prn Polysubstance abuse 4452 87916 F19.10 no suboxone or methadonep t currently on MSIR 30 mg q 4 hrs and butrans 15 mg patch q week Neuropathy 199157689 G62 .9 severe generalize d body paingabape ntin increased to 900 mg qidflexeri l 10 mg tidbutrans 15 mg patch q weekMSIR 30 mg q 4 hrsibuprof en 600 mg q 8 hrs prnlidocai ne patch left shoulderwi th hx of substance abuse Type 1 iam betes mellitus 30814419 E10.9 meds as above Renal mass 529780932 N28 .89 incidental finding on renal ULneeds out pt f/u with renal UL in 3-6 months or contrast enhanced CT or NILO abdomen Posttrauma tic stress disorder 10249264 F43.10 pt very upset todaygabap entin 900 mg qidcymbalt a 60 mg qdhydroxyz ine 10 mg tid prnpsych referralmo nitor mood Gastrointe stinal hemorrhage 43483873 K92.2 per progress note pt had GI bleed - no hx availables ucralfate 1 gram qidprotoni x 40 mg bidwaiting for dc summary for further recs Chronic depression 30835 0009 F34.1 meds as above Acute nont raumatic kidney injury 4701991826 90643 N17.9 resolved per progress notefollow bmp weeklyavoi d nephrotoxi c meds as able [id number] Bina Bingham MD [facility] on [address] [place] [address] 12/14/2020 06:25:48 12/20/2020 16:22:12 Polysubstance abuse 215855520 F19.10 social work to coordinate support, interdisci plinary team Type 1 iam betes mellitus 17823111 E10.9 Glargine insulin 21U dailyHumal og per sliding scalegabap entin 900 mg qid for neuropathy will monitor Fibromyalgia 645143418 M 79.7 cyclobenza nathen 10 mg tidduloxet ine 60 mg dailyButra ns weekly 15 mcg/hrmorp alison 30 mg q4h prngabapen tin 900 mg qidibuprof en 600 mg q8h prnwill monitor Mixed anxi ety and depressive disorder 775028285 F41.8 trazodone 50 mg at hsduloxeti ne 60 mg dailybupro pion 100 mg bidgabapen tin 900 mg tidhydroxy zine 10 mg q8h prnwill monitor and support as needed Gastroesop hageal reflux disease without esophagitis 123271406 K21.9 sucralfate 1 gm qidpantopr azole 40 mg bidwill monitor Bacteremia caused by Methicillin resistant Staphylococcus aureus 6590795619 5336254 R78.81 with likely endocardit isvancomyc in per I.D. x 6 weeksfu I.D. Asthenia 12958367 R53.1 PT/OTwill monitor and support as needed [id number] [place] [address] 12/16/2020 13:24:44 12/21/2020 10:09:49 Polysubstance abuse 805872553 F19.10 social work to coordinate support, interdisci plinary team Fibromyalgia 133723446 M 79.7 cyclobenza nathen 10 mg tidduloxet ine 60 mg dailyButra ns weekly 15 mcg/hrmorp alison 30 mg q4h prngabapen tin 900 mg qidibuprof en 600 mg q8h prnwill monitor Dry skin 45858927 L85.3 apply thick barrier cream to bilateral feet BIDmonitor for breakdown Posttrauma tic stress disorder 30472849 F43.10 patient with exaggerate d behaviors, could benefit from psych consult [id number] Isabelle Dowling [facility] on [address] [place] [address] 12/19/2020 15:30:29 12/21/2020 10:32:32 Sinus tachycardia 71431637 R00.0 Concern for infection- hx of endocardit isWill obtain STAT BMP, CBC w diff, blood cultures x 2, UA, C&SMonitor and if decompensa ting transfer to ED Visual hallucinations 64 159956 R44.1 Labs as above [id number] Isabelle Dowling [facility] on [address] [place] [address] 12/21/2020 12:57:39 12/23/2020 14:36:35 Urinary tract infectious disease 13441512 N39.0 Complete course KeflexWill review final urine culture/se nsitivitie s when available and adjust antibiotic PRN Neuropathy 113631253 G62 .9 Currently on Gabapentin 900 mg QID-will start slow taper to decrease this high dose graduallyM onitor for pain control and mental status Sinus tachycardia 855360 01 R00.0 Concern for infection- hx of endocardit isWill obtain STAT BMP, CBC w diff, blood cultures x 2, UA, C&SMonitor and if decompensa ting transfer to ED Visual hallucinations 64 769046 R44.1 Psych evalWill treat UTI and taper Gabapentin dose [place]Monit or [id number] ZACH Marin [facility] [address] [place] [address] 12/27/2020 09:48:26 01/03/2021 14:49:32 Urinary tract infectious disease 60967266 N39.0 finish keflex 500 mg qid on 01/01monito r for resolution Neuropathy 550422593 G62 .9 see hpibutrans 15 mg patch weeklyibup rofen 600 mg q 8 hrs prn - pt has hx of gi bleed so will need to monitor usechanged flexeril to prn as abovewill need f/u with Dr Bernardo [place] neurologis tthey will decide what further testing pt will needwill have staff call [facility] for results of copper lab Visual hallucinations 64 394270 R44.1 see hpioff morphine, gabapentin and trazodone with resolution of hallucinat ions and deleriumwi ll change flexeril to 10 mg tid prn spasms - as it was stated in body of DC note that it had been discontinu ed for hallucinat ions and delerium, though it was continued on med listmonito r for sxs Vitamin D deficiency 347 44870 E55.9 Vit D level at 9not started on supplement by [facility] start Vit D 3 5,000 units qdrecheck Vit D level in 6 weeks Type 1 iam betes mellitus 45615402 E10.9 glargine 21 units q am, 25 units qhsaccuche cks with sliding scalemonit or and adjust insulin prn Posttrauma tic stress disorder 76261135 F43.10 mood stablecymb jair 60 mg qdwellbutr in sr 100 mg bidhydroxy zine 10 mg tid prnpsych referralmo nitor mood Polysubstance abuse 2942 86958 F19.10 no suboxone or methadoneb utrans 15 mg patch q week for pain Chronic depression 09868 0009 F34.1 meds as above Acute bact erial endocarditis 658970470 I33.0 finished 6 week course of vanco in hospital, midline removedrep eat echo showed no vegetation Acute diarrhea 835166077 R19.7 get stool for c diff and once results are back - if no c diff then can have imodium Gastrointe stinal hemorrhage 27131100 K92.2 hx of gi bleedsucra lfate 1 gram qidprotoni x 40 mg bid Renal mass 200791950 N28 .89 incidental finding on renal ULneeds out pt f/u with renal UL in 3-6 months or contrast enhanced CT or NILO abdomen [id number] ASA VALENTIN PA-C [facility] on [address] [place] [address] 12/29/2020 12:52:28 01/03/2021 15:28:58 Diarrhea 88387323 R19.7 Resolved without interventi on and prior to the initiation of oral Vancd/c Vanc - does not have acute c-diffPt educated to notify staff if diarrhea recurs of deveops abd painf/u prn Gastrointe stinal hemorrhage 40699819 K92.2 change Protonix 40 mg po bid to Prilosec at same dosing per insurance [id number] ZACH Marin [facility] on [address] [place] [address] 01/02/2021 15:39:37 01/05/2021 09:59:40 Visual hallucinations 47222703 R44.1 resolvedof f morphine, gabapentin and trazodone with resolution of hallucinat ions and deleriummo nitor for sxs Urinary tr act infectious disease 85086670 N39.0 resolvedmo nitor for recurrence Neuropathy 839736175 G62 .9 see hpibutrans 15 mg patch weeklyibup rofen 600 mg q 8 hrs prn - pt has hx of gi bleed so will need to monitor usechange flexeril to 10 mg TID scheduledf /u with Dr Bernardo [place] neurologis t and they will decide what further testing pt will needresult s of copper lab : 1.3 Vitamin D deficiency 347 06740 E55.9 Vit D level at 9not started on supplement by CDHstarted here on Vit D 3 5,000 units qdrecheck Vit D level in 6 weeks Type 1 iam betes mellitus 16730540 E10.9 glargine 21 units q am, 25 units qhsaccuche cks with sliding scalemonit or and adjust insulin prn Posttrauma tic stress disorder 65694566 F43.10 mood stablecymb jair 60 mg qdwellbutr in sr 100 mg bidhydroxy zine 10 mg tid prnpsych referralmo nitor mood Polysubstance abuse 4452 70294 F19.10 no suboxone or methadoneb utrans 15 mg patch q week for pain Chronic depression 25727 0009 F34.1 meds as above Acute bact erial endocarditis 291039526 I33.0 finished 6 week course of vanco in hospital, midline removedrep eat echo showed no vegetation Gastrointe stinal hemorrhage 59506156 K92.2 hx of gi bleedsucra lfate 1 gram qidprilose c 40 mg bid Renal mass 976604755 N28 .89 incidental finding on renal ULneeds out pt f/u with renal UL in 3-6 months or contrast enhanced CT or NILO abdomen [id number] ZACH Costa [facility] on [address] [place] [address] 01/07/2021 16:54:51 01/12/2021 12:58:35 Neuropathy 350891312 G62.9 voltaren gel 2 gm to hands QID. continue butrans 15 mg weekly and flexeril 10 mg TID. Follow up with neuro. Low back pain 688800280 M54.5 voltaren gel 4 gm to lower back QID. d/c lidoderm patch. continue to monitor. [id number] ZACH Marin [facility] on [address] [place] [address] 01/13/2021 15:06:57 01/17/2021 12:02:09 Visual hallucinations 52888369 R44.1 resolved off morphine, gabapentin and trazodonem onitor for sxs Urinary tr act infectious disease 24706013 N39.0 resolvedmo nitor for recurrence Neuropathy 858902868 G62 .9 will trial gabapentin 100 mg [...] lab : 1.3 Vitamin D deficiency 347 54612 E55.9 Vit D level at 9not started on supplement by CDHstarted here on Vit D 3 5,000 units qdrecheck Vit D level in 5 weeks Type 1 iam betes mellitus 19073944 E10.9 accuchecks btwn 70s and 300scontin ue glargine 21 units q am, 25 units qhsaccuche cks with sliding scalemonit or and adjust insulin prn Posttrauma tic stress disorder 24233917 F43.10 mood stablecymb jair 60 mg qdwellbutr in sr 100 mg bidhydroxy zine 10 mg tid prnpsych referralmo nitor mood Polysubstance abuse 4452 23292 F19.10 no suboxone or methadoneb utrans 15 mg patch q week for pain Chronic depression 04286 0009 F34.1 meds as above Acute bact erial endocarditis 544261722 I33.0 finished 6 week course of vanco in hospital, midline removedrep eat echo showed no vegetation Gastrointe stinal hemorrhage 86955869 K92.2 hx of gi bleedsucra lfate 1 gram qidprilose c 40 mg bid Renal mass 823079310 N28 .89 incidental finding on renal ULneeds out pt f/u with renal UL in 3-6 months or contrast enhanced CT or NILO abdomen [id number] ASA VALENTIN PA-C [facility] on [address] [place] [address] 01/19/2021 11:51:49 01/24/2021 10:53:20 Uncontrolled type 1 diabetes mellitus 067508661 E10.65 Start Humalog 2 ux SQ tidacConti nue correction al HumalogCon tinue Lantus 21 ux SQ q am and 25 ux SQ qhsMonitor sugars and adjust meds prn Quadripleg ia with quadriparesis 2363146633 9100 G82.50 PT/OTNeuro followingR ecent very extensive and essentiall y negative w/uConvers ion D/O should be in the DDx given hx PTSDMonito r and f/u prn Vitamin D deficiency 347 94976 E55.9 RepletingC ontinue D3 5k ux po dailyHas f/iu level next month Gastrointe stinal hemorrhage 93352272 K92.2 Prilosec 40 mg po bid-consid er reduction trial to once daily since GI bleed was 3 months agoConside r d/c Motrin since hx GI bleed and also getting scheduled topical diclofenac Renal mass 896793330 N28 .89 renal u/s to f/u 2.9 cm heterogeno us hypoechoic mildly vascular mass-like structure upper pole of R kidney seen on u/s 11/2020 at [facility] [id number] [facility] [address] [place] [address] 01/27/2021 15:01:35 01/31/2021 08:15:11 Uncontrolled type 1 diabetes mellitus 078037984 E10.65 Humalog 2 ux SQ tidacConti nue correction al HumalogCon tinue Lantus 21 ux SQ q am and 25 ux SQ qhsMonitor sugars and adjust meds prn Quadripleg ia with quadriparesis 4966775514 9100 G82.50 cont PT/OTNeeds cervical and lumbar MRI w contrast scheduledA lso request EMG testingRef er to neuro for consultSta rt Baclofen 5 mg TID for spasmsAlso will add Oxycodone 2.5 mg Q6h PRN-patien t states she has tolerated this in pastIf hallucinat ions recur will d/c oxycodone [id number] Isabelle [facility] on [address] [place] [address] 01/30/2021 15:56:19 02/01/2021 12:39:58 Quadriplegia with quadriparesis 5496331015 9100 G82.50 cont PT/OTNeeds cervical and lumbar MRI w contrast scheduledE MG testing orderedAwa iting neuro consultInc rease Baclofen 10 mg TID for spasmsIncr ease Oxycodone 5 mg Q6h PRNIf hallucinat ions recur will d/c oxycodone- patient aware [id number] Thu Li MD [facility] on [address] [place], [place] [address] [address] 02/07/2021 20:14:48 02/13/2021 13:28:21 Quadriplegia with quadriparesis 5254305666 9100 G82.50 Continues to need intensive PT/OT for strengthen ing, balance, gait training, safety and function.C ontinue Baclofen 10 mg TID, voltaren gel to hands, APAP 650 mg q 4 hrs prn, and oxycodone 5 mg q 6 hrs prn.Monito r safety and function. Uncontroll ed type 1 diabetes mellitus 593413383 E10.65 Poor control.Co ntinue Lantus 21 ux SQ q am and 25 ux SQ qhs, humalog 2U with meals and SS as ordered.Mo nitor sugars and adjust meds prn Vitamin D deficiency 347 66328 E56.8 Continue D3 5000 IU qd.Recheck level next month. Gastrointe stinal hemorrhage 06821200 K92.89 Continue omeprazole 40 mg BID.Taper as able.Monit or sxs. Renal mass 560360188 N28 .89 incidental finding on renal ULneeds out pt f/u with renal UL in 3-6 months or contrast enhanced CT or NILO abdomen Visual hallucinations 64 620502 R44.1 No further sxs since return from hospital.M onitor MS. Neuropathy 012782806 G62 .89 As above.F/U with neuro Posttrauma tic stress disorder 63433225 F43.12 Continue duloxetine 60 mg qd, wellbutrin SR 100 mg BID and hydroxyzin e 10 mg TID prnPsych involved. Polysubstance abuse 2172 91279 F19.10 no suboxone or methadoneb utrans 15 mg patch q week for pain Chronic depression 34144 0009 F34.1 meds as above Acute bact erial endocarditis 316251505 I33.0 finished 6 week course of vanco in hospital, midline removedrep eat echo showed no vegetation Chronic pain syndrome 37 2345921 G89.4 Continue meds as above and gabapentin 100 mg TID, butrans 15 mg patch weekly, and ibuprofen 600 mg q 8 hrs prn.Monito r sxs. [id number] ASA VALENTIN PA-C [facility] on [address] [place] [address] 02/10/2021 17:13:12 02/13/2021 14:51:22 Eruption 809646495 R21 refuses exam bumps could be a number of thingschec k urine for GC/chlam-f /u when results are availableR e-approach pt for exam next weekNo indication for U/APt educated about:-imp ortance of not having sexual encounters with other patients on the unit-prote cting against HIV/STIs if she is going to engage in such behavior-w as not interested in participat ing in this discussion [id number] ASA VALENTIN PA-C [facility] on [address] [place] [address] 02/17/2021 16:48:48 02/20/2021 16:13:30 Chronic pain syndrome 393456275 G89.4 Increase Baclofen from 10 ux tid to 15 ux tid and titrate aggressive lyd/c Voltaren gel since ineffectiv eStart Lidocaine 3% cream tid prn hand painConsid er rheum w/u given Roe neck deformitie s of handsMonit or and f/u prn Uncontroll ed type 1 diabetes mellitus 950762299 E10.65 Decrease hs Lantus from 25 to [...] time but consider in the future Eruption 498874426 R21 Bumps resolved per ptNo symptoms or dysuriaRev iew GC/chlam when results are available [id number] ASA VALENTIN PA-C [facility] on [address] [place] [address] [phone] 3 02/23/2021 16:16:37 02/27/2021 16:18:42 Chronic pain syndrome 744204837 G89.4 Increase Baclofen from 15 mg po tid to 20 mg po tidNo change in oxycodone IR 5 mg po q 6 h prn at this time despite her request to make is q 4 h prnCheck CBCD, CMP, RF, RANJAN, and ACPA (anti-citr ullinated peptide antibodies )Monitor and f/u prn [id number] ASA VALENTIN PA-C [facility] on [address] [place] [address] [phone] 3 03/06/2021 18:28:01 03/08/2021 11:32:59 Acute otitis externa 65852180 H60.509 Left ear Cortispori n otic suspension 4 gtt L ear qid x 10 days-benef its of abx outweigh risks of non-treatm ent in this patient Chronic pain syndrome 37 5400872 G89.4 Increase Cymbalta from 60 mg po q am to 60 mg po q am and 30 mg po q 1700Recent labs not revealingM onitor and f/u prn [id number] ASA VALENTIN PA-C [facility] on [address] [place] [address] [phone] 3 03/10/2021 09:35:25 03/14/2021 11:07:45 Unintentional weight loss 737737905 R63.4 Increase frequency of monitoring weights to weekly x 4 weeks then monthly-we ight via same method each time and include when entering data in [facility] weightsRD also followingU pdate TSH Uncontroll ed type 1 diabetes mellitus 342029014 E10.65 Pre-lunch sugar remain high, reflecting need [...] futureUpda te A1c Chronic pain syndrome 37 3850857 G89.4 Continue Cymbalta 60 mg po q am and 30 mg po q 1700-room to increaseIn crease gabapentin from 100 mg po tid to 200 mg po tid-monito r for response, sedation, hallucinat ions-pt agreeable to this trialUnlik mando RA based on labsConsul t rheum for completene ss Vitamin D deficiency 347 07275 E55.9 RepletingC ontinue D3 5k ux po dailyUpdat e Total Vit D-level planned for this month; will coordinate draw with TSH Quadripleg ia with quadriparesis [id number] 9100 G82.50 PT/OTClari fy status of neuro f/u and EMG previously orderedRec ent very extensive and essentiall y negative w/uConvers ion D/O should be in the DDx given hx PTSDMonito r and f/u prn Gastrointe stinal hemorrhage 96345762 K92.2 Continue Prilosec 40 mg po bid for nowd/c CarafateCo nsider decrease Prilosec once she can be assessed off Carafate [id number] ASA VALENTIN PA-C [facility] on [address] [place] [phone] 3 03/13/2021 17:28:09 03/21/2021 10:47:41 Chronic pain syndrome 845566846 G89.4 Increase Cymbalta from 60 mg po q am and 30 mg po q 1700 to 60 mg po bidNo changes to oxycodone at this time script for oxycodone IR 5 mg #60 no refills given to nurse Dyslipidemia 625455448 E 78.5 Add Lipitor 20 mg po qhslipid panel 8 weeks [id number] ASA VALENTIN PA-C [facility] on [address] [place] [phone] 3 03/21/2021 18:30:14 03/28/2021 12:19:54 Acute otitis media 8340670 H66.92 Augmentin 875/125 mg po bid x 10 days-benef its of abx outweigh risks of non-treatm ent in this patientDif lucan 150 mg po x 1 on days 2 and 5 to prevent richard vaginitisM onitor and f/u prn [id number] ASA VALENTIN PA-C [facility] on [address] [place] [address] [phone] 3 03/28/2021 19:45:13 04/06/2021 13:45:41 Chronic pain syndrome 013706908 G89.4 Given the interrupti ons in her Butrans beyond her control, will change prn oxycodone 5 mg from q 6 to q 4 h for nowNo other changes at this timeMonito r and f/u prn Pruritic disorder 910578 002 L29.9 Benadryl 50 mg po q 6 h prn itching [id number] ASA VALENTIN PA-C [facility] on [address] [place] [address] [phone] 3 04/06/2021 16:31:22 04/17/2021 16:27:20 Paronychia of toe of left foot 0106004564 6687866 L03.032 warm soak L foot qid x 5 days for paronychia L 1st toeNo evidence of cellulitis and no indication for topical or oral abx at this timeMonito r and f/u prn [id number] ASA VALENTIN [facility] [address] [place] [address] [phone] 3 04/07/2021 16:52:11 04/17/2021 16:31:27 Paronychia of toe of left foot 7473743218 0030969 L03.032 Triple antibiotic bid x 5 days L 1st toeAdd Vit C 500 mg po bid x 30 days, Zinc 220 mg po bid x 14 days, and Vit A 10k ux po daily x 10 days to promote wound healing in a diabetic.N o evidence of cellulitis -abx not indicated at this timeMonito r and f/u prn Blister of foot 94370585 3 S90.822A HeelProtec tive dressingMo nitor and f/u prn [id number] ASA VALENTIN PA-C [facility] on [address] [place] [address] [phone] 3 04/13/2021 18:55:30 04/18/2021 09:45:53 Chronic pain syndrome 524029858 G89.4 add Zanaflex 2 mg po q 8 h prn stiffness- monitor for sedation, hallucinat ions-titra te to comfort-pt agreeable to triald/c Lipitor as likely worsening chronic pain Migraine 33812208 G43.90 9 Add Riboflavin 400 mg po daily for migraine prevention -educated that this will likely cause her urine to turn bright yellow-exp lained that it may take up to 3-4 months to experience an improvemen t in migraines- pt agreeable to try this [id number] ASA VALENTIN PA-C [facility] on [address] [place] [address] [phone] 3 04/17/2021 13:27:26 04/20/2021 08:54:46 Uncontrolled type 1 diabetes mellitus 467983458 E10.65 d/c prandial Humalog since meal intake [...] for renal protection due to soft BPs [id number] Bina Bingham MD [facility] on [address] [place] [address] [phone] 3 04/28/2021 08:13:19 05/01/2021 14:06:27 Type 1 diabetes mellitus 79561383 E10.42 Lantus insulin 24U in eveningHum alog per sliding scalegabap entin 200 mg tid for neuropathy - see meds for chronic painwill monitor Muscle weakness 54555993 M62.81 quadripare sis -seems improved at today's visit - consider psychiatri c componentM RI Cspine, LS spine with contrast recommende dfu neurologyP T/OTwill monitor and support as needed Chronic pain 21094036 G8 9.29 ibuprofen 600 mg q8h prnduloxet ine 60 mg dailygabap entin 200 mg tidtizanid ine 2 mg q8h prnoxycodo ne 5 mg q4h prnButrans patch 15 mcg/hr weeklyAPAP 650 mg q4h prnwill monitorPT/ OT prn Mixed anxi ety and depressive disorder 512243362 F41.8 trazodone 50 mg at hsduloxeti ne 60 mg dailybupro pion 100 mg bidgabapen tin 900 mg tidhydroxy zine 10 mg q8h prnwill monitor and support as needed Gastroesop hageal reflux disease without esophagitis 044726744 K21.9 omeprazole 40 mg bidwill monitor [id number] ASA VALENTIN PA-C [facility] on [address] [place] [address] [phone] 3 05/02/2021 18:19:07 05/04/2021 14:35:08 Uncontrolled type 1 diabetes mellitus 593212042 E10.65 Given morning hypoglycem ia, will d/c [...] to soft BPs Chronic pain syndrome 37 7804618 G89.4 Complaints out of proportion to exam findingsRe schedule Brain MRI ASAPNo changes to meds at this timeConsid er Chronic Widespread Pain (CWP) Syndrome/C entralized Pain Syndrome-R heum consult still pending [id number] ASA VALENTIN PA-C [facility] on [address] [place] [address] [phone] 3 05/08/2021 17:47:50 05/15/2021 16:00:40 Uncontrolled type 1 diabetes mellitus 225588293 E10.65 Increase Lantus from 21 ux SQ q am to 23 ux SQ q amContinue individual ized correction al insulin, which she still often refusesMon itor sugars and adjust meds prnNot on an ERIC/ARB for renal protection due to soft BPs [id number] ASA VALENTIN PA-C [facility] on [address] [place] [address] 3 05/10/2021 15:19:30 05/16/2021 08:53:19 Nausea 490861655 R11.0 Nausea likely secondary to hyperglyce adri [...] 05/12/21 Uncontroll ed type 1 diabetes mellitus 942087152 E10.65 Increase Lantus from 23 ux SQ q am to 25 ux SQ q amContinue individual ized correction al insulin, which she still often refusesMon itor sugars and adjust meds prnNot on an ERIC/ARB for renal protection due to soft BPs Chronic pain syndrome 37 4532527 G89.4 Complaints out of proportion to exam [...] CK since pain mostly muscularly based Migraine 11971659 G43.90 9 Continue Riboflavin 400 mg po daily for migraine prevention -re-educat ed that this will likely cause her urine to turn bright yellow-re- explained that it may take up to 3-4 months to experience an improvemen t in migrainesA lready has prn oxycodone in place [id number] ASA VALENTIN PA-C [facility] on [address] [place] [address] [phone] 3 05/12/2021 15:20:29 05/22/2021 18:13:36 Chronic pain syndrome 572609400 G89.4 CPK slightly above normal range.DDx includes:- Diabetic muscle infarction -Inflammat ory myopathies EMG, Brain MRI, Neuro consult, and Rheum consult pend-adan fy statusIf diabetic muscle infarction , need to get sugars under much better control as they remain out of control for patient reasons.-e ducate pt about thisKnown chronic widespread pain syndrome, fka fibromyalg iaNo changes at this time Anemia 027587061 D64.9 H&H down from priorStool guaiacs pend and will be reviewed when availableM onitor labs Uncontroll ed type 1 diabetes mellitus 628257527 E10.65 Lantus increased 2 days agoContinu e individual ized correction al insulin, which she still often refusesMon itor sugars and adjust meds prnNot on an ERIC/ARB for renal protection due to soft BPs [id number] ASA VALENTIN PA-C [facility] on [address] [place] [address] [phone] 3 05/24/2021 14:47:08 05/31/2021 11:17:09 Chronic pain syndrome 931312581 G89.4 Talked about diabetic muscle infarction as a possible explanatio n of her muscular pain, which dominates her pain complaints .No changes to pain meds at this time Avulsion i njury of fingernail 911939542 S61.308A No evidence of infectionL ocal careMonito r and f/u prn Anxiety di sorder due to a general medical condition 61843657 F06.4 increase Wellbutrin back to bidadd anxiety x 14 days to the prn Benadryl indication -not adding hydroxyzin e since on Benadryl-b enzos not indicated [id number] ASA VALENTIN PA-C [facility] on [address] [place] [address] [phone] 3 05/25/2021 15:11:09 06/05/2021 13:42:02 COVID-19 264409860 U07.1 Vaccinated , <65 y/o, with at [...] per facility protocol Paronychia of finger 444 453945 L03.019 Bacitracin and bandaid to affected fingers daily x 5 daysFollow clinically Uncontroll ed type 1 diabetes mellitus 396085225 E10.65 Increase Lantus from 25 to 28 ux SQ q amContinue individual ized correction al insulin, which she still often refusesMon itor sugars and adjust meds prnNot on an ERIC/ARB for renal protection due to soft BPs [id number] ASA VALENTIN PA-C [facility] on [address] [place] [address] [phone] 3 06/07/2021 19:12:01 06/13/2021 11:45:27 Onychotillomania 33529273 F98.8 SSRIs ideal for this as well [...] serious resistance and behavioral disturbanc e COVID-19 674406349 U07.1 Clinically recovered [id number] ASA VALENTIN PA-C [facility] on [address] [place] [address] [phone] 3 06/08/2021 12:10:18 06/13/2021 12:56:00 Uncontrolled type 1 diabetes mellitus 523811415 E10.65 Increase Lantus from 28 to 32 ux SQ q am (conservat ively increasing )Continue individual ized correction al insulin, which she still often refusesMon itor sugars and adjust meds prnNot on an ERIC/ARB for renal protection due to soft BPs [id number] ASA VALENTIN [facility] [address] [place] [address] [phone] 3 06/12/2021 14:19:02 06/29/2021 12:52:22 Uncontrolled type 1 diabetes mellitus 475771331 E10.65 Continue Lantus 32 ux SQ q am-pt hesistant to increase despite elevated sugars due to sugar 67 yesterday amContinue individual ized correction al insulin, which she still often refuses or takes less ofMonitor sugars and adjust meds prnNot on an ERIC/ARB for renal protection due to soft BPs [id number] ASA VALENTIN PA[facility] [address] [place] [address] [phone] 3 06/21/2021 13:12:50 06/30/2021 10:08:01 Uncontrolled type 1 diabetes mellitus 697008822 E10.65 Continue Lantus 32 ux SQ q [...] BPs Cellulitis of finger of right hand 8611594699 0511531 L03.011 Keflex-cherry efits of abx outweigh risks of non-treatm ent in this patientPro bioticMoni tor and f/u prn Pruritic disorder 467773 002 L29.9 Restart prn BenadrylUn clear of allergen-m ediated or somatiform Monitor and f/u prn Anxiety 15809606 F41.9 Definitely OCD component/ excoriatio n d/o/onycho [...] drug interactio ns Chronic pain syndrome 37 8147424 G89.4 Schedule the Zanaflex and titrateCla rify status of rheum consultCon tinue all other meds as currently orderedPT/ OT prn Nausea 775312275 R11.0 seems improvedf/ u prn Tobacco de pendence syndrome 94177319 F17.200 Counseled 4 minutes on cessation; not interested in quitting Anemia 485539530 D64.9 Clarify stool guaiac resultsUpd ate CBC [id number] ASA VALENTIN PA-C [facility] on [address] [place] [address] [phone] 3 06/23/2021 16:48:19 06/30/2021 10:48:25 Cellulitis of finger of right hand 6187094770 9229930 L03.011 d/c KeflexStar t Levaquin 750 mg po daily x 7 days (since also has uncontroll ed DM)-benefi ts of abx outweigh risks iof non-treatm ent in this patientR hand x-ray to assess for periostial lift although osteo less likelyCons ider labs if not improved with change in abx Uncontroll ed type 1 diabetes mellitus 098764404 E10.65 Monitor sugars and adjust meds prnNot on an ERIC/ARB for renal protection due to soft BPs [id number] ASA VALENTIN PA-C [facility] on [address] [place] [address] [phone] 3 06/27/2021 18:45:15 07/11/2021 15:46:45 Cellulitis of finger of right hand 8980931077 9439831 L03.011 Improved on LevaquinX- ray without periostial lift or other suggestion s of osteoMonit or and f/u prn Uncontroll ed type 1 diabetes mellitus 849114439 E10.65 Sugars hard to interpret since time-stamp [...] to soft BPs Chronic pain syndrome 37 5268268 G89.4 Multi-leve l spinal MRIs are unrevealin [...] clinically Mixed anxi ety and depressive disorder 087321762 F41.8 Improved on decreased ProzacPer EMAR review, pt has been using the Trazodone 25 mg po q 4 h prn anxiety at least once per day on most days, often at night with effect-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 25 mg po qhs-renew Trazodone 25 mg po q 4 h prn anxiety x 6 months then review again with provider to determine ongoing needNot at all surprised that she found the Ativan to be very effective at targeting her anxiety; however, benzodiaze pine use would be inappropri ate in this patient.Ps ych also following [id number] ASA VALENTIN PA-C [facility] on [address] [place] [address] [phone] 3 07/03/2021 16:00:31 07/12/2021 14:25:23 Candidiasis of vagina 79641091 B37.3 Diflucan 150 mg po x 1f/u prn [id number] ASA VALENTIN PA-C [facility] on [address] [place] [address] [phone] 3 07/07/2021 13:46:53 07/18/2021 14:54:36 Chronic pain syndrome 005823698 G89.4 Reviewed the records from [facility] with pt with focus on insulin neuritis, [...] now. Uncontroll ed type 1 diabetes mellitus 798384575 E10.65 Discussed importance of diabetes management , [...] retinopathy due to type 1 diabetes mellitus 0150317641 9101 E10.3593 Oxycodone 10 mg po x 1 upon departure to retinal laser surgery vivian hyde scheduled and prn as recommende d by retinal specialist Anxiety 83931205 F41.9 Willing to trial Abilify 2 mg po daily as recommende d by psych-risk s/benefits /side effects discussed with ptPsych also following [id number] ASA VALENTIN [facility] [address] [place] [address] [phone] 3 07/13/2021 14:02:12 07/18/2021 15:54:18 Edema of lower extremity 915064985 R60.0 TEDs dailyGabap entin and Motrin can cause/exac erbate edema-cons ider d/c gabapentin as previously referenced Diarrhea 17540579 R19.7 Given comorbidit ies, likely has IBS, [...] retinopathy due to type 1 diabetes mellitus 5391235743 9101 E10.3593 Ativan 0.5 mg po x 1 upon departure to laser eye surgery-ok to given with oxycodone IR 10 mg that has also been ordered-sc ript for 0.5 mg #2 with 1 refill given to nurse [id number] ASA VALENTIN [facility] [address] [place] [address] [phone] 3 07/24/2021 16:43:31 08/01/2021 15:48:41 Edema of lower extremity 045950307 R60.0 Clarify status of TEDsTaper gabapentin -pt in agreement with trial offNo cardiopulm onary symptomsMo nitor and f/u prn 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 3805685601 9101 E10.3593 Following with retinal specialist Await official notes from today's visitRevis it pre-meds for next surgerySee if endo can do telehealth with her since she is an establishe d pt Anxiety 31399722 F41.9 re-add anxiety as prn indication for Benadryl since it has been effective and there is no clinical indication to schedule it-can renew x 6 months then review again to determine ongoing needPsych also following [id number] [facility] [address] [place] [address] [phone] 3 07/31/2021 15:05:51 08/04/2021 10:55:17 Cellulitis of finger of right hand 6227594793 8308374 L03.011 keflex 500 mg 1 tid x 7 daysprobio tic 1 bid x 10 daysmonito r for resolution [id number] ASA VALENTIN PA-C [facility] on [address] [place] [address] [phone] 3 08/02/2021 19:38:36 08/08/2021 09:56:25 Proliferative retinopathy due to type 1 diabetes mellitus 1245787115 9101 E10.3593 Following with retinal specialist Has upcoming laser eye surgery-tr ial Klonopin 0.5 mg since longer T1/2-upon departure for laser eye surgery-pt agreeable to try this-scrip t for Klonopin 0.5 mg #2 with 5 refills given to nurse-Oxyc odone IR 15 mg po x 1 upon departure for laser eye surgery [id number] ASA VALENTIN PA-C [facility] on [address] [place] [address] [phone] 3 08/10/2021 15:54:07 08/17/2021 12:42:18 Proliferative retinopathy due to type 1 diabetes mellitus 8081884163 9101 E10.3593 No changes to pre-med are indicatedM onitor and f/u prn [id number] Bina Bingham MD [facility] on [address] [place] [address] [phone] 3 08/23/2021 08:11:31 08/25/2021 16:09:18 Quadriplegia with quadriparesis 9513467339 9100 G82.50 Type 1 iam betes mellitus 71289263 E10.42 Lantus insulin 32U in eveningHum alog per sliding scalefor neuropathy - see meds for chronic painwill monitor 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 9627627121 9101 E10.3593 fu retina specialist Chronic pain 58473557 G8 9.29 ibuprofen 600 mg q8h prnduloxet ine 60 mg dailytizan idine 2 mg tidoxycodo ne 5 mg q4h prnbaclofe n 20 mg qidButrans patch 15 mcg/hr weeklyAPAP 650 mg q4h prnwill monitorPT/ OT prn Mixed anxi ety and depressive disorder 293524623 F41.8 trazodone 25 mg at hsaripipra zole 2 mg dailydulox etine 60 mg dailywill monitor and support as needed Gastroesop hageal reflux disease without esophagitis 053457127 K21.9 omeprazole 40 mg bidwill monitor [id number] ASA VALENTIN PA-C [facility] on [address] [place] [address] [phone] 3 08/28/2021 20:07:37 08/30/2021 13:12:41 Proliferative retinopathy due to type 1 diabetes mellitus 6171138569 9101 E10.3593 Increase Klonopin from 0.5 to 1 mg po upon departure to laser surgery-sc ript for 1 mg #2 with 1 refill given to nurseLaquita gonzalez oxycodone IR 15 mg po upon departure to laser surgery Chronic pain syndrome 37 7062341 G89.4 Pt has been on oxycodone IR 5 mg po q 4 h prn mod-severe pain, which she takes regularly- considerin g that she was on an extended overnight BARBARA without her oxycodone and did not seem to have any negative effects, need to start tapering oxycodone as she has demonstrat ed that she does not require it [id number] ASA VALENTIN PA-C [facility] on [address] [place] [address] [phone] 3 09/08/2021 16:01:05 09/11/2021 15:44:46 Proliferative retinopathy due to type 1 diabetes mellitus 3728717692 9101 E10.3593 Klonopin 1 mg and oxycodone IR 15 mg po x 1 upon departure to laser eye surgery-sc ript for Klonopin 1 mg #4 with 5 refills given to nurse [id number] ASA VALENTIN PA-C [facility] on [address] [place] [address] [phone] 3 09/12/2021 14:24:10 09/14/2021 12:35:31 Candidiasis of vagina 34726081 B37.3 Diflucan 150 mg po x 1-ok despite increased risk of QT prolongati on with Abilify-cisneros s tolerated before and Diflucan is a one-time doseReiter ated importance of glycemic control-sa ys she knows this but still chooses to eat foods inconsiste nt with diabetic dietShould have HIV testing - she's not sure yet if she wants to do thisf/u prn [id number] ASA VALENTIN PA-C [facility] on [address] [place] [address] [phone] 3 09/15/2021 15:05:55 09/18/2021 13:39:17 Chronic pain syndrome 275650050 G89.4 Given that patient lied about having [...] the list of DDxMonitor and f/u prn [id number] ASA VALENTIN PA-C [facility] on [address] [place] [address] [phone] 3 09/19/2021 09:24:39 09/21/2021 10:26:50 Pain of right knee joint 3487392477 17000 M25.561 no indication for imaging at this timePT consultHas plenty of meds in place for pain management Ice as toleratedW BATLikely patellofem oral syndrome [id number] ZACH Marin [facility] on [address] [place] [address] 48183-549 3 09/22/2021 13:31:46 09/25/2021 15:35:51 Pain of right knee joint 4312635541 34246 M25.561 per GAGE who saw pt on 09/19 continues with no indication for imaging at this timecontin ue PT OTHas plenty of meds in place for pain management and explained to pt that I would not increase pain meds at this timeIce as toleratedW BAT [id number] ASA VALENTIN PA-C [facility] on [address] [place] [address] [phone] 3 10/04/2021 20:07:11 10/10/2021 09:10:24 Pain of right knee joint 1371407267 20200 M25.561 Would probably benefit from MRI R knee but will defer this [facility]ris [facility] will [facility] need for referral to PSSPHas plenty of meds in place for pain management -no indication to adjust oxycodoneI ce as toleratedW BATLikely patellofem oral syndrome 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 4505524472 9101 E10.3593 Once appointmen t at [facility] is verified, pt can have Klonopin 1 mg and oxycodone IR 15 mg upon departure to appointmen t [id number] ASA VALENTIN PA-C [facility] on [address] [place] [address] [phone] 3 10/12/2021 13:57:35 10/18/2021 14:48:50 Allergic rhinitis 84569309 J30.9 Add Flonase 1 spray per nostril bid-consid er change to prn when seasons changesNot adding systemic non-sedati ng antihistam ine since has prn Benadryl orderMonit or and f/u prn [id number] Héctor Alexander MD [facility] on [address] [place] [address] [phone] 3 06/01/2022 10:14:03 07/06/2022 12:56:40 Sepsis 14156063 A41.89 see HPIvanco and zosyn through 06/14/22 then to be re-evaluat ed by IDmonitor [facility] labs cc to ID and update with obieho Juan helm, acting DNS, 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, and therapy present during attempted exampatien t [...] Acute oste omyelitis of ankle and/or foot 727030822 M86.172 now s/p left BKAplan was tofollow ortho recsPT OT eval and treatstron g concern for need for right AKAupdate ortho and ID with concernsho wever now see above Chronic pain syndrome 37 3448519 G89.4 plan was belowchron ic pain syndrome with polysubsta nce abusenow on oxycodone 30 mg q 6 hours hold for sedationga bapentin 100 mg tidthis is less than patient was receiving in hospitalme dications to be crushed therefore cannot start long actingalso concern for patch utilizatio n that patient may swallow patchhowev er now transfer back to hospital Anemia due to blood loss 633132630 D50.0 acute on chronic anemia transfused with 4 units pRBC suffered delayed transfusio n reactionmo nitor cbc and need for further txheme eval prnadded to PMH Blood spann sfusion reaction 18087459 T80.89XD see abovesurge ry awareadded to PMH Polysubstance abuse [id number] F19.180 polysubsta nce abuse hxadded to PMH Primary insomnia [id number] F51.01 plan wasmelaton in 3 mg qhs [...] Member ID Guarantor Name 09/19/2021 1 [place] [facility] Radha Olivera [id number] Radha Olivera 09/22/2021 1 [place] [facility] Radha Olivera [id number] Radha Olivera 10/04/2021 1 [place] [facility] Radha Olivera [id number] Radha Olivera 10/12/2021 1 [place] [facility] Radha Olivera [id number] Radha Olivera 06/01/2022 1 [facility] Olivera [id number] Radha Olivera Notes Date Note Type Note Provider Name and Address Organization Details Recorded Time 2 text/html Pt seen for acute rounding visit today for discharge planning. Pt returned last evening from weekend [place]. Has been spending more time at her boyfriend's house in [place] and is hoping to move in with [...] and Klonopin and then nurse confirmed with [facility] that pt never had an appointment for that day. When confronted about this today, pt said she only found out when her aunt picked her up that her aunt had rescheduled it from 09/18 to a different date. This was confirmed to not be true. PMHx reviewed Meds reviewed ASA VALENTIN PA-C [address] [place] [address], [address], [place], [address], [facility] 09/20/2021 13:15:34 2 text/html Pt seen for [...] and Klonopin and then nurse confirmed with [facility] that pt never had an appointment for that day. When confronted about this today, pt said she only found out when her aunt picked her up that her aunt had rescheduled it from 09/18 to a different date. This was confirmed to not be true. Britta Wright, ZACH [address], [address], [place], [address], [facility] 09/22/2021 13:37:01 2 text/html Pt seen [...] referred to [facility] for R knee pain. Tolu that insurance referral is required. Says she has another laser eye surgery on 10/13/21 and will need pre-med again with Klonopin and oxycodone. Boyfriend's mother has yet to decide if Radha can move in. Continues to eat foods which are contrary to her diabetes diagnosis. ASA VALENTIN PA-C [address], [address], [place], [address], [facility] 10/09/2021 15:06:47 2 text/html Pt seen [...] far this month) ASA VALENTIN PA-C [address], [address], [place], [address], [facility] 10/12/2021 14:53:35 3 text/html Patient is [...] care and therapy Héctor Alexander MD [address], [address], [place], [address], [facility] 06/01/2022 11:42:48 OBGyn Episode No OBEpisode recorded.
--- OUTSIDE RECORDS SUMMARY | 2024-08-10 11:27 | XMS_ITS | Clinical Summary ---
Author Organization [facility] Facility Address [address] [address] Care Team Providers Care Block Placer Name Role Phone Uriel Cyr MD Primary [...] Diabetes: Visual Foot Exam 06/06/2022 Influenza Vaccine (Season Ended) 2025 Insurance [facility] MEDICAID Care Teams Block Placer Relationship Specialty Start Date End Date Uriel Cyr MD PCP - General Family Medicine 06/05/22
--- OUTSIDE RECORDS SUMMARY | 2024-08-10 11:27 | XMS_ITS | Data Portability ---
Author Organization [place] [facility], [facility] Address [address] [place] [address] Assessment Encounter Date Assessment Date Assessment LastModified [...] A routine recheck is in 2 weeks. [email or web address] Not available 10/22/2023 15:23:38 06/16/2024 06/16/2024 SUBJECTIVE [...] scratching at a wound care clinic in [place]. Radha reports improved diabetes control with a recent hemoglobin A1c of about 8. OBJECTIVE Examination Right lower extremity: Knee flexion fixed at approximately 70 degrees with varus angulation, skin wounds over anterior leg. Imaging X-rays ordered, obtained, and reviewed by me today at [facility] of the right knee show a [...] once her right leg wounds have healed. [email or web address] Not available 06/16/2024 15:44:56 Plan of Treatment Reminders Order Date Submit Date Provider Last Modified By Organization Details Last Modified Time Details Appointments None recorded. Lab gram stain, synovial fluid - LEFT KNEE STAT 2023 024 [email or web address], [address], [place], [address], 14:14:05 cell count, synovial fluid - LEFT KNEE STAT 2023 024 [email or web address], [address], [address], [place], [address], 4 08:07:04 Referral None recorded. Procedures None recorded. Surgeries None recorded. Imaging XR, knee, 1 or 2 view 2024 025 [email or web address], [address], [place], [address], 5 15:37:43 Medication Orders None recorded. Patient [...] a4ajBk vP9nXo QUaueC m3YtLR FvZlgJ JJ8mAn HZtai3 [id number] AC0Kqb HqBVaC jKiQtr MwF INTERFACE [facility] [address], [place], [address], 06/16/2024 13:54:53 06/16/19 25 06/16/2024 XR, knee, 1 or 2 view http:/ [email or web address] ?Encry pted=s hAaTro YD8dLq bEUv6g %2BXZw aYqtaq 0bqfl% 2Fg9IQ a4ajBk vP9nXo QUaueC m3YtLR FvZlgJ J8mAn HZtai3 [id number] AC0Kqb HqBVaC jKiQtr MwF INTERFACE [facility] [address], [place], [address], 06/16/2024 13:54:55 Result Notes None recorded. Procedures Surgical History None recorded. Imaging Results Imaging Date Name Status LastModified by Organiz ation Details LastModified Time 06/05/2022 imaging/diag nostic result completed [email or web address] Information not available 01/04/2024 01:54:57 06/16/2024 XR, knee, 1 or 2 view completed INTERFACE [facility] [address], [place], [address], 06/16/2024 13:54:53 06/16/2024 XR, knee, 1 or 2 view completed INTERFACE [facility] [address], [place], [address], 06/16/2024 13:54:55 Procedure Notes None recorded. Medical Equipment None Reported. Allergies Allergen ID Allergen Name Allergen Category Reaction Reaction Severity Criticality Documentation Date Start Date Code Code System Note Provider Name and Address Organization Details Recorded Time 492862 almond oil food,medi cation Not available Not available Not available 07/08/20232021 13232 38 RxNorm Not Available [facility] 4 16:13:12 948959 doxycycli ne hyclate medicatio n Not available Not available Not available 07/08/20232021 80634 RxNorm Not Available [facility] 4 16:13:12 225212 Bactrim medicatio n Not available Not available Not available 07/08/20232021 35670 9 RxNorm Not Available [facility] 4 16:13:12 Medications Name Sig Start Date [...] Updated DateTime 10/22/2023 162.56 cm 25.7 kg/m2 41343.86 g LISA BROWN [place] [facility] 10/22/2023 13:49:00 Date Recorded Body height Body mass index (BMI) Body weight Provider Name and Address Organization Details Last Updated DateTime 06/16/2024 162.56 cm 25.7 kg/m2 15730.86 g LISA BROWN [place] [facility] 06/16/2024 13:32:58 Social History None recorded. Functional Status None recorded. Mental Status None recorded. Family History Nothing Reported. Medical History Condition Response Allergies/Hayfever N Coronary Artery Disease N Anxiety/Depression Y Breathing or lung disorders N Emphysema N Nerve Disorders Y Thyroid Problems N COPD N Pacemaker N Anemia N Kidney/Bladder Problems N Vascular Disease N Heart Trouble N Heart Attack (DC) N Gastrointestinal Disease N Cholesterol N Diabetes [...] SNOMED-CT Code Diagnosis ICD10 Code Diagnosis Note [id number] MD Curtis [address] [place] [address] 10/22/2023 13:44:12 10/22/2023 15:52:39 Pain of left knee joint 6532160062 86366 M25.789 [id number] Abbi Mueller MD [facility] [address] [place] [address] 06/16/2024 13:25:29 07/02/2024 15:37:43 Pain of knee region 1517529627 M25.561 Health Concerns Section Related Observation LastModified by Organization Detai ls LastModified Time None Recorded Concern Status LastModified by Organization Details LastModified Time None Recorded Advance Directives Directive None Recorded Payers Encounter Date Sequence Insurance Name Policy Number Policy Rios Covered Member ID Rios Member ID Guarantor Name 10/22/2023 1 [facility] - HALFWAY OPTIONS - DUAL ELIGIBLE (MEDICARE-MEDI CAID REPLACEMENT HMO) [place] Oliver[place] [id number] Radha Olivera 06/16/2024 1 [facility] PLAN - HALFWAY OPTIONS - DUAL ELIGIBLE (MEDICARE-MEDI CAID REPLACEMENT HMO) [facility] Radha Olivera [id number] Radha Olivera OBGyn Episode No OBEpisode recorded.
[2024-08-10 13:11] LABS: MANUAL DIFF FLAG NO
[2024-08-10 13:16] LABS: Basophils Absolute Auto 0.1 X10*3/uL (0.0-0.2); Basophils Percent Auto 1.2 % (0-2); Eosinophils Absolute Auto 0.4 X10*3/uL (0.0-0.4); Eosinophils Percent Auto 7.1 % (0-4); Hematocrit 28.7 % (37.0-47.0); Hemoglobin 8.7 g/dl (12.0-16.0); Imm Gran Abs Auto 0.01 X10*3/uL (0.00-0.03); Imm Gran Pct Auto 0.2 % (0.0-0.4); Lymphocytes Absolute Auto 2.3 X10*3/uL (1.2-4.9); Lymphocytes Percent Auto 45.3 % (20-40); Mean Corpuscular HGB Conc 30.3 g/dl (31.0-35.0); Mean Corpuscular Hemoglobin 22.3 pg (27.0-33.0); Mean Corpuscular Volume 73.4 fL (80.0-98.0); Mean Platelet Volume 9.6 fL (9.4-12.3); Monocytes Absolute Auto 0.3 X10*3/uL (0.1-1.2); Monocytes Percent Auto 5.7 % (2-11); Neutrophils Absolute Auto 2.1 x10*3/uL (2.0-8.3); Neutrophils Percent Auto 40.5 % (45-73); Platelet Count 365 X10*3/uL (160-400); Red Blood Count 3.91 X10*6/uL (4.20-5.50); Red Cell Distribution Width 19.1 % (11.0-16.0); White Blood Count 5.1 X10*3/uL (4.8-10.8)
[2024-08-10 13:29] LABS: Anion Gap 10 (12-20); Blood Urea Nitrogen 21 mg/dL (9-16); Calcium 8.2 mg/dL (8.4-10.2); Carbon Dioxide 23 mmol/L (22-29); Chloride 111 mmol/L (96-108); Estimated Glomerular Filt Rate 52; Glucose Random 183 mg/dL (60-115); Sodium 139 mmol/L (135-145)
== END 2024-08-10 09:52 | disposition home or self-care (01) ==
LOC: HO.10HDL 09:51
PROVIDERS: Visit Provider Family Medicine
DX: Z00.00 Encounter for general adult medical examination without abnormal findings (principal); D64.9 Anemia, unspecified
CPT/HCPCS: 36415; 80048; 85025

== ENCOUNTER 2024-08-11 13:45 | Outpatient (RCR) | payer OTHER, SELFPAY | END 2024-08-21 10:45 | disposition home or self-care (01) | LOC: HO.WCC 13:45 | PROVIDERS: PCP Family Medicine; Visit Provider Surgery | DX: S81.801A Unspecified open wound, right lower leg, initial encounter (principal); S41.101A Unspecified open wound of right upper arm, initial encounter; S31.104A Unspecified open wound of abdominal wall, left lower quadrant without penetration into peritoneal cavity, initial encounter; S41.102A Unspecified open wound of left upper arm, initial encounter; S51.802A Unspecified open wound of left forearm, initial encounter; S51.801A Unspecified open wound of right forearm, initial encounter; F42.4 Excoriation (skin-picking) disorder; X58.XXXA Exposure to other specified factors, initial encounter; Y93.9 Activity, unspecified; Y92.9 Unspecified place or not applicable; Y99.9 Unspecified external cause status; Z79.891 Long term (current) use of opiate analgesic; Z79.01 Long term (current) use of anticoagulants; Z79.4 Long term (current) use of insulin; Z79.899 Other long term (current) drug therapy | CPT/HCPCS: 97597; 99212; 99215 ==

== ENCOUNTER 2024-08-27 06:21 | Outpatient (REF) | payer OTHER, SELFPAY ==
--- NOTE | ~2024-08-27 | FL_ITS ---
EXAMINATION: FL GUIDANCE ONLY HISTORY: M47.816 - Spondylosis without myelopathy or radiculopathy, lumbar region COMPARISON: None available. TECHNIQUE: Fluoroscopy time: 0.2 minutes. Cumulative Dose: 4.45 mGy. DAP: 0.045 mGym2 Images: 2. FINDINGS: Images demonstrate needles and contrast material in the regions of the bilateral L3-4, L4-5, and L5-S1 facet joints. FL/FL guidance in treatment room IMPRESSION: Fluoroscopy during procedure. Please see procedure report for additional information. Electronically signed by: Alex Shin MD 08/28/2024 11:13 AM EDT
--- OUTSIDE RECORDS SUMMARY | 2024-08-27 06:24 | XMS_ITS | Clinical Summary ---
Author Organization [facility] Facility Address [address] [address] Care Team Providers Care Residence Hall Director Name Role Phone Uriel Cyr MD Primary [...] Health Maintenance Due Date Last Done Comments Hepatitis B Vaccine (1 of 3 - 19+ 3-dose series) 10/07 Pneumococcal Vaccine: Peds ( 0 to 5 Years) and At-Risk Patients (6 to 49 Years) (1 of 2 - PCV) 2013 Diabetes: Hemoglobin A1C 06/06/2022 Diabetes: Ophthalmology Exam 06/06/2022 Diabetes: Pedal Pulse Checked 06/06/2022 Diabetes: Sensory Foot Exam 06/06/2022 Diabetes: Visual Foot Exam 06/06/2022 Influenza Vaccine (Season Ended) 2025 Insurance [facility] Medicaid Care Teams Residence Hall Director Relationship Specialty Start Date End Date Uriel Cyr MD PCP - General Family Medicine 06/05/22
--- OUTSIDE RECORDS SUMMARY | 2024-08-27 06:24 | XMS_ITS | Data Portability ---
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 Plan [...] By Organization Details Last Modified Time 09/19/2021 [id number] Dispo -- awaazalea g confirmation that she can move in with her BF and then will proceed with arranging necessary services and follow-up [email or web address] Not available 09/20/2021 13:14:39 Reason for Referral None Reported. Problems Name Problem SNOMED Code Status Onset Date Resolution Date Notes Provider Name and Address Organization Details Recorded Time Acute bacterial endocarditi s 958108946 Active 2020 ZACH Marin [address] [facility], [address], [place], [address], [facility] 1 14:06:57 Diabetic ketoacidosi s 892420541 Active 2020 ZACH Marin [address] [facility], [address], [place], [address], [facility] 1 14:07:04 Type 1 diabetes mellitus 16729361 Active 2020 ZACH Marin [address] [facility], [address], [place], [address], [facility] [employer] 08/06/202 1 14:07:12 Neuropathy 097003576 Active 2020 Britta Wright [employer] [address], [address], [place], [address], [facility] 14:07:31 Polysubstan ce abuse 683045713 Active 2020 Britta Wright [employer] [address], [address], [place], [address], [facility] 14:08:04 Renal mass 923619753 Active 2020 Britta Kyle [employer] [address], [address], [place], [address], [facility] 14:08:31 Posttraumat ic stress disorder 63288872 Active 2020 ZACH Marin [address], [address], [place], [address], [facility] 14:08:38 Chronic depression 673979551 Active 2020 ZACH Marin [address], [place], [address], [facility] 14:08:48 Acute nontraumati c kidney injury 6402180376808 03 Active 2020 Britta Wright [employer] [address], [address], [place], [address], [facility] 14:08:56 Gastrointes tinal hemorrhage 25146400 Active 2020 Britta Wright [employer] [address], [address], [place], [address], [facility] 14:09:04 Vitamin D deficiency 68725360 Active 2020 Britta Wright [employer] [address], [address], [place], [address], [facility] 10:22:19 Acute diarrhea 763209885 Active 2020 ZACH Marin [address], [address], [place], [address], [facility] 1 10:35:07 Low back pain 573590875 Active 2020 Nanette Dubois, [employer] [address] [facility], [address], [place], [address], [facility] 1 17:03:33 Quadriplegi a with quadripares is 9054197809637 0 Active 2020 Thu Li MD [address] [facility], [address], [place], [address], [facility] 1 02:35:48 Chronic pain syndrome 103299377 Active 2020 Thu Li MD [address] [facility], [address], [place], [address], [facility] 1 02:39:20 Uncontrolle d type 1 diabetes mellitus 836251520 Active 2020 Thu Li MD [address] [facility], [address], [place], [address], [facility] 1 02:40:14 Primary insomnia 6398961 Active 2022 Héctor Alexander MD [address] [facility], [address], [place], [address], [facility] 3 10:40:26 Problem Notes None recorded. Medical Equipment None Reported. Allergies Allergen ID Allergen Name Allergen Category Reaction Reaction Severity Criticality Documentation Date Start Date Code Code System Note Provider Name and Address Organization Details Recorded Time 83149 doxycycli ne Not available rash Not available Not available 12/09/2020 3640 RxNorm Not Available Not Available Not Available 28235 Substance with sulfonami de structure and antibacte rial mechanism of action (substanc e) medicatio n rash Not available Not available 12/09/2020 88139 8003 SNOMED Not Available Not Available Not Available 71462 trimethop rim medicatio n rash Not available Not available 12/09/2020 51470 RxNorm Not Available Not Available Not Available 77426 latex environme nt,medica tion hives rash Not available Not available Not available 12/09/2020 93635 91 RxNorm Not Available Not Available Not Available 51021 almond allergeni c extract food hives Not available Not available 12/09/2020 52121 7 RxNorm Not Available Not Available Not [...] mm[Hg] 72 mm[Hg] ASA VALENTIN PA-C [address], [place], [address], [facility] 2 13:04:21 Date Recorded Body height Body temperature Respiratory rate Oxygen saturation Oxygen saturation in Arterial blood by Pulse oximetry Provider Name and Address Organization Details Last Updated DateTime 2 162.56 cm 97.8 [degF] 20 /min 96 % 96 % ZACH Marin [address] [facility], [address], [place], [address], [facility] 2 13:32:29 Date Recorded Body height Body temperature Respiratory rate Oxygen saturation Oxygen saturation in Arterial blood by Pulse oximetry Systolic blood pressure Diastolic blood pressure Provider Name and Address Organization Details Last Updated DateTime 2 162.56 cm 97.8 [degF] 20 /min 95 % 95 % 130 mm[Hg] 78 mm[Hg] ASA VALENTIN PA-C [address] [facility], [address], [place], [address], [facility] 2 14:57:39 Date Recorded Body height Body temperature Respiratory rate Heart rate Oxygen saturation Oxygen saturation in Arterial blood by Pulse oximetry Systolic blood pressure Diastolic blood pressure Provider Name and Address Organization Details Last Updated DateTime 2 162.56 cm 98 [degF] 20 /min 68 /min 96 % 96 % 138 mm[Hg] 76 mm[Hg] ASA VALENTIN PA-C [address] , [address], [place], [address], [facility] 2 14:40:34 Date Recorded Body height Systolic blood pressure Diastolic blood pressure Provider Name and Address Organization Details Last Updated DateTime 06/01/2022 162.56 cm 138 mm[Hg] 70 mm[Hg] Héctor Alexander MD [address] [facility], [address], [place], [address], [facility] 06/01/2022 10:15:03 Social History Question Answer Notes LastModified by Organizat ion Details LastModified Time Tobacco Smoking Status Current Every Day Smoker ASA VALENTIN PA-C [address] [facility], [address], [place], [address], [facility] 04/16/2021 13:23:32 Do You Have An Advance Directive? Yes Signed By Mother Due To Pt's Inability To Physically Sign For Herself Even Though Not Invoked [email or web address] Information not available 06/21/2021 What Is Your Level Of Alcohol Consumption? None [email or web address] Information not available 12/09/2020 What Is Your Code Status? Full Code [email or web address] Information not available 12/09/2020 Do You Or Have You Ever Used E-cigarettes Or Vape? Former User Of Electronic Cigarettes [email or web address] Information not available 04/16/2021 Legal Guardian? 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 Yes Valid HCP On Chart, Not Invoked [email or web address] Information not available 12/29/2020 What Was The Date Of Your Most Recent Tobacco Screening? 06/21/2021 Information not available 06/21/2021 Do You Or Have You Ever Used Smokeless Tobacco? Never Used Smokeless Tobacco [email or web address] Information not available 04/16/2021 How Much Tobacco Do You Smoke? 1 PPW [email or web address] Information not available 04/16/2021 Do You Use Any Illicit Or Recreational Drugs? No Hx Opiates And Cocaine [email or web address] Information not available 06/21/2021 Has Tobacco Cessation Counseling Been Provided? Yes Not Interested In Quitting [email or web address] Information not available 04/16/2021 On What Date Was Tobacco Cessation Counseling Provided? 06/21/2021 [email or web address] Information not available 06/21/2021 How Many Years Have You Smoked Tobacco? 10 [email or web address] Information not available 04/16/2021 Do You Or Have You Ever Used Any Other Forms Of Tobacco Or Nicotine? Yes [email or web address] Information not available 04/16/2021 Sex: Unknown Functional [...] dose 12/25/2020 completed ASA VALENTIN PA-C [address], [address], [place], [address], [facility] 12/29/2020 12:58:56 COVID-19, mRNA, LNP-S, PF, 30 mcg/0.3 mL dose 11/25/2020 completed ASA VALENTIN PA-C [address] [facility], [address], [place], [address], [facility] 02/24/2021 19:44:16 COVID-19, mRNA, LNP-S, PF, 30 mcg/0.3 mL dose 08/01/2021 completed ASA VALENTIN PA-C [address] [facility], [address], [place], [address], [facility] 08/05/2021 21:35:07 Past Encounters Encounter ID Performer Location Encounter Start Date Encounter Closed Date Diagnosis/Indication Diagnosis SNOMED-CT Code Diagnosis ICD10 Code Diagnosis Note [id number] ZACH Marin [facility] on [address] [place] [address] 12/09/2020 13:59:04 12/20/2020 15:25:04 Acute bacterial endocarditis 838269940 I33.0 see hpifinishe d 6 week course of vanco in hospital, midline removedrep eat echo showed no vegetation staff working on obtaining discharge summary to see if pt needs f/u with ID Diabetic ketoacidosis 42 7866870 E13.10 resolvedla ntus 21 units q am, 25 units qhslispro sliding scaleaccuc hecks and adjust insulin prn Polysubstance abuse 4452 28948 F19.10 no suboxone or methadonep t currently on MSIR 30 mg q 4 hrs and butrans 15 mg patch q week Neuropathy 925969773 G62 .9 severe generalize d body paingabape ntin increased to 900 mg qidflexeri l 10 mg tidbutrans 15 mg patch q weekMSIR 30 mg q 4 hrsibuprof en 600 mg q 8 hrs prnlidocai ne patch left shoulderwi th hx of substance abuse Type 1 iam betes mellitus 57293934 E10.9 meds as above Renal mass 256189455 N28 .89 incidental finding on renal ULneeds out pt f/u with renal UL in 3-6 months or contrast enhanced CT or NILO abdomen Posttrauma tic stress disorder 82901533 F43.10 pt very upset todaygabap entin 900 mg qidcymbalt a 60 mg qdhydroxyz ine 10 mg tid prnpsych referralmo nitor mood Gastrointe stinal hemorrhage 55346778 K92.2 per progress note pt had GI bleed - no hx availables ucralfate 1 gram qidprotoni x 40 mg bidwaiting for dc summary for further recs Chronic depression 03657 0009 F34.1 meds as above Acute nont raumatic kidney injury 5511806456 56797 N17.9 resolved per progress notefollow bmp weeklyavoi d nephrotoxi c meds as able [id number] Bina Bingham MD [facility] on [address] [place] [address] 12/14/2020 06:25:48 12/20/2020 16:22:12 Polysubstance abuse 412899451 F19.10 social work to coordinate support, interdisci plinary team Type 1 iam betes mellitus 25673956 E10.9 Glargine insulin 21U dailyHumal og per sliding scalegabap entin 900 mg qid for neuropathy will monitor Fibromyalgia 889675096 M 79.7 cyclobenza nathen 10 mg tidduloxet ine 60 mg dailyButra ns weekly 15 mcg/hrmorp alison 30 mg q4h prngabapen tin 900 mg qidibuprof en 600 mg q8h prnwill monitor Mixed anxi ety and depressive disorder 986614746 F41.8 trazodone 50 mg at hsduloxeti ne 60 mg dailybupro pion 100 mg bidgabapen tin 900 mg tidhydroxy zine 10 mg q8h prnwill monitor and support as needed Gastroesop hageal reflux disease without esophagitis 994511788 K21.9 sucralfate 1 gm qidpantopr azole 40 mg bidwill monitor Bacteremia caused by Methicillin resistant Staphylococcus aureus 2066503770 4289191 R78.81 with likely endocardit isvancomyc in per I.D. x 6 weeksfu I.D. Asthenia 62917091 R53.1 PT/OTwill monitor and support as needed [id number] [place] [address] 12/16/2020 13:24:44 12/21/2020 10:09:49 Polysubstance abuse 918444707 F19.10 social work to coordinate support, interdisci plinary team Fibromyalgia 326988524 M 79.7 cyclobenza nathen 10 mg tidduloxet ine 60 mg dailyButra ns weekly 15 mcg/hrmorp alison 30 mg q4h prngabapen tin 900 mg qidibuprof en 600 mg q8h prnwill monitor Dry skin 41152123 L85.3 apply thick barrier cream to bilateral feet BIDmonitor for breakdown Posttrauma tic stress disorder 93865423 F43.10 patient with exaggerate d behaviors, could benefit from psych consult [id number] Isabelle Dowling [facility] on [address] [place] [address] 12/19/2020 15:30:29 12/21/2020 10:32:32 Sinus tachycardia 39305023 R00.0 Concern for infection- hx of endocardit isWill obtain STAT BMP, CBC w diff, blood cultures x 2, UA, C&SMonitor and if decompensa ting transfer to ED Visual hallucinations 64 761855 R44.1 Labs as above [id number] Isabelle Dowling [facility] on [address] [place] [address] 12/21/2020 12:57:39 12/23/2020 14:36:35 Urinary tract infectious disease 60183362 N39.0 Complete course KeflexWill review final urine culture/se nsitivitie s when available and adjust antibiotic PRN Neuropathy 532520287 G62 .9 Currently on Gabapentin 900 mg QID-will start slow taper to decrease this high dose graduallyM onitor for pain control and mental status Sinus tachycardia 038115 01 R00.0 Concern for infection- hx of endocardit isWill obtain STAT BMP, CBC w diff, blood cultures x 2, UA, C&SMonitor and if decompensa ting transfer to ED Visual hallucinations 64 937257 R44.1 Psych evalWill treat UTI and taper Gabapentin dose as aboveMonit or [id number] ZACH Marin [facility] on [address] [place] [address] 12/27/2020 09:48:26 01/03/2021 14:49:32 Urinary tract infectious disease 22629364 N39.0 finish keflex 500 mg qid on 01/01monito r for resolution Neuropathy 989355785 G62 .9 see hpibutrans 15 mg patch weeklyibup rofen 600 mg q 8 hrs prn - pt has hx of gi bleed so will need to monitor usechanged flexeril to prn as abovewill need f/u with Dr Bernardo [place] neurologis tthey will decide what further testing pt will needwill have staff call [facility] for results of copper lab Visual hallucinations 64 187818 R44.1 see hpioff morphine, gabapentin and trazodone with resolution of hallucinat ions and deleriumwi ll change flexeril to 10 mg tid prn spasms - as it was stated in body of DC note that it had been discontinu ed for hallucinat ions and delerium, though it was continued on med listmonito r for sxs Vitamin D deficiency 347 23722 E55.9 Vit D level at 9not started [facility] Vit D 3 5,000 units qdrecheck Vit D level in 6 weeks Type 1 iam betes mellitus 57801227 E10.9 glargine 21 units q am, 25 units qhsaccuche cks with sliding scalemonit or and adjust insulin prn Posttrauma tic stress disorder 47835874 F43.10 mood stablecymb jair 60 mg qdwellbutr in sr 100 mg bidhydroxy zine 10 mg tid prnpsych referralmo nitor mood Polysubstance abuse 4562 76945 F19.10 no suboxone or methadoneb utrans 15 mg patch q week for pain Chronic depression 86450 0009 F34.1 meds as above Acute bact erial endocarditis 045630407 I33.0 finished 6 week course of vanco in hospital, midline removedrep eat echo showed no vegetation Acute diarrhea 785265228 R19.7 get stool for c diff and once results are back - if no c diff then can have imodium Gastrointe stinal hemorrhage 83460969 K92.2 hx of gi bleedsucra lfate 1 gram qidprotoni x 40 mg bid Renal mass 970303679 N28 .89 incidental finding on renal ULneeds out pt f/u with renal UL in 3-6 months or contrast enhanced CT or NILO abdomen [id number] ASA VALENTIN PA-C [facility] on [address] [place] [address] 12/29/2020 12:52:28 01/03/2021 15:28:58 Diarrhea 56320832 R19.7 Resolved without interventi on and prior to the initiation of oral Vancd/c Vanc - does not have acute c-diffPt educated to notify staff if diarrhea recurs of deveops abd painf/u prn Gastrointe stinal hemorrhage 70687282 K92.2 change Protonix 40 mg po bid to Prilosec at same dosing per insurance [id number] ZACH Marin [facility] on [address] [place] [address] 01/02/2021 15:39:37 01/05/2021 09:59:40 Visual hallucinations 62130761 R44.1 resolvedof f morphine, gabapentin and trazodone with resolution of hallucinat ions and deleriummo nitor for sxs Urinary tr act infectious disease 12225270 N39.0 resolvedmo nitor for recurrence Neuropathy 942309909 G62 .9 see hpibutrans 15 mg patch weeklyibup rofen 600 mg q 8 hrs prn - pt has hx of gi bleed so will need to monitor usechange flexeril to 10 mg TID scheduledf /u with Dr Bernardo [place]leton neurologis t and they will decide what further testing pt will needresult s of copper lab : 1.3 Vitamin D deficiency 347 45280 E55.9 Vit D level at 9not started on supplement by CDHstarted here on Vit D 3 5,000 units qdrecheck Vit D level in 6 weeks Type 1 iam betes mellitus 37725235 E10.9 glargine 21 units q am, 25 units qhsaccuche cks with sliding scalemonit or and adjust insulin prn Posttrauma tic stress disorder 83831290 F43.10 mood stablecymb jair 60 mg qdwellbutr in sr 100 mg bidhydroxy zine 10 mg tid prnpsych referralmo nitor mood Polysubstance abuse 4452 19843 F19.10 no suboxone or methadoneb utrans 15 mg patch q week for pain Chronic depression 89887 0009 F34.1 meds as above Acute bact erial endocarditis 892317728 I33.0 finished 6 week course of vanco in hospital, midline removedrep eat echo showed no vegetation Gastrointe stinal hemorrhage 50875476 K92.2 hx of gi bleedsucra lfate 1 gram qidprilose c 40 mg bid Renal mass 175178983 N28 .89 incidental finding on renal ULneeds out pt f/u with renal UL in 3-6 months or contrast enhanced CT or NILO abdomen [id number] ZACH Costa [facility] on [address] [place] [address] 01/07/2021 16:54:51 01/12/2021 12:58:35 Neuropathy 570839733 G62.9 voltaren gel 2 gm to hands QID. continue butrans 15 mg weekly and flexeril 10 mg TID. Follow up with neuro. Low back pain 838583113 M54.5 voltaren gel 4 gm to lower back QID. d/c lidoderm patch. continue to monitor. [id number] ZACH Marin [facility] on [address] [place] [address] 01/13/2021 15:06:57 01/17/2021 12:02:09 Visual hallucinations 12194843 R44.1 resolved off morphine, gabapentin and trazodonem onitor for sxs Urinary tr act infectious disease 31496761 N39.0 resolvedmo nitor for recurrence Neuropathy 449062092 G62 .9 will trial gabapentin 100 mg [...] lab : 1.3 Vitamin D deficiency 347 78372 E55.9 Vit D level at 9not started on supplement by CDHstarted here on Vit D 3 5,000 units qdrecheck Vit D level in 5 weeks Type 1 iam betes mellitus 16721754 E10.9 accuchecks btwn 70s and 300scontin ue glargine 21 units q am, 25 units qhsaccuche cks with sliding scalemonit or and adjust insulin prn Posttrauma tic stress disorder 32686815 F43.10 mood stablecymb jair 60 mg qdwellbutr in sr 100 mg bidhydroxy zine 10 mg tid prnpsych referralmo nitor mood Polysubstance abuse 4452 42228 F19.10 no suboxone or methadoneb utrans 15 mg patch q week for pain Chronic depression 27947 0009 F34.1 meds as above Acute bact erial endocarditis 835942754 I33.0 finished 6 week course of vanco in hospital, midline removedrep eat echo showed no vegetation Gastrointe stinal hemorrhage 51256044 K92.2 hx of gi bleedsucra lfate 1 gram qidprilose c 40 mg bid Renal mass 121319715 N28 .89 incidental finding on renal ULneeds out pt f/u with renal UL in 3-6 months or contrast enhanced CT or NILO abdomen [id number] ASA VALENTIN PA-C [facility] on [address] [place] [address] 01/19/2021 11:51:49 01/24/2021 10:53:20 Uncontrolled type 1 diabetes mellitus 301363422 E10.65 Start Humalog 2 ux SQ tidacConti nue correction al HumalogCon tinue Lantus 21 ux SQ q am and 25 ux SQ qhsMonitor sugars and adjust meds prn Quadripleg ia with quadriparesis 2718271769 9100 G82.50 PT/OTNeuro followingR ecent very extensive and essentiall y negative w/uConvers ion D/O should be in the DDx given hx PTSDMonito r and f/u prn Vitamin D deficiency 347 72740 E55.9 RepletingC ontinue D3 5k ux po dailyHas f/iu level next month Gastrointe stinal hemorrhage 07436183 K92.2 Prilosec 40 mg po bid-consid er reduction trial to once daily since GI bleed was 3 months agoConside r d/c Motrin since hx GI bleed and also getting scheduled topical diclofenac Renal mass 062095265 N28 .89 renal u/s to f/u 2.9 cm heterogeno us hypoechoic mildly vascular mass-like structure upper pole of R kidney seen on u/s 11/2020 at [place] [id number] [facility] [address] [place] [address] 01/27/2021 15:01:35 01/31/2021 08:15:11 Uncontrolled type 1 diabetes mellitus 820342415 E10.65 Humalog 2 ux SQ tidacConti nue correction al HumalogCon tinue Lantus 21 ux SQ q am and 25 ux SQ qhsMonitor sugars and adjust meds prn Quadripleg ia with quadriparesis 8531099462 9100 G82.50 cont PT/OTNeeds cervical and lumbar MRI w contrast scheduledA lso request EMG testingRef er to neuro for consultSta rt Baclofen 5 mg TID for spasmsAlso will add Oxycodone 2.5 mg Q6h PRN-patien t states she has tolerated this in pastIf hallucinat ions recur will d/c oxycodone [id number] Isabelle [facility] on [address] [place] [address] 01/30/2021 15:56:19 02/01/2021 12:39:58 Quadriplegia with quadriparesis 7786451973 9100 G82.50 cont PT/OTNeeds cervical and lumbar MRI w contrast scheduledE MG testing orderedAwa iting neuro consultInc rease Baclofen 10 mg TID for spasmsIncr ease Oxycodone 5 mg Q6h PRNIf hallucinat ions recur will d/c oxycodone- patient aware [id number] Thu Li MD [facility] on [address] [place], [place] [address] [address] 02/07/2021 20:14:48 02/13/2021 13:28:21 Quadriplegia with quadriparesis 3166541555 9100 G82.50 Continues to need intensive PT/OT for strengthen ing, balance, gait training, safety and function.C ontinue Baclofen 10 mg TID, voltaren gel to hands, APAP 650 mg q 4 hrs prn, and oxycodone 5 mg q 6 hrs prn.Monito r safety and function. Uncontroll ed type 1 diabetes mellitus 689355377 E10.65 Poor control.Co ntinue Lantus 21 ux SQ q am and 25 ux SQ qhs, humalog 2U with meals and SS as ordered.Mo nitor sugars and adjust meds prn Vitamin D deficiency 347 01398 E56.8 Continue D3 5000 IU qd.Recheck level next month. Gastrointe stinal hemorrhage 06613081 K92.89 Continue omeprazole 40 mg BID.Taper as able.Monit or sxs. Renal mass 728765156 N28 .89 incidental finding on renal ULneeds out pt f/u with renal UL in 3-6 months or contrast enhanced CT or NILO abdomen Visual hallucinations 64 323826 R44.1 No further sxs since return from hospital.M onitor MS. Neuropathy 663622937 G62 .89 As above.F/U with neuro Posttrauma tic stress disorder 96528696 F43.12 Continue duloxetine 60 mg qd, wellbutrin SR 100 mg BID and hydroxyzin e 10 mg TID prnPsych involved. Polysubstance abuse 9952 29747 F19.10 no suboxone or methadoneb utrans 15 mg patch q week for pain Chronic depression 09232 0009 F34.1 meds as above Acute bact erial endocarditis 519398758 I33.0 finished 6 week course of vanco in hospital, midline removedrep eat echo showed no vegetation Chronic pain syndrome 37 1015679 G89.4 Continue meds as above and gabapentin 100 mg TID, butrans 15 mg patch weekly, and ibuprofen 600 mg q 8 hrs prn.Monito r sxs. [id number] ASA VALENTIN PA-C [facility] on [address] [place] [address] 02/10/2021 17:13:12 02/13/2021 14:51:22 Eruption 534521270 R21 refuses exam bumps could be a number of thingschec k urine for GC/chlam-f /u when results are availableR e-approach pt for exam next weekNo indication for U/APt educated about:-imp ortance of not having sexual encounters with other patients on the unit-prote cting against HIV/STIs if she is going to engage in such behavior-w as not interested in participat ing in this discussion [id number] ASA VALENTIN PA-C [facility] on [address] [place] [address] [phone] 3 02/17/2021 16:48:48 02/20/2021 16:13:30 Chronic pain syndrome 092602868 G89.4 Increase Baclofen from 10 ux tid to 15 ux tid and titrate aggressive lyd/c Voltaren gel since ineffectiv eStart Lidocaine 3% cream tid prn hand painConsid er rheum w/u given Verona neck deformitie s of handsMonit or and f/u prn Uncontroll ed type 1 diabetes mellitus 548872885 E10.65 Decrease hs Lantus from 25 to [...] time but consider in the future Eruption [id number] R21 Bumps resolved per ptNo symptoms or dysuriaRev iew GC/chlam when results are available [id number] ASA VALENTIN PA-C [facility] on [address] [place] [address] [phone] 3 02/23/2021 16:16:37 02/27/2021 16:18:42 Chronic pain syndrome 062562950 G89.4 Increase Baclofen from 15 mg po tid to 20 mg po tidNo change in oxycodone IR 5 mg po q 6 h prn at this time despite her request to make is q 4 h prnCheck CBCD, CMP, RF, RANJAN, and ACPA (anti-citr ullinated peptide antibodies )Monitor and f/u prn [id number] ASA VALENTIN PA-C [facility] on [address] [place] [address] [phone] 3 03/06/2021 18:28:01 03/08/2021 11:32:59 Acute otitis externa 60242650 H60.509 Left ear Cortispori n otic suspension 4 gtt L ear qid x 10 days-benef its of abx outweigh risks of non-treatm ent in this patient Chronic pain syndrome 37 6439375 G89.4 Increase Cymbalta from 60 mg po q am to 60 mg po q am and 30 mg po q 1700Recent labs not revealingM onitor and f/u prn [id number] ASA VALENTIN PA-C [facility] on [address] [place] [address] [phone] 3 03/10/2021 09:35:25 03/14/2021 11:07:45 Unintentional weight loss 315849025 R63.4 Increase frequency of monitoring weights to weekly x 4 weeks then monthly-we ight via same method each time and include when entering [facility] weightsRD also followingU pdate TSH Uncontroll ed type 1 diabetes mellitus 115001458 E10.65 Pre-lunch sugar remain high, reflecting need [...] futureUpda te A1c Chronic pain syndrome 37 5814793 G89.4 Continue Cymbalta 60 mg po q am and 30 mg po q 1700-room to increaseIn crease gabapentin from 100 mg po tid to 200 mg po tid-monito r for response, sedation, hallucinat ions-pt agreeable to this trialUnlik mando RA based on labsConsul t rheum for completene ss Vitamin D deficiency 347 11117 E55.9 RepletingC ontinue D3 5k ux po dailyUpdat e Total Vit D-level planned for this month; will coordinate draw with TSH Quadripleg ia with quadriparesis [id number] 9100 G82.50 PT/OTClari fy status of neuro f/u and EMG previously orderedRec ent very extensive and essentiall y negative w/uConvers ion D/O should be in the DDx given hx PTSDMonito r and f/u prn Gastrointe stinal hemorrhage 76918792 K92.2 Continue Prilosec 40 mg po bid for nowd/c CarafateCo nsider decrease Prilosec once she can be assessed off Carafate [id number] ASA VALENTIN PA-C [facility] on [address] [place] [phone] 3 03/13/2021 17:28:09 03/21/2021 10:47:41 Chronic pain syndrome 419643352 G89.4 Increase Cymbalta from 60 mg po q am and 30 mg po q 1700 to 60 mg po bidNo changes to oxycodone at this time script for oxycodone IR 5 mg #60 no refills given to nurse Dyslipidemia 106467915 E 78.5 Add Lipitor 20 mg po qhslipid panel 8 weeks [id number] ASA VALENTIN PA-C [facility] on [address] [place] [phone] 3 03/21/2021 18:30:14 03/28/2021 12:19:54 Acute otitis media 2113602 H66.92 Augmentin 875/125 mg po bid x 10 days-benef its of abx outweigh risks of non-treatm ent in this patientDif lucan 150 mg po x 1 on days 2 and 5 to prevent richard vaginitisM onitor and f/u prn [id number] ASA VALENTIN PA-C [facility] on [address] [place] [address] [phone] 3 03/28/2021 19:45:13 04/06/2021 13:45:41 Chronic pain syndrome 570395661 G89.4 Given the interrupti ons in her Butrans beyond her control, will change prn oxycodone 5 mg from q 6 to q 4 h for nowNo other changes at this timeMonito r and f/u prn Pruritic disorder 862977 002 L29.9 Benadryl 50 mg po q 6 h prn itching [id number] ASA VALENTIN PA-C [facility] on [address] [place] [address] [phone] 3 04/06/2021 16:31:22 04/17/2021 16:27:20 Paronychia of toe of left foot [id number] 0850272 L03.032 warm soak L foot qid x 5 days for paronychia L 1st toeNo evidence of cellulitis and no indication for topical or oral abx at this timeMonito r and f/u prn [id number] ASA VALENTIN [facility]C [facility] [address] [place] [address] [phone] 3 04/07/2021 16:52:11 04/17/2021 16:31:27 Paronychia of toe of left foot [id number] 8292529 L03.032 Triple antibiotic bid x 5 days L 1st toeAdd Vit C 500 mg po bid x 30 days, Zinc 220 mg po bid x 14 days, and Vit A 10k ux po daily x 10 days to promote wound healing in a diabetic.N o evidence of cellulitis -abx not indicated at this timeMonito r and f/u prn Blister of foot 11221520 3 S90.822A HeelProtec tive dressingMo nitor and f/u prn [id number] ASA VALENTIN PA-C [facility] on [address] [place] [address] [phone] 3 04/13/2021 18:55:30 04/18/2021 09:45:53 Chronic pain syndrome 822903897 G89.4 add Zanaflex 2 mg po q 8 h prn stiffness- monitor for sedation, hallucinat ions-titra te to comfort-pt agreeable to triald/c Lipitor as likely worsening chronic pain Migraine 03210549 G43.90 9 Add Riboflavin 400 mg po daily for migraine prevention -educated that this will likely cause her urine to turn bright yellow-exp lained that it may take up to 3-4 months to experience an improvemen t in migraines- pt agreeable to try this [id number] ASA VALENTIN PA-C [facility] on [address] [place] [address] [phone] 3 04/17/2021 13:27:26 04/20/2021 08:54:46 Uncontrolled type 1 diabetes mellitus 644015255 E10.65 d/c prandial Humalog since meal intake [...] for renal protection due to soft BPs [id number] Bina Bingham MD [facility] on [address] [place] [address] [phone] 3 04/28/2021 08:13:19 05/01/2021 14:06:27 Type 1 diabetes mellitus 44240997 E10.42 Lantus insulin 24U in eveningHum alog per sliding scalegabap entin 200 mg tid for neuropathy - see meds for chronic painwill monitor Muscle weakness 60979599 M62.81 quadripare sis -seems improved at today's visit - consider psychiatri c componentM RI Cspine, LS spine with contrast recommende dfu neurologyP T/OTwill monitor and support as needed Chronic pain 96723672 G8 9.29 ibuprofen 600 mg q8h prnduloxet ine 60 mg dailygabap entin 200 mg tidtizanid ine 2 mg q8h prnoxycodo ne 5 mg q4h prnButrans patch 15 mcg/hr weeklyAPAP 650 mg q4h prnwill monitorPT/ OT prn Mixed anxi ety and depressive disorder 118233086 F41.8 trazodone 50 mg at hsduloxeti ne 60 mg dailybupro pion 100 mg bidgabapen tin 900 mg tidhydroxy zine 10 mg q8h prnwill monitor and support as needed Gastroesop hageal reflux disease without esophagitis 565345951 K21.9 omeprazole 40 mg bidwill monitor [id number] ASA VALENTIN PA-C [facility] on [address] [place] [address] [phone] 3 05/02/2021 18:19:07 05/04/2021 14:35:08 Uncontrolled type 1 diabetes mellitus 915806778 E10.65 Given morning hypoglycem ia, will d/c [...] to soft BPs Chronic pain syndrome 37 0730937 G89.4 Complaints out of proportion to exam findingsRe schedule Brain MRI ASAPNo changes to meds at this timeConsid er Chronic Widespread Pain (CWP) Syndrome/C entralized Pain Syndrome-R heum consult still pending [id number] ASA VALENTIN PA-C [facility] on [address] [place] [address] [phone] 3 05/08/2021 17:47:50 05/15/2021 16:00:40 Uncontrolled type 1 diabetes mellitus 445585649 E10.65 Increase Lantus from 21 ux SQ q am to 23 ux SQ q amContinue individual ized correction al insulin, which she still often refusesMon itor sugars and adjust meds prnNot on an ERIC/ARB for renal protection due to soft BPs [id number] ASA VALENTIN PA-C [facility] on [address] [place] [phone] 3 05/10/2021 15:19:30 05/16/2021 08:53:19 Nausea 315711976 R11.0 Nausea likely secondary to hyperglyce adri [...] 05/12/21 Uncontroll ed type 1 diabetes mellitus 461026829 E10.65 Increase Lantus from 23 ux SQ q am to 25 ux SQ q amContinue individual ized correction al insulin, which she still often refusesMon itor sugars and adjust meds prnNot on an ERIC/ARB for renal protection due to soft BPs Chronic pain syndrome 37 6991211 G89.4 Complaints out of proportion to exam [...] CK since pain mostly muscularly based Migraine 44877218 G43.90 9 Continue Riboflavin 400 mg po daily for migraine prevention -re-educat ed that this will likely cause her urine to turn bright yellow-re- explained that it may take up to 3-4 months to experience an improvemen t in migrainesA lready has prn oxycodone in place [id number] ASA VALENTIN PA-C [facility] on [address] [place] [address] [phone] 3 05/12/2021 15:20:29 05/22/2021 18:13:36 Chronic pain syndrome 494282442 G89.4 CPK slightly above normal range.DDx includes:- Diabetic muscle infarction -Inflammat ory myopathies EMG, Brain MRI, Neuro consult, and Rheum consult pend-adan fy statusIf diabetic muscle infarction , need to get sugars under much better control as they remain out of control for patient reasons.-e ducate pt about thisKnown chronic widespread pain syndrome, fka fibromyalg iaNo changes at this time Anemia 005375392 D64.9 H&H down from priorStool guaiacs pend and will be reviewed when availableM onitor labs Uncontroll ed type 1 diabetes mellitus 880447668 E10.65 Lantus increased 2 days agoContinu e individual ized correction al insulin, which she still often refusesMon itor sugars and adjust meds prnNot on an ERIC/ARB for renal protection due to soft BPs [id number] ASA VALENTIN PA-C [facility] on [address] [place] [address] [phone] 3 05/24/2021 14:47:08 05/31/2021 11:17:09 Chronic pain syndrome 892609588 G89.4 Talked about diabetic muscle infarction as a possible explanatio n of her muscular pain, which dominates her pain complaints .No changes to pain meds at this time Avulsion i njury of fingernail 489965864 S61.308A No evidence of infectionL ocal careMonito r and f/u prn Anxiety di sorder due to a general medical condition 24677370 F06.4 increase Wellbutrin back to bidadd anxiety x 14 days to the prn Benadryl indication -not adding hydroxyzin e since on Benadryl-b enzos not indicated [id number] ASA VALENTIN PA-C [facility] on [address] [place] [address] [phone] 3 05/25/2021 15:11:09 06/05/2021 13:42:02 COVID-19 828844204 U07.1 Vaccinated , <65 y/o, with at [...] per facility protocol Paronychia of finger 444 821335 L03.019 Bacitracin and bandaid to affected fingers daily x 5 daysFollow clinically Uncontroll ed type 1 diabetes mellitus 468272814 E10.65 Increase Lantus from 25 to 28 ux SQ q amContinue individual ized correction al insulin, which she still often refusesMon itor sugars and adjust meds prnNot on an ERIC/ARB for renal protection due to soft BPs [id number] ASA VALENTIN PA-C [facility] on [address] [place] [address] [phone] 3 06/07/2021 19:12:01 06/13/2021 11:45:27 Onychotillomania 45182806 F98.8 SSRIs ideal for this as well [...] serious resistance and behavioral disturbanc e COVID-19 657762670 U07.1 Clinically recovered [id number] ASA VALENTIN PA-C [facility] on [address] [place] [address] [phone] 3 06/08/2021 12:10:18 06/13/2021 12:56:00 Uncontrolled type 1 diabetes mellitus 574197977 E10.65 Increase Lantus from 28 to 32 ux SQ q am (conservat ively increasing )Continue individual ized correction al insulin, which she still often refusesMon itor sugars and adjust meds prnNot on an ERIC/ARB for renal protection due to soft BPs [id number] ASA VALENTIN [facility] [address] [place] [address] [phone] 3 06/12/2021 14:19:02 06/29/2021 12:52:22 Uncontrolled type 1 diabetes mellitus 775508025 E10.65 Continue Lantus 32 ux SQ q am-pt hesistant to increase despite elevated sugars due to sugar 67 yesterday amContinue individual ized correction al insulin, which she still often refuses or takes less ofMonitor sugars and adjust meds prnNot on an ERIC/ARB for renal protection due to soft BPs [id number] ASA VALENTIN [facility] [address] [place] [address] [phone] 3 06/21/2021 13:12:50 06/30/2021 10:08:01 Uncontrolled type 1 diabetes mellitus 425344263 E10.65 Continue Lantus 32 ux SQ q [...] BPs Cellulitis of finger of right hand 7441142155 8512802 L03.011 Keflex-cherry efits of abx outweigh risks of non-treatm ent in this patientPro bioticMoni tor and f/u prn Pruritic disorder 019727 002 L29.9 Restart prn BenadrylUn clear of allergen-m ediated or somatiform Monitor and f/u prn Anxiety 83698474 F41.9 Definitely OCD component/ excoriatio n d/o/onycho [...] drug interactio ns Chronic pain syndrome 37 1168631 G89.4 Schedule the Zanaflex and titrateCla rify status of rheum consultCon tinue all other meds as currently orderedPT/ OT prn Nausea 618248640 R11.0 seems improvedf/ u prn Tobacco de pendence syndrome 20764610 F17.200 Counseled 4 minutes on cessation; not interested in quitting Anemia 302047054 D64.9 Clarify stool guaiac resultsUpd ate CBC [id number] ASA VALENTIN PA-C [facility] on [address] [place] [address] [phone] 3 06/23/2021 16:48:19 06/30/2021 10:48:25 Cellulitis of finger of right hand 0836826375 3622439 L03.011 d/c KeflexStar t Levaquin 750 mg po daily x 7 days (since also has uncontroll ed DM)-benefi ts of abx outweigh risks iof non-treatm ent in this patientR hand x-ray to assess for periostial lift although osteo less likelyCons ider labs if not improved with change in abx Uncontroll ed type 1 diabetes mellitus 375073674 E10.65 Monitor sugars and adjust meds prnNot on an ERIC/ARB for renal protection due to soft BPs [id number] ASA VALENTIN PA-C [facility] on [address] [place] [address] [phone] 3 06/27/2021 18:45:15 07/11/2021 15:46:45 Cellulitis of finger of right hand 8877730002 6119450 L03.011 Improved on LevaquinX- ray without periostial lift or other suggestion s of osteoMonit or and f/u prn Uncontroll ed type 1 diabetes mellitus 351938082 E10.65 Sugars hard to interpret since time-stamp [...] to soft BPs Chronic pain syndrome 37 5929697 G89.4 Multi-leve l spinal MRIs are unrevealin [...] clinically Mixed anxi ety and depressive disorder 049735963 F41.8 Improved on decreased ProzacPer EMAR review, pt has been using the Trazodone 25 mg po q 4 h prn anxiety at least once per day on most days, often at night with effect-con weigher and crusher scheduling 25 mg po qhs-renew Trazodone 25 mg po q 4 h prn anxiety x 6 months then review again with provider to determine ongoing needNot at all surprised that she found the Ativan to be very effective at targeting her anxiety; however, benzodiaze pine use would be inappropri ate in this patient.Ps ych also following [id number] ASA VALENTIN PA-C [facility] [address] [place] [address] [phone] 3 07/03/2021 16:00:31 07/12/2021 14:25:23 Candidiasis of vagina 54208676 B37.3 Diflucan 150 mg po x 1f/u prn [id number] ASA VALENTIN PA-C [facility] on [address] [place] [address] [phone] 3 07/07/2021 13:46:53 07/18/2021 14:54:36 Chronic pain syndrome 331987469 G89.4 Reviewed the records from [place] with pt with focus on insulin neuritis, [...] now. Uncontroll ed type 1 diabetes mellitus 997876006 E10.65 Discussed importance of diabetes management , [...] retinopathy due to type 1 diabetes mellitus 1151882313 9101 E10.3593 Oxycodone 10 mg po x 1 upon departure to retinal laser surgery vivian hyde scheduled and prn as recommende d by retinal specialist Anxiety 39867876 F41.9 Willing to trial Abilify 2 mg po daily as recommende d by psych-risk s/benefits /side effects discussed with ptPsych also following [id number] ASA VALENTIN [facility] [address] [place] [address] [phone] 3 07/13/2021 14:02:12 07/18/2021 15:54:18 Edema of lower extremity 103811163 R60.0 TEDs dailyGabap entin and Motrin can cause/exac erbate edema-cons ider d/c gabapentin as previously referenced Diarrhea 21156040 R19.7 Given comorbidit ies, likely has IBS, [...] retinopathy due to type 1 diabetes mellitus 0177780808 9101 E10.3593 Ativan 0.5 mg po x 1 upon departure to laser eye surgery-ok to given with oxycodone IR 10 mg that has also been ordered-sc ript for 0.5 mg #2 with 1 refill given to nurse [id number] ASA VALENTIN [facility]C [facility] [address] [place] [address] [phone] 3 07/24/2021 16:43:31 08/01/2021 15:48:41 Edema of lower extremity 154128826 R60.0 Clarify status of TEDsTaper gabapentin -pt in agreement with trial offNo cardiopulm onary symptomsMo nitor and f/u prn 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 8273343435 9101 E10.3593 Following with retinal specialist Await official notes from today's visitRevis it pre-meds for next surgerySee if endo can do telehealth with her since she is an establishe d pt Anxiety 49636975 F41.9 re-add anxiety as prn indication for Benadryl since it has been effective and there is no clinical indication to schedule it-can renew x 6 months then review again to determine ongoing needPsych also following [id number] ZACH [facility] on [address] [place] [address] [phone] 3 07/31/2021 15:05:51 08/04/2021 10:55:17 Cellulitis of finger of right hand 4265203945 5326729 L03.011 keflex 500 mg 1 tid x 7 daysprobio tic 1 bid x 10 daysmonito r for resolution [id number] ASA VALENTIN PA-C [facility] on [address] [place] [address] [phone] 3 08/02/2021 19:38:36 08/08/2021 09:56:25 Proliferative retinopathy due to type 1 diabetes mellitus 3634147916 9101 E10.3593 Following with retinal specialist Has upcoming laser eye surgery-tr ial Klonopin 0.5 mg since longer T1/2-upon departure for laser eye surgery-pt agreeable to try this-scrip t for Klonopin 0.5 mg #2 with 5 refills given to nurse-Oxyc odone IR 15 mg po x 1 upon departure for laser eye surgery [id number] ASA VALENTIN PA-C [facility] on [address] [place] [address] [phone] 3 08/10/2021 15:54:07 08/17/2021 12:42:18 Proliferative retinopathy due to type 1 diabetes mellitus 9787105023 9101 E10.3593 No changes to pre-med are indicatedM onitor and f/u prn [id number] Bina Bingham MD [facility] [address] [place] [address] [phone] 3 08/23/2021 08:11:31 08/25/2021 16:09:18 Quadriplegia with quadriparesis 6406079359 9100 G82.50 Type 1 iam betes mellitus 61895232 E10.42 Lantus insulin 32U in eveningHum alog per sliding scalefor neuropathy - see meds for chronic painwill monitor 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 7736014951 9101 E10.3593 fu retina specialist Chronic pain 80875464 G8 9.29 ibuprofen 600 mg q8h prnduloxet ine 60 mg dailytizan idine 2 mg tidoxycodo ne 5 mg q4h prnbaclofe n 20 mg qidButrans patch 15 mcg/hr weeklyAPAP 650 mg q4h prnwill monitorPT/ OT prn Mixed anxi ety and depressive disorder 981246810 F41.8 trazodone 25 mg at hsaripipra zole 2 mg dailydulox etine 60 mg dailywill monitor and support as needed Gastroesop hageal reflux disease without esophagitis 356534564 K21.9 omeprazole 40 mg bidwill monitor [id number] ASA VALENTIN PA-C [facility] on [address] [place] [address] [phone] 3 08/28/2021 20:07:37 08/30/2021 13:12:41 Proliferative retinopathy due to type 1 diabetes mellitus 7037194915 9101 E10.3593 Increase Klonopin from 0.5 to 1 mg po upon departure to laser surgery-sc ript for 1 mg #2 with 1 refill given to nurseLaquita gonzalez oxycodone IR 15 mg po upon departure to laser surgery Chronic pain syndrome 37 6597437 G89.4 Pt has been on oxycodone IR 5 mg po q 4 h prn mod-severe pain, which she takes regularly- considerin g that she was on an extended overnight BARBARA without her oxycodone and did not seem to have any negative effects, need to start tapering oxycodone as she has demonstrat ed that she does not require it [id number] ASA VALENTIN PA-C [facility] on [address] [place] [address] [phone] 3 09/08/2021 16:01:05 09/11/2021 15:44:46 Proliferative retinopathy due to type 1 diabetes mellitus 3586403780 9101 E10.3593 Klonopin 1 mg and oxycodone IR 15 mg po x 1 upon departure to laser eye surgery-sc ript for Klonopin 1 mg #4 with 5 refills given to nurse [id number] ASA VALENTIN PA-C [facility] on [address] [place] [address] [phone] 3 09/12/2021 14:24:10 09/14/2021 12:35:31 Candidiasis of vagina 38124012 B37.3 Diflucan 150 mg po x 1-ok despite increased risk of QT prolongati on with Abilify-cisneros s tolerated before and Diflucan is a one-time doseReiter ated importance of glycemic control-sa ys she knows this but still chooses to eat foods inconsiste nt with diabetic dietShould have HIV testing - she's not sure yet if she wants to do thisf/u prn [id number] ASA VALENTIN PA[facility]C [facility] [address] [place] [address] [phone] 3 09/15/2021 15:05:55 09/18/2021 13:39:17 Chronic pain syndrome 433352003 G89.4 Given that patient lied about having [...] the list of DDxMonitor and f/u prn [id number] ASA VALENTIN [facility] [address] [place] [address] [phone] 3 09/19/2021 09:24:39 09/21/2021 10:26:50 Pain of right knee joint 4758064532 52670 M25.561 no indication for imaging at this timePT consultHas plenty of meds in place for pain management Ice as toleratedW BATLikely patellofem oral syndrome [id number] ZACH [facility] [address] [place] [address] [phone] 3 09/22/2021 13:31:46 09/25/2021 15:35:51 Pain of right knee joint 1372860678 43490 M25.561 per GAGE who saw pt on 09/19 continues with no indication for imaging at this timecontin ue PT OTHas plenty of meds in place for pain management and explained to pt that I would not increase pain meds at this timeIce as toleratedW BAT [id number] ASA VALENTIN [facility] [address] [place] [address] [phone] 3 10/04/2021 20:07:11 10/10/2021 09:10:24 Pain of right knee joint 3848854524 04926 M25.561 Would probably benefit from MRI R knee but will defer this [facility]ris [facility] will [facility] need for referral to PSSPHas plenty of meds in place for pain management -no indication to adjust oxycodoneI ce as toleratedW BATLikely patellofem oral syndrome 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 7483353580 9101 E10.3593 Once appointmen t at [facility] is verified, pt can have Klonopin 1 mg and oxycodone IR 15 mg upon departure to appointmen t [id number] ASA VALENTIN PA-C [facility] on [address] [place] [address] [phone] 3 10/12/2021 13:57:35 10/18/2021 14:48:50 Allergic rhinitis 13538597 J30.9 Add Flonase 1 spray per nostril bid-consid er change to prn when seasons changesNot adding systemic non-sedati ng antihistam ine since has prn Benadryl orderMonit or and f/u prn [id number] Héctor Alexander MD [facility] on [address] [place] [id number] 3 06/01/2022 10:14:03 07/06/2022 12:56:40 Sepsis [id number] A41.89 see HPIvanco and zosyn through 06/14/22 then to be re-evaluat ed by [facility] labs cc to ID and update with obieho Juan helm, acting DNS, MANAGER STATISTICAL PROGRAMMING, and therapy present during attempted exampatien t [...] Acute oste omyelitis of ankle and/or foot [id number] M86.172 now s/p left BKAplan was tofollow ortho recsPT OT eval and treatstron g concern for need for right AKAupdate ortho and ID with concernsho wever now see above Chronic pain syndrome 37 [id number] G89.4 plan was belowchron ic pain syndrome with polysubsta nce abusenow on oxycodone 30 mg q 6 hours hold for sedationga bapentin 100 mg tidthis is less than patient was receiving in hospitalme dications to be crushed therefore cannot start long actingalso concern for patch utilizatio n that patient may swallow patchhowev er now transfer back to hospital Anemia due to blood loss [id number] D50.0 acute on chronic anemia transfused with 4 units pRBC suffered delayed transfusio n reactionmo nitor cbc and need for further txheme eval prnadded to PMH Blood spann sfusion reaction 92471175 T80.89XD see abovesurge ry awareadded to PMH Polysubstance abuse 4452 42363 F19.180 polysubsta nce abuse hxadded to PMH Primary insomnia 4497547 F51.01 plan wasmelaton in 3 mg qhs [...] Member ID Guarantor Name 09/19/2021 1 [place] [facility] Radha Olivera [id number] Radha Olivera 09/22/2021 1 [place] [facility] Radha Olivera [id number] Radha Olivera 10/04/2021 1 [place] [facility] Radha Olivera [id number] Radha Olivera 10/12/2021 1 [place] [facility] Radha Olivera [id number] Radha Olivera 06/01/2022 1 [facility] [place] [id number] Radha Olivera Notes Date Note Type Note Provider Name and Address Organization Details Recorded Time 2 text/html Pt seen for acute rounding visit today for discharge planning. Pt returned last evening from weekend [place]. Has been spending more time at her boyfriend's house in [place] and is hoping to move in with [...] and Klonopin and then nurse confirmed with [facility] that pt never had an appointment for that day. When confronted about this today, pt said she only found out when her aunt picked her up that her aunt had rescheduled it from 09/18 to a different date. This was confirmed to not be true. PMHx reviewed Meds reviewed ASA VALENTIN PA-C [address] [place] [address], [address], [place], [address], [facility] 09/20/2021 13:15:34 2 text/html Pt seen for [...] and Klonopin and then nurse confirmed with [facility] that pt never had an appointment for that day. When confronted about this today, pt said she only found out when her aunt picked her up that her aunt had rescheduled it from 09/18 to a different date. This was confirmed to not be true. Britta Wright, ZACH [address] [facility], [address], [place], [address], [facility] 09/22/2021 13:37:01 2 text/html Pt seen [...] referred to [facility] for R knee pain. Altha that insurance referral is required. Says she has another laser eye surgery on 10/13/21 and will need pre-med again with Klonopin and oxycodone. Boyfriend's mother has yet to decide if Radha can move in. Continues to eat foods which are contrary to her diabetes diagnosis. ASA VALENTIN PA-C [address] [facility], [address], [place], [address], [facility] 10/09/2021 15:06:47 2 text/html Pt seen [...] (no use so far this month) ASA VALENITN PA-C [address] [facility], [address], [place], [address], [facility] 10/12/2021 14:53:35 3 text/html Patient is [...] care and therapy Héctor Alexander MD [address] [facility], [address], [place], [address], [facility] 06/01/2022 11:42:48 OBGyn Episode No OBEpisode recorded.
== END 2024-08-27 06:22 | disposition home or self-care (01) ==
LOC: CF 06:21
PROVIDERS: Visit Provider Internal Medicine
DX: M47.816 Spondylosis without myelopathy or radiculopathy, lumbar region (principal)
CPT/HCPCS: 64493; 64494; J2003; J2795; Q9967

== ENCOUNTER 2024-08-27 11:08 | Outpatient (AMB) | payer OTHER, SELFPAY ==
[2024-08-27 11:17] VITALS: BP 133/79; PULSE 81; RESP 16; O2SAT 97
--- NOTE | 2024-08-27 11:17 | MHC.OFFVIS ---
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: No Allergies doxycycline Allergy (Mild, Verified 08/27/24 11:17) Hives sulfamethoxazole [From Bactrim] Allergy (Unknown, Verified 08/27/24 11:17) Hives trimethoprim [From Bactrim] Allergy (Unknown, Verified 08/27/24 11:17) Hives almonds Allergy (Intermediate, Uncoded 08/27/24 11:17) Hives Medication List - Last Reconciled 08/27/24 by Nikki Taylor LPN acetaminophen (Infant's Tylenol) 960 mg (30 mL) PO .q8 PRN 30 days acetaminophen (Pain Relief (acetaminophen)) mg PO acetone (urine) test (Ketone Urine Test strips) As directed prn high glucose, nausea/vomiting acetone (urine) test (Ketone Urine Test strips) prn glucose over 250, nausea, vomiting or illness up to tid albuterol sulfate 90 mcg/actuation 2 puffs inhalation Q4-6H PRN 30 days apixaban (Eliquis) 5 mg PO BID benzocaine 20% 1 appl mucous membrane TID PRN 3 days blood pressure monitor Automatic, Digital. Dx: I10. Daily As directed, 999 days/lifetime blood sugar diagnostic (FreeStyle Lite Strips) 3 times a day testing blood-glucose meter (FreeStyle Lite Meter kit) As directed blood-glucose sensor (Dexcom G7 Sensor device) As directed blood-glucose sensor (Dexcom G7 Sensor device) As directed blood-glucose,energy advisor,cont (Dexcom G7 Microfilmer) As directed buprenorphine ER (Sublocade) mg subcut buprenorphine-naloxone 12-3 mg (Suboxone) film sublingual buprenorphine-naloxone 8-2 mg (Suboxone) 1 film sublingual DAILY calcium polycarbophil (FiberCon) 625 mg PO DAILY 90 days cyclobenzaprine 10 mg PO TID 30 days diaper,brief,adult,disposable (Disposable Brief) Adult brief, medium. 2 times a day As directed, 90 days ergocalciferol (vitamin D2) 1,250 mcg PO QWEEK escitalopram oxalate 20 mg PO DAILY 90 days gabapentin 800 mg PO TID 30 days glucose (Dex4 Glucose) 16 grams (4 x 4 gram) PO Q15M PRN 30 days MDD 16 tablets insulin degludec (Tresiba FlexTouch U-200 insulin) 18 units subcut BEDTIME insulin lispro Sliding Scale 10-16 units subcutaneously 3 times a day PRN; ISS insulin syringe-needle U-100 3 times a day insulin injection lancets (FreeStyle Lancets) As directed leg brace (Ankle Brace) Right ankle brace, As directed, 42 days lidocaine 5% 1 ea topical BID PRN 30 days loperamide 4 mg (2 x 2 mg) PO Q6H PRN loratadine (Allergy Relief (loratadine)) 10 mg PO DAILY lorazepam 1 mg PO ONCE PRN 1 day melatonin 6 mg (2 x 3 mg) PO BEDTIME PRN 90 days metoprolol succinate ER 25 mg PO BID 90 days miscellaneous medical supply Wheelchair. Daily As directed, 999 Days naloxone 4 mg/actuation 1 spray intranasal DAILY PRN pen needle, diabetic (BD [place] 2nd Gen Pen Needle) As directed 4x daily tamsulosin 0.4 mg PO DAILY 90 days HPI HPI Oliverio Dx L3-L4-DR-L5 MBB: Details: Patient presents for scheduled procedure. Denies any recent cough, cold, infection, fever or other significant changes in medical history since last office visit. 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 Anxiety Depression Asthma Diabetes 1.5, managed as type 1 Surgical History 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 Hx of LASIK H/O detached retina repair History of adenoidectomy History of tonsillectomy H/O removal of cyst Family History Mother Substance abuse Asthma Psychiatric disorder Father Psychiatric disorder Maternal Grandmother Cancer Other Mental health disorder Social History Housing: Apartment Alcohol intake: current Alcohol intake frequency: a few times a month Patient Tobacco Use Status: Current everyday Tobacco user Tobacco use type: Cigarette Cigarette Packs Per Day: 1 e-Cigarette/Vaping Use: Currently Using service: No Current occupational status: disabled Cognitive needs: No Hearing needs: No Vision needs: Yes (Patient needs eye exM) Physical Exam Vital Signs: Last Vital Signs Pulse 89 08/27/24 11:59 Resp 16 08/27/24 11:59 BP 158/83 H 08/27/24 11:59 Pulse Ox 98 08/27/24 11:59 Oxygen Delivery Method Room Air 08/27/24 11:59 Office Procedures Lumbar/Sacral Facet Inj Details: Lumbar Medial Branch Block, Bilateral L3, L4 medial branches and L5 Dorsal Ramus (2 levels, 3 nerves) After obtaining written consent, pre-procedure blood pressure and pulse were recorded and are in the nursing record for review. The patient was placed in a prone position. The respective lumbosacral area was prepped with chloraprep and draped in sterile fashion. The skin over the target medial branch nerves was anesthetized with 0.5% lidocaine. A 22 gauge 3.5 inch needle was inserted into the target medial branch nerve under fluoroscopic guidance. No paresthesias were elicited with needle placement and aspiration was negative for blood and CSF. Next, 0.2cc of omnipaque 180 was injected to verify positioning. Next 0.5 ml 0.5% ropivicaine was injected (0.5cc total per level). The identical procedure was performed at the remaining levels. The skin was cleansed and a sterile bandage was applied. Following the procedure the patient's vital signs were stable. The patient tolerated the procedure well and no complications were encountered. Following the procedure the patient's vital signs were stable. The patient was discharged home in good condition with post-procedural instructions. Time Out: Immediately prior to the procedure, the following was verbally confirmed that there is a signed consent form and that the correct patient, planned procedure, site and side are consistent with documentation and that necessary equipment and/or blood products are available prior to the start of the case. Complications: none EBL: <5 cc 67158 - with Fluoroscopy (bilateral) 90931 - second level, with Fluoroscopy Procedure code (CPT) selection complete Assessment & Plan Assessment & Plan (1) Lumbar spondylosis: Code(s): M47.816 - Spondylosis without myelopathy or radiculopathy, lumbar region Category: Medical Plan Patient is status post bilateral L3, L4 medial branches and L5 dorsal ramus diagnostic nerve blocks. Patient tolerated procedure well and was discharged home in stable condition with discharge instructions. All questions were answered. We will follow-up via telephone or in clinic to assess response to therapy. A follow-up appointment was made during today's visit. Orders: Orders FL guidance in treatment room Today M47.816 - Spondylosis without myelopathy or radiculopathy, lumbar region Coding Level of Care Code Procedure Only Diagnoses Lumbar spondylosis M47.816 CPT Codes Facet Injection-Lumbar/Sacral - CPT: 00837 - with Fluoroscopy ([id number]) Facet Injection-Lumbar/Sacral - CPT: 23366 - second level, with Fluoroscopy ([id number])
[2024-08-27 11:59] VITALS: BP 158/83; PULSE 89; RESP 16; O2SAT 98
--- OUTSIDE RECORDS SUMMARY | 2024-08-27 13:13 | XMS_ITS | Clinical Summary ---
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
--- OUTSIDE RECORDS SUMMARY | 2024-08-27 13:13 | XMS_ITS | Data Portability ---
Author Organization [facility] [place] [facility] Address [address] [place] [address] Assessment Encounter Date Assessment Date Assessment LastModified [...] A routine recheck is in 2 weeks. [email or web address] Not available 10/22/2023 15:23:38 06/16/2024 06/16/2024 SUBJECTIVE [...] scratching at a wound care clinic in [place]. Radha reports improved diabetes control with a recent hemoglobin A1c of about 8. OBJECTIVE Examination Right lower extremity: Knee flexion fixed at approximately 70 degrees with varus angulation, skin wounds over anterior leg. Imaging X-rays ordered, obtained, and reviewed by me today at [facility] of the right knee show a [...] once her right leg wounds have healed. [email or web address] Not available 06/16/2024 15:44:56 Plan of Treatment Reminders Order Date Submit Date Provider Last Modified By Organization Details Last Modified Time Details Appointments None recorded. Lab gram stain, synovial fluid - LEFT KNEE STAT 2023 024 [employer], [address], [address], [place], [address], 14:14:05 cell count, synovial fluid - LEFT KNEE STAT 2023 024 [employer], [address], [address], [place], [address], 4 08:07:04 Referral None recorded. Procedures None recorded. Surgeries None recorded. Imaging XR, knee, 1 or 2 view 2024 025 [email or web address], [address], [address], [place], [address], 5 15:37:43 Medication Orders None recorded. Patient [...] a4ajBk vP9nXo QUaueC m3YtLR FvZlgJ JJ8mAn HZtai3 1v1933 AC0Kqb HqBVaC jKiQtr MwF INTERFACE [facility] [address], [place], [address], 06/16/2024 13:54:53 06/16/19 25 06/16/2024 XR, knee, 1 or 2 view http:/ [email or web address] ?Encry pted=s hAaTro YD8dLq bEUv6g %2BXZw aYqtaq 0bqfl% 2Fg9IQ a4ajBk vP9nXo QUaueC m3YtLR FvZlgJ J8mAn HZtai3 0n2420 AC0Kqb HqBVaC jKiQtr MwF INTERFACE [facility] [address], [place], [address], 06/16/2024 13:54:55 Result Notes None recorded. Procedures Surgical History None recorded. Imaging Results Imaging Date Name Status LastModified by Organiz ation Details LastModified Time 06/05/2022 imaging/diag nostic result completed [email or web address] Information not available 01/04/2024 01:54:57 06/16/2024 XR, knee, 1 or 2 view completed INTERFACE [facility] [address], [place], [address], 06/16/2024 13:54:53 06/16/2024 XR, knee, 1 or 2 view completed INTERFACE [facility] [address], [place], [address], 06/16/2024 13:54:55 Procedure Notes None recorded. Medical Equipment None Reported. Allergies Allergen ID Allergen Name Allergen Category Reaction Reaction Severity Criticality Documentation Date Start Date Code Code System Note Provider Name and Address Organization Details Recorded Time 436898 almond oil food,medi cation Not available Not available Not available 07/08/20232021 54378 38 RxNorm Not Available [facility] 4 16:13:12 128486 doxycycli ne hyclate medicatio n Not available Not available Not available 07/08/20232021 01903 RxNorm Not Available [facility] 4 16:13:12 140806 Bactrim medicatio n Not available Not available Not available 07/08/20232021 00553 9 RxNorm Not Available Critical [facility] hospital 4 16:13:12 Medications Name Sig Start Date [...] Updated DateTime 10/22/2023 162.56 cm 25.7 kg/m2 67317.86 g LISA BROWN [place] - [facility] 10/22/2023 13:49:00 Date Recorded Body height Body mass index (BMI) Body weight Provider Name and Address Organization Details Last Updated DateTime 06/16/2024 162.56 cm 25.7 kg/m2 38422.86 g LISA BROWN [place] - [facility] 06/16/2024 13:32:58 Social History None recorded. Functional Status None recorded. Mental Status None recorded. Family History Nothing Reported. Medical History Condition Response Coronary Artery Disease N Anxiety/Depression Y Emphysema N COPD N Pacemaker N Vascular Disease N Heart Trouble N Gastrointestinal Disease N Autoimmune disease N Orthotics N Arthritis N Blood Clot Y Acid Reflux (GERD) N Cancer N Stroke N Circulation Problems Y Rheumatoid Arthritis N Arrhythmia N Headaches Y Fibromyalgia N Allergies/Hayfever N Breathing or lung disorders N Nerve Disorders Y Thyroid Problems N Kidney/Bladder Problems N Anemia N Heart Attack ([place]) N Cholesterol N Diabetes Y Bleeding Disorder N Seizures/Epilepsy N AIDS/HIV N Congestive Heart Failure (CHF) N Asthma Y Peripheral Vascular Disease N Sleep Apnea N Hepatitis Y Heart Disease N Pulmonary Embolism Y Hypertension N Osteoporosis N Gynecological HistoryNo gynecological history recorded. Obstetrics History GPAL:G 0 P 0 0 0 0 Past Encounters Encounter ID Performer Location Encounter Start Date Encounter Closed Date Diagnosis/Indication Diagnosis SNOMED-CT Code Diagnosis ICD10 Code Diagnosis Note [id number] MD [facility] [address] [place] [address] 10/22/2023 13:44:12 10/22/2023 15:52:39 Pain of left knee joint [id number] 02286 M25.309 [id number] Abbi Mueller MD [facility] [address] [place] [address] 06/16/2024 13:25:29 07/02/2024 15:37:43 Pain of knee region 7593883123 M25.561 Health Concerns Section Related Observation LastModified by Organization Detai ls LastModified Time None Recorded Concern Status LastModified by Organization Details LastModified Time None Recorded Advance Directives Directive None Recorded Payers Encounter Date Sequence Insurance Name Policy Number Policy Rios Covered Member ID Rios Member ID Guarantor Name 10/22/2023 1 [facility] - SKILLED NURSING OPTIONS - DUAL ELIGIBLE (MEDICARE-MEDI CAID REPLACEMENT HMO) [place] Oliver[place] [id number] Radha Olivera 06/16/2024 1 [facility] PL[employer] - SKILLED NURSING OPTIONS - DUAL ELIGIBLE (MEDICARE-MEDI CAID REPLACEMENT HMO) [facility] Radha Olivera [id number] Radha Olivera OBGyn Episode No OBEpisode recorded.
== END 2024-08-27 12:12 | disposition home or self-care (01) ==
LOC: HO.PMCPRC 11:08
PROVIDERS: PCP Family Medicine; Visit Provider Internal Medicine
DX: M47.816 Spondylosis without myelopathy or radiculopathy, lumbar region (principal)
CPT/HCPCS: 64493; 64494

== ENCOUNTER 2024-11-16 13:42 | Outpatient (AMB) | payer OTHER, SELFPAY ==
--- NOTE | 2024-11-16 13:39 | A.OFFPC_ITS ---
Intake Visit Reasons: Meds review Intake Note: patient is scheduled to review labs and go over medication list Allergies doxycycline Allergy (Mild, Verified 11/16/24 13:39) Hives sulfamethoxazole (From Bactrim) Allergy (Unknown, Verified 11/16/24 13:39) Hives trimethoprim (From Bactrim) Allergy (Unknown, Verified 11/16/24 13:39) Hives almonds Allergy (Intermediate, Uncoded 08/27/24 11:17) Hives Medication List - Last Reconciled 11/16/24 by Alexander Coughlin MD acetaminophen (Infant's Tylenol) 960 mg (30 mL) PO .q8 PRN 30 days acetaminophen (Pain Relief (acetaminophen)) mg PO acetone (urine) test (Ketone Urine Test strips) As directed prn high glucose, nausea/vomiting acetone (urine) test (Ketone Urine Test strips) prn glucose over 250, nausea, vomiting or illness up to tid albuterol sulfate 90 mcg/actuation 2 puffs inhalation Q4-6H PRN 30 days apixaban (Eliquis) 5 mg PO BID benzocaine 20% 1 appl mucous membrane TID PRN 3 days blood pressure monitor Automatic, Digital. Dx: I10. Daily As directed, 999 days/lifetime blood-glucose meter (FreeStyle Lite Meter kit) As directed blood-glucose sensor (Dexcom G7 Sensor device) As directed blood-glucose sensor (Dexcom G7 Sensor device) As directed blood-glucose,supervisor char house,cont (Dexcom G7 Claim Auditor) As directed buprenorphine ER (Sublocade) mg subcut buprenorphine-naloxone 12-3 mg (Suboxone) film sublingual buprenorphine-naloxone 8-2 mg (Suboxone) 1 film sublingual DAILY calcium polycarbophil (FiberCon) 625 mg PO DAILY 90 days cyclobenzaprine 10 mg PO TID 30 days diaper,brief,adult,disposable (Disposable Brief) Adult brief, medium. 2 times a day As directed, 90 days ergocalciferol (vitamin D2) 1,250 mcg PO QWEEK escitalopram oxalate 20 mg PO DAILY 90 days FreeStyle Lite Strips (blood sugar diagnostic) 3 times a day testing NS gabapentin 800 mg PO TID 30 days glucose (Dex4 Glucose) 16 grams (4 x 4 gram) PO Q15M PRN 30 days MDD 16 tablets insulin degludec (Tresiba FlexTouch U-200 insulin) 18 units subcut BEDTIME insulin lispro Sliding Scale 10-16 units subcutaneously 3 times a day PRN; ISS insulin syringe-needle U-100 3 times a day insulin injection lancets (FreeStyle Lancets) As directed leg brace (Ankle Brace) Right ankle brace, As directed, 42 days lidocaine 5% 1 ea topical BID PRN 30 days loperamide 4 mg (2 x 2 mg) PO Q6H PRN loratadine (Allergy Relief (loratadine)) 10 mg PO DAILY 90 days lorazepam 1 mg PO DAILY PRN 2 days melatonin 6 mg (2 x 3 mg) PO BEDTIME PRN 90 days metoprolol succinate ER 25 mg PO BID 90 days miscellaneous medical supply Wheelchair. Daily As directed, 999 Days naloxone 4 mg/actuation 1 spray intranasal DAILY PRN pen needle, diabetic (BD [place] 2nd Gen Pen Needle) As directed 4x daily tamsulosin 0.4 mg PO DAILY 90 days Tobacco use date assessed: 11/04/23 Dental Screening Dental Screen Date: 11/04/23 HPI Meds review HPI Details Patient presents I have telemedicine for follow-up chronic conditions Reviewed lab work including anemia. She is not taking iron any longer Agrees to try to take this but needs script. Just got a new insulin pump and she says her blood sugars are much improved. Still has ongoing back pain and leg pain. Recent nerve block did not help She has a follow-up when with pain management Patient has left leg amputation and just got a new prosthesis. She was like some physical therapy to help her with walking. [facility] Medical History Neuropathy Leg ulcer Type 1 diabetes Skin-picking disorder Polysubstance use disorder DKA (diabetic ketoacidosis) Depression with anxiety PTSD (post-traumatic stress disorder) Anxiety and depression Eczema Memory loss Incontinence delivery delivered Encephalopathy chronic Diabetic retinopathy Fibromyalgia Neuropathy 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 Anxiety Depression Asthma Diabetes 1.5, managed as type 1 Surgical History 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 Hx of LASIK H/O detached retina repair History of adenoidectomy History of tonsillectomy H/O removal of cyst Family History Mother Substance abuse Asthma Psychiatric disorder Father Psychiatric disorder Maternal Grandmother Cancer Other Mental health disorder Social History Housing: Apartment Alcohol intake: current Alcohol intake frequency: a few times a month Patient Tobacco Use Status: Current everyday Tobacco user Tobacco use type: Cigarette Cigarette Packs Per Day: 1 e-Cigarette/Vaping Use: Currently Using service: No Current occupational status: disabled Cognitive needs: No Hearing needs: No Vision needs: Yes (Patient needs eye exM) Questionnaire Thrive Questionnaire Date Thrive assessed: 07/09/24 JEANE-7 AMB Questionnaire JEANE-7 Date JEANE - 7 assessed: 11/04/23 Source: Developed by Drs. Alex Alicea, Vero Reyes, Dimitrios Wesley and colleagues, with an educational nehemias from [employer]. Review of Systems Const Denies chills, Denies fatigue, Denies fever(s), Denies headache(s) and Denies weakness ENT Denies dizziness and Denies headache(s) Card Denies chest pain, Denies lightheadedness, Denies dyspnea and Denies other (Palpitations) Resp Denies cough, Denies dyspnea, Denies wheezing and Denies other ( shortness of breath) Musc Denies numbness and Denies tingling Neuro Denies dizziness, Denies headache(s), Denies numbness, Denies tingling, Denies paresthesias and Denies weakness Psych Denies anxiety and Denies depression Endo Denies fatigue Aller/Immun Denies wheezing Physical exam (Primary Care) Tobacco/Smoking Status: Tobacco use Status Tobacco use date assessed 11/04/23 11/16/24 13:42 Patient Tobacco Use Status Current everyday Tobacco 11/16/24 13:42 Tobacco use type Cigarette 11/16/24 13:42 e-Cigarette/Vaping Use Currently Using 11/16/24 13:42 Thrive Assessment: Date of Thrive Assessment Date Thrive assessed 07/09/24 11/16/24 13:42 Telehealth Telehealth Telehealth Platform: Telephone Location of provider rendering services: practice address Location of patient: address on file Patient Identification confirmed using: Name, : Yes Telehealth method: voice only Patient verbally consented to treatment: Yes Patient verbally consented to billing insurance company: Yes Patient informed of any privacy concerns related to visit: Yes Minutes spent on Phone/Video with Pt.: 12 Coding Level of Care Code Tele Est Pt Level 2 (32419) Diagnoses Anemia D64.9 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, sequela S88.112S Encounter type: sequela Hyperkalemia E87.5 Diabetes 1.5, managed as type 1 E13.9 Assessment & Plan Assessment & Plan (1) Anemia: Code(s): D64.9 - Anemia, unspecified Category: Medical Plan: The patient has ongoing anemia She is not on iron and I sent script Hydrate well (2) 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: Code(s): S88.112A - Complete traumatic amputation at level between knee and ankle, left lower leg, initial encounter Category: Medical Qualifiers: Encounter type: sequela Qualified Code(s): S88.112S - Complete traumatic amputation at level between knee and ankle, left lower leg, sequela Plan: Left leg amputation And prosthesis Patient has new prosthesis and would like physical therapy to help with mechanics and balance training Referred (3) Hyperkalemia: Code(s): E87.5 - Hyperkalemia Category: Medical Plan: This has resolved Hydrate well (4) Diabetes 1.5, managed as type 1: Code(s): E13.9 - Other specified diabetes mellitus without complications Category: Medical Plan: Just got her new insulin pump and says her blood sugars have been much better improve Follow-up with endocrinology as recommended Orders: Orders PT Evaluation and Treatment Today S88.112S - Complete traumatic amputation at level between knee and ankle, left lower leg, sequela, Z97.10 - Presence of artificial limb (complete) (partial), unspecified Medications: New ferrous sulfate 325 mg PO DAILY 30 tabs 2RF 30 days Changed From lorazepam 1 mg PO DAILY 2 days PRN 2 tabs 0RF procedure To lorazepam 1 mg PO DAILY PRN 2 tabs 0RF procedure 30 days
--- OUTSIDE RECORDS SUMMARY | 2024-11-16 14:54 | XMS_ITS | Data Portability ---
Author Organization [facility] - Omar Posey [facility], [facility] Address [address] [place] [address] Assessment Encounter Date Assessment Date Assessment LastModified [...] A routine recheck is in 2 weeks. Not available 10/22/2023 15:23:38 06/16/2024 06/16/2024 SUBJECTIVE [...] scratching at a wound care clinic in [place]. Radha reports improved diabetes control with a recent hemoglobin A1c of about 8. OBJECTIVE Examination Right lower extremity: Knee flexion fixed at approximately 70 degrees with varus angulation, skin wounds over anterior leg. Imaging X-rays ordered, obtained, and reviewed by me today at [facility] of the right knee show a fusion [...] once her right leg wounds have healed. [email or web address] Not available 06/16/2024 15:44:56 Plan of Treatment Reminders Order Date Submit Date Provider Last Modified By Organization Details Last Modified Time Details Appointments None recorded. Lab gram stain, synovial fluid - LEFT KNEE STAT 2023 024 [employer], [address], [place], [address], 4 14:14:05 cell count, synovial fluid - LEFT KNEE STAT 2023 024 [employer], [address], [address], [place], [address], 4 08:07:04 Referral None recorded. Procedures None recorded. Surgeries None recorded. Imaging XR, knee, 1 or 2 view 2024 025 [email or web address], [address], [address], [place], [address], 5 15:37:43 Medication Orders None recorded. Patient [...] a4ajBk vP9nXo QUaueC m3YtLR FvZlgJ JJ8mAn HZtai3 1m6041 AC0Kqb HqBVaC jKiQtr MwF INTERFACE [facility] Office [address], [place], [address], 06/16/2024 13:54:53 06/16/19 25 06/16/2024 XR, knee, 1 or 2 view http:/ [email or web address] ?Encry pted=s hAaTro YD8dLq bEUv6g %2BXZw aYqtaq 0bqfl% 2Fg9IQ a4ajBk vP9nXo QUaueC m3YtLR FvZl J8mAn HZtai3 9d5693 AC0Kqb HqBVaC jKiQtr MwF INTERFACE [facility] [address] [facility] [address], [place], [address], 06/16/2024 13:54:55 Result Notes Documentation Provider Name and Address Organization Details Recorded Time Xr, Knee, 1 Or 2 View : [email or web address]? Encrypted=hyWaDrbYA6bZcxQ Uv6g%2WZNckHecnv9wtol%2Fg 6GXz6zwWvaV2mVhQDngpDc9Ls CGQePecDVG2uQuJDnhz48g644 7RJ8WymBhQAgAfKsMbzWsP Not Available [facility] 06/16/2024 13:54: 53 Xr, Knee, 1 Or 2 View : [email or web address]? Encrypted=idIsJncHJ1jRilA Uv6g%5LGRlfCavmh8ajla%2Fg 3XYo1htUmoO1hUcCGxdnKq6Wn WRAkAybAYX1lZnNRwbb75v321 2YT6ItrLdXOkRpAzShpBhH Not Available [facility] 06/16/2024 13:54: 55 Medical Equipment None Reported. Allergies Allergen ID Allergen Name Allergen Category Reaction Reaction Severity Criticality Documentation Date Start Date Code Code System Note Provider Name and Address Organization Details Recorded Time 10790608 almond oil food,medi cation Not available Not available Not available 07/08/20232021 49020 38 RxNorm Not Available [facility] 16:13:12 530649 doxycycli ne hyclate medicatio n Not available Not available Not available 07/08/20232021 56388 RxNorm Not Available [facility] 16:13:12 246604 Bactrim medicatio n Not available Not available Not available 07/08/20232021 21845 9 RxNorm Not Available [facility] 16:13:12 Medications Name Sig Start Date Stop [...] Updated DateTime 06/16/2024 162.56 cm 25.7 kg/m2 67977.86 g LISA BROWN [facility] 06/16/2024 13:32:58 Date Recorded Body height Body mass index (BMI) Body weight Provider Name and Address Organization Details Last Updated DateTime 10/22/2023 162.56 cm 25.7 kg/m2 54979.86 g LISA BROWN [facility] 10/22/2023 13:49:00 Social History None recorded. Functional Status None [...] Kidney/Bladder Problems N Anemia N Heart Attack ([place]) N Cholesterol N Diabetes Y Bleeding Disorder [...] SNOMED-CT Code Diagnosis ICD10 Code Diagnosis Note [id number] MD Curtis Cameron [address] [place] [address] 10/22/2023 13:44:12 10/22/2023 15:52:39 Pain of left knee joint [id number] 47711 M25.738 [id number] MD JALIL Cameron [address] [place] [address] 06/16/2024 13:25:29 07/02/2024 15:37:43 Pain of knee region 7788424909 M25.561 Health Concerns Section Related Observation LastModified by Organization Detai ls LastModified Time None Recorded Concern Status LastModified by Organization Details LastModified Time None Recorded Advance Directives Directive None Recorded Payers Insurance Date Sequence Insurance Name Policy Number Policy Rios Covered Member ID Rios Member ID Guarantor Name 07/02/2024 1 [facility] PLAN - [facility] OPTIONS - DUAL ELIGIBLE (MEDICARE-MEDI CAID REPLACEMENT HMO) [facility] Radha Olivera [id number] Radha Olivera OBGyn Episode No OBEpisode recorded.
--- OUTSIDE RECORDS SUMMARY | 2024-11-16 14:54 | XMS_ITS | Clinical Summary ---
Author Organization [facility] Address [address] [address] Care Team Providers Care Auto Salvage Worker Name Role Phone Uriel Cyr MD Primary [...] Visual Foot Exam 06/06/2022 Influenza Vaccine (#1) 2025 Insurance [facility] Medicaid Care Teams Auto Salvage Worker Relationship Specialty Start Date End Date Uriel Cyr MD PCP - General Family Medicine 06/05/22
== END 2024-11-16 17:05 ==
LOC: HO.HMCFM 13:42
PROVIDERS: PCP Family Medicine; Visit Provider Family Medicine
DX: D64.9 Anemia, unspecified (principal); S88.112S Complete traumatic amputation at level between knee and ankle, left lower leg, sequela; E87.5 Hyperkalemia; E13.9 Other specified diabetes mellitus without complications

== ENCOUNTER 2024-12-30 11:09 | Outpatient (AMB) | payer OTHER, SELFPAY ==
--- NOTE | 2024-12-30 11:15 | A.OFFPC_ITS ---
Vital Signs 12/30/24 11:18 12/30/24 11:44 Height 5 ft 4 in BMI Reason not done Patient refused/unable BP 183/99 H 158/80 H Blood Pressure Location Rt brachial Rt brachial Position Sitting Respiration 16 Pulse 122 H Pulse Source Pulse Oximeter Temp 98.4 F Temp Source Oral Pulse Oximetry (%) 99 Oxygen Delivery Method Room Air Intake Visit Reasons: dentist preop Intake Note: patient here for dentist pre op Career Technical Education Teacher Required: No Is last menstrual period known: No Post menopausal: No Patient : No Allergies doxycycline Allergy (Mild, Verified 12/30/24 11:17) Hives sulfamethoxazole (From Bactrim) Allergy (Unknown, Verified 12/30/24 11:17) Hives trimethoprim (From Bactrim) Allergy (Unknown, Verified 12/30/24 11:17) Hives almonds Allergy (Intermediate, Uncoded 08/27/24 11:17) Hives Tobacco use date assessed: 12/30/24 Dental Screening Dental Screen Date: 12/30/24 Did you have a dental visit in the last 12 months?: Yes Did you have a dental problem in the last 6 months where you did not have access to dental care?: No Was dental information given to patient?: Patient has dentist HPI dentist preop HPI Details Patient presents for preoperative clearance prior to Dental surgery Procedure: Dental Extractions x 3 Date:? TBD Surgeon: Helio Aceves Anesthesia: General Cardiac Hx: None Pulmonary Hx: Hx of PE Prior Surgical Complications: None Prior Anesthesia Complications: None Coag issues: Hypercoag State and Hx or DVT & PE Functional [place]: Wheelchair-bound [facility] Medical History Neuropathy Leg ulcer Type 1 diabetes Skin-picking disorder Polysubstance use disorder DKA (diabetic ketoacidosis) Depression with anxiety PTSD (post-traumatic stress disorder) Anxiety and depression Eczema Memory loss Incontinence delivery delivered Encephalopathy chronic Diabetic retinopathy Fibromyalgia Neuropathy 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 Anxiety Depression Asthma Diabetes 1.5, managed as type 1 Surgical History 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 Hx of LASIK H/O detached retina repair History of adenoidectomy History of tonsillectomy H/O removal of cyst Family History Mother Substance abuse Asthma Psychiatric disorder Father Psychiatric disorder Maternal Grandmother Cancer Other Mental health disorder Social History Housing: Apartment Alcohol intake: current Alcohol intake frequency: a few times a month Patient Tobacco Use Status: Current everyday Tobacco user Tobacco use type: Cigarette Cigarette Packs Per Day: 1 e-Cigarette/Vaping Use: Currently Using service: No Current occupational status: disabled Cognitive needs: No Hearing needs: No Vision needs: Yes (Patient needs eye exM) Questionnaire Thrive Questionnaire Date Thrive assessed: 07/09/24 I am a: Patient What is your living situation today?: I have a steady place to live Within the past 12 months, did the food you bought not last and you didn't have the money to get more?: Sometimes True Within the past 12 months, did you worry whether your food would run out before you got money to buy more?: Sometimes True Do you have trouble paying for medicines?: No Do you have trouble getting transportation to medical appointments?: No Do you have trouble paying your heating and electricity bill?: No Do you have trouble taking care of your child, family member or friend?: Yes Do you have trouble with day-to-day activities such as bathing, preparing meals, shopping, managing finances, etc.?: Yes Are you currently unemployed and looking for a job?: No Are you interested in more education?: No Please select the resources that you would like help with: None Currently or been in a relationship where the following occur: I choose not to answer THRIVE Score: 2 JEANE-7 AMB Questionnaire JEANE-7 Date JEANE - 7 assessed: 11/04/23 Source: Developed by Drs. Alex Alicea, Vero Reyes, Dimitrios Wesley and colleagues, with an educational nehemias from [employer]. Review of Systems Const Denies chills, Denies fatigue, Denies fever(s), Denies headache(s) and Denies weakness ENT Denies dizziness and Denies headache(s) Card Denies chest pain, Denies lightheadedness, Denies dyspnea and Denies other (Palpitations) Resp Denies cough, Denies dyspnea, Denies wheezing and Denies other ( shortness of breath) Musc Denies numbness and Denies tingling Neuro Denies dizziness, Denies headache(s), Denies numbness, Denies tingling, Denies paresthesias and Denies weakness Psych Denies anxiety and Denies depression Endo Denies fatigue Aller/Immun Denies wheezing Physical exam (Primary Care) Vital Signs: Last Vital Signs Temp 98.4 F 12/30/24 11:18 Pulse 122 H 12/30/24 11:18 Resp 16 12/30/24 11:18 BP 158/80 H 12/30/24 11:44 Pulse Ox 99 12/30/24 11:18 Oxygen Delivery Method Room Air 12/30/24 11:18 Tobacco/Smoking Status: Tobacco use Status Tobacco use date assessed 12/30/24 12/30/24 11:21 Patient Tobacco Use Status Current everyday Tobacco 12/30/24 11:16 Tobacco use type Cigarette 12/30/24 11:16 e-Cigarette/Vaping Use Currently Using 12/30/24 11:16 Thrive Assessment: Date of Thrive Assessment Date Thrive assessed 07/09/24 12/30/24 11:16 Currently or been in a relationship where the following occur: I choose not to a nswer Const General: no acute distress and well developed Nutritional Appearance: well nourished Orientation/consciousness: patient oriented x3 HENMT Head: Yes normocephalic and Yes atraumatic Eyes General: appearance normal, both eyes and all related structures Pupils: Equal, round and reactive pupils present EOM: EOMs intact bilaterally Resp Effort & Inspection: normal respiratory effort Auscultation: clear to auscultation bilaterally Cardio Rate: regular rate Rhythm: regular rhythm Heart sounds: S1 normal heart sound present, S2 normal heart sound present, no gallops, no murmurs and no rubs Neuro Other: Wheelchair bound General: patient oriented x3 and No gait normal Cranial nerves: Yes Equal, round and reactive pupils present Psych Affect: normal affect Coding Level of Care Code Est Pt Level 3 (59345) Diagnoses Pre-operative clearance Z01.818 Hypertension I10 Assessment & Plan Assessment & Plan (1) Pre-operative clearance: Code(s): Z01.818 - Encounter for other preprocedural examination Category: Medical Plan: 29-year-old female h/o Diabetes & hypercoagulable state presents for preoperative clearance prior to dental extractions x3 No history of cardiac disease. EKG: Sinus tachycardia, normal axis, no hypertrophy, no ST-T-wave changes. Cardiac exam within normal limits History of hypertension and tachycardia which are controlled by metoprolol. She did not take medication today. Blood pressure is elevated and heart rate is elevated. No history of pulmonary disease but did have PE secondary to hypercoagulable state-see below Pulmonary exam by auscultation is within normal limits No history of complications with prior surgeries or anesthesia Patient does have a hypercoagulable state with history of DVT and PE. She is on Eliquis. History of left lower leg amputation and patient is wheelchair-bound. Fair- suboptimal functional reserve. *Low-intermediate risk patient for low risk procedure Blood pressure is elevated and patient has not taken her medication today. She will return for nurse visit as I will append this note - otherwise is optimized for proposed procedure. She will hold Eliquis on the day of her procedure and resume the following day. (2) Hypertension: Code(s): I10 - Essential (primary) hypertension Category: Medical Plan: As above, blood pressure is too high. She did not take her medication today. She return for nurse visit. Will append note and adjust medication to optimize if needed. Medications: New ibuprofen 800 mg PO Q8H PRN 42 tabs 0RF pain 14 days cholecalciferol (vitamin D3) 1,250 mcg PO QWEEK 12 caps 0RF 84 days Discontinued ergocalciferol (vitamin D2) for 8 weeks, started 10/16/2023 Discontinued Reason: Doctor's Order 1,250 mcg PO QWEEK 4 caps 0RF
[2024-12-30 11:18] VITALS: BP 183/99; PULSE 122; RESP 16; TEMP 36.9; O2SAT 99
[2024-12-30 11:44] VITALS: BP 158/80
--- OUTSIDE RECORDS SUMMARY | 2024-12-30 12:05 | XMS_ITS | Encounter Summary ---
Author Organization [facility] Address [address] [employer] [facility] [address] [place] [address] Phone Care Team Providers Care Gambling Box Person Name Role Phone Uriel Rosario MD Primary Care Provide r Pcp, Unknown Unavailable Unavailable [place] Coughlin MD Primary Care Provider Encounter Details Date Type Department Care Team (Late st Contact Info) Description 05/23/2021 Transcribe Orders [facility] [address] [place] [address] Héctor [place] MD [address] [place] [address] [address], [address] [place] [address] [email or web address] Encounter for screening for COVID-19 (Primary Dx) Social History Tobacco Use Types Packs/Day Years Used Date Smoking Tobacco: Every Day Cigarettes Smokeless Tobacco: Never Alcohol Use Standard Drinks/Week Comments Never 0 (1 standard drink = 0.6 oz pur e alcohol) Comments Unknown Sex and Gender Information Value Date Recorded Sex Assigned at Female 12/07/2020 11:54 AM EDT Legal Sex Female 1:04 PM EDT Gender Identity Female 12/07/2020 11:54 AM EDT Sexual Orientation Not on file documented as of this encounter Plan of Treatment Not on file documented as of this encounter Results * COVID-19 PCR Order (05/22/2021 11:47 AM EST) COVID Testing Status Specimen received in analyzing lab. Results should be available within 24 to 48 hrs. [facility] Symptomatic? NO [facility] Other 05/22/2021 11:4 7 AM EST 05/23/2021 12:02 PM EST us Héctor [place] MD BODY FLUIDS AND STOOLS ORDERABLE S Final Result [facility] [address] [place] [address] [facility] [address] [place] [address] documented in this encounter Visit Diagnoses Diagnosis Encounter for screening for COVID-19- Primary documented in this encounter Additional Health Concerns Infection Onset Date Last Indicated Resolved Time MRSA 05/01/2020 05/01/2020 06/20/2022 1:45 AM EST CoV-Exposed Comment:Positive COVID-19 05/11/2021 05/11/2021 05/24/2021 8:3 7 PM EST COVID-19 05/22/2021 05/22/2021 06/12/2021 1:25 AM EST documented as of this encounter Care Teams Gambling Box Person Relationship Specialty Start Date End Date Uriel Rosario MD [address] [place] [address] PCP - General Family Medicine 04/30/20 08/13/24 [place] Coughlin MD [address] [place] [address] PCP - General Family Medicine 08/14/24 Pcp, Unknown 04/30/20 documented as of this encounter Additional Source Comments The information contained in this document represents components of the legal health record. It is not the complete legal health record.[facility]
--- OUTSIDE RECORDS SUMMARY | 2024-12-30 12:05 | XMS_ITS | Encounter Summary ---
Author Organization [facility] Address [address] [employer] [facility] [address] [place] [address] Phone Care Team Providers Care Security Control Center Operator Name Role Phone Uriel Rosario MD Primary Care Provide r Pcp, Unknown Unavailable Unavailable [place] Coughlin MD Primary Care Provider Encounter Details Date Type Department Care Team (Late st Contact Info) Description 06/07/2021 Procedure Pass [facility], [address] [address] Social History Tobacco Use Types Packs/Day Years [...] on file documented as of this encounter Visit Diagnoses Not on filedocumented in this encounter Additional Health Concerns Infection Onset Date Last Indicated Resolved Time MRSA 05/01/2020 05/01/2020 06/20/2022 1:45 AM EST COVID-19 05/22/2021 05/22/2021 06/12/2021 1:25 AM EST documented as of this encounter Care Teams Security Control Center Operator Relationship Specialty Start Date End Date Uriel Rosario MD [address] [place] [address] PCP - General Family Medicine 04/30/20 08/13/24 [place] Coughlin MD [address] [place] [address] PCP - General Family Medicine 08/14/24 Pcp, Unknown 04/30/20 documented as of this encounter Additional Source Comments The information contained in this document represents components of the legal health record. It is not the complete legal health record.[facility]
--- OUTSIDE RECORDS SUMMARY | 2024-12-30 12:05 | XMS_ITS | Encounter Summary ---
Author Organization [facility] Address [address] [employer] [facility] [address] [place] [address] Phone Care Team Providers Care Dehairer Name Role Phone Uriel Rosario MD Primary Care Provide r Pcp, Unknown Unavailable Unavailable [place] Coughlin MD Primary Care Provider Encounter Details Date Type Department Care Team (Late st Contact Info) Description 06/26/2021 Procedure Pass [facility], [address] [address] Social History Tobacco Use Types Packs/Day Years [...] MRSA 05/01/2020 05/01/2020 06/20/2022 1:45 AM EST documented as of this encounter Care Teams Dehairer Relationship Specialty Start Date End Date Uriel Rosario MD [address] [place] [address] PCP - General Family Medicine 04/30/20 08/13/24 [place] Coughlin MD [address] [place] [address] PCP - General Family Medicine 08/14/24 Pcp, Unknown 04/30/20 documented as of this encounter Additional Source Comments The information contained in this document represents components of the legal health record. It is not the complete legal health record.[facility]
--- OUTSIDE RECORDS SUMMARY | 2024-12-30 12:05 | XMS_ITS | Encounter Summary ---
Author Organization [facility] Address [address] [employer] [facility] [address] [place] [address] Phone Care Team Providers Care Food Demonstrator Name Role Phone Uriel Rosario MD Primary Care Provide r Pcp, Unknown Unavailable Unavailable [place] Coughlin MD Primary Care Provider Encounter Details Date Type Department Care Team (Late st Contact Info) Description 06/07/2021 Procedure Pass [facility], [address] [address] Social History Tobacco Use Types Packs/Day Years [...] documented as of this encounter Care Teams Food Demonstrator Relationship Specialty Start Date End Date Uriel Rosario MD [address] [place] [address] PCP - General Family Medicine 04/30/20 08/13/24 [place] Coughlin MD [address] [place] [address] PCP - General Family Medicine 08/14/24 Pcp, Unknown 04/30/20 documented as of this encounter Additional Source Comments The information contained in this document represents components of the legal health record. It is not the complete legal health record.[facility]
--- OUTSIDE RECORDS SUMMARY | 2024-12-30 12:05 | XMS_ITS | Encounter Summary ---
Author Organization [facility] Address [address] [employer] [facility] [address] [place] [address] Phone Care Team Providers Care Filter Machine Operator Name Role Phone Uriel Rosario MD Primary Care Provide r Pcp, Unknown Unavailable Unavailable [place] Coughlin MD Primary Care Provider Encounter Details Date Type Department Care Team (Late st Contact Info) Description 05/01/2020 Procedure Pass [facility], Ct Scan - [address] [address] Social History Tobacco Use Types Packs/Day Years Used Date Smoking Tobacco: Every Day Cigarettes Alcohol Use Standard Drinks/Week Comments Never 0 [...] MRSA 05/01/2020 05/01/2020 06/20/2022 1:45 AM EST CoV-Risk Comment:Per note documentation 12/22/2020 12/22/2020 7:55 AM EDT C. diff 12/28/2020 12/28/2020 01/27/2021 1:22 AM EDT CoV-Exposed Comment:Positive COVID-19 05/11/2021 05/11/2021 05/24/2021 8:3 7 PM EST COVID-19 05/22/2021 05/22/2021 06/12/2021 1:25 AM EST documented as of this encounter Care Teams Filter Machine Operator Relationship Specialty Start Date End Date Uriel Rosario MD [address] [place] [address] PCP - General Family Medicine 04/30/20 08/13/24 [place] Coughlin MD [address] [place] [address] PCP - General Family Medicine 08/14/24 Pcp, Unknown 04/30/20 documented as of this encounter Additional Source Comments The information contained in this document represents components of the legal health record. It is not the complete legal health record.[facility]
--- OUTSIDE RECORDS SUMMARY | 2024-12-30 12:05 | XMS_ITS | Clinical Summary ---
Author Organization [facility] Address [address] [address] Care Team Providers Care Commercial Reporter Name Role Phone Uriel Cyr MD Primary [...] Exam 06/06/2022 Influenza Vaccine (#1) 2025 Insurance [facility] Medicaid Care Teams Commercial Reporter Relationship Specialty Start Date End Date Uriel Cyr MD PCP - General Family Medicine 06/05/22
--- OUTSIDE RECORDS SUMMARY | 2024-12-30 12:05 | XMS_ITS ---
Author Name [facility] Organization Unknown Care Team Organization Name Specialty Phone Email Start Date End Da te [facility] Dasha Vigil [facility] 01/10/2023 12/23/2023
--- OUTSIDE RECORDS SUMMARY | 2024-12-30 12:05 | XMS_ITS | Encounter Summary ---
Author Organization [facility] Address [address] [employer] [address] [address] Phone Care Team Providers Care Advanced Manufacturing Associate Name Role Phone Uriel Rosario MD Primary Care Provide r Pcp, Unknown Unavailable Unavailable [place] Coughlin MD Primary Care Provider Encounter Details Date Type Department Care Team (Late st Contact Info) Description 02/11/2021 Transcribe Orders [facility] [address] [place] [address] Héctor [place] MD [address] [place] [address] [address] [place] [address] [email or web address] Possible exposure to STD (Primary Dx) Social History Tobacco Use Types [...] as of this encounter Plan of Treatment Pending Results Name Type Priority Associated Diagnoses Date /Time Chlamydia Trachomatis and Neisseria Gonorrhoeae Nucleic Acid Detection Microbiology Routine Possible exposure to STD 02/11/2021 6:30 AM EDT documented as of this encounter Visit Diagnoses Diagnosis Possible exposure to STD- Primary documented in this encounter Additional Health Concerns Infection Onset Date Last Indicated Resolved Time MRSA 05/01/2020 05/01/2020 06/20/2022 1:45 AM EST CoV-Exposed Comment:Positive COVID-19 05/11/2021 05/11/2021 05/24/2021 8:3 7 PM EST COVID-19 05/22/2021 05/22/2021 06/12/2021 1:25 AM EST documented as of this encounter Care Teams Advanced Manufacturing Associate Relationship Specialty Start Date End Date Uriel Rosario MD [address] [place] [address] PCP - General Family Medicine 04/30/20 08/13/24 [place] Coughlin MD [address] [place] [address] PCP - General Family Medicine 08/14/24 Pcp, Unknown 04/30/20 documented as of this encounter Additional Source Comments The information contained in this document represents components of the legal health record. It is not the complete legal health record.[facility]
--- OUTSIDE RECORDS SUMMARY | 2024-12-30 12:05 | XMS_ITS | Encounter Summary ---
Author Organization [facility] Address [address] [employer] [facility] [address] [place] [address] Phone Care Team Providers Care Draw Press Operator Name Role Phone Uriel Rosario MD Primary Care Provide r Pcp, Unknown Unavailable Unavailable [place] Coughlin MD Primary Care Provider Encounter Details Date Type Department Care Team (Late st Contact Info) Description 05/01/2020 Procedure Pass [facility] [address] [place] [address] Social History Tobacco Use Types Packs/Day Years [...] documented as of this encounter Care Teams Draw Press Operator Relationship Specialty Start Date End Date Uriel Rosario MD [address] [place] [address] PCP - General Family Medicine 04/30/20 08/13/24 [place] Coughlin MD [address] [place] [address] PCP - General Family Medicine 08/14/24 Pcp, Unknown 04/30/20 documented as of this encounter Additional Source Comments The information contained in this document represents components of the legal health record. It is not the complete legal health record.[facility]
--- OUTSIDE RECORDS SUMMARY | 2024-12-30 12:05 | XMS_ITS | Encounter Summary ---
Author Organization [facility] Address [address] [address] Phone Care Team Providers Care News Video Editor Name Role Phone Uriel Rosario MD Primary Care Provide r Pcp, Unknown Unavailable Unavailable [place] Coguhlin MD Primary Care Provider Reason for Referral * MRI/CAT Scan - Closed Specialty Diagnoses / Procedures Referred By Contac t Referred To Contact Radiology Diagnoses Lumbar radiculopathy Weakness Quadriplegia and quadriparesis Procedures MRI Lumbar Spine MRI Lumbar Spine Héctor [place] MD Phone: tel: fax: [email or web address] Referral ID Status Reason Start Date Expiration Date Visits Re quested Visits Authorized [id number] Closed 06/07/2021 06/07/2022 1 1 * MRI/CAT Scan - Closed Specialty Diagnoses / Procedures Referred By Contac t Referred To Contact Radiology Diagnoses Lumbar radiculopathy Weakness Quadriplegia and quadriparesis Procedures MRI Cervical Spine MRI Cervical Spine Héctor [place] MD Phone: tel: fax: [email or web address]:[email or web address] Referral ID Status Reason Start Date Expiration Date Visits Re quested Visits Authorized [id number] Closed 06/07/2021 06/07/2022 1 1 Encounter Details Date Type Department Care Team (Late st Contact Info) Description 06/26/2021 Ancillary Orders Virtual Department [address] [place] [address] Héctor [place] MD [address] [facility], [address] [place] [address] [email or web address] Lumbar radiculopathy; Weakness; Quadriplegia and quadriparesis Social History Tobacco Use Types Packs/Day Years [...] documented as of this encounter Results * MRI CERVICAL SPINE (BONE) WITHOUT CONTRAST (06/27/2021 12:02 PM EST) Anatomical Region Laterality Modality C-spine Magnetic Resonan ce 06/27/2021 12:1 1 PM EST Impressions 06/27/2021 12:22 PM EST Mildly limited resolution due to motion but essentially normal MRI of the cervical spine and cord. POS [id number] Narrative 06/27/2021 12:22 PM EST TECHNIQUE: 1.5 Alesha scanner. Nonenhanced exam. Compare to the total spine exam from 12/23/2020. Resolution on today's exam is also mildly limited by motion on a few sequences but not as severe as the prior study. FINDINGS: No abnormal signal is seen within the cord at any level to suggest myelopathy, mass or syrinx. The vertebral bodies are well-aligned. No marrow changes worrisome for bony trauma, tumor or infection. Disc heights are well-maintained without significant desiccation, bulge or focal protrusion at any level. No spinal stenosis No cerebellar tonsillar ectopia. Procedure Note Haseeb Zhang MD - 06/27/2021 TECHNIQUE: 1.5 Alesha scanner. Nonenhanced exam. Compare to the total spine exam from 12/23/2020. Resolution on today's exam is also mildly limited by motion on a fewsequences but not as severe as the prior study. FINDINGS: No abnormal signal is seen within the cord at any level to suggestmyelopathy, mass or syrinx. The vertebral bodies are well-aligned. No marrow changes worrisome forbony trauma, tumor or infection. Disc heights are well-maintained without significant desiccation, bulge orfocal protrusion at any level. No spinal stenosis No cerebellar tonsillar ectopia. IMPRESSION: Mildly limited resolution due to motion but essentially normal MRI of thecervical spine and cord. POS [id number] us Héctor [place] MD IMG MR XSPECIALTY Final Result * MRI LUMBAR SPINE (BONE) WITHOUT CONTRAST (06/27/2021 12:02 PM EST) Anatomical Region Laterality Modality L-spine Magnetic Resonan ce 06/27/2021 12:3 0 PM EST Impressions 06/27/2021 12:38 PM EST 1. No distal cord or cauda equina pathology. 2. No significant disc bulge or focal protrusion at any level. 3. Facet arthropathy at all levels, most conspicuous at L4-5 where there is mild central and bilateral foraminal stenosis. No other stenosis. POS [id number] Narrative 06/27/2021 12:38 PM EST TECHNIQUE: 1.5 Alesha scanner. Nonenhanced exam. Compare to total spine exam from 12/23/2020. Minimal loss of resolution on today's exam due to motion artifact, improved compared to the prior study. FINDINGS: The distal cord/conus and the cauda equina are normal in appearance. Well aligned vertebral bodies with normal marrow signal. T11-L4 disc are all normal in appearance; no bulge or focal protrusion. Mild facet hypertrophy at most levels but no significant stenosis. At L4-5 the disc height is well-maintained without desiccation but there is mild broad bulge. No focal disc protrusion. Pedicles are developmentally short and there is fairly bulky posterior facet and ligamentous hypertrophy overall resulting in mild central and bilateral foraminal stenosis. L5-S1 disc is normal. Moderate facet hypertrophy but no significant stenosis. No paraspinous or epidural soft tissue abnormalities. Procedure Note Haseeb Zhang MD - 06/27/2021 TECHNIQUE: 1.5 Alesha scanner. Nonenhanced exam. Compare to total spine exam from 12/23/2020. Minimal loss of resolution on today's exam due to motion artifact,improved compared to the prior study. FINDINGS: The distal cord/conus and the cauda equina are normal in appearance. Well aligned vertebral bodies with normal marrow signal. T11-L4 disc are all normal in appearance; no bulge or focal protrusion.Mild facet hypertrophy at most levels but no significant stenosis. At L4-5 the disc height is well-maintained without desiccation but thereis mild broad bulge. No focal disc protrusion. Pedicles aredevelopmentally short and there is fairly bulky posterior facet andligamentous hypertrophy overall resulting in mild central and bilateralforaminal stenosis. L5-S1 disc is normal. Moderate facet hypertrophy but no significantstenosis. No paraspinous or epidural soft tissue abnormalities. IMPRESSION: 1. No distal cord or cauda equina pathology. 2. No significant disc bulge or focal protrusion at any level. 3. Facet arthropathy at all levels, most conspicuous at L4-5 where thereis mild central and bilateral foraminal stenosis. No other stenosis. POS [id number] Héctor [place] MD IMG MR XSPECIALTY Final Result documented in this encounter Visit Diagnoses Diagnosis Lumbar radiculopathy Thoracic or lumbosacral neuritis or radiculitis, unspecified Weakness Other malaise and fatigue Quadriplegia and quadriparesis Lumbar radiculopathy Thoracic or lumbosacral neuritis or radiculitis, unspecified Weakness Other malaise and fatigue Quadriplegia and quadriparesis Lumbar radiculopathy Thoracic or lumbosacral neuritis or radiculitis, unspecified Weakness Other malaise and fatigue Quadriplegia and quadriparesis documented in this encounter Additional Health Concerns Infection Onset Date Last Indicated Resolved Time MRSA 05/01/2020 05/01/2020 06/20/2022 1:45 AM EST documented as of this encounter Care Teams News Video Editor Relationship Specialty Start Date End Date Uriel Rosario MD [address] [place] [address] PCP - General Family Medicine 04/30/20 08/13/24 [place] Coughlin MD [address] [place] [address] PCP - General Family Medicine 08/14/24 Pcp, Unknown 04/30/20 documented as of this encounter Additional Source Comments The information contained in this document represents components of the legal health record. It is not the complete legal health record.[facility]
--- OUTSIDE RECORDS SUMMARY | 2024-12-30 12:05 | XMS_ITS | Encounter Summary ---
Author Organization [facility] Address [address] [employer] [address] [place] [address] Phone Care Team Providers Care Flatwork Ironer Name Role Phone Uriel Rosario MD Primary Care Provide r Pcp, Unknown Unavailable Unavailable [place] Coughlin MD Primary Care Provider Encounter Details Date Type Department Care Team (Late st Contact Info) Description 12/20/2020 Procedure Pass [facility], Ct Scan - [address] [address] Social History Tobacco Use Types Packs/Day Years [...] on file documented as of this encounter Functional Status * Calculated C-SSRS Risk Score (Lifetime/Recent) Answer Date of Assessment Author No Risk Indicated 12/23/2020 3:09 AM Alex Patel i, RN * [place] Suicide Severity Rating Scale (Screener/Recent Self-Report) Question Answer Date of Assessment Author 1. Wish to be (Past 1 Month) No 12/23/2020 3:09 AM Alex Dunlap RN 2. Non-Specific Active Suicidal Thoughts (Past 1 Month) No 12/23/2020 3:09 AM EDT Alex Tellez RN 6. Suicidal Behavior (Lifetime) No 12/23/2020 3:09 AM EDT Alex Tellez, RN documented as of this encounter Plan of [...] documented as of this encounter Care Teams Flatwork Ironer Relationship Specialty Start Date End Date Uriel Rosario MD [address] [place] [address] PCP - General Family Medicine 04/30/20 08/13/24 [place] Coughlin MD [address] [place] [address] PCP - General Family Medicine 08/14/24 Pcp, Unknown 04/30/20 documented as of this encounter Additional Source Comments The information contained in this document represents components of the legal health record. It is not the complete legal health record.[facility]
--- OUTSIDE RECORDS SUMMARY | 2024-12-30 12:05 | XMS_ITS | Encounter Summary ---
Author Organization [facility] Address [address] [place] [address] Phone Care Team Providers Care Lead C Developer Name Role Phone Uriel Rosario MD Primary Care Provide r Pcp, Unknown Unavailable Unavailable [place] Coughlin MD Primary Care Provider Encounter Details Date Type Department Care Team (Late st Contact Info) Description 12/23/2020 Procedure Pass [facility], [address] [address] Social History Tobacco Use Types Packs/Day Years [...] Author No Risk Indicated 12/23/2020 3:09 AM REUBENT Alex Hernandez i, RN * [place] Suicide Severity Rating Scale (Screener/Recent Self-Report) Question Answer Date of Assessment Author 1. Wish to be (Past 1 Month) No 12/23/2020 3:09 AM EDT Alex Tellez, DEBORA 2. Non-Specific Active Suicidal Thoughts (Past 1 Month) No 12/23/2020 3:09 AM EDT Alex Tellez RN 6. Suicidal Behavior (Lifetime) No 12/23/2020 3:09 AM EDT Alex Tellez RN documented as of this encounter Plan [...] documented as of this encounter Care Teams Lead C Developer Relationship Specialty Start Date End Date Uriel Rosario MD [address] [place] [address] PCP - General Family Medicine 04/30/20 08/13/24 [place] Coughlin MD [address] [place] [address] PCP - General Family Medicine 08/14/24 Pcp, Unknown 04/30/20 documented as of this encounter Additional Source Comments The information contained in this document represents components of the legal health record. It is not the complete legal health record.[facility]
--- OUTSIDE RECORDS SUMMARY | 2024-12-30 12:05 | XMS_ITS | Encounter Summary ---
Author Organization [facility] Address [address] [facility] [address] [place] [address] Phone Care Team Providers Care Ear Muff Assembler Name Role Phone Uriel Rosario MD Primary Care Provide r Pcp, Unknown Unavailable Unavailable Alexander Coughlin MD Primary Care Provider Reason for Referral * MRI/CAT Scan - Closed Specialty Diagnoses / Procedures Referred By Contac t Referred To Contact Radiology Diagnoses Lumbar radiculopathy Weakness Quadriplegia and quadriparesis Procedures MRI Thoracic Spine Héctor Alexander MD Phone: tel: fax: [email or web address] Referral ID Status Reason Start Date Expiration Date Visits Re quested Visits Authorized [id number] Closed 06/26/2021 06/26/2022 1 1 Encounter Details Date Type Department Care Team (Latest Contact Info) Description 06/07/2021 Transcribe Orders Virtual Department [address] [place] [address] Héctor Alexander MD 38 [facility] [address] [place] [address] Quadriplegia and quadriparesis (Primary Dx); Lumbar radiculopathy; Weakness Social History Tobacco Use Types Packs/Day Years [...] as of this encounter Results * MRI THORACIC SPINE (BONE) WITHOUT CONTRAST (06/27/2021 12:02 PM EST) Anatomical Region Laterality Modality T-spine Magnetic Resonan ce 06/27/2021 12:2 3 PM EST Impressions 06/27/2021 12:30 PM EST Mildly limited evaluation of the upper thoracic cord but overall normal MRI appearance of the thoracic spine and cord other than very early degenerative changes in the T7-8 disc. No disc protrusion or stenosis at any level. POS [id number] Narrative 06/27/2021 12:30 PM EST TECHNIQUE: 1.5 Alesha scanner. Nonenhanced exam. Compare to the total spine exam from 12/23/2020. Resolution on today's exam is also mildly limited by motion artifact, particularly on the axial series of the upper thoracic levels but overall improved compared to the prior study. FINDINGS: No abnormal signal is seen within the cord at any level to suggest myelopathy, mass or syrinx. The vertebral bodies are well-aligned. No marrow changes worrisome for bony trauma, tumor or infection. Mild desiccation of the T7-8 disc with very slight loss of height but no significant disc bulge or focal protrusion. All of the other thoracic discs are normal in appearance. No bulge or focal protrusion at any level. No stenosis Paraspinous soft tissues are unremarkable. Procedure Note Haseeb Zhang MD - 06/27/2021 TECHNIQUE: 1.5 Alesha scanner. Nonenhanced exam. Compare to the total spine exam from 12/23/2020. Resolution on today's exam is also mildly limited by motion artifact,particularly on the axial series of the upper thoracic levels but overallimproved compared to the prior study. FINDINGS: No abnormal signal is seen within the cord at any level to suggestmyelopathy, mass or syrinx. The vertebral bodies are well-aligned. No marrow changes worrisome forbony trauma, tumor or infection. Mild desiccation of the T7-8 disc with very slight loss of height but nosignificant disc bulge or focal protrusion. All of the other thoracic discs are normal in appearance. No bulge orfocal protrusion at any level. No stenosis Paraspinous soft tissues are unremarkable. IMPRESSION: Mildly limited evaluation of the upper thoracic cord but overall normalMRI appearance of the thoracic spine and cord other than very earlydegenerative changes in the T7-8 disc. No disc protrusion or stenosis atany level. POS [id number] Héctor Alexander MD IMG MR XSPECIALTY Final Result documented in this encounter Visit Diagnoses Diagnosis Quadriplegia and quadriparesis- Primary Lumbar radiculopathy Thoracic or lumbosacral neuritis or radiculitis, unspecified Weakness Other malaise and fatigue Lumbar radiculopathy Thoracic or lumbosacral neuritis or radiculitis, unspecified Weakness Other malaise and fatigue Quadriplegia and quadriparesis documented in this encounter Additional Health Concerns Infection Onset Date Last Indicated Resolved Time MRSA 05/01/2020 05/01/2020 06/20/2022 1:45 AM EST COVID-19 05/22/2021 05/22/2021 06/12/2021 1:25 AM EST documented as of this encounter Care Teams Ear Muff Assembler Relationship Specialty Start Date End Date Uriel Rosario MD [address] [place] [address] PCP - General Family Medicine 04/30/20 08/13/24 Alexander Coughlin MD [address] [place] [address] PCP - General Family Medicine 08/14/24 Pcp, Unknown 04/30/20 documented as of this encounter Additional Source Comments The information contained in this document represents components of the legal health record. It is not the complete legal health record.[facility]
--- OUTSIDE RECORDS SUMMARY | 2024-12-30 12:06 | XMS_ITS | Encounter Summary ---
Author Organization [facility] Address [address] [address] Phone Care Team Providers Care Singing Telegram Performer Name Role Phone Uriel Rosario MD Primary Care Provide r Pcp, Unknown Unavailable Unavailable Alexander Coughlin MD Primary Care Provider Encounter Details Date Type Department Care Team (Late st Contact Info) Description 06/01/2022 Transcribe Orders [facility] Processing [address] [place] [address] Stephani Whatley PA 300 [facility] [address] [place] [address] [email or web address] Sort Type 1 diabetes mellitus with hyperosmolar coma Social History Tobacco Use Types Packs/Day Years [...] documented as of this encounter Results * (ABNORMAL) Lipid panel (06/01/2022 9:31 AM EST) HDL 38 mg/dL [facility] Comment: Interpretation <40 mg/dL: Low HDL cholesterol (major risk factor for CHD) Greater than or equal to 60 mg/dL: High HDL cholesterol ( negative risk factor for CHD) HDL - cholesterol is affected by a number of factors, e.g. smoking, excerise, hormones, sex and age. CHOLESTEROL 147 0 - 240 mg/dL [facility] TRIGLYCERIDES 175(H) 30 - 160 mg/dL [facility] LDL 74 50 - 129 mg/dL [facility] Comment: LDL levels in terms of risk for coronary heart disease: <100 mg/dL: Optimal 100-129 mg/dL: Near or above optimal 130-159 mg/dL: Borderline high 160-189 mg/dL: High >190 mg/dL: Very High CARDIAC RISK RATIO 3.9 3.3 - 4.4 C [facility] 06/01/2022 9:31 AM EST 06/01/2022 11:23 AM EST Stephani [facility] BLOOD ORDERABLES Final R esult Performing Organization Address City/[facility]/ZIP Co de Phone Number [address] [address] * (ABNORMAL) Hemoglobin A1c (06/01/2022 9:31 AM EST) HEMOGLOBIN A1C 9.5(H) 4.3 - 5.8 % [facility] 06/01/2022 9:31 AM EST 06/01/2022 12:37 PM EST Stephani [facility] BLOOD ORDERABLES Final R esult [address] [address] * (ABNORMAL) Comprehensive metabolic panel (06/01/2022 5:43 AM EST) SODIUM 137 133 - 146 mmol/L [facility] POTASSIUM 4.7 3.3 - 5.1 mmol/L [facility] CHLORIDE 97 96 - 108 mmol/L [facility] CO2 27 21 - 35 mmol/L [facility] BUN 18 6 - 19 mg/dL [facility] CREATININE 1.20 0.5 - 1.5 mg/dL [facility] GLUCOSE 61(L) 70 - 99 mg/dL [facility] ALBUMIN 3.3(L) 3.9 - 4.8 g/dL [facility] TOTAL PROTEIN 7.9 6.5 - 8.0 g/dL [facility] CALCIUM 9.6 8.4 - 10.3 mg/dL [facility] ALKALINE PHOSPHATASE 184(H) 39 - 117 U/L [facility] TOTAL BILIRUBIN 0.2 0.0 - 1.2 mg/dL [facility] AST 24 0 - 37 U/L [facility] ALT 9 0 - 40 U/L [facility] GLOBULIN 4.6 1 - 4.8 g/dL [facility] EGFR 64 >59 mL/min/1.7 3m2 [facility] Comment:Estimated glomerular filtration rate calculated using the CKD-EPI refit equation. ANION GAP 18 10 - 20 mmol/L [facility] 06/01/2022 5:43 AM EST 06/01/2022 9:47 AM EST Stephani [facility] BLOOD ORDERABLES Final R esult Performing Organization Address City/State/[facility] Co de Phone Number [facility] [address] [place] [address] documented in this encounter Visit Diagnoses Diagnosis Type 1 diabetes mellitus with hyperosmolar coma documented in this encounter Additional Health Concerns Infection Onset Date Last Indicated Resolved Time MRSA 05/01/2020 05/01/2020 06/20/2022 1:45 AM EST documented as of this encounter Care Teams Singing Telegram Performer Relationship Specialty Start Date End Date Uriel Rosario MD [address] [place] [address] PCP - General Family Medicine 04/30/20 08/13/24 Alexander Coughlin MD [address] [place] [id number] PCP - General Family Medicine 08/14/24 Pcp, Unknown 04/30/20 documented as of this encounter Additional Source Comments The information contained in this document represents components of the legal health record. It is not the complete legal health record.[facility]
--- OUTSIDE RECORDS SUMMARY | 2024-12-30 12:06 | XMS_ITS | Encounter Summary ---
Author Organization [facility] Address [address] [address] Phone Care Team Providers Care Filters Assembler Name Role Phone Uriel Rosario MD Primary Care Provide r Pcp, Unknown Unavailable Unavailable Alexander Coughlin MD Primary Care Provider Encounter Details Date Type Department Care Team (Late st Contact Info) Description 05/12/2021 Transcribe Orders [facility] [address] [place] [address] [address] [email or web address] Chronic pain syndrome (Primary Dx) Social History Tobacco Use Types [...] as of this encounter Results * (ABNORMAL) CPK (creatine kinase) (05/12/2021 5:54 AM EST) CREATINE KINASE 309(H) 21 - 215 U/L [facility] Blood 05/12/2021 5:54 AM EST 05/12/2021 7:12 AM EST Tata [facility] BLOOD ORDERABLES Ginny l Result Performing Organization Address [facility]/ZIP Co de Phone Number [address] [address] * Sedimentation rate (ESR) (05/12/2021 5:54 AM EST) ESR 15 0 - 20 mm/h [facility] Blood 05/12/2021 5:54 AM EST 05/12/2021 7:12 AM EST us Tata [facility] BLOOD ORDERABLES Ginny l Result Performing Organization Address [facility] Co de Phone Number [address] [address] * Lipase (05/12/2021 5:54 AM EST) LIPASE 16 16 - 63 U/L [facility] Blood 05/12/2021 5:54 AM EST 05/12/2021 7:12 AM EST us Tata [facility] BLOOD ORDERABLES Ginny l Result Performing Organization Address [facility] Co de Phone Number [address] [address] * C-Reactive Protein (05/12/2021 5:54 AM EST) C REACTIVE PROTEIN 3.4 0.0 - 4.0 mg/L [facility] Blood 05/12/2021 5:54 AM EST 05/12/2021 7:12 AM EST Tata [facility] BLOOD ORDERABLES Ginny l Result [facility] [address] [place] [address] * CBC and differential (05/12/2021 5:54 AM EST) WBC 5.84 4.00 - 11.00 K/uL [facility] RBC 4.07 3.72 - 5.30 M/uL [facility] HGB 11.2 11.0 - 15.2 g/dL [facility] HCT 32.5 31.6 - 44.1 % [facility] PLT 271 140 - 430 K/uL [facility] MCV 79.9 78.0 - 97.0 fL [facility] MCH 27.5 25.0 - 33.0 pg [facility] MCHC 34.5 32.0 - 36.0 g/dL [facility] RDW 12.8 11.0 - 16.0 % [facility] MPV 10.9 8.4 - 12.8 fl [facility] NRBC 0.00 0 /100 WBCs [facility] ABSOLUTE NRBC 0.00 0 K/uL [facility] DIFF METHOD Auto [facility] NEUTS 66.2 43.0 - 75.0 % [facility] LYMPHS 22.4 18.2 - 47.4 % [facility] MONOS 6.3 4.00 - 11.00 % [facility] EOS 4.1 0.0 - 8.0 % [facility] BASOS 0.7 0.0 - 2.0 % [facility] Granulocytes, immature (%) 0.3 0.0 - 0.9 % [facility] ABSOLUTE NEUTS 3.86 1.80 - 7.70 K/uL [facility] ABSOLUTE LYMPHS 1.31 1.00 - 3.10 K/uL [facility] ABSOLUTE MONOS 0.37 0.20 - 0.80 K/uL [facility] ABSOLUTE EOS 0.24 0.00 - 0.80 K/uL [facility] ABSOLUTE BASOS 0.04 0.00 - 0.09 K/uL [facility] Granulocytes, immature 0.02 0.00 - 0.05 K/uL [facility] Blood 05/12/2021 5:54 AM EST 05/12/2021 7:12 AM EST us Tata [facility] BLOOD ORDERABLES Ginny l Result [address] [address] * Amylase (05/12/2021 5:54 AM EST) AMYLASE 86 28 - 100 U/L [facility] Blood 05/12/2021 5:54 AM EST 05/12/2021 7:12 AM EST Tata [facility] BLOOD ORDERABLES Ginny l Result Performing Organization Address [facility] de Phone Number [address] [address] * (ABNORMAL) Comprehensive metabolic panel (05/12/2021 5:54 AM EST) SODIUM 136 133 - 146 mmol/L [facility] POTASSIUM 4.4 3.3 - 5.1 mmol/L [facility] CHLORIDE 101 96 - 108 mmol/L [facility] CO2 25 21 - 35 mmol/L [facility] BUN 19 6 - 19 mg/dL [facility] CREATININE 0.60 0.5 - 1.5 mg/dL [facility] GLUCOSE 441(H) 70 - 99 mg/dL [facility] ALBUMIN 4.3 3.9 - 4.8 g/dL [facility] TOTAL PROTEIN 6.7 6.5 - 8.0 g/dL [facility] CALCIUM 9.8 8.4 - 10.3 mg/dL [facility] ALKALINE PHOSPHATASE 122(H) 39 - 117 U/L [facility] TOTAL BILIRUBIN 0.2 0.0 - 1.2 mg/dL [facility] AST 12 0 - 37 U/L [facility] ALT 17 0 - 40 U/L [facility] GLOBULIN 2.4 1 - 4.8 g/dL [facility] EGFR >120 >59 mL/min/1.7 3m2 [facility] Comment:Estimated glomerular filtration rate calculated using the CKD-EPI refit equation. ANION GAP 14 10 - 20 mmol/L [facility] Blood 05/12/2021 5:54 AM EST 05/12/2021 7:12 AM EST us Tata [facility] BLOOD ORDERABLES Ginny l Result [facility] [address] [place] [address] documented in this encounter Visit Diagnoses Diagnosis Chronic pain syndrome- Primary documented in this encounter Additional Health Concerns Infection Onset Date Last Indicated Resolved Time MRSA 05/01/2020 05/01/2020 06/20/2022 1:45 AM EST [facility] Comment:Positive COVID-19 05/11/2021 05/11/2021 05/24/2021 8:3 7 PM EST COVID-19 05/22/2021 05/22/2021 06/12/2021 1:25 AM EST documented as of this encounter Care Teams Filters Assembler Relationship Specialty Start Date End Date Uriel Rosario MD [address] [place] [address] PCP - General Family Medicine 04/30/20 08/13/24 Alexander Coughlin MD [address] [place] [address] PCP - General Family Medicine 08/14/24 Pcp, Unknown 04/30/20 documented as of this encounter Additional Source Comments The information contained in this document represents components of the legal health record. It is not the complete legal health record.[facility]
--- OUTSIDE RECORDS SUMMARY | 2024-12-30 12:06 | XMS_ITS | Clinical Summary ---
Author Organization [facility] Address [address] [facility] [address] [place] [phone] Phone Care Team Providers Care Site Head Name Role Phone Pcp, Unknown Unavailable Unavailable Alexander Coughlin MD Primary Care Provider Allergies Active Allergy Reactions Criticality Noted Date Comments Webster Oil 05/01/2020 Hives Sulfamethoxazole-Trimethoprim 2019 Rash Doxycycline Hyclate 04/30/2020 rash Latex 05/01/2020 Rash/ hives Medications albuterol 90 mcg/actuation inhaler Inhale 2 puffs into the lungs every 4 (four) hours as needed for wheezing. Active etonogestreL (NEXPLANON) 68 mg Impl Inject 68 mg into the skin Once every 3 years. Active insulin glargine (LANTUS) 100 unit/mL injection vial Inject under the skin 2 (two) times a day. 21 units daily and 25 units at night Active insulin lispro (HUMALOG) 100 unit/mL Crtg Inject 0-10 Units under the skin 4 (four) times a day before meals and nightly. Less than 70 = call physician; 71-149 = 0 units; 150-199 =2 units; 200-249 =4 units; 250-299 =6 units; 300-349 =8 units; 350-399 =10 units; greater than 400 = call physician Active DULoxetine (CYMBALTA) 60 MG capsule Take 60 mg by mouth daily. Active cyclobenzaprine (FLEXERIL) 10 MG tablet Take 10 mg by mouth 3 (three) times a day. Active buPROPion (WELLBUTRIN) 100 MG immediate release tablet Take 100 mg by mouth 2 (two) times a day. Active diphenhydrAMINE (BENADRYL) 25 mg capsule Take 25 mg by mouth every 6 (six) hours as needed for itching or allergies. Active Lactobacillus acidophilus (FLORANEX) 0.5 mg (100 million cell) Tab Take 3 tablets by mouth 2 (two) times a day. Active hydrOXYzine HCL (ATARAX) 10 MG tablet Take 10 mg by mouth 3 (three) times a day as needed for anxiety. Active ibuprofen (ADVIL,MOTRIN) 600 MG tablet Take 600 mg by mouth every 8 (eight) hours as needed for pain (specific location in comments). Active pantoprazole (PROTONIX) 40 MG tablet Take 40 mg by mouth 2 (two) times a day. Active lidocaine (LIDODERM) 5 % Place 2 patches onto the skin daily. Remove & Discard patch within 12 hours or as directed by MD. Applied to shoulders Active loperamide (IMODIUM) 2 mg capsule Take 2 mg by mouth as needed for diarrhea. Active sucralfate (CARAFATE) 1 gram tablet Take 1 g by mouth 4 (four) times a day. Active buprenorphine (BUTRANS) 15 mcg/hour PTWK Place 1 patch onto the skin every 7 days. Changed on Saturday's Active melatonin 5 mg Tab Take 1 tablet (5 mg total) by mouth nightly at bedtime as needed. 1 Active nicotine polacrilex (NICORETTE) [address] 1 each (2 mg total) inside cheek every 2 (two) hours as needed for smoking cessation. 1 Active Active Problems Problem Noted Date Diagnosed Date Weakness 12/24/2020 Assessment & Plan (12/25/2020 4:13 PM EDT): Reviewed records from [facility]. Patient admitted there from October to December. Treated for endocarditis. Extremely ill. Initially in the ICU with pressors. Hypoglycemic. Noted to have generalized weakness complaints of diffuse severe pain evaluated with CT of the spine and head seen by neurology. According to the discharge notes their diagnosis was neuropathy insulin neuritis neuropathic pain. Patient was started on Wellbutrin and Cymbalta there Continues to have generalized weakness some contractures diffuse pain. . MRI of the spine requested by admitting physician this did not show anything concerning. Consulted neurology Discussed neurology suggestions with patient she would like further investigation they recommended Delirium 12/23/2020 Assessment & Plan (12/24/2020 4:34 PM EDT): . Patient's mother reported symptoms had been going on for at least a few weeks and worsening. Most likely related to medications, holding her morphine Flexeril gabapentin. Toradol ordered. Medical work-up does not suggest an acute problem. Butrans continued but only 10 mg on formulary Spoke unofficially with psychiatrist who said it was quite unlikely that Cymbalta or Wellbutrin were causing symptoms even if doses changed/increased recently Patient has improved in the hospital and hallucinations delirium resolved. We will try to switch to Motrin and not restart Flexeril gabapentin morphine Acute cystitis 12/23/2020 Assessment & Plan (12/24/2020 4:28 PM EDT): Urine culture mixed growth, stopped Keflex. Urinary retention 12/23/2020 Assessment & Plan (12/25/2020 4:11 PM EDT): Discovered in the ED. Dalton catheter placed. Patient requested Dalton catheter removal last night, voiding large amounts since. PVR requested HHNC (hyperglycemic hyperosmolar nonketotic coma ) 05/01/2020 Crack cocaine use 05/01/2020 Depression 05/01/2020 Uncontrolled type 1 diabetes mellitus with hyper glycemia 05/01/2020 Peripheral edema 05/01/2020 Cough 05/01/2020 Chronic pain syndrome Type 1 diabetes mellitus with complication, unco ntrolled Overview (12/23/2020): Complicated by gastropathy and neuropathy Assessment & Plan (12/25/2020 4:11 PM EDT): Held insulin initially since sugars running low or very low and patient not eating. Since then has had more intake and sugars high so insulin restarted Depression with anxiety Assessment & Plan (12/23/2020 1:46 PM EDT): . Continue with Cymbalta, and Wellbutrin. Hold trazodone Immunizations Immunization Administration Dates Next Due COVID-19 (Pre-02/25) Moderna Vaccine, mRNA, PF 12/25/2020(Deferred: Contraindication - pt received pfizer vaccine for 1st dose, notified) COVID-19 (Pre-02/25) Pfizer Vaccine, mRNA, PF 12/25/2020 Family History Relation Status Comments Mother Alive Social History Tobacco Use Types Packs/Day Years Used Date Smoking Tobacco: Every Day Cigarettes Smokeless Tobacco: Never Alcohol Use Standard Drinks/Week Comments Never 0 (1 standard drink = 0.6 oz pur e alcohol) Education Answer Date Recorded Are you interested in more education? Not on gerry e 09/01/2022 Are you concerned about learning? Not on file 09/01/2022 No 09/01/2022 No 09/01/2022 Digital Access Answer Date Recorded No 09/29/2022 No 09/29/2022 No 09/29/2022 Reliable internet access at home? Not on file 09/29/2022 Device with a working camera? Not on file Comments Unknown Sex and Gender Information Value Date Recorded Sex Assigned at Female 12/07/2020 11:54 AM EDT Legal Sex Female 1:04 PM EDT Gender Identity Female 12/07/2020 11:54 AM EDT Sexual Orientation Not on file Last Filed Vital Signs Vital Sign Reading Time Taken Comments Blood Pressure 158/97 12/26/2020 2:43 PM EDT Pulse 104 12/26/2020 2:43 PM EDT Temperature 36.5 C (97.7 F) 12/26/2020 2:43 PM EDT Respiratory Rate 16 12/26/2020 2:43 PM EDT Oxygen Saturation 100% 12/26/2020 2:43 PM EDT Inhaled Oxygen Concentration - - Weight 62.1 kg (137 lb) 06/27/2021 10:10 AM EST Height 162.6 cm (5' 4 ) 06/27/2021 10:10 AM EST Body Mass Index 23.52 06/27/2021 10:10 AM EST Plan of Treatment Health Maintenance Due Date Last Done Comments BLOOD PRESSURE 1994 DEPRESSION SCREENING 2006 SMOKING Hx and SMOKELESS TOBACCO SCREENING 10/08/2007 HEPATITIS C SCREENING 2012 12/19/2009, 010 HIV ONE-TIME SCREENING (18-65 YEARS) 2012 12/21/2009 PNEUMOCOCCAL VACCINES (0-49 years) (1 of 2 - PCV) 2013 PAP SMEAR 10/08/2015 DIABETIC EYE EXAM 12/07/2020 URINE MICROALBUMIN/CREATININE RATIO 12/07/2020 HEMOGLOBIN A1C 08/30/2022 06/01/2022, 11/0 12/2020, 12/23/2020, Additional history exists LIPID PANEL 06/01/2023 06/01/2022, 03/13/2021 COVID-19 VACCINE ( season) 2024 12/25/2020, 11/25/2020 Adult Td,Tdap Booster 03/26/2029 03/26/2019 HEPATITIS A VACCINES Aged Out 06/17/2020 No long er eligible based on patient's age to complete this topic HIB VACCINES Aged Out No longer eligi ble based on patient's age to complete this topic MENINGOCOCCAL VACCINES (ACWY) Aged Out No longer eligible based on patient's age to complete this topic MENINGOCOCCAL VACCINES (B) Aged Out N o longer eligible based on patient's age to complete this topic Medical Devices Not on file Procedures Procedure Name Priority Date/Time Associated Diagnosis Comments HEMOGLOBIN A1C Routine 06/01/2022 9:31 AM EST Type 1 diabetes mellitus with hyperosmolar coma LIPID PANEL Routine 06/01/2022 9:31 AM EST Type 1 diabetes mellitus with hyperosmolar coma HISTORICAL LAB Routine 12/19/2009 8:30 AM EDT from Last 3 Months or Most Recently Relevant to Health Maintenance Results * (ABNORMAL) Hemoglobin A1c (06/01/2022 9:31 AM EST) HEMOGLOBIN A1C 9.5(H) 4.3 - 5.8 % [facility] 06/01/2022 9:31 AM EST 06/01/2022 12:37 PM EST Stephani ALMONTE LAB BLOOD ORDERABLES Final [facility] Performing Organization Address [facility] Co de Phone Number [address] [address] * (ABNORMAL) Lipid panel (06/01/2022 9:31 AM EST) HDL 38 mg/dL [facility] Comment: Interpretation <40 mg/dL: Low HDL cholesterol (major risk factor for CHD) Greater than or equal to 60 mg/dL: High HDL cholesterol ( negative risk factor for CHD) HDL - cholesterol is affected by a number of factors, e.g. smoking, excerise, hormones, sex and age. CHOLESTEROL 147 0 - 240 mg/dL [facility] TRIGLYCERIDES 175(H) 30 - 160 mg/dL [facility] LDL 74 50 - 129 mg/dL [facility] Comment: LDL levels in terms of risk for coronary heart disease: <100 mg/dL: Optimal 100-129 mg/dL: Near or above optimal 130-159 mg/dL: Borderline high 160-189 mg/dL: High >190 mg/dL: Very High CARDIAC RISK RATIO 3.9 3.3 - 4.4 C [facility] 06/01/2022 9:31 AM EST 06/01/2022 11:23 AM EST Stephani ALMONTE LAB BLOOD ORDERABLES Final [facility] Performing Organization Address City/[facility] Co de Phone Number [address] [phone] * Historical Lab (12/19/2009 8:30 AM EDT) HEPATITIS C w/reflex RIBA Non Reactive NonReactive [facility] Comment:METHOD: CENTAUR CHEM ILUMINESCENCE IMMUNOASSAY (ANDREIA) 12/19/2009 8:30 AM EDT 12/19/2009 2:34 PM EDT Narrative [facility] - 12/19/2009 5:29 PM EDT Comments requested to appear on patient's report: [facility] / UNIT 1 us Conversion Provider Not In Sys LAB BLOOD ORDERAB LES Final Result Performing Organization Address City/State/[facility] Co de Phone Number [facility] [address] [place] [address] from Last 3 Months or Most Recently Relevant to Health Maintenance Insurance ACO ACO ACO ACO ACO ACO Member Subscriber Plan / Payer (Ef fective 2022-Present) Name:Radha Olivera Relation to Subscriber:Self Name:Radha Olivera Payer ID:[id number] Group ID:Not on file Type:Medicaid Address: [place] [id number] [place] [address] ACO Advance Directives For more information, please contact: [phone] (9AM - 5PM [facility], Saturday-Saturday) Documents on File Type Date Recorded Patient Design Agent Expl anation Healthcare Proxy 12/28/2020 1:25 PM MOLST 12/28/2020 1:24 PM * Full Code (Latest Code Status on File) Date Activated Date Inactivated Comments 12/23/2020 2:01 AM Question Answer Comments Code Status Confirmed With: Other (specify below ) Code Discussion Comments: MOLST * Full Code Date Activated Date Inactivated Comments 05/01/2020 7:32 AM 12/23/2020 2:01 AM Question Answer Comments Code Status Confirmed With: Patient Code Status Communicated To: Inpatient Attending * Full Code Date Activated Date Inactivated Comments 05/01/2020 6:42 AM 05/01/2020 7:32 AM Question Answer Comments Code Status Confirmed With: Patient Care Teams Site Head Relationship Specialty Start Date End Date Alexander Coughlin MD [address] [place] [address] PCP - General Family Medicine 08/14/24 Pcp, Unknown 04/30/20 Additional Source Comments The information contained in this document represents components of the legal health record. It is not the complete legal health record.[facility]
== END 2024-12-30 12:13 | disposition home or self-care (01) ==
LOC: HO.HMCFM 11:10
PROVIDERS: PCP Family Medicine; Visit Provider Family Medicine
DX: Z01.818 Encounter for other preprocedural examination (principal); I10 Essential (primary) hypertension

== ENCOUNTER → 2024-12-30 11:09 | Outpatient (BNVA) | payer OTHER, SELFPAY | PROVIDERS: PCP Family Medicine; Visit Provider Family Medicine | DX: Z01.818 Encounter for other preprocedural examination (principal); I10 Essential (primary) hypertension; D68.59 Other primary thrombophilia; Z86.718 Personal history of other venous thrombosis and embolism; Z79.01 Long term (current) use of anticoagulants | CPT/HCPCS: 99212 ==

== ENCOUNTER 2025-02-02 09:20 | Outpatient (REF) | payer OTHER, SELFPAY ==
--- NOTE | ~2025-02-02 | XR_ITS ---
EXAMINATION: XR KNEE, RIGHT CLINICAL INFORMATION: M25.569 - Pain in unspecified knee COMPARISON: None available. TECHNIQUE: Three views of the right knee. FINDINGS: There is arthrodesis across the knee joint. There is no subluxation of femur. 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 There is no joint effusion. 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 Electronically signed by: Burak Mcconnell MD 02/02/2025 02:08 PM EDT
--- OUTSIDE RECORDS SUMMARY | 2025-02-03 10:09 | XMS_ITS | Encounter Summary ---
Author Organization [facility] Address [address] [employer] [facility] [address] [place] [address] Phone Care Team Providers Care Side Laster Tack Name Role Phone Uriel Rosario MD Primary Care Provide r Pcp, Unknown Unavailable Unavailable Alexander Coughlin MD Primary Care Provider Encounter Details Date Type Department Care Team (Late st Contact Info) Description 05/01/2020 Procedure Pass [facility], Ct Scan - [address] [address] Social History Tobacco Use Types Packs/Day Years [...] documented as of this encounter Care Teams Side Laster Tack Relationship Specialty Start Date End Date Uriel Rosario MD [address] [place] [address] PCP - General Family Medicine 04/30/20 08/13/24 Alexander Coughlin MD [address] [place] [address] PCP - General Family Medicine 08/14/24 Pcp, Unknown 04/30/20 documented as of this encounter Additional Source Comments The information contained in this document represents components of the legal health record. It is not the complete legal health record.[facility]
--- OUTSIDE RECORDS SUMMARY | 2025-02-03 10:09 | XMS_ITS | Encounter Summary ---
Author Organization [facility] Address [address] [employer] [facility] [address] [place] [address] Phone Care Team Providers Care Open Die Inspector Name Role Phone Uriel Rosario MD Primary Care Provide r Pcp, Unknown Unavailable Unavailable Alexander Coughlin MD Primary Care Provider Encounter Details Date Type Department Care Team (Late st Contact Info) Description 05/01/2020 Procedure Pass [facility] [address] [place] [address] Social History Tobacco Use Types Packs/Day Years [...] documented as of this encounter Care Teams Open Die Inspector Relationship Specialty Start Date End Date Uriel Rosario MD [address] [place] [address] PCP - General Family Medicine 04/30/20 08/13/24 Alexander Coughlin MD [address] [place] [address] PCP - General Family Medicine 08/14/24 Pcp, Unknown 04/30/20 documented as of this encounter Additional Source Comments The information contained in this document represents components of the legal health record. It is not the complete legal health record.[facility]
--- OUTSIDE RECORDS SUMMARY | 2025-02-03 10:09 | XMS_ITS | Encounter Summary ---
Author Organization [facility] Address [address] [employer] [address] [place] [address] Phone Care Team Providers Care Chief Librarian Music Department Name Role Phone Uriel Rosario MD Primary Care Provide r Pcp, Unknown Unavailable Unavailable Alexander Coughlin MD Primary Care Provider Encounter Details Date Type Department Care Team (Late st Contact Info) Description 12/23/2020 Procedure Pass [facility], [address] [address] Social History Tobacco Use Types Packs/Day Years [...] AM REUBENT Alex Hernandez i, RN * [place] Suicide Severity Rating Scale (Screener/Recent Self-Report) Question [...] documented as of this encounter Care Teams Chief Librarian Music Department Relationship Specialty Start Date End Date Uriel Rosario MD [address] [place] [address] PCP - General Family Medicine 04/30/20 08/13/24 Alexander Coughlin MD [address] [place] [address] PCP - General Family Medicine 08/14/24 Pcp, Unknown 04/30/20 documented as of this encounter Additional Source Comments The information contained in this document represents components of the legal health record. It is not the complete legal health record.[facility]
--- OUTSIDE RECORDS SUMMARY | 2025-02-03 10:09 | XMS_ITS | Encounter Summary ---
Author Organization [facility] Address [address] [address] Phone Care Team Providers Care Career Development Counselor Name Role Phone Uriel Rosario MD Primary [...] Expiration Date Visits Re quested Visits Authorized [id number] Closed 06/07/2021 06/07/2022 1 1 * MRI/CAT Scan - Closed Specialty Diagnoses / Procedures Referred By Contac t Referred To Contact Radiology Diagnoses Lumbar radiculopathy Weakness Quadriplegia and quadriparesis Procedures MRI Cervical Spine MRI Cervical Spine Héctor Alexander MD Phone: tel: fax: [email or web address] Referral ID Status Reason Start Date Expiration Date Visits Re quested Visits Authorized [id number] Closed 06/07/2021 06/07/2022 1 1 Encounter Details Date Type Department Care Team (Late st Contact Info) Description 06/26/2021 Ancillary Orders Virtual Department [address] [place] [address] Héctor Alexander MD 38 [facility], [address], [address] [place] [address] [email or web address] Lumbar radiculopathy; Weakness; Quadriplegia and [...] of the cervical spine and cord. POS [id number] Narrative 06/27/2021 12:22 PM EST TECHNIQUE: 1.5 [...] MRI of thecervical spine and cord. POS [id number] us Héctor Alexander MD IMG MR XSPECIALTY [...] bilateral foraminal stenosis. No other stenosis. POS [id number] Narrative 06/27/2021 12:38 PM EST TECHNIQUE: 1.5 [...] bilateral foraminal stenosis. No other stenosis. POS [id number] Héctor Alexander MD IMG MR XSPECIALTY Final [...] documented as of this encounter Care Teams Career Development Counselor Relationship Specialty Start Date End Date Uriel Rosario MD [address] [place] [address] PCP - General Family Medicine 04/30/20 08/13/24 Alexander Coughlin MD [address] [place] [address] PCP - General Family Medicine 08/14/24 Pcp, Unknown 04/30/20 documented as of this encounter Additional Source Comments The information contained in this document represents components of the legal health record. It is not the complete legal health record.[facility]
--- OUTSIDE RECORDS SUMMARY | 2025-02-03 10:09 | XMS_ITS | Encounter Summary ---
Author Organization [facility] Address [address] [employer] [facility] [address] [place] [address] Phone Care Team Providers Care Supervisor Brake Repair Name Role Phone Uriel Rosario MD Primary Care Provide r Pcp, Unknown Unavailable Unavailable Alexander Coughlin MD Primary Care Provider Encounter Details Date Type Department Care Team (Late st Contact Info) Description 06/07/2021 Procedure Pass [facility], [address] [address] Social History Tobacco Use Types Packs/Day Years [...] documented as of this encounter Care Teams Supervisor Brake Repair Relationship Specialty Start Date End Date Uriel Rosario MD [address] [place] [address] PCP - General Family Medicine 04/30/20 08/13/24 Alexander Coughlin MD [address] [place] [address] PCP - General Family Medicine 08/14/24 Pcp, Unknown 04/30/20 documented as of this encounter Additional Source Comments The information contained in this document represents components of the legal health record. It is not the complete legal health record.[facility]
--- OUTSIDE RECORDS SUMMARY | 2025-02-03 10:09 | XMS_ITS | Encounter Summary ---
Author Organization [facility] Address [address] [address] Phone Care Team Providers Care Loss Prevention Operations Manager Name Role Phone Uriel Rosario MD Primary Care Provide r Pcp, Unknown Unavailable Unavailable Alexander Coughlin MD Primary Care Provider Encounter Details Date Type Department Care Team (Late st Contact Info) Description 02/11/2021 Transcribe Orders [facility] [address] [place] [address] Héctor Alexander MD [address] [place] [address] [address] [place] [address] [email or web address] Possible exposure to STD (Primary Dx) Social [...] documented as of this encounter Care Teams Loss Prevention Operations Manager Relationship Specialty Start Date End Date Uriel Rosairo MD [address] [place] [address] PCP - General Family Medicine 04/30/20 08/13/24 Alexander Coughlin MD [address] [place] [address] PCP - General Family Medicine 08/14/24 Pcp, Unknown 04/30/20 documented as of this encounter Additional Source Comments The information contained in this document represents components of the legal health record. It is not the complete legal health record.[facility]
--- OUTSIDE RECORDS SUMMARY | 2025-02-03 10:09 | XMS_ITS | Clinical Summary ---
Author Organization [facility] Address [address] [address] Care Team Providers Care User Interface Engineer Name Role Phone Uriel Cyr MD Primary [...] Exam 06/06/2022 Influenza Vaccine (#1) 2025 Insurance [facility] Medicaid Care Teams User Interface Engineer Relationship Specialty Start Date End Date Uriel Cyr MD PCP - General Family Medicine 06/05/22
--- OUTSIDE RECORDS SUMMARY | 2025-02-03 10:09 | XMS_ITS | Encounter Summary ---
Author Organization [employer] [facility] Address [address] [employer] [address] [place] [address] Phone Care Team Providers Care Production Internship Name Role Phone Uriel Rosario MD Primary Care Provide r Pcp, Unknown Unavailable Unavailable Alexander Coughlin MD Primary Care Provider Encounter Details Date Type Department Care Team (Late st Contact Info) Description 12/20/2020 Procedure Pass [facility], Ct Scan - [address] [address] Social History Tobacco Use Types Packs/Day Years [...] 3:09 AM Alex Patel i, RN * [place] Suicide Severity Rating Scale (Screener/Recent Self-Report) Question [...] documented as of this encounter Care Teams Production Internship Relationship Specialty Start Date End Date Uriel Rosario MD 20 [place] [address] PCP - General Family Medicine 04/30/20 08/13/24 Alexander Coguhlin MD [address] [place] [address] PCP - General Family Medicine 08/14/24 Pcp, Unknown 04/30/20 documented as of this encounter Additional Source Comments The information contained in this document represents components of the legal health record. It is not the complete legal health record.[facility]
--- OUTSIDE RECORDS SUMMARY | 2025-02-03 10:09 | XMS_ITS | Encounter Summary ---
Author Organization [facility] Address [address] [facility] [address] [place] [address] Phone Care Team Providers Care Crystallographer Name Role Phone Uriel Rosario MD Primary Care Provide r Pcp, Unknown Unavailable Unavailable Alexander Coughlin MD Primary Care Provider Encounter Details Date Type Department Care Team (Late st Contact Info) Description 06/07/2021 Procedure Pass [facility], [address] [address] Social History Tobacco Use Types Packs/Day Years [...] documented as of this encounter Care Teams Crystallographer Relationship Specialty Start Date End Date Uriel Rosario MD [address] [place] [address] PCP - General Family Medicine 04/30/20 08/13/24 Alexander Coughlin MD [address] [place] [address] PCP - General Family Medicine 08/14/24 Pcp, Unknown 04/30/20 documented as of this encounter Additional Source Comments The information contained in this document represents components of the legal health record. It is not the complete legal health record.[facility]
--- OUTSIDE RECORDS SUMMARY | 2025-02-03 10:09 | XMS_ITS | Encounter Summary ---
Author Organization [facility] Address [address] [employer] [facility] [address] [place] [address] Phone Care Team Providers Care Vinyl Installer Name Role Phone Uriel Rosario MD Primary Care Provide r Pcp, Unknown Unavailable Unavailable Alexander Coughlin MD Primary Care Provider Encounter Details Date Type Department Care Team (Late st Contact Info) Description 06/26/2021 Procedure Pass [facility], [address] [address] Social History Tobacco Use Types Packs/Day Years [...] documented as of this encounter Care Teams Vinyl Installer Relationship Specialty Start Date End Date Uriel Rosario MD [address] [place] [address] PCP - General Family Medicine 04/30/20 08/13/24 Alexander Coughlin MD [address] [place] [address] PCP - General Family Medicine 08/14/24 Pcp, Unknown 04/30/20 documented as of this encounter Additional Source Comments The information contained in this document represents components of the legal health record. It is not the complete legal health record.[facility]
--- OUTSIDE RECORDS SUMMARY | 2025-02-03 10:10 | XMS_ITS | Encounter Summary ---
Author Organization [facility] Address [address] [employer] [facility] [address] [place] [address] Phone Care Team Providers Care Director Of Billing Name Role Phone Uriel Rosario MD Primary Care Provide r Pcp, Unknown Unavailable Unavailable Alexander Coughlin MD Primary Care Provider Reason for Referral * MRI/CAT Scan - Closed Specialty Diagnoses / Procedures Referred By Contac t Referred To Contact Radiology Diagnoses Lumbar radiculopathy Weakness Quadriplegia and quadriparesis Procedures MRI Thoracic Spine Héctor Alexander MD Phone: tel: fax: [email or web address] Referral ID Status Reason Start Date Expiration Date Visits Re quested Visits Authorized [id number] Closed 06/26/2021 06/26/2022 1 1 Encounter Details Date Type Department Care Team (Latest Contact Info) Description 06/07/2021 Transcribe Orders Virtual Department [address] [place] [address] Héctor Alexander MD 38 [facility] [address] [place] [address] Quadriplegia and quadriparesis (Primary Dx); Lumbar radiculopathy; [...] protrusion or stenosis at any level. POS [id number] Narrative 06/27/2021 12:30 PM EST TECHNIQUE: 1.5 [...] disc protrusion or stenosis atany level. POS [id number] Héctor Alexander MD IMG MR XSPECIALTY Final [...] documented as of this encounter Care Teams Director Of Billing Relationship Specialty Start Date End Date Uriel Rosario MD [address] [place] [address] PCP - General Family Medicine 04/30/20 08/13/24 Alexander Coughlin MD [address] [place] [address] PCP - General Family Medicine 08/14/24 Pcp, Unknown 04/30/20 documented as of this encounter Additional Source Comments The information contained in this document represents components of the legal health record. It is not the complete legal health record.[facility]
--- OUTSIDE RECORDS SUMMARY | 2025-02-03 10:10 | XMS_ITS | Encounter Summary ---
Author Organization [facility] Address [address] [address] Phone Care Team Providers Care Bookkeeping Assistant Name Role Phone Uriel Rosario MD Primary Care Provide r Pcp, Unknown Unavailable Unavailable Alexander Coughlin MD Primary Care Provider Encounter Details Date Type Department Care Team (Late st Contact Info) Description 05/12/2021 Transcribe Orders [facility] [address] [place] [address] [address] [email or web address] Chronic pain syndrome (Primary Dx) Social History [...] CREATINE KINASE 309(H) 21 - 215 U/L [facility] Blood 05/12/2021 5:54 AM EST 05/12/2021 7:12 AM EST Tata ALMONTE LAB BLOOD ORDERABLES Ginny l Result Performing Organization Address [facility]/ZIP Co de Phone Number [address] [address] * Sedimentation rate (ESR) (05/12/2021 5:54 AM EST) ESR 15 0 - 20 mm/h [facility] Blood 05/12/2021 5:54 AM EST 05/12/2021 7:12 AM EST us Tata [facility] LAB BLOOD ORDERABLES Ginny l Result Performing Organization Address [facility] Co de Phone Number [address] [address] * Lipase (05/12/2021 5:54 AM EST) LIPASE 16 16 - 63 U/L [facility] Blood 05/12/2021 5:54 AM EST 05/12/2021 7:12 AM EST us Tata [facility] LAB BLOOD ORDERABLES Ginny l Result Performing Organization Address [facility] Co de Phone Number [address] [address] * C-Reactive Protein (05/12/2021 5:54 AM EST) C REACTIVE PROTEIN 3.4 0.0 - 4.0 mg/L [facility] Blood 05/12/2021 5:54 AM EST 05/12/2021 7:12 AM EST Tata [facility]TE LAB BLOOD ORDERABLES Ginny l Result [facility] [address] [place] [address] * CBC and differential (05/12/2021 5:54 AM EST) WBC 5.84 4.00 - 11.00 K/uL [facility] RBC 4.07 3.72 - 5.30 M/uL [facility] HGB 11.2 11.0 - 15.2 g/dL [facility] HCT 32.5 31.6 - 44.1 % [facility] PLT 271 140 - 430 K/uL [facility] MCV 79.9 78.0 - 97.0 fL [facility] MCH 27.5 25.0 - 33.0 pg [facility] MCHC 34.5 32.0 - 36.0 g/dL [facility] RDW 12.8 11.0 - 16.0 % [facility] MPV 10.9 8.4 - 12.8 fl [facility] NRBC 0.00 0 /100 WBCs [facility] ABSOLUTE NRBC 0.00 0 K/uL [facility] DIFF METHOD Auto [facility] NEUTS 66.2 43.0 - 75.0 % [facility] LYMPHS 22.4 18.2 - 47.4 % [facility] MONOS 6.3 4.00 - 11.00 % [facility] EOS 4.1 0.0 - 8.0 % [facility] BASOS 0.7 0.0 - 2.0 % [facility] Granulocytes, immature (%) 0.3 0.0 - 0.9 % [facility] ABSOLUTE NEUTS 3.86 1.80 - 7.70 K/uL [facility] ABSOLUTE LYMPHS 1.31 1.00 - 3.10 K/uL [facility] ABSOLUTE MONOS 0.37 0.20 - 0.80 K/uL [facility] ABSOLUTE EOS 0.24 0.00 - 0.80 K/uL [facility] ABSOLUTE BASOS 0.04 0.00 - 0.09 K/uL [facility] Granulocytes, immature 0.02 0.00 - 0.05 K/uL [facility] Blood 05/12/2021 5:54 AM EST 05/12/2021 7:12 AM EST us Tata [facility] LAB BLOOD ORDERABLES Ginny l Result [address] [address] * Amylase (05/12/2021 5:54 AM EST) AMYLASE 86 28 - 100 U/L [facility] Blood 05/12/2021 5:54 AM EST 05/12/2021 7:12 AM EST Tata [facility]TE LAB BLOOD ORDERABLES Ginny l Result Performing Organization Address [facility] de Phone Number [address] [address] * (ABNORMAL) Comprehensive metabolic panel (05/12/2021 5:54 AM EST) SODIUM 136 133 - 146 mmol/L [facility] POTASSIUM 4.4 3.3 - 5.1 mmol/L [facility] CHLORIDE 101 96 - 108 mmol/L [facility] CO2 25 21 - 35 mmol/L [facility] BUN 19 6 - 19 mg/dL [facility] CREATININE 0.60 0.5 - 1.5 mg/dL [facility] GLUCOSE 441(H) 70 - 99 mg/dL [facility] ALBUMIN 4.3 3.9 - 4.8 g/dL [facility] TOTAL PROTEIN 6.7 6.5 - 8.0 g/dL [facility] CALCIUM 9.8 8.4 - 10.3 mg/dL [facility] ALKALINE PHOSPHATASE 122(H) 39 - 117 U/L [facility] TOTAL BILIRUBIN 0.2 0.0 - 1.2 mg/dL [facility] AST 12 0 - 37 U/L [facility] ALT 17 0 - 40 U/L [facility] GLOBULIN 2.4 1 - 4.8 g/dL [facility] EGFR >120 >59 mL/min/1.7 3m2 [facility] Comment:Estimated glomerular filtration rate calculated using the CKD-EPI refit equation. ANION GAP 14 10 - 20 mmol/L [facility] Blood 05/12/2021 5:54 AM EST 05/12/2021 7:12 AM EST us Tata [facility] LAB BLOOD ORDERABLES Ginny l Result [facility] [address] [place] [address] documented in this encounter Visit Diagnoses Diagnosis Chronic pain syndrome- Primary documented in this encounter Additional Health Concerns Infection Onset Date Last Indicated Resolved Time MRSA 05/01/2020 05/01/2020 06/20/2022 1:45 AM EST CoV-Exposed Comment:Positive COVID-19 05/11/2021 05/11/2021 05/24/2021 8:3 7 PM EST COVID-19 05/22/2021 05/22/2021 06/12/2021 1:25 AM EST documented as of this encounter Care Teams Bookkeeping Assistant Relationship Specialty Start Date End Date Uriel Rosario MD [address] [place] [address] PCP - General Family Medicine 04/30/20 08/13/24 Alexander Coughlin MD [address] [place] [address] PCP - General Family Medicine 08/14/24 Pcp, Unknown 04/30/20 documented as of this encounter Additional Source Comments The information contained in this document represents components of the legal health record. It is not the complete legal health record.[facility]
--- OUTSIDE RECORDS SUMMARY | 2025-02-03 10:10 | XMS_ITS | Encounter Summary ---
Author Organization [facility] Address [address] [facility] [address] [place] [address] Phone Care Team Providers Care Tax Form Preparer Name Role Phone Uriel Rosario MD Primary Care Provide r Pcp, Unknown Unavailable Unavailable Alexander Coughlin MD Primary Care Provider Encounter Details Date Type Department Care Team (Late st Contact Info) Description 05/23/2021 Transcribe Orders [facility] [address] [place] [address] Héctor Alexander MD [address] [place] [address] [address], [address] [place] [address] [email or web address] Encounter for screening for COVID-19 (Primary Dx) [...] be available within 24 to 48 hrs. [facility] Symptomatic? NO [facility] Other 05/22/2021 11:4 7 AM EST 05/23/2021 12:02 PM EST us Héctor Alexander MD BODY FLUIDS AND STOOLS ORDERABLE S Final Result [facility] [address] [place] [address] [facility] [address] [place] [address] documented in this encounter Visit Diagnoses Diagnosis Encounter for screening for COVID-19- Primary documented in this encounter Additional Health Concerns Infection Onset Date Last Indicated Resolved Time MRSA 05/01/2020 05/01/2020 06/20/2022 1:45 AM EST CoV-Exposed Comment:Positive COVID-19 05/11/2021 05/11/2021 05/24/2021 8:3 7 PM EST COVID-19 05/22/2021 05/22/2021 06/12/2021 1:25 AM EST documented as of this encounter Care Teams Tax Form Preparer Relationship Specialty Start Date End Date Uriel Rosario MD [address] [place] [address] PCP - General Family Medicine 04/30/20 08/13/24 Alexander Coughlin MD [address] [place] [address] PCP - General Family Medicine 08/14/24 Pcp, Unknown 04/30/20 documented as of this encounter Additional Source Comments The information contained in this document represents components of the legal health record. It is not the complete legal health record.[facility]
--- OUTSIDE RECORDS SUMMARY | 2025-02-03 10:10 | XMS_ITS | Encounter Summary ---
Author Organization [facility] Address [address] [address] Phone Care Team Providers Care Custom Bike Builder Name Role Phone Uriel Rosario MD Primary Care Provide r Pcp, Unknown Unavailable Unavailable Alexander Coughlin MD Primary Care Provider Encounter Details Date Type Department Care Team (Late st Contact Info) Description 06/01/2022 Transcribe Orders [facility] [address] [place] [address] Stephani Whatley PA [address] [facility] [address] [place] [address] [email or web address] Type 1 diabetes mellitus with hyperosmolar coma [...] (06/01/2022 9:31 AM EST) HDL 38 mg/dL [facility] Comment: Interpretation <40 mg/dL: Low HDL cholesterol (major risk factor for CHD) Greater than or equal to 60 mg/dL: High HDL cholesterol ( negative risk factor for CHD) HDL - cholesterol is affected by a number of factors, e.g. smoking, excerise, hormones, sex and age. CHOLESTEROL 147 0 - 240 mg/dL [facility] TRIGLYCERIDES 175(H) 30 - 160 mg/dL [facility] LDL 74 50 - 129 mg/dL [facility] Comment: LDL levels in terms of risk for coronary heart disease: <100 mg/dL: Optimal 100-129 mg/dL: Near or above optimal 130-159 mg/dL: Borderline high 160-189 mg/dL: High >190 mg/dL: Very High CARDIAC RISK RATIO 3.9 3.3 - 4.4 C [facility] 06/01/2022 9:31 AM EST 06/01/2022 11:23 AM EST Stephani ALMONTE LAB BLOOD ORDERABLES Final R esult Performing Organization Address City/[facility]/ZIP Co de Phone Number [address] [address] * (ABNORMAL) Hemoglobin A1c (06/01/2022 9:31 AM EST) HEMOGLOBIN A1C 9.5(H) 4.3 - 5.8 % [facility] 06/01/2022 9:31 AM EST 06/01/2022 12:37 PM EST Stephani ALMONTE LAB BLOOD ORDERABLES Final R esult [address] [address] * (ABNORMAL) Comprehensive metabolic panel (06/01/2022 5:43 AM EST) SODIUM 137 133 - 146 mmol/L [facility] POTASSIUM 4.7 3.3 - 5.1 mmol/L [facility] CHLORIDE 97 96 - 108 mmol/L [facility] CO2 27 21 - 35 mmol/L [facility] BUN 18 6 - 19 mg/dL [facility] CREATININE 1.20 0.5 - 1.5 mg/dL [facility] GLUCOSE 61(L) 70 - 99 mg/dL [facility] ALBUMIN 3.3(L) 3.9 - 4.8 g/dL [facility] TOTAL PROTEIN 7.9 6.5 - 8.0 g/dL [facility] CALCIUM 9.6 8.4 - 10.3 mg/dL [facility] ALKALINE PHOSPHATASE 184(H) 39 - 117 U/L [facility] TOTAL BILIRUBIN 0.2 0.0 - 1.2 mg/dL [facility] AST 24 0 - 37 U/L [facility] ALT 9 0 - 40 U/L [facility] GLOBULIN 4.6 1 - 4.8 g/dL [facility] EGFR 64 >59 mL/min/1.7 3m2 [facility] Comment:Estimated glomerular filtration rate calculated using the CKD-EPI refit equation. ANION GAP 18 10 - 20 mmol/L [facility] 06/01/2022 5:43 AM EST 06/01/2022 9:47 AM EST Stephani ALMONTE LAB BLOOD ORDERABLES Final R esult Performing Organization Address City/State/[facility] Co de Phone Number [facility] [address] [place] [address] documented in this encounter Visit Diagnoses Diagnosis Type 1 diabetes mellitus with hyperosmolar coma documented in this encounter Additional Health Concerns Infection Onset Date Last Indicated Resolved Time MRSA 05/01/2020 05/01/2020 06/20/2022 1:45 AM EST documented as of this encounter Care Teams Custom Bike Builder Relationship Specialty Start Date End Date Uriel Rosario MD [address] [place] [address] PCP - General Family Medicine 04/30/20 08/13/24 Alexander Coughlin MD [address] [place] [address] PCP - General Family Medicine 08/14/24 Pcp, Unknown 04/30/20 documented as of this encounter Additional Source Comments The information contained in this document represents components of the legal health record. It is not the complete legal health record.[facility]
--- OUTSIDE RECORDS SUMMARY | 2025-02-03 10:10 | XMS_ITS | Clinical Summary ---
Author Organization [facility] Address [address] [employer] [address] [place] [address] Phone Care Team Providers Care Soccer Referee Name Role Phone Pcp, Unknown Unavailable Unavailable Alexander Coughlin MD Primary Care Provider Allergies Active Allergy Reactions Criticality Noted Date Comments [employer] 05/01/2020 Hives Sulfamethoxazole-Trimethoprim 2019 Rash Doxycycline [...] (12/25/2020 4:13 PM EDT): Reviewed records from [facility]. Patient admitted there from October to December. [...] HEMOGLOBIN A1C 9.5(H) 4.3 - 5.8 % [facility] 06/01/2022 9:31 AM EST 06/01/2022 12:37 PM EST Stephani ALMONTE LAB BLOOD ORDERABLES Final R [facility] Performing Organization Address [facility] Co de Phone Number [address] [address] * (ABNORMAL) Lipid panel (06/01/2022 9:31 AM EST) Pathologist [facility] HDL 38 mg/dL [facility] Comment: Interpretation <40 mg/dL: Low HDL cholesterol (major risk factor for CHD) Greater than or equal to 60 mg/dL: High HDL cholesterol ( negative risk factor for CHD) HDL - cholesterol is affected by a number of factors, e.g. smoking, excerise, hormones, sex and age. CHOLESTEROL 147 0 - 240 mg/dL [facility] TRIGLYCERIDES 175(H) 30 - 160 mg/dL [facility] LDL 74 50 - 129 mg/dL [facility] Comment: LDL levels in terms of risk for coronary heart disease: <100 mg/dL: Optimal 100-129 mg/dL: Near or above optimal 130-159 mg/dL: Borderline high 160-189 mg/dL: High >190 mg/dL: Very High CARDIAC RISK RATIO 3.9 3.3 - 4.4 C [facility] 06/01/2022 9:31 AM EST 06/01/2022 11:23 AM EST Stephani ALMONTE LAB BLOOD ORDERABLES Final R [facility] Performing Organization Address City/[facility] Co de Phone Number [address] [address] * Historical Lab (12/19/2009 8:30 AM EDT) Pathologist [facility] HEPATITIS C w/reflex RIBA Non Reactive NonReactive [facility] Comment:METHOD: CENTAUR CHEM ILUMINESCENCE IMMUNOASSAY (ANDREIA) 12/19/2009 8:30 AM EDT 12/19/2009 2:34 PM EDT Narrative - 12/19/2009 5:29 PM EDT Comments requested to appear on patient's report: [facility] / UNIT 1 us Conversion Provider Not In Sys LAB BLOOD ORDERAB LES Final Result [address] [place] [address] from Last 3 Months or Most Recently Relevant to Health Maintenance Insurance ACO ACO ACO ACO ACO Member Subscriber Plan / Payer (Ef fective 2022-Present) Name:Radha Olivera Relation to Subscriber:Self Name:Radha Olivera Payer ID:[id number] Group ID:Not on file Type:Medicaid Address: [place] [id number] ACO Member Subscriber Plan / Payer (Ef fective 2022-Present) Name:JarodRadha Relation to Subscriber:Self Name:Jarod Radha Payer ID:[id number] Group ID:Not on file Type:Medicaid Address: [place] [id number] ACO ACO Member Subscriber Plan / Payer (Ef fective 2022-Present) Name:Radha Olivera Relation to Subscriber:Self Name:Radha Olivera Payer ID:[id number] Group ID:Not on file Type:Medicaid Address: [address] ACO Advance Directives For more information, please contact: [phone] (9AM - 5PM [facility], Saturday-Saturday) Documents on File Type Date Recorded Patient Phototypesetter Operator Expl anation Healthcare Proxy 12/28/2020 1:25 PM [...] Code Status Confirmed With: Patient Care Teams Soccer Referee Relationship Specialty Start Date End Date Alexander Coughlin MD [address] [place] [address] PCP - General Family Medicine 08/14/24 Pcp, Unknown 04/30/20 Additional Source Comments The information contained in this document represents components of the legal health record. It is not the complete legal health record.[facility]
== END 2025-02-02 09:21 | disposition home or self-care (01) ==
LOC: HO.HOSX 09:20
PROVIDERS: Visit Provider Physician Assistant
DX: M21.961 Unspecified acquired deformity of right lower leg (principal); G89.29 Other chronic pain; M25.561 Pain in right knee; M54.50 Low back pain, unspecified
CPT/HCPCS: 73562; 99202

== ENCOUNTER 2025-02-02 13:38 | Outpatient (AMB) | payer OTHER, SELFPAY ==
--- NOTE | 2025-02-02 13:54 | A.OFFVIS_ITS ---
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 Patient reports ongoing pain for about 2 years since she fractured it. Patient has tried a Celebrex which gave her no relief. She states that her pain is worse when she is trying to move her knee. Her ROM is limited. 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 Olivera is a 29-year-old female with a complex past medical history significant for type 1 DM, left BKA due to nonhealing ulcer, chronic low back pain, MRSA bacteremia, neuropathy, polysubstance use order, DKA, PTSD, diabetic retinopathy, cataracts in both eyes, and tobacco use. She presents to the office today for evaluation in of chronic right knee pain and range of motion limitations. She reports that a few years ago she had a fracture of the right knee but did not seek medical attention for roughly 3 weeks after the injury and has been walking on it. She reports that after this injury she began to lose function in the right knee. She is able to weightbear on the right lower extremity but has no motion. Due to the patient's history of a left yqhqb-sdq-xxic amputation she has been wheelchair-bound. The patient was seen at [facility] and offered a right knee arthrodesis. The patient is seeking a 2nd opinion looking for a right total knee replacement to regain range of motion and function of the knee. 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 Hx of LASIK H/O detached retina repair History of adenoidectomy History of tonsillectomy H/O removal of cyst Family History Mother Substance abuse Asthma Psychiatric disorder Father Psychiatric disorder Maternal Grandmother Cancer Other Mental health disorder Social History Housing: Apartment Alcohol intake: current Alcohol intake frequency: a few times a month Patient Tobacco Use Status: Current everyday Tobacco user Tobacco use type: Cigarette Cigarette Packs Per Day: 1 e-Cigarette/Vaping Use: Currently Using service: No Current occupational status: disabled Cognitive needs: No Hearing needs: No Vision needs: Yes (Patient needs eye exM) Review of Systems Const All systems reviewed & are unremarkable except as noted in HPI and below Physical Exam Const General: cooperative, healthy appearing and no acute distress Resp Effort & Inspection: normal respiratory effort and able to speak in complete sentences Extrem Other: Right knee is permanently flexed to roughly 45 degrees. Unable to perform any range of motion. Sensation reportedly intact. Psych Appearance: grossly normal Mental Status: mental status grossly normal Attitude: cooperative Assessment & Plan Assessment & Plan (1) Deformity of right knee joint: Code(s): M21.961 - Unspecified acquired deformity of right lower leg Category: Medical Plan Ms. Olivera is a 29-year-old female with a complex past medical history significant for type 1 DM, left BKA due to nonhealing ulcer, chronic low back pain, MRSA bacteremia, neuropathy, polysubstance use order, DKA, PTSD, diabetic retinopathy, cataracts in both eyes, and tobacco use. She presents to the office today for evaluation in of chronic right knee pain and range of motion limitations. She reports that a few years ago she had a fracture of the right knee but did not seek medical attention for roughly 3 weeks after the injury and has been walking on it. She reports that after this injury she began to lose function in the right knee. She is able to weightbear on the right lower extremity but has no motion. Due to the patient's history of a left zzdfs-izu-odis amputation she has been wheelchair-bound. The patient was seen at [facility] and offered a right knee arthrodesis. The patient is seeking a 2nd opinion looking for a right total knee replacement to regain range of motion and function of the knee. While the office today, unfortunately this patient has a very complex past medical history and would not be a surgical candidate within our practice. I have recommended that the patient seek a referral to a larger orthopedic office such as [facility] or [facility] if she is truly looking for other options to regain motion in the right knee. She will reach out to her PCP to discuss possible referrals. X-rays of the right knee which were obtained while in the office today and were reviewed by me, Daiana Sun PA-C, revealed post traumatic joint fusion. Orders: Orders XR knee RT 3V Today M25.569 - Pain in unspecified knee Coding Level of Care Code New Pt Level 3 (13311) Diagnoses Deformity of right knee joint M21.961
--- OUTSIDE RECORDS SUMMARY | 2025-02-02 14:56 | XMS_ITS | Encounter Summary ---
Author Organization [facility] Address [address] [facility] [address] [place] [address] Phone Care Team Providers Care Casting Machine Adjuster Name Role Phone Uriel Rosario MD Primary Care Provide r Pcp, Unknown Unavailable Unavailable Alexander Coughlin MD Primary Care Provider Encounter Details Date Type Department Care Team (Late st Contact Info) Description 05/01/2020 Procedure Pass [facility], Ct Scan - [address] [address] Social History Tobacco Use Types Packs/Day Years [...] documented as of this encounter Care Teams Casting Machine Adjuster Relationship Specialty Start Date End Date Uriel Rosario MD [address] [place] [address] PCP - General Family Medicine 04/30/20 08/13/24 Alexander Coughlin MD [address] [place] [address] PCP - General Family Medicine 08/14/24 Pcp, Unknown 04/30/20 documented as of this encounter Additional Source Comments The information contained in this document represents components of the legal health record. It is not the complete legal health record.[facility]
--- OUTSIDE RECORDS SUMMARY | 2025-02-02 14:56 | XMS_ITS | Encounter Summary ---
Author Organization [facility] Address [address] [facility] [address] [address] Phone Care Team Providers Care Finisher Card Tender Name Role Phone Uriel Rosario MD Primary Care Provide r Pcp, Unknown Unavailable Unavailable Alexander Coughlin MD Primary Care Provider Encounter Details Date Type Department Care Team (Late st Contact Info) Description 02/11/2021 Transcribe Orders [facility] [address] [place] [address] Héctor Alexander MD [address] [place] [address] [address] [place] [address] [email or web address] Possible exposure to STD (Primary Dx) Social [...] documented as of this encounter Care Teams Finisher Card Tender Relationship Specialty Start Date End Date Uriel Rosario MD [address] [place] [address] PCP - General Family Medicine 04/30/20 08/13/24 Alexander Coughlin MD [address] [place] [address] PCP - General Family Medicine 08/14/24 Pcp, Unknown 04/30/20 documented as of this encounter Additional Source Comments The information contained in this document represents components of the legal health record. It is not the complete legal health record.[facility]
--- OUTSIDE RECORDS SUMMARY | 2025-02-02 14:56 | XMS_ITS | Encounter Summary ---
Author Organization [facility] Address [address] [facility] [address] [place] [address] Phone Care Team Providers Care Sea Air Land Officer Name Role Phone Uriel Rosario MD Primary Care Provide r Pcp, Unknown Unavailable Unavailable Alexander Coughlin MD Primary Care Provider Encounter Details Date Type Department Care Team (Late st Contact Info) Description 05/01/2020 Procedure Pass [facility] [address] [place] [address] Social History Tobacco Use Types Packs/Day Years [...] documented as of this encounter Care Teams Sea Air Land Officer Relationship Specialty Start Date End Date Uriel Rosario MD [address] [place] [address] PCP - General Family Medicine 04/30/20 08/13/24 Alexadner Coughlin MD [address] [place] [address] PCP - General Family Medicine 08/14/24 Pcp, Unknown 04/30/20 documented as of this encounter Additional Source Comments The information contained in this document represents components of the legal health record. It is not the complete legal health record.[facility]
--- OUTSIDE RECORDS SUMMARY | 2025-02-02 14:56 | XMS_ITS | Encounter Summary ---
Author Organization [facility] Address [address] [place] [address] Phone Care Team Providers Care Trouble Clerk Name Role Phone Uriel Rosario MD Primary Care Provide r Pcp, Unknown Unavailable Unavailable Alexander Coughlin MD Primary Care Provider Encounter Details Date Type Department Care Team (Late st Contact Info) Description 12/23/2020 Procedure Pass [facility], [address] [address] Social History Tobacco Use Types Packs/Day Years [...] AM REUBENT Alex Hernandez i, RN * [place] Suicide Severity Rating Scale (Screener/Recent Self-Report) Question [...] documented as of this encounter Care Teams Trouble Clerk Relationship Specialty Start Date End Date Uriel Rosario MD [address] [place] [address] PCP - General Family Medicine 04/30/20 08/13/24 Alexander Coughlin MD [address] [place] [address] PCP - General Family Medicine 08/14/24 Pcp, Unknown 04/30/20 documented as of this encounter Additional Source Comments The information contained in this document represents components of the legal health record. It is not the complete legal health record.[facility]
--- OUTSIDE RECORDS SUMMARY | 2025-02-02 14:56 | XMS_ITS | Encounter Summary ---
Author Organization [facility] Address 399 Virtual Call Center [facility] [address] [place] [address] Phone Care Team Providers Care Non Destructive Testing Inspector Name Role Phone Uriel Rosario MD Primary Care Provide r Pcp, Unknown Unavailable Unavailable Alexander Coughlin MD Primary Care Provider Encounter Details Date Type Department Care Team (Late st Contact Info) Description 05/23/2021 Transcribe Orders [facility] [address] [place] [address] Héctor Alexander MD [address] [place] [address] [address], [address] [place] [address] [email or web address] Encounter [...] be available within [address] [facility] Symptomatic? NO [facility] Other 05/22/2021 11:4 7 AM EST 05/23/2021 12:02 PM EST us Héctor Alexander MD BODY FLUIDS AND STOOLS ORDERABLE S Final Result [facility] [address] [place] [address] [facility] [address] [place] [address] documented in this encounter Visit Diagnoses Diagnosis Encounter for screening for COVID-19- Primary documented in this encounter Additional Health Concerns Infection Onset Date Last Indicated Resolved Time MRSA 05/01/2020 05/01/2020 06/20/2022 1:45 AM EST CoV-Exposed Comment:Positive COVID-19 05/11/2021 05/11/2021 05/24/2021 8:3 7 PM EST COVID-19 05/22/2021 05/22/2021 06/12/2021 1:25 AM EST documented as of this encounter Care Teams Non Destructive Testing Inspector Relationship Specialty Start Date End Date Uriel Rosario MD [address] [place] [address] PCP - General Family Medicine 04/30/20 08/13/24 Alexander Coughlin MD [address] [place] [address] PCP - General Family Medicine 08/14/24 Pcp, Unknown 04/30/20 documented as of this encounter Additional Source Comments The information contained in this document represents components of the legal health record. It is not the complete legal health record.[facility]
--- OUTSIDE RECORDS SUMMARY | 2025-02-02 14:56 | XMS_ITS | Encounter Summary ---
Author Organization [employer] [facility] Address [address] [place] [address] Phone Care Team Providers Care Flight Deck Officer Name Role Phone Uriel Rosario MD Primary Care Provide r Pcp, Unknown Unavailable Unavailable Alexander Coughlin MD Primary Care Provider Encounter Details Date Type Department Care Team (Late st Contact Info) Description 12/20/2020 Procedure Pass [facility], Ct Scan - [address] [address] Social History Tobacco Use Types Packs/Day Years [...] 3:09 AM Alex Patel i, RN * [place] Suicide Severity Rating Scale (Screener/Recent Self-Report) Question [...] documented as of this encounter Care Teams Flight Deck Officer Relationship Specialty Start Date End Date Uriel Rosario MD [address] [place] [address] PCP - General Family Medicine 04/30/20 08/13/24 Alexander Coughlin MD [address] [place] [address] PCP - General Family Medicine 08/14/24 Pcp, Unknown 04/30/20 documented as of this encounter Additional Source Comments The information contained in this document represents components of the legal health record. It is not the complete legal health record.[facility]
--- OUTSIDE RECORDS SUMMARY | 2025-02-02 14:56 | XMS_ITS | Encounter Summary ---
Author Organization [facility] Address [address] [address] Phone Care Team Providers Care Plant Anatomy Teacher Name Role Phone Uriel Rosario MD Primary Care Provide r Pcp, Unknown Unavailable Unavailable Alexander Coughlin MD Primary Care Provider Reason for Referral * MRI/CAT Scan - Closed Specialty Diagnoses / Procedures Referred By Contac t Referred To Contact Radiology Diagnoses Lumbar radiculopathy Weakness Quadriplegia and quadriparesis Procedures MRI Lumbar Spine MRI Lumbar Spine Héctor Alexander MD Phone: tel: fax: mailto: Referral ID Status Reason Start Date Expiration Date Visits Re quested Visits Authorized [id number] Closed 06/07/2021 06/07/2022 1 1 * MRI/CAT Scan - Closed Specialty Diagnoses / Procedures Referred By Contac t Referred To Contact Radiology Diagnoses Lumbar radiculopathy Weakness Quadriplegia and quadriparesis Procedures MRI Cervical Spine MRI Cervical Spine Héctor Alexander MD Phone: tel: fax: [email or web address]:[email or web address] Referral ID Status Reason Start Date Expiration Date Visits Re quested Visits Authorized [id number] Closed 06/07/2021 06/07/2022 1 1 Encounter Details Date Type Department Care Team (Late st Contact Info) Description 06/26/2021 Ancillary Orders Virtual Department [address] [place] [address] Héctor Alexander MD 38 [facility], [address], [address] [place] [address] [email or web address] Lumbar radiculopathy; Weakness; Quadriplegia and quadriparesis Social [...] of the cervical spine and cord. POS [id number] Narrative 06/27/2021 12:22 PM EST TECHNIQUE: 1.5 [...] MRI of thecervical spine and cord. POS [id number] us Héctor Alexander MD IMG MR XSPECIALTY [...] bilateral foraminal stenosis. No other stenosis. POS [id number] Narrative 06/27/2021 12:38 PM EST TECHNIQUE: 1.5 [...] bilateral foraminal stenosis. No other stenosis. POS [id number] Héctor Alexander MD IMG MR XSPECIALTY Final [...] documented as of this encounter Care Teams Plant Anatomy Teacher Relationship Specialty Start Date End Date Uriel Rosario MD 20 [place] [address] PCP - General Family Medicine 04/30/20 08/13/24 Alexander Coughlin MD [address] [place] [address] PCP - General Family Medicine 08/14/24 Pcp, Unknown 04/30/20 documented as of this encounter Additional Source Comments The information contained in this document represents components of the legal health record. It is not the complete legal health record.[facility]
--- OUTSIDE RECORDS SUMMARY | 2025-02-02 14:56 | XMS_ITS | Encounter Summary ---
Author Organization [facility] Address [address] [employer] [facility] [address] [place] [address] Phone Care Team Providers Care Call Center Recruiter Name Role Phone Uriel Rosario MD Primary Care Provide r Pcp, Unknown Unavailable Unavailable Alexander Coughlin MD Primary Care Provider Encounter Details Date Type Department Care Team (Late st Contact Info) Description 06/07/2021 Procedure Pass [facility], [address] [address] Social History Tobacco Use Types Packs/Day Years [...] documented as of this encounter Care Teams Call Center Recruiter Relationship Specialty Start Date End Date Uriel Rosario MD 20 [place] [address] PCP - General Family Medicine 04/30/20 08/13/24 Alexander Coughlin MD [address] [place] [address] PCP - General Family Medicine 08/14/24 Pcp, Unknown 04/30/20 documented as of this encounter Additional Source Comments The information contained in this document represents components of the legal health record. It is not the complete legal health record.[facility]
--- OUTSIDE RECORDS SUMMARY | 2025-02-02 14:56 | XMS_ITS | Encounter Summary ---
Author Organization [facility] Address 399 [facility] [address] [place] [address] Phone Care Team Providers Care Threading Machine Operator Name Role Phone Uriel Rosario MD Primary Care Provide r Pcp, Unknown Unavailable Unavailable Alexander Coughlin MD Primary Care Provider Reason for Referral * MRI/CAT Scan - Closed Specialty Diagnoses / Procedures Referred By Contac t Referred To Contact Radiology Diagnoses Lumbar radiculopathy Weakness Quadriplegia and quadriparesis Procedures MRI Thoracic Spine Héctor Alexander MD Phone: tel: fax: mailto:[email or web address] Referral ID Status Reason Start Date Expiration Date Visits Re quested Visits Authorized [id number] Closed 06/26/2021 06/26/2022 1 1 Encounter Details Date Type Department Care Team (Latest Contact Info) Description 06/07/2021 Transcribe Orders Virtual Department [address] [place] [address] Héctor Alexander MD 38 [facility] 204, [address] [place] [address] Quadriplegia and quadriparesis (Primary Dx); Lumbar radiculopathy; [...] protrusion or stenosis at any level. POS [id number] Narrative 06/27/2021 12:30 PM EST TECHNIQUE: 1.5 [...] disc protrusion or stenosis atany level. POS [id number] Héctor Alexander MD IMG MR XSPECIALTY Final [...] documented as of this encounter Care Teams Threading Machine Operator Relationship Specialty Start Date End Date Uriel Rosario MD 20 [place] [address] PCP - General Family Medicine 04/30/20 08/13/24 Alexander Coughlin MD [address] [place] [address] PCP - General Family Medicine 08/14/24 Pcp, Unknown 04/30/20 documented as of this encounter Additional Source Comments The information contained in this document represents components of the legal health record. It is not the complete legal health record.[facility]
--- OUTSIDE RECORDS SUMMARY | 2025-02-02 14:56 | XMS_ITS | Encounter Summary ---
Author Organization [facility] Address 399 [facility] [address] [place] [address] Phone Care Team Providers Care Roving Frame Tender Name Role Phone Uriel Rosario MD Primary Care Provide r Pcp, Unknown Unavailable Unavailable Alexander Coughlin MD Primary Care Provider Encounter Details Date Type Department Care Team (Late st Contact Info) Description 06/26/2021 Procedure Pass [facility], [address] [address] Social History Tobacco Use Types Packs/Day Years [...] documented as of this encounter Care Teams Roving Frame Tender Relationship Specialty Start Date End Date Uriel Rosario MD 20 [place] [address] PCP - General Family Medicine 04/30/20 08/13/24 Alexander Coughlin MD [address] [place] [address] PCP - General Family Medicine 08/14/24 Pcp, Unknown 04/30/20 documented as of this encounter Additional Source Comments The information contained in this document represents components of the legal health record. It is not the complete legal health record.[facility]
--- OUTSIDE RECORDS SUMMARY | 2025-02-02 14:56 | XMS_ITS | Encounter Summary ---
Author Organization [facility] Address [address] [facility] [address] [place] [address] Phone Care Team Providers Care Senior Underwriter Name Role Phone Uriel Rosario MD Primary Care Provide r Pcp, Unknown Unavailable Unavailable Alexander Coughlin MD Primary Care Provider Encounter Details Date Type Department Care Team (Late st Contact Info) Description 06/07/2021 Procedure Pass [facility], [address] [address] Social History Tobacco Use Types Packs/Day Years [...] documented as of this encounter Care Teams Senior Underwriter Relationship Specialty Start Date End Date Uriel Rosario MD 20 [place] [address] PCP - General Family Medicine 04/30/20 08/13/24 Alexander Coughlin MD [address] [place] [address] PCP - General Family Medicine 08/14/24 Pcp, Unknown 04/30/20 documented as of this encounter Additional Source Comments The information contained in this document represents components of the legal health record. It is not the complete legal health record.[facility]
--- OUTSIDE RECORDS SUMMARY | 2025-02-02 14:56 | XMS_ITS | Clinical Summary ---
Author Organization [facility] Address [address] [address] Care Team Providers Care Process Inspector Name Role Phone Uriel Cyr MD Primary [...] Exam 06/06/2022 Influenza Vaccine (#1) 2025 Insurance [facility] Medicaid Care Teams Process Inspector Relationship Specialty Start Date End Date Uriel Cyr MD PCP - General Family Medicine 06/05/22
--- OUTSIDE RECORDS SUMMARY | 2025-02-02 14:57 | XMS_ITS | Clinical Summary ---
Author Organization [employer] [facility] Address [address] [place] [address] Phone Care Team Providers Care Title Camera Operator Name Role Phone Pcp, Unknown Unavailable Unavailable Alexander Coughlin MD Primary Care Provider Allergies Active Allergy Reactions Criticality Noted Date Comments [place] [employer] 05/01/2020 Hives Sulfamethoxazole-Trimethoprim 2019 Rash Doxycycline [...] (12/25/2020 4:13 PM EDT): Reviewed records from [facility]. Patient admitted there from October to December. [...] MICROALBUMIN/CREATININE RATIO 12/07/2020 HEMOGLOBIN A1C 08/30/2022 06/01/2022, 11/12/2020, 12/23/2020, Additional history exists LIPID PANEL 06/01/2023 06/01/2022, 03/13/2021 INFLUENZA VACCINE (#1) 2024 COVID-19 VACCINE (3 - season) 2025 12/25/2020, 11/25/2020 Adult Td,Tdap Booster 03/26/2029 03/26/2019 [...] HEMOGLOBIN A1C 9.5(H) 4.3 - 5.8 % [facility] 06/01/2022 9:31 AM EST 06/01/2022 12:37 PM EST Stephani ALMONTE LAB BLOOD ORDERABLES Final R [facility] Performing Organization Address [facility] Co de Phone Number [address] [address] * (ABNORMAL) Lipid panel (06/01/2022 9:31 AM EST) Pathologist [facility] HDL 38 mg/dL [facility] Comment: Interpretation <40 mg/dL: Low HDL cholesterol (major risk factor for CHD) Greater than or equal to 60 mg/dL: High HDL cholesterol ( negative risk factor for CHD) HDL - cholesterol is affected by a number of factors, e.g. smoking, excerise, hormones, sex and age. CHOLESTEROL 147 0 - 240 mg/dL [facility] TRIGLYCERIDES 175(H) 30 - 160 mg/dL [facility] LDL 74 50 - 129 mg/dL [facility] Comment: LDL levels in terms of risk for coronary heart disease: <100 mg/dL: Optimal 100-129 mg/dL: Near or above optimal 130-159 mg/dL: Borderline high 160-189 mg/dL: High >190 mg/dL: Very High CARDIAC RISK RATIO 3.9 3.3 - 4.4 C [facility] 06/01/2022 9:31 AM EST 06/01/2022 11:23 AM EST Stephani ALMONTE LAB BLOOD ORDERABLES Final R [facility] Performing Organization Address City/[facility] Co de Phone Number [address] [address] * Historical Lab (12/19/2009 8:30 AM EDT) Pathologist [facility] HEPATITIS C w/reflex RIBA Non Reactive NonReactive [facility] Comment:METHOD: CENTAUR CHEM ILUMINESCENCE IMMUNOASSAY (ANDREIA) 12/19/2009 8:30 AM EDT 12/19/2009 2:34 PM EDT Narrative [facility] - 12/19/2009 5:29 PM EDT Comments requested to appear on patient's report: [facility] / UNIT 1 us Conversion Provider Not In Sys LAB BLOOD ORDERAB LES Final Result [facility] [address] [place] [address] from Last 3 Months or Most Recently Relevant to Health Maintenance Insurance ACO ACO ACO ACO ACO Member Subscriber Plan / Payer (Ef fective 2022-Present) Name:Radha Olivera Relation to Subscriber:Self Name:Radha Olivera Payer ID:[id number] Group ID:Not on file Type:Medicaid Address: [place] [id number] ACO Member Subscriber Plan / Payer (Ef fective 2022-Present) Name:JarodRadha Relation to Subscriber:Self Name:Jarod Radha Payer ID:[id number] Group ID:Not on file Type:Medicaid Address: [place] [id number] ACO ACO Member Subscriber Plan / Payer (Ef fective 2022-Present) Name:Radha Olivera Relation to Subscriber:Self Name:Radha Olivera Payer ID:[id number] Group ID:Not on file Type:Medicaid Address: [address] ACO Advance Directives For more information, please contact: [phone] (9AM - 5PM [facility], Saturday-Saturday) Documents on File Type Date Recorded Patient Tobacco Sweeper Expl anation Healthcare Proxy 12/28/2020 1:25 PM [...] Code Status Confirmed With: Patient Care Teams Title Camera Operator Relationship Specialty Start Date End Date Alexander Coughlin MD [address] [place] [address] PCP - General Family Medicine 08/14/24 Pcp, Unknown 04/30/20 Additional Source Comments The information contained in this document represents components of the legal health record. It is not the complete legal health record.[facility]
--- OUTSIDE RECORDS SUMMARY | 2025-02-02 14:57 | XMS_ITS | Encounter Summary ---
Author Organization [facility] Address [address] [employer] [address] [address] Phone Care Team Providers Care Criminal Lawyer Name Role Phone Uriel Rosario MD Primary Care Provide r Pcp, Unknown Unavailable Unavailable Alexander Coughlin MD Primary Care Provider Encounter Details Date Type Department Care Team (Late st Contact Info) Description 05/12/[address] [facility] [address] [place] [address] [address] [email or web address] Chronic pain syndrome (Primary Dx) Social History [...] CREATINE KINASE 309(H) 21 - 215 U/L [facility] Blood 05/12/2021 5:54 AM EST 05/12/2021 7:12 AM EST Tata ALMONTE LAB BLOOD ORDERABLES Ginny l Result Performing Organization Address [facility]/ZIP Co de Phone Number [address] [address] * Sedimentation rate (ESR) (05/12/2021 5:54 AM EST) ESR 15 0 - 20 mm/h [facility] Blood 05/12/2021 5:54 AM EST 05/12/2021 7:12 AM EST us Tata ALMONTE LAB BLOOD ORDERABLES Ginny l Result Performing Organization Address [facility] Co de Phone Number [address] [address] * Lipase (05/12/2021 5:54 AM EST) LIPASE 16 16 - 63 U/L [facility] Blood 05/12/2021 5:54 AM EST 05/12/2021 7:12 AM EST us Tata ALMONTE LAB BLOOD ORDERABLES Ginny l Result Performing Organization Address [facility] Co de Phone Number [address] [address] * C-Reactive Protein (05/12/2021 5:54 AM EST) C REACTIVE PROTEIN 3.4 0.0 - 4.0 mg/L [facility] Blood 05/12/2021 5:54 AM EST 05/12/2021 7:12 AM EST Tata ALMONTE LAB BLOOD ORDERABLES Ginny l Result [facility] [address] [place] [address] * CBC and differential (05/12/2021 5:54 AM EST) WBC 5.84 4.00 - 11.00 K/uL [facility] RBC 4.07 3.72 - 5.30 M/uL [facility] HGB 11.2 11.0 - 15.2 g/dL [facility] HCT 32.5 31.6 - 44.1 % [facility] PLT 271 140 - 430 K/uL [facility] MCV 79.9 78.0 - 97.0 fL [facility] MCH 27.5 25.0 - 33.0 pg [facility] MCHC 34.5 32.0 - 36.0 g/dL [facility] RDW 12.8 11.0 - 16.0 % [facility] MPV 10.9 8.4 - 12.8 fl [facility] NRBC 0.00 0 /100 WBCs [facility] ABSOLUTE NRBC 0.00 0 K/uL [facility] DIFF METHOD Auto [facility] NEUTS 66.2 43.0 - 75.0 % [facility] LYMPHS 22.4 18.2 - 47.4 % [facility] MONOS 6.3 4.00 - 11.00 % [facility] EOS 4.1 0.0 - 8.0 % [facility] BASOS 0.7 0.0 - 2.0 % [facility] Granulocytes, immature (%) 0.3 0.0 - 0.9 % [facility] ABSOLUTE NEUTS 3.86 1.80 - 7.70 K/uL [facility] ABSOLUTE LYMPHS 1.31 1.00 - 3.10 K/uL [facility] ABSOLUTE MONOS 0.37 0.20 - 0.80 K/uL [facility] ABSOLUTE EOS 0.24 0.00 - 0.80 K/uL [facility] ABSOLUTE BASOS 0.04 0.00 - 0.09 K/uL [facility] Granulocytes, immature 0.02 0.00 - 0.05 K/uL [facility] Blood 05/12/2021 5:54 AM EST 05/12/2021 7:12 AM EST us Ttaa ALMONTE LAB BLOOD ORDERABLES Ginny l Result [address] [address] * Amylase (05/12/2021 5:54 AM EST) AMYLASE 86 28 - 100 U/L [facility] Blood 05/12/2021 5:54 AM EST 05/12/2021 7:12 AM EST Tata ALMONTE LAB BLOOD ORDERABLES Ginny l Result Performing Organization Address [facility] de Phone Number [address] [address] * (ABNORMAL) Comprehensive metabolic panel (05/12/2021 5:54 AM EST) SODIUM 136 133 - 146 mmol/L [facility] POTASSIUM 4.4 3.3 - 5.1 mmol/L [facility] CHLORIDE 101 96 - 108 mmol/L [facility] CO2 25 21 - 35 mmol/L [facility] BUN 19 6 - 19 mg/dL [facility] CREATININE 0.60 0.5 - 1.5 mg/dL [facility] GLUCOSE 441(H) 70 - 99 mg/dL [facility] ALBUMIN 4.3 3.9 - 4.8 g/dL [facility] TOTAL PROTEIN 6.7 6.5 - 8.0 g/dL [facility] CALCIUM 9.8 8.4 - 10.3 mg/dL [facility] ALKALINE PHOSPHATASE 122(H) 39 - 117 U/L [facility] TOTAL BILIRUBIN 0.2 0.0 - 1.2 mg/dL [facility] AST 12 0 - 37 U/L [facility] ALT 17 0 - 40 U/L [facility] GLOBULIN 2.4 1 - 4.8 g/dL [facility] EGFR >120 >59 mL/min/1.7 3m2 [facility] Comment:Estimated glomerular filtration rate calculated using the CKD-EPI refit equation. ANION GAP 14 10 - 20 mmol/L [facility] Blood 05/12/2021 5:54 AM EST 05/12/2021 7:12 AM EST us Tata ALMONTE LAB BLOOD ORDERABLES Ginny l Result [facility] [address] [place] [address] documented in this encounter Visit Diagnoses Diagnosis Chronic pain syndrome- Primary documented in this encounter Additional Health Concerns Infection Onset Date Last Indicated Resolved Time MRSA 05/01/2020 05/01/2020 06/20/2022 1:45 AM EST CoV-Exposed Comment:Positive COVID-19 05/11/2021 05/11/2021 05/24/2021 8:3 7 PM EST COVID-19 05/22/2021 05/22/2021 06/12/2021 1:25 AM EST documented as of this encounter Care Teams Criminal Lawyer Relationship Specialty Start Date End Date Uriel Rosario MD [address] [place] [address] PCP - General Family Medicine 04/30/20 08/13/24 Alexander Coughlin MD [address] [place] [address] PCP - General Family Medicine 08/14/24 Pcp, Unknown 04/30/20 documented as of this encounter Additional Source Comments The information contained in this document represents components of the legal health record. It is not the complete legal health record.[facility]
--- OUTSIDE RECORDS SUMMARY | 2025-02-02 14:57 | XMS_ITS | Encounter Summary ---
Author Organization [facility] Address [address] [employer] [address] [address] Phone Care Team Providers Care Quality Assurance Technician Name Role Phone Uriel Rosario MD Primary Care Provide r Pcp, Unknown Unavailable Unavailable Alexander Coughlin MD Primary Care Provider Encounter Details Date Type Department Care Team (Late st Contact Info) Description 06/01/2022 Transcribe Orders [facility] Specimen Processing [address] [place] [address] Stephani Whatley PA [address] [facility] [address] [place] [address] [email or web address] Type 1 diabetes mellitus with hyperosmolar coma [...] (06/01/2022 9:31 AM EST) HDL 38 mg/dL [facility] Comment: Interpretation <40 mg/dL: Low HDL cholesterol (major risk factor for CHD) Greater than or equal to 60 mg/dL: High HDL cholesterol ( negative risk factor for CHD) HDL - cholesterol is affected by a number of factors, e.g. smoking, excerise, hormones, sex and age. CHOLESTEROL 147 0 - 240 mg/dL [facility] TRIGLYCERIDES 175(H) 30 - 160 mg/dL [facility] LDL 74 50 - 129 mg/dL [facility] Comment: LDL levels in terms of risk for coronary heart disease: <100 mg/dL: Optimal 100-129 mg/dL: Near or above optimal 130-159 mg/dL: Borderline high 160-189 mg/dL: High >190 mg/dL: Very High CARDIAC RISK RATIO 3.9 3.3 - 4.4 [facility] 06/01/2022 9:31 AM EST 06/01/2022 11:23 AM EST Stephani [facility]MONTE [facility] BLOOD ORDERABLES Final R esult Performing Organization Address City/[facility]/ZIP Co de Phone Number [address] [address] * (ABNORMAL) Hemoglobin A1c (06/01/2022 9:31 AM EST) HEMOGLOBIN A1C 9.5(H) 4.3 - 5.8 % [facility] 06/01/2022 9:31 AM EST 06/01/2022 12:37 PM EST Stephani [facility] BLOOD ORDERABLES Final R esult [address] [address] * (ABNORMAL) Comprehensive metabolic panel (06/01/2022 5:43 AM EST) SODIUM 137 133 - 146 mmol/L [facility] POTASSIUM 4.7 3.3 - 5.1 mmol/L [facility] CHLORIDE 97 96 - 108 mmol/L [facility] CO2 27 21 - 35 mmol/L [facility] BUN 18 6 - 19 mg/dL [facility] CREATININE 1.20 0.5 - 1.5 mg/dL [facility] GLUCOSE 61(L) 70 - 99 mg/dL [facility] ALBUMIN 3.3(L) 3.9 - 4.8 g/dL [facility] TOTAL PROTEIN 7.9 6.5 - 8.0 g/dL [facility] CALCIUM 9.6 8.4 - 10.3 mg/dL [facility] ALKALINE PHOSPHATASE 184(H) 39 - 117 U/L [facility] TOTAL BILIRUBIN 0.2 0.0 - 1.2 mg/dL [facility] AST 24 0 - 37 U/L [facility] ALT 9 0 - 40 U/L [facility] GLOBULIN 4.6 1 - 4.8 g/dL [facility] EGFR 64 >59 mL/min/1.7 3m2 [facility] Comment:Estimated glomerular filtration rate calculated using the CKD-EPI refit equation. ANION GAP 18 10 - 20 mmol/L [facility] 06/01/2022 5:43 AM EST 06/01/2022 9:47 AM EST Stephani ALMONTE [facility] BLOOD ORDERABLES Final R esult Performing Organization Address City/State/[facility] Co de Phone Number [facility] [address] [place] [address] documented in this encounter Visit Diagnoses Diagnosis Type 1 diabetes mellitus with hyperosmolar coma documented in this encounter Additional Health Concerns Infection Onset Date Last Indicated Resolved Time MRSA 05/01/2020 05/01/2020 06/20/2022 1:45 AM EST documented as of this encounter Care Teams Quality Assurance Technician Relationship Specialty Start Date End Date Uriel Rosario MD [address] [place] [address] PCP - General Family Medicine 04/30/20 08/13/24 Alexander Coughlin MD [address] [place] [address] PCP - General Family Medicine 08/14/24 Pcp, Unknown 04/30/20 documented as of this encounter Additional Source Comments The information contained in this document represents components of the legal health record. It is not the complete legal health record.[facility]
== END 2025-02-02 14:25 | disposition home or self-care (01) ==
LOC: HO.HOS 13:39
PROVIDERS: PCP Family Medicine; Visit Provider Physician Assistant
DX: M21.961 Unspecified acquired deformity of right lower leg (principal)
CPT/HCPCS: 99203

== ENCOUNTER → 2025-02-02 13:43 | Outpatient (BNV) | payer OTHER, SELFPAY | PROVIDERS: Visit Provider Radiology Diagnostic Radiology | DX: M25.561 Pain in right knee (principal) | CPT/HCPCS: 73562 ==

== ENCOUNTER 2025-03-03 15:49 | Outpatient (AMB) | payer OTHER, SELFPAY ==
--- NOTE | 2025-03-03 15:54 | MHC.PC.OV ---
Vital Signs 03/03/25 16:02 Height 5 ft 4 in BMI Reason not done Patient refused/unable BP 148/100 H Blood Pressure Location Rt brachial Position Sitting Respiration 16 Pulse 81 Pulse Source Pulse Oximeter Temp 97.5 F Temp Source Temporal Artery Scan Pulse Oximetry (%) 97 Oxygen Delivery Method Room Air Intake Visit Reasons: f/u HTN Intake Note: Radha presents in the office today for a follow up to hypertension. Allergies doxycycline Allergy (Mild, Verified 03/03/25 15:59) Hives sulfamethoxazole (From Bactrim) Allergy (Unknown, Verified 03/03/25 15:59) Hives trimethoprim (From Bactrim) Allergy (Unknown, Verified 03/03/25 15:59) Hives almonds Allergy (Intermediate, Uncoded 03/03/25 15:59) Hives Medication List - Last Reconciled 03/03/25 by Alexander Coughlin MD acetaminophen (Pain Relief (acetaminophen)) 960 mg (30 mL) PO Q8H PRN 30 days acetaminophen (Infant's Tylenol) 960 mg (30 mL) PO .q8 PRN 30 days acetone (urine) test (Ketone Urine Test strips) As directed prn high glucose, nausea/vomiting acetone (urine) test (Ketone Urine Test strips) prn glucose over 250, nausea, vomiting or illness up to tid albuterol sulfate 90 mcg/actuation 2 puffs inhalation Q4-6H PRN 30 days apixaban (Eliquis) 5 mg PO BID benzocaine 20% 1 appl mucous membrane TID PRN 3 days blood pressure monitor Automatic, Digital. Dx: I10. Daily As directed, 999 days/lifetime blood-glucose meter (FreeStyle Lite Meter kit) As directed blood-glucose sensor (Dexcom G7 Sensor device) As directed blood-glucose sensor (Dexcom G7 Sensor device) As directed blood-glucose,care consultant,cont (Dexcom G7 Rail Track Layer) As directed buprenorphine ER (Sublocade) mg subcut buprenorphine-naloxone 8-2 mg (Suboxone) 1 film sublingual DAILY calcium polycarbophil (FiberCon) 625 mg PO DAILY 90 days cholecalciferol (vitamin D3) 1,250 mcg PO QWEEK 84 days cyclobenzaprine 10 mg PO TID 30 days diaper,brief,adult,disposable (Disposable Brief) Adult brief, medium. 2 times a day As directed, 90 days escitalopram oxalate 20 mg PO DAILY 90 days ferrous sulfate 325 mg PO DAILY 30 days FreeStyle Lite Strips (blood sugar diagnostic) 3 times a day testing NS [front wheeled walker As directed for daily use] gabapentin 800 mg PO TID 30 days glucose (Dex4 Glucose) 16 grams (4 x 4 gram) PO Q15M PRN 30 days MDD 16 tablets insulin lispro Sliding Scale 10-16 units subcutaneously 3 times a day PRN; ISS insulin syringe-needle U-100 3 times a day insulin injection lancets (FreeStyle Lancets) As directed leg brace (Ankle Brace) Right ankle brace, As directed, 42 days lidocaine 5% 1 ea topical BID PRN 30 days loperamide 4 mg (2 x 2 mg) PO Q6H PRN loratadine (Allergy Relief (loratadine)) 10 mg PO DAILY 90 days lorazepam 1 mg PO DAILY PRN 30 days [manual wheelchair As directed for daily use] melatonin 6 mg (2 x 3 mg) PO BEDTIME PRN 90 days metoprolol succinate ER 25 mg PO BID 90 days miscellaneous medical supply Wheelchair. Daily As directed, 999 Days naloxone 4 mg/actuation 1 spray intranasal DAILY PRN pen needle, diabetic (BD [place] 2nd Gen Pen Needle) As directed 4x daily tamsulosin 0.4 mg PO DAILY 90 days Tobacco use date assessed: 03/03/25 Dental Screening Dental Screen Date: 03/03/25 Did you have a dental visit in the last 12 months?: Yes Did you have a dental problem in the last 6 months where you did not have access to dental care?: No Was dental information given to patient?: Patient has dentist HPI f/u HTN HPI Details 29 y/o female presents to f/u HTN. BP today 148/100, 81p. She is on metoprolol 25mg b.i.d. A1c today 03/03/25 6.2%. No recent labs to review. Does have longstanding anemia. HPI Comments History of Present Illness Details Documentation assistance for Alexander Coughlin MD, was provided by Abelardo Diaz,? Axminster Weaver on 03/03/2025 at 4:27 PM EST. I, Dr. Coughlin, have read, observed, and verified documentation. ?? 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 Hx of LASIK H/O detached retina repair History of adenoidectomy History of tonsillectomy H/O removal of cyst Family History Mother Substance abuse Asthma Psychiatric disorder Father Psychiatric disorder Maternal Grandmother Cancer Other Mental health disorder Social History (Updated 03/03/25 @ 16:02 by Andria Melara CMA) Housing: Apartment Alcohol intake: current Alcohol intake frequency: a few times a month Patient Tobacco Use Status: Current everyday Tobacco user Tobacco use type: Cigarette Cigarette Packs Per Day: 1 e-Cigarette/Vaping Use: Currently Using service: No Current occupational status: disabled Cognitive needs: No Hearing needs: No Vision needs: Yes (Patient needs eye exM) Questionnaire Thrive Questionnaire Date Thrive assessed: 07/09/24 I am a: Patient What is your living situation today?: I have a steady place to live Within the past 12 months, did the food you bought not last and you didn't have the money to get more?: Sometimes True Within the past 12 months, did you worry whether your food would run out before you got money to buy more?: Sometimes True Do you have trouble paying for medicines?: No Do you have trouble getting transportation to medical appointments?: No Do you have trouble paying your heating and electricity bill?: No Do you have trouble taking care of your child, family member or friend?: Yes Do you have trouble with day-to-day activities such as bathing, preparing meals, shopping, managing finances, etc.?: Yes Are you currently unemployed and looking for a job?: No Are you interested in more education?: No Please select the resources that you would like help with: None Currently or been in a relationship where the following occur: I choose not to answer THRIVE Score: 2 JEANE-7 AMB Questionnaire JEANE-7 Date JEANE - 7 assessed: 11/04/23 Source: Developed by Drs. Alex Alicea, Vero Reyes, Dimitrios Wesley and colleagues, with an educational nehemias from [employer]. Review of Systems Const Denies chills, Denies fatigue, Denies fever(s), Denies headache(s) and Denies weakness ENT Denies dizziness and Denies headache(s) Card Denies dyspnea Resp Denies cough, Denies dyspnea, Denies wheezing and Denies other (shortness of breath) Musc Denies numbness and Denies tingling Neuro Denies dizziness, Denies headache(s), Denies numbness, Denies tingling and Denies weakness Psych Denies anxiety and Denies depression Endo Denies fatigue Aller/Immun Denies wheezing Physical exam (Primary Care) Vital Signs: Last Vital Signs Temp 97.5 F 03/03/25 16:02 Pulse 81 03/03/25 16:02 Resp 16 03/03/25 16:02 BP 148/100 H 03/03/25 16:02 Pulse Ox 97 03/03/25 16:02 Oxygen Delivery Method Room Air 03/03/25 16:02 Tobacco/Smoking Status: Tobacco use Status Tobacco use date assessed 03/03/25 03/03/25 16:06 Patient Tobacco Use Status Current everyday Tobacco 03/03/25 16:02 Tobacco use type Cigarette 03/03/25 16:02 e-Cigarette/Vaping Use Currently Using 03/03/25 16:02 Thrive Assessment: Date of Thrive Assessment Date Thrive assessed 07/09/24 03/03/25 15:55 Currently or been in a relationship where the following occur: I choose not to answer Const General: well developed; No acute distress Nutritional Appearance: well nourished Orientation/consciousness: patient oriented x3 HENMT Head: Yes normocephalic and Yes atraumatic Eyes General: appearance normal, both eyes and all related structures Pupils: Equal, round and reactive pupils present EOM: EOMs intact bilaterally Resp Effort & Inspection: normal respiratory effort Auscultation: clear to auscultation bilaterally Cardio Rate: regular rate Rhythm: regular rhythm Heart sounds: S1 normal heart sound present, S2 normal heart sound present, no gallops, no murmurs and no rubs Neuro General: patient oriented x3 and No gait normal Cranial nerves: Yes Equal, round and reactive pupils present Psych Affect: normal affect Results AMB Hemoglobin A1c AMB Hemoglobin A1c 6.2 % Last Edit by Andria Melara CMA on 03/03/25 16:13 Results Reviewed Results Reviewed: Laboratory Last Values Hgb A1c (Clinic) 6.2 % (4.0-6.0) H 03/03/25 16:06 Coding Level of Care Code Est Pt Level 4 (00290) Diagnoses Type 1 diabetes mellitus with other specified complication E10.69 Diabetes mellitus complication status: with other specified complication Hypertension I10 Anemia D64.9 Employs prosthetic leg Z97.10 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 Goal is less than 7% Continue current medication Continue diabetic diet (2) Hypertension: Code(s): I10 - Essential (primary) hypertension Category: Medical Plan: Blood pressure is too high. 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 Patient uses a wheelchair for mobility and is wheelchair-bound. She is trying to improve her independence and get a job. She would benefit from motorized scooter Script for motorized scooter will be sent to medical supply store Orders: Orders AMB Hemoglobin A1c Today E10.69 - Type 1 diabetes mellitus with other specified complication, E13.9 - Other specified diabetes mellitus without complications Complete Blood Count Auto Diff Today D64.9 - Anemia, unspecified, Z00.00 - Encounter for general adult medical examination without abnormal findings TSH reflex Free T4 Today D64.9 - Anemia, unspecified, Z00.00 - Encounter for general adult medical examination without abnormal findings Comprehensive Met. Panel Today D64.9 - Anemia, unspecified Microalbumin, Random (w Creat) Today I10 - Essential (primary) hypertension Vitamin B12 and Folate Today E53.8 - Deficiency of other specified B group vitamins, G62.9 - Polyneuropathy, unspecified Medications: New lidocaine-prilocaine 2.5-2.5 % 1 appl topical BID PRN 30 grams 2RF pain 30 days miscellaneous medical supply Motorized Electric Scooter. Daily As directed, 999 Days 1 ea 0RF G62.9 - Polyneuropathy, unspecified, M54.16 - Radiculopathy, lumbar region, S88.112S - Complete traumatic amputation at level between knee and ankle, left lower leg, sequela, Z99.3 - Dependence on wheelchair Changed From metoprolol succinate ER 25 mg PO BID 90 days 180 tabs 0RF To metoprolol succinate ER 50 mg PO BID 180 tabs 0RF 90 days Refilled acetaminophen (Infant's Tylenol) 960 mg (30 mL) PO .q8 PRN 120 mL 3RF pain 30 days
[2025-03-03 16:02] VITALS: BP 148/100; PULSE 81; RESP 16; TEMP 36.4; O2SAT 97
--- OUTSIDE RECORDS SUMMARY | 2025-03-03 19:58 | XMS_ITS | Encounter Summary ---
Author Organization [facility] Address [address] [facility] [address] [place] [phone] Phone Care Team Providers Care Dry Boss Name Role Phone Uriel Rosario MD Primary Care Provide r Pcp, Unknown Unavailable Unavailable Alexander Coughlin MD Primary Care Provider Encounter Details Date Type Department Care Team (Late st Contact Info) Description 06/26/2021 Procedure Pass [facility], [address] [address] Social History Tobacco Use Types Packs/Day Years [...] documented as of this encounter Care Teams Dry Boss Relationship Specialty Start Date End Date Uriel Rosario MD [address] [place] [address] PCP - General Family Medicine 04/30/20 08/13/24 Alexander Coughlin MD PCP - General Family Medicine 08/14/24 Pcp, Unknown 04/30/20 documented as of this encounter Additional Source Comments The information contained in this document represents components of the legal health record. It is not the complete legal health record.[facility]
--- OUTSIDE RECORDS SUMMARY | 2025-03-03 19:58 | XMS_ITS | Encounter Summary ---
Author Organization [facility] Address [address] [facility] [address] [place] [address] Phone Care Team Providers Care Assistant Refinery Operator Name Role Phone Uriel Rosario MD Primary Care Provide r Pcp, Unknown Unavailable Unavailable Alexander Coughlin MD Primary Care Provider Encounter Details Date Type Department Care Team (Late st Contact Info) Description 05/01/2020 Procedure Pass [facility] [address] [place] [address] Social History Tobacco Use Types Packs/Day Years [...] documented as of this encounter Care Teams Assistant Refinery Operator Relationship Specialty Start Date End Date Uriel Rosario MD [address] [place] [address] PCP - General Family Medicine 04/30/20 08/13/24 Alexander Coughlin MD PCP - General Family Medicine 08/14/24 Pcp, Unknown 04/30/20 documented as of this encounter Additional Source Comments The information contained in this document represents components of the legal health record. It is not the complete legal health record.[facility]
--- OUTSIDE RECORDS SUMMARY | 2025-03-03 19:58 | XMS_ITS | Encounter Summary ---
Author Organization [facility] Address [address] [place] [address] [place] [address] Phone Care Team Providers Care Board Lining Machine Operator Name Role Phone Uriel Rosario MD Primary Care Provide r Pcp, Unknown Unavailable Unavailable Alexander Coughlin MD Primary Care Provider Encounter Details Date Type Department Care Team (Late st Contact Info) Description 12/20/2020 Procedure Pass [facility], Ct Scan - [address] [address] Social History Tobacco Use Types Packs/Day Years [...] 3:09 AM Alex Patel i, RN * [place] Suicide Severity Rating Scale (Screener/Recent Self-Report) Question [...] documented as of this encounter Care Teams Board Lining Machine Operator Relationship Specialty Start Date End Date Uriel Rosario MD [address] [place] [address] PCP - General Family Medicine 04/30/20 08/13/24 Alexander Coughlin MD PCP - General Family Medicine 08/14/24 Pcp, Unknown 04/30/20 documented as of this encounter Additional Source Comments The information contained in this document represents components of the legal health record. It is not the complete legal health record.[facility]
--- OUTSIDE RECORDS SUMMARY | 2025-03-03 19:58 | XMS_ITS | Encounter Summary ---
Author Organization [facility] Address [address] [facility] [address] [place] [address] Phone Care Team Providers Care Costume Shop Coordinator Name Role Phone Uriel Rosario MD Primary Care Provide r Pcp, Unknown Unavailable Unavailable Alexander Coughlin MD Primary Care Provider Encounter Details Date Type Department Care Team (Late st Contact Info) Description 06/07/2021 Procedure Pass [facility], [address] [address] Social History Tobacco Use Types Packs/Day Years [...] documented as of this encounter Care Teams Costume Shop Coordinator Relationship Specialty Start Date End Date Uriel Rosario MD [address] [place] [address] PCP - General Family Medicine 04/30/20 08/13/24 Alexander Coughlin MD PCP - General Family Medicine 08/14/24 Pcp, Unknown 04/30/20 documented as of this encounter Additional Source Comments The information contained in this document represents components of the legal health record. It is not the complete legal health record.[facility]
--- OUTSIDE RECORDS SUMMARY | 2025-03-03 19:58 | XMS_ITS | Encounter Summary ---
Author Organization [facility] Address [address] [place] [address] Phone Care Team Providers Care Retail Route Supervisor Name Role Phone Uriel Rosario MD Primary Care Provide r Pcp, Unknown Unavailable Unavailable Alexander Coughlin MD Primary Care Provider Encounter Details Date Type Department Care Team (Late st Contact Info) Description 12/23/2020 Procedure Pass [facility], [address] [address] Social History Tobacco Use Types Packs/Day Years [...] AM REUBENT Alex Hernandez i, RN * [place] Suicide Severity Rating Scale (Screener/Recent Self-Report) Question [...] documented as of this encounter Care Teams Retail Route Supervisor Relationship Specialty Start Date End Date Uriel Rosario MD [address] [place] [address] PCP - General Family Medicine 04/30/20 08/13/24 Alexander Coughlin MD PCP - General Family Medicine 08/14/24 Pcp, Unknown 04/30/20 documented as of this encounter Additional Source Comments The information contained in this document represents components of the legal health record. It is not the complete legal health record.[facility]
--- OUTSIDE RECORDS SUMMARY | 2025-03-03 19:58 | XMS_ITS | Encounter Summary ---
Author Organization [facility] Address [address] [facility] [address] [place] [address] Phone Care Team Providers Care Jail Guard Name Role Phone Uriel Rosario MD Primary Care Provide r Pcp, Unknown Unavailable Unavailable Alexander Coughlin MD Primary Care Provider Encounter Details Date Type Department Care Team (Late st Contact Info) Description 02/11/2021 Transcribe Orders [facility] [address] [place] [address] Héctor Alexander MD [address] [place] [address] [address], [address] [place] [address] [email or web address] Possible exposure to STD (Primary Dx) Social [...] documented as of this encounter Care Teams Jail Guard Relationship Specialty Start Date End Date Uriel Rosario MD [address] [place] [address] PCP - General Family Medicine 04/30/20 08/13/24 Alexander Coughlin MD PCP - General Family Medicine 08/14/24 Pcp, Unknown 04/30/20 documented as of this encounter Additional Source Comments The information contained in this document represents components of the legal health record. It is not the complete legal health record.[facility]
--- OUTSIDE RECORDS SUMMARY | 2025-03-03 19:58 | XMS_ITS | Clinical Summary ---
Author Organization [facility] Address [address] [address] Care Team Providers Care Charter Coordinator Name Role Phone Uriel Cyr MD Primary [...] Exam 06/06/2022 Influenza Vaccine (#1) 2025 Insurance [facility] [place] [phone] Care Teams Charter Coordinator Relationship Specialty Start Date End Date Uriel Cyr MD PCP - General Family Medicine 06/05/22
--- OUTSIDE RECORDS SUMMARY | 2025-03-03 19:58 | XMS_ITS | Encounter Summary ---
Author Organization [facility] Address [address] [facility] [address] [place] [phone] Phone Care Team Providers Care Shoe Packer Name Role Phone Uriel Rosario MD Primary Care Provide r Pcp, Unknown Unavailable Unavailable Alexander Coughlin MD Primary Care Provider Encounter Details Date Type Department Care Team (Late st Contact Info) Description 06/07/2021 Procedure Pass [facility], [address] [address] Social History Tobacco Use Types Packs/Day Years [...] documented as of this encounter Care Teams Shoe Packer Relationship Specialty Start Date End Date Uriel Rosario MD [address] [place] [address] PCP - General Family Medicine 04/30/20 08/13/24 Alexander Coughlin MD PCP - General Family Medicine 08/14/24 Pcp, Unknown 04/30/20 documented as of this encounter Additional Source Comments The information contained in this document represents components of the legal health record. It is not the complete legal health record.[facility]
--- OUTSIDE RECORDS SUMMARY | 2025-03-03 19:59 | XMS_ITS | Encounter Summary ---
Author Organization [facility] Address [address] [address] Phone Care Team Providers Care Immersion Metalcleaner Name Role Phone Uriel Rosario MD Primary Care Provide r Pcp, Unknown Unavailable Unavailable Alexander Coughlin MD Primary Care Provider Encounter Details Date Type Department Care Team (Late st Contact Info) Description 06/01/2022 Transcribe Orders [facility] Specimen Processing [address] [place] [address] Stephani Whatley PA 300 [facility] [address] [place] [address] [email or web address] Type 1 diabetes mellitus with hyperosmolar coma [...] (06/01/2022 9:31 AM EST) HDL 38 mg/dL [facility] Comment: Interpretation <40 mg/dL: Low HDL cholesterol (major risk factor for CHD) Greater than or equal to 60 mg/dL: High HDL cholesterol ( negative risk factor for CHD) HDL - cholesterol is affected by a number of factors, e.g. smoking, excerise, hormones, sex and age. CHOLESTEROL 147 0 - 240 mg/dL [facility] TRIGLYCERIDES 175(H) 30 - 160 mg/dL [facility] LDL 74 50 - 129 mg/dL [facility] Comment: LDL levels in terms of risk for coronary heart disease: <100 mg/dL: Optimal 100-129 mg/dL: Near or above optimal 130-159 mg/dL: Borderline high 160-189 mg/dL: High >190 mg/dL: Very High CARDIAC RISK RATIO 3.9 3.3 - 4.4 [facility] 06/01/2022 9:31 AM EST 06/01/2022 11:23 AM EST Stephani ALMONTE LAB BLOOD ORDERABLES Final R esult Performing Organization Address City/[facility]/ZIP Co de Phone Number [address] [address] * (ABNORMAL) Hemoglobin A1c (06/01/2022 9:31 AM EST) HEMOGLOBIN A1C 9.5(H) 4.3 - 5.8 % [facility] 06/01/2022 9:31 AM EST 06/01/2022 12:37 PM EST Stephani ALMONTE LAB BLOOD ORDERABLES Final R esult [address] [address] * (ABNORMAL) Comprehensive metabolic panel (06/01/2022 5:43 AM EST) SODIUM 137 133 - 146 mmol/L [facility] POTASSIUM 4.7 3.3 - 5.1 mmol/L [facility] CHLORIDE 97 96 - 108 mmol/L [facility] CO2 27 21 - 35 mmol/L [facility] BUN 18 6 - 19 mg/dL [facility] CREATININE 1.20 0.5 - 1.5 mg/dL [facility] GLUCOSE 61(L) 70 - 99 mg/dL [facility] ALBUMIN 3.3(L) 3.9 - 4.8 g/dL [facility] TOTAL PROTEIN 7.9 6.5 - 8.0 g/dL [facility] CALCIUM 9.6 8.4 - 10.3 mg/dL [facility] ALKALINE PHOSPHATASE 184(H) 39 - 117 U/L [facility] TOTAL BILIRUBIN 0.2 0.0 - 1.2 mg/dL [facility] AST 24 0 - 37 U/L [facility] ALT 9 0 - 40 U/L [facility] GLOBULIN 4.6 1 - 4.8 g/dL [facility] EGFR 64 >59 mL/min/1.7 3m2 [facility] Comment:Estimated glomerular filtration rate calculated using the CKD-EPI refit equation. ANION GAP 18 10 - 20 mmol/L [facility] 06/01/2022 5:43 AM EST 06/01/2022 9:47 AM EST Stephani ALMONTE LAB BLOOD ORDERABLES Final R esult Performing Organization Address City/State/[facility] Co de Phone Number [facility] [address] [place] [address] documented in this encounter Visit Diagnoses Diagnosis Type 1 diabetes mellitus with hyperosmolar coma documented in this encounter Additional Health Concerns Infection Onset Date Last Indicated Resolved Time MRSA 05/01/2020 05/01/2020 06/20/2022 1:45 AM EST documented as of this encounter Care Teams Immersion Metalcleaner Relationship Specialty Start Date End Date Uriel Rosario MD [address] [place] [address] PCP - General Family Medicine 04/30/20 08/13/24 Alexander Coughlin MD PCP - General Family Medicine 08/14/24 Pcp, Unknown 04/30/20 documented as of this encounter Additional Source Comments The information contained in this document represents components of the legal health record. It is not the complete legal health record.[facility]
--- OUTSIDE RECORDS SUMMARY | 2025-03-03 19:59 | XMS_ITS | Data Portability ---
Author Organization [facility]RELL - Omar Posey [facility] Surgeons [facility], [facility] Address [address] [place] [address] Assessment Encounter Date Assessment Date Assessment LastModified [...] A routine recheck is in 2 weeks. [email or web address] Not available 10/22/2023 15:23:38 06/16/2024 06/16/2024 SUBJECTIVE [...] scratching at a wound care clinic in [place]. Radha reports improved diabetes control with a recent hemoglobin A1c of about 8. OBJECTIVE Examination Right lower extremity: Knee flexion fixed at approximately 70 degrees with varus angulation, skin wounds over anterior leg. Imaging X-rays ordered, obtained, and reviewed by me today at [facility] of the right knee show a fusion [...] once her right leg wounds have healed. [email or web address] Not available 06/16/2024 15:44:56 Plan of Treatment Reminders Order Date Submit Date Provider Last Modified By Organization Details Last Modified Time Details Appointments None recorded. Lab gram stain, synovial fluid - LEFT KNEE STAT 2023 024 [place], [address], [place], [address], 4 14:14:05 cell count, synovial fluid - LEFT KNEE STAT 2023 024 [place], [address], [address], [place], [address], 4 08:07:04 Referral None recorded. Procedures None recorded. Surgeries None recorded. Imaging XR, knee, 1 or 2 view 2024 025 [email or web address], [address] [facility], [facility] [address], [place], [address], 5 15:37:43 Medication Orders None recorded. Patient [...] a4ajBk vP9nXo QUaueC m3YtLR FvZlgJ JJ8mAn HZtai3 [id number] AC0Kqb HqBVaC jKiQtr MwF INTERFACE [facility] [address], [place], [address], 06/16/2024 13:54:53 06/16/19 25 06/16/2024 XR, knee, 1 or 2 view http:/ [email or web address] ?Encry pted=s hAaTro YD8dLq bEUv6g %2BXZw aYqtaq 0bqfl% 2Fg9IQ a4ajBk vP9nXo QUaueC m3YtLR FvZl J8mAn HZtai3 9b0349 AC0Kqb HqBVaC jKiQtr MwF INTERFACE [facility] [address] [facility], [place], [address], 06/16/2024 13:54:55 Result Notes Documentation Provider Name and Address Organization Details Recorded Time Xr, Knee, 1 Or 2 View : [email or web address]? Encrypted=eoMbGxbMB8xOkxR Uv6g%4TDQsvMmfcd2kdsj%2Fg 0TSc5sdRhtX4uFpNVyalPp8Bp VKPcQtpCCM2vSxNIwtq28g430 4PF0XvyAfLGfEaPbLvrYuB Not Available [facility] 06/16/2024 13:54: 53 Xr, Knee, 1 Or 2 View : [email or web address]? Encrypted=ccPxOoqBR5iGeeS Uv6g%5GUNpwFxqti6sagt%2Fg 6JEo8awMhdK2aGyYKzfxMe1Sl KBCsEgcMWR0zDhOOhon11s624 5PI5TbjTnEVmItMgNqsLtD Not Available [facility] 06/16/2024 13:54: 55 Medical Equipment None Reported. Allergies Allergen ID Allergen Name Allergen Category Reaction Reaction Severity Criticality Documentation Date Start Date Code Code System Note Provider Name and Address Organization Details Recorded Time 10790608 almond oil food,medi cation Not available Not available Not available 07/08/20232021 79109 38 RxNorm Not Available [facility] 16:13:12 250981 doxycycli ne hyclate medicatio n Not available Not available Not available 07/08/20232021 69838 RxNorm Not Available [facility] 16:13:12 828192 Bactrim medicatio n Not available Not available Not available 07/08/20232021 70751 9 RxNorm Not Available [facility] 16:13:12 Medications Name Sig Start Date [...] Updated DateTime 06/16/2024 162.56 cm 25.7 kg/m2 46688.86 g LISA BROWN [facility] 06/16/2024 13:32:58 Date Recorded Body height Body mass index (BMI) Body weight Provider Name and Address Organization Details Last Updated DateTime 10/22/2023 162.56 cm 25.7 kg/m2 95004.86 g LISA BROWN [facility] 10/22/2023 13:49:00 Social History None recorded. Functional Status None recorded. Mental Status None recorded. Family History Nothing Reported. Medical History Condition Response Allergies/Hayfever N Coronary Artery Disease N Breathing or lung disorders N Anxiety/Depression Y Emphysema N Nerve Disorders Y Thyroid Problems N COPD N Pacemaker N Kidney/Bladder Problems N Anemia N Vascular Disease N Heart Trouble N Heart Attack (DC) N Gastrointestinal Disease N Cholesterol N Diabetes Y Autoimmune disease N Bleeding Disorder N Orthotics N Seizures/Epilepsy N Arthritis N Blood Clot Y AIDS/HIV N Congestive Heart Failure (CHF) N Acid Reflux (GERD) N Cancer N Stroke N Asthma Y Circulation Problems Y Peripheral Vascular Disease N Sleep Apnea N Hepatitis Y Heart Disease N Rheumatoid Arthritis N Pulmonary Embolism Y Arrhythmia N Headaches Y Fibromyalgia N Hypertension N Osteoporosis N Gynecological HistoryNo gynecological history recorded. Obstetrics History GPAL:G 0 P 0 0 0 0 Past Encounters Encounter ID Performer Location Encounter Start Date Encounter Closed Date Diagnosis/Indication Diagnosis SNOMED-CT Code Diagnosis ICD10 Code Diagnosis IMO Codes Diagnosis Note [id number] MD Curtis Cameron [address] floor [address] [place] [address] 10/22/2023 13:44:12 10/22/2023 15:52:39 Pain of left knee joint 8652209814 89924 M25.796 [id number] MD JALIL Cameron 3[address] [place] [address] 06/16/2024 13:25:29 07/02/2024 15:37:43 Pain of knee region 6942844806 M25.561 80327600 Health Concerns Section Related Observation LastModified by Organization Detai ls LastModified Time None Recorded Concern Status LastModified by Organization Details LastModified Time None Recorded Advance Directives Directive None Recorded Payers Insurance Date Sequence Insurance Name Policy Number Policy Rios Covered Member ID Rios Member ID Guarantor Name 07/02/2024 1 [facility] [employer] PLAN - CUSTODIAL OPTIONS - DUAL ELIGIBLE (MEDICARE-MEDI CAID REPLACEMENT HMO) [facility] Radha Olivera [id number] Radha Olivera OBGyn Episode No OBEpisode recorded.
--- OUTSIDE RECORDS SUMMARY | 2025-03-03 19:59 | XMS_ITS | Encounter Summary ---
Author Organization [facility] Address [address] [place] [address] Phone Care Team Providers Care Gmat Instructor Name Role Phone Uriel Rosario MD Primary Care Provide r Pcp, Unknown Unavailable Unavailable Alexander Coughlin MD Primary Care Provider Encounter Details Date Type Department Care Team (Late st Contact Info) Description 05/01/2020 Procedure Pass [facility], Ct Scan - [address] [address] Social History Tobacco Use Types Packs/Day Years [...] documented as of this encounter Care Teams Gmat Instructor Relationship Specialty Start Date End Date Urile Rosario MD [address] [place] [address] PCP - General Family Medicine 04/30/20 08/13/24 Alexander Coughlin MD PCP - General Family Medicine 08/14/24 Pcp, Unknown 04/30/20 documented as of this encounter Additional Source Comments The information contained in this document represents components of the legal health record. It is not the complete legal health record.[facility]
--- OUTSIDE RECORDS SUMMARY | 2025-03-03 19:59 | XMS_ITS | Encounter Summary ---
Author Organization [facility] Address [address] [facility] [address] [place] [address] Phone Care Team Providers Care Cold Roll Catcher Name Role Phone Uriel Rosario MD Primary Care Provide r Pcp, Unknown Unavailable Unavailable Alexander Coughlin MD Primary Care Provider Reason for Referral * MRI/CAT Scan - Closed Specialty Diagnoses / Procedures Referred By Contac t Referred To Contact Radiology Diagnoses Lumbar radiculopathy Weakness Quadriplegia and quadriparesis Procedures MRI Thoracic Spine Héctor Alexander MD Phone: tel: fax: [email or web address] Referral ID Status Reason Start Date Expiration Date Visits Re quested Visits Authorized [id number] Closed 06/26/2021 06/26/2022 1 1 Encounter Details Date Type Department Care Team (Latest Contact Info) Description 06/07/2021 Transcribe Orders Virtual Department [address] [place] [address] Héctor Alexander MD [address] [facility] [address] [place] [address] Quadriplegia and quadriparesis (Primary Dx); Lumbar radiculopathy; [...] protrusion or stenosis at any level. POS [id number] Narrative 06/27/2021 12:30 PM EST TECHNIQUE: 1.5 [...] disc protrusion or stenosis atany level. POS [id number] Héctor Alexander MD IMG MR XSPECIALTY Final [...] documented as of this encounter Care Teams Cold Roll Catcher Relationship Specialty Start Date End Date Uriel Rosario MD [address] [place] [address] PCP - General Family Medicine 04/30/20 08/13/24 Alexander Coughlin MD PCP - General Family Medicine 08/14/24 Pcp, Unknown 04/30/20 documented as of this encounter Additional Source Comments The information contained in this document represents components of the legal health record. It is not the complete legal health record.[facility]
--- OUTSIDE RECORDS SUMMARY | 2025-03-03 19:59 | XMS_ITS | Encounter Summary ---
Author Organization [facility] Address [address] [address] Phone Care Team Providers Care Fish Receiver Name Role Phone Uriel Rosario MD Primary Care Provide r Pcp, Unknown Unavailable Unavailable Alexander Coughlin MD Primary Care Provider Reason for Referral * MRI/CAT Scan - Closed Specialty Diagnoses / Procedures Referred By Lawandaac t Referred To Contact Radiology Diagnoses Lumbar radiculopathy Weakness Quadriplegia and quadriparesis Procedures MRI Lumbar Spine MRI Lumbar Spine Héctor Alexander MD Phone: tel: fax: [email or web address] Referral ID Status Reason Start Date Expiration Date Visits Re quested Visits Authorized [id number] Closed 06/07/2021 06/07/2022 1 1 * MRI/CAT Scan - Closed Specialty Diagnoses / Procedures Referred By Contac t Referred To Contact Radiology Diagnoses Lumbar radiculopathy Weakness Quadriplegia and quadriparesis Procedures MRI Cervical Spine MRI Cervical Spine Héctor Alexander MD Phone: tel: fax: [email or web address] Referral ID Status Reason Start Date Expiration Date Visits Re quested Visits Authorized [id number] Closed 06/07/2021 06/07/2022 1 1 Encounter Details Date Type Department Care Team (Late st Contact Info) Description 06/26/2021 Ancillary Orders Virtual Department [address] [place] [address] Héctor Alexander MD [address] [facility], [address], [address] [place] [address] [email or web address] Lumbar radiculopathy; Weakness; Quadriplegia [...] of the cervical spine and cord. POS [id number] Narrative 06/27/2021 12:22 PM EST TECHNIQUE: 1.5 [...] MRI of thecervical spine and cord. POS [id number] us Héctor Alexander MD IMG MR XSPECIALTY [...] bilateral foraminal stenosis. No other stenosis. POS [id number] Narrative 06/27/2021 12:38 PM EST TECHNIQUE: 1.5 [...] bilateral foraminal stenosis. No other stenosis. POS [id number] Héctor Alexander MD IMG MR XSPECIALTY Final [...] documented as of this encounter Care Teams Fish Receiver Relationship Specialty Start Date End Date Uriel Rosario MD [address] [place] [address] PCP - General Family Medicine 04/30/20 08/13/24 Alexander Coughlin MD PCP - General Family Medicine 08/14/24 Pcp, Unknown 04/30/20 documented as of this encounter Additional Source Comments The information contained in this document represents components of the legal health record. It is not the complete legal health record.[facility]
--- OUTSIDE RECORDS SUMMARY | 2025-03-03 19:59 | XMS_ITS | Clinical Summary ---
Author Organization [email or web address] [facility] Address [address] [place] [address] Phone Care Team Providers Care Nuclear Medicine Specialist Name Role Phone Pcp, Unknown Unavailable Unavailable Alexander Coughlin MD Primary Care Provider Allergies Active Allergy Reactions Criticality Noted Date Comments [employer] 05/01/2020 Hives Sulfamethoxazole-Trimethoprim 2019 Rash Doxycycline [...] (12/25/2020 4:13 PM EDT): Reviewed records from [place]. Patient admitted there from October to December. [...] HEMOGLOBIN A1C 9.5(H) 4.3 - 5.8 % [facility] 06/01/2022 9:31 AM EST 06/01/2022 12:37 PM EST Stephani ALMONTE LAB BLOOD ORDERABLES Final R on [facility] Performing Organization Address [facility] Co de Phone Number [address] [address] * (ABNORMAL) Lipid panel (06/01/2022 9:31 AM EST) Pathologist [facility] HDL 38 mg/dL [facility] Comment: Interpretation <40 mg/dL: Low HDL cholesterol (major risk factor for CHD) Greater than or equal to 60 mg/dL: High HDL cholesterol ( negative risk factor for CHD) HDL - cholesterol is affected by a number of factors, e.g. smoking, excerise, hormones, sex and age. CHOLESTEROL 147 0 - 240 mg/dL [facility] TRIGLYCERIDES 175(H) 30 - 160 mg/dL [facility] LDL 74 50 - 129 mg/dL [facility] Comment: LDL levels in terms of risk for coronary heart disease: <100 mg/dL: Optimal 100-129 mg/dL: Near or above optimal 130-159 mg/dL: Borderline high 160-189 mg/dL: High >190 mg/dL: Very High CARDIAC RISK RATIO 3.9 3.3 - 4.4 C [facility] 06/01/2022 9:31 AM EST 06/01/2022 11:23 AM EST Stephani ALMONTE LAB BLOOD ORDERABLES Final R on license of [facility] Performing Organization Address City/[facility] Co de Phone Number [address] [address] * Historical Lab (12/19/2009 8:30 AM EDT) Pathologist [facility] HEPATITIS C w/reflex RIBA Non Reactive NonReactive [facility] Comment:METHOD: CENTAUR CHEM ILUMINESCENCE IMMUNOASSAY (ANDREIA) 12/19/2009 8:30 AM EDT 12/19/2009 2:34 PM EDT Narrative [facility] - 12/19/2009 5:29 PM EDT Comments requested to appear on patient's report: [facility] / UNIT 1 us Conversion Provider Not In Sys LAB BLOOD ORDERAB LES Final Result [facility] [address] [place] [address] from Last 3 Months or Most Recently Relevant to Health Maintenance Insurance ACO ACO ACO ACO ACO Member Subscriber Plan / Payer (Ef fective 2022-Present) Name:Radha Olivera Relation to Subscriber:Self Name:Radha Olivera Payer ID:[id number] Group ID:Not on file Type:Medicaid Address: [place] [id number] ACO Member Subscriber Plan / Payer (Ef fective 2022-Present) Name:JarodRadha Relation to Subscriber:Self Name:Jarod Radha Payer ID:[id number] Group ID:Not on file Type:Medicaid Address: [place] [id number] ACO ACO Member Subscriber Plan / Payer (Ef fective 2022-Present) Name:Radha Olivera Relation to Subscriber:Self Name:Radha Olivera Payer ID:[id number] Group ID:Not on file Type:Medicaid Address: [address] ACO Advance Directives For more information, please contact: [phone] (9AM - 5PM [place]/[facility], Saturday-Saturday) Documents on File Type Date Recorded Patient Water Chemist Expl anation Healthcare Proxy 12/28/2020 1:25 PM [...] Code Status Confirmed With: Patient Care Teams Nuclear Medicine Specialist Relationship Specialty Start Date End Date Alexander Coughlin MD PCP - General Family Medicine 08/14/24 Pcp, Unknown 04/30/20 Additional Source Comments The information contained in this document represents components of the legal health record. It is not the complete legal health record.[facility]
--- OUTSIDE RECORDS SUMMARY | 2025-03-03 19:59 | XMS_ITS | Data Portability ---
Author Organization [facility] D[facility], Main Office Address [address] [place] [address] Care Team Providers Care Channel Lip Wetter Name Role Phone BAUTISTA MEDINA Primary Care Provider [facility] ([facility] OTHER Assessment No assessment recorded. Plan of [...] By Organization Details Last Modified Time 09/19/2021 [id number] Dispo -- awaazalea g confirmation that she can move in with her BF and then will proceed with arranging necessary services and follow-up [email or web address] Not available 09/20/2021 13:14:39 Reason for Referral None Reported. Problems Name Problem SNOMED Code Status Onset Date Resolution Date Notes Provider Name and Address Organization Details Recorded Time Acute bacterial endocarditi s 643309290 Active [address] [facility], [address], [place], [address], [facility] 14:06:57 Diabetic ketoacidosi s 244651592 Active [address] [facility], [address], [place], [address], [facility] [employer] 1 14:07:04 Type 1 diabetes mellitus 97026004 Active [address] 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 835156515 Active 2020 ZACH Marin [address], [address], [place], [address], [facility] [employer] [facility] 14:08:04 Renal mass 607943376 Active 2020 ZACH Marin [address], [address], [place], [address], [facility] [employer] [facility] 14:08:31 Post-trauma tic stress disorder 43212910 Active 2020 ZACH Marin [address], [address], [place], [address], [facility] [employer] [facility] 14:08:38 Chronic depression 831678699 Active 2020 ZACH Marin [address], [address], [place], [address], [facility] [employer] [facility] 14:08:48 Acute nontraumati c kidney injury 8827070791220 03 Active 2020 ZACH Marin [address], [address], [place], [address], [facility] [employer] [facility] 14:08:56 Gastrointes tinal hemorrhage 49677599 Active 2020 ZACH Marin [address], [address], [place], [address], [facility] [employer] [facility] 14:09:04 Vitamin D deficiency 28474322 Active 2020 ZACH Marin [address], [address], [place], [address], [facility] [employer] [facility] 10:22:19 Acute diarrhea 173021184 Active 2020 ZACH Marin [address], [address], [place], [address], [employer] [facility] [facility] 1 10:35:07 Low back pain 295436158 Active 2020 Nanette Dubois, [facility] [address] [facility], [address], [place], [address], [facility] [employer] [facility] 17:03:33 Quadriplegi a with quadripares is 0512945622139 0 Active 2020 Thu Li MD [address] [facility], [address], [place], [address], [facility] 1 02:35:48 Chronic pain syndrome 850664089 Active 2020 Thu Li MD [address] [place] [address], [address], [place], [address], [facility] 02:39:20 Uncontrolle d type 1 diabetes mellitus 833013070 Active 2020 Thu Li MD [address] [place] [address], [address], [place], [address], [facility] 1 02:40:14 Primary insomnia 4922966 Active 2022 Héctor Alexander MD [address] [place] [address], [facility] [address], [place], [address], [facility] 3 10:40:26 Problem Notes None recorded. Medical Equipment None Reported. Allergies Allergen ID Allergen Name Allergen Category Reaction Reaction Severity Criticality Documentation Date Start Date Code Code System Note Provider Name and Address Organization Details Recorded Time 74249 doxycycli ne Not available rash Not available Not available 12/09/2020 3640 RxNorm ZACH Marin [address] [facility], [address], [place], [address], [facility] 14:05:56 86421 Substance with sulfonami de structure and antibacte rial mechanism of action (substanc e) medicatio n rash Not available Not available 12/09/2020 63865 8003 SNOMED ZACH Marin [address] [facility], [address], [place], [address], [facility] 14:06:09 85945 trimethop rim medicatio n rash Not available Not available 12/09/2020 41456 RxNorm PATRICK MarinP [address] [facility], [address], [place], [address], [facility] 1 14:06:18 50886 latex environme nt,medica tion hives rash Not available Not available Not available 12/09/2020 52643 91 RxNorm PATRICK MarinP [address] [facility], [address], [place], [address], [facility] 14:06:23 23036 almond allergeni c extract food hives Not available Not available 12/09/2020 19231 7 RxNorm PATRICK MarinP [address] [facility], [address], [place], [address], [facility] 14:06:31 Medications Not known to be on any medication Vitals Date Recorded Body height Systolic And Diastolic Provider Name and Address Organization Details Last Updated DateTime 06/01/2022 162.56 cm 138/70 mm[Hg] Héctor Alexander MD [address] [facility], [address], [place], [address], [employer] 06/01/2022 10:15:03 Date Recorded Body height Body temperature Respiratory rate Oxygen saturation Oxygen saturation in Arterial blood by Pulse oximetry Systolic And Diastolic Provider Name and Address Organization Details Last Updated DateTime 2 162.56 cm 97.8 [degF] 20 /min 96 % 96 % 130/72 mm[Hg] ASA VALENTIN PA-C [address] [facility], [address], [place], [address], [facility] 2 13:04:21 Date Recorded Body height Body temperature Respiratory rate Oxygen saturation Oxygen saturation in Arterial blood by Pulse oximetry Provider Name and Address Organization Details Last Updated DateTime 2 162.56 cm 97.8 [degF] 20 /min 96 % 96 % ZACH Marin [address] [facility], [address], [place], [address], [facility] 2 13:32:29 Date Recorded Body height Body temperature Respiratory rate Oxygen saturation Oxygen saturation in Arterial blood by Pulse oximetry Systolic And Diastolic Provider Name and Address Organization Details Last Updated DateTime 2 162.56 cm 97.8 [degF] 20 /min 95 % 95 % 130/78 mm[Hg] ASA VALENTIN PA-C [address] [facility], [address], [place], [address], [facility] 2 14:57:39 Date Recorded Body height Body temperature Respiratory rate Heart rate Oxygen saturation Oxygen saturation in Arterial blood by Pulse oximetry Systolic And Diastolic Provider Name and Address Organization Details Last Updated DateTime 2 162.56 cm 98 [degF] 20 /min 68 /min 96 % 96 % 138/76 mm[Hg] ASA VALENTIN PA-C [address] [facility], [address], [place], [address], [facility] 2 14:40:34 Social History Question Answer Notes LastModified by Organizat ion Details LastModified Time Tobacco Smoking Status Current Every Day Smoker ASA VALENTIN PA-C [address] [facility], [address], [place], [address], [facility] 04/16/2021 13:23:32 Do You Have An Advance Directive? Yes Signed By Mother Due To Pt's Inability To Physically Sign For Herself Even Though Not Invoked [email or web address] Information not available 06/21/2021 What Is Your Code Status? Full Code [email or web address] Information not available 12/09/2020 Legal Guardian? No [email or web address] Information not available 12/09/2020 Do You Have A Medical Power Of Technical Marketing Engineer? Yes Valid HCP On Chart, Not Invoked Information not available 12/29/2020 What Was The Date Of Your Most Recent Tobacco Screening? 06/21/2021 [email or web address] Information not available 06/21/2021 How Much Tobacco Do You Smoke? 1 PPW Information not available 04/16/2021 Has Tobacco Cessation Counseling Been Provided? Yes Not Interested In Quitting [email or web address] Information not available 04/16/2021 On What Date Was Tobacco Cessation Counseling Provided? 06/21/2021 [email or web address] Information not available 06/21/2021 How Many Years Have You Smoked Tobacco? 10 [email or web address] Information not available 04/16/2021 Sex: Unknown Functional Status Question Answer Note LastModified by Organizat ion Details LastModified Time Do you use any illicit or recreational drugs? No hx opiates and cocaine [email or web address] Information not available 06/21/2021 Do you or have you ever used any other forms of tobacco or nicotine? Yes [email or web address] Information not available 04/16/2021 What is your level of alcohol consumption? None [email or web address] Information not available 12/09/2020 Do you or have you ever used smokeless tobacco? Never used smokeless tobacco [email or web address] Information not available 04/16/2021 Do you or have you ever used e-cigarettes or vape? Former user of electronic cigarettes [email or web address] Information not available 04/16/2021 Mental Status None recorded. Family History Nothing Reported Notes:n/c Medical History No medical history recorded. Gynecological HistoryNo gynecological history recorded. Obstetrics History GPAL:G 0 P 0 0 0 0 Immunizations Vaccine Type Date Status Note Provider Nam e and Address Organization Details Recorded Time COVID-19, mRNA, LNP-S, PF, 30 mcg/0.3 mL dose 12/25/2020 completed ASA VALENTIN PA-C [address], [address], [facility] 12/29/2020 12:58:56 COVID-19, mRNA, LNP-S, PF, 30 mcg/0.3 mL dose 11/25/2020 completed ASA VALENTIN PA-C [address] [facility], [facility] [address], [place], [address], [facility] 02/24/2021 19:44:16 COVID-19, mRNA, LNP-S, PF, 30 mcg/0.3 mL dose 08/01/2021 completed ASA VALENTIN PA-C [address] [facility], [facility] [address], [place], [address], [facility] 08/05/2021 21:35:07 Past Encounters Encounter ID Performer Location Encounter Start Date Encounter Closed Date Diagnosis/Indication Diagnosis SNOMED-CT Code Diagnosis ICD10 Code Diagnosis IMO Codes Diagnosis Note [id number] ZACH Marin [facility] on [address] [place] [address] 12/09/2020 13:59:04 12/20/2020 15:25:04 Acute bacterial endocarditis 111195537 I33.0 see hpifinishe d 6 week course of vanco in hospital, midline removedrep eat echo showed no vegetation staff working on obtaining discharge summary to see if pt needs f/u with ID Diabetic ketoacidosis 42 2806037 E13.10 resolvedla ntus 21 units q am, 25 units qhslispro sliding scaleaccuc hecks and adjust insulin prn 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 929765497 F19.10 no suboxone or methadonep t currently on MSIR 30 mg q 4 hrs and butrans 15 mg patch q week Neuropathy 999558826 G62 .9 severe generalize d body paingabape ntin increased to 900 mg qidflexeri l 10 mg tidbutrans 15 mg patch q weekMSIR 30 mg q 4 hrsibuprof en 600 mg q 8 hrs prnlidocai ne patch left shoulderwi th hx of substance abuse Type 1 iam betes mellitus 88856257 E10.9 meds as above Renal mass 204035964 N28 .89 incidental finding on renal ULneeds out pt f/u with renal UL in 3-6 months or contrast enhanced CT or NILO abdomen Post-traum atic stress disorder 28067321 F43.10 pt very upset todaygabap entin 900 mg qidcymbalt a 60 mg qdhydroxyz ine 10 mg tid prnpsych referralmo nitor mood Gastrointe stinal hemorrhage 74121668 K92.2 per progress note pt had GI bleed - no hx availables ucralfate 1 gram qidprotoni x 40 mg bidwaiting for dc summary for further recs Chronic depression 71498 0009 F34.1 meds as above Acute nont raumatic kidney injury 8408805676 52723 N17.9 resolved per progress notefollow bmp weeklyavoi d nephrotoxi c meds as able [id number] Bina Bingham MD [facility] on [address] [place] [address] 12/14/2020 06:25:48 12/20/2020 16:22:12 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 214072749 F19.10 social work to coordinate support, interdisci plinary team Type 1 iam betes mellitus 06576125 E10.9 Glargine insulin 21U dailyHumal og per sliding scalegabap entin 900 mg qid for neuropathy will monitor Fibromyalgia 164152329 M 79.7 cyclobenza nathen 10 mg tidduloxet ine 60 mg dailyButra ns weekly 15 mcg/hrmorp alison 30 mg q4h prngabapen tin 900 mg qidibuprof en 600 mg q8h prnwill monitor Mixed anxi ety and depressive disorder 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 x 6 weeksfu I.D. 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 585358740 F19.10 social work to coordinate support, interdisci plinary team Fibromyalgia 904571089 M 79.7 cyclobenza nathen 10 mg tidduloxet ine 60 mg dailyButra ns weekly 15 mcg/hrmorp alison 30 mg q4h prngabapen tin 900 mg qidibuprof en 600 mg q8h prnwill monitor Dry skin 93305958 L85.3 apply thick barrier cream to bilateral feet BIDmonitor for breakdown Post-traum atic stress disorder 72777471 F43.10 patient with exaggerate d behaviors, could benefit from psych consult [id number] ZACH Alexander [facility] on [address] [place] [address] 12/19/2020 15:30:29 12/21/2020 10:32:32 Sinus tachycardia 57066148 R00.0 Concern for infection- hx of endocardit isWill obtain STAT BMP, CBC w diff, blood cultures x 2, UA, C&SMonitor and if decompensa ting transfer to ED Visual hallucinations 64 386206 R44.1 Labs as above [id number] Isabelle Dowling [facility] on [address] [place] [address] 12/21/2020 12:57:39 12/23/2020 14:36:35 Urinary tract infectious disease 69387933 N39.0 Complete course KeflexWill review final urine culture/se nsitivitie s when available and adjust antibiotic PRN Neuropathy 693539514 G62 .9 Currently on Gabapentin 900 mg QID-will start slow taper to decrease this high dose graduallyM onitor for pain control and mental status Sinus tachycardia 796000 01 R00.0 Concern for infection- hx of endocardit isWill obtain STAT BMP, CBC w diff, blood cultures x 2, UA, C&SMonitor and if decompensa ting transfer to ED Visual hallucinations 64 915733 R44.1 Psych evalWill treat UTI and taper Gabapentin dose as aboveMonit or [id number] Britta Wright [facility] on [address] [place] [address] 12/27/2020 09:48:26 01/03/2021 14:49:32 Urinary tract infectious disease 85235715 N39.0 finish keflex 500 mg qid on 01/01monito r for resolution Neuropathy 492213397 G62 .9 see hpibutrans 15 mg patch weeklyibup rofen 600 mg q 8 hrs prn - pt has hx of gi bleed so will need to monitor usechanged flexeril to prn as abovewill need f/u with Dr Bernardo Middleton neurologis tthey will decide what further testing pt will needwill have staff call [facility] for results of copper lab Visual hallucinations 64 512336 R44.1 see hpioff morphine, gabapentin and trazodone with resolution of hallucinat ions and deleriumwi ll change flexeril to 10 mg tid prn spasms - as it was stated in body of DC note that it had been discontinu ed for hallucinat ions and delerium, though it was continued on med listmonito r for sxs Vitamin D deficiency 347 21961 E55.9 Vit D level at 9not started on supplement by Xiomy start Vit D 3 5,000 units qdrecheck Vit D level in 6 weeks Type 1 iam betes mellitus 75029980 E10.9 glargine 21 units q am, 25 units qhsaccuche cks with sliding scalemonit or and adjust insulin prn Post-traum atic stress disorder 29596287 F43.10 mood stablecymb jair 60 mg qdwellbutr in sr 100 mg bidhydroxy zine 10 mg tid prnpsych referralmo nitor mood 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 177895678 F19.10 no suboxone or methadoneb utrans 15 mg patch q week for pain Chronic depression 42037 0009 F34.1 meds as above Acute bact erial endocarditis 097282341 I33.0 finished 6 week course of vanco in hospital, midline removedrep eat echo showed no vegetation Acute diarrhea 735756658 R19.7 get stool for c diff and once results are back - if no c diff then can have imodium Gastrointe stinal hemorrhage 48108230 K92.2 hx of gi bleedsucra lfate 1 gram qidprotoni x 40 mg bid Renal mass 990142430 N28 .89 incidental finding on renal ULneeds out pt f/u with renal UL in 3-6 months or contrast enhanced CT or NILO abdomen [id number] ASA VALENTIN PA-C [facility] on [address] [place] [address] 12/29/2020 12:52:28 01/03/2021 15:28:58 Diarrhea 28465690 R19.7 Resolved without interventi on and prior to the initiation of oral Vancd/c Vanc - does not have acute c-diffPt educated to notify staff if diarrhea recurs of deveops abd painf/u prn Gastrointe stinal hemorrhage 63761713 K92.2 change Protonix 40 mg po bid to Prilosec at same dosing per insurance [id number] ZACH Marin [facility] on [address] [place] [address] 01/02/2021 15:39:37 01/05/2021 09:59:40 Visual hallucinations 44620649 R44.1 resolvedof f morphine, gabapentin and trazodone with resolution of hallucinat ions and deleriummo nitor for sxs Urinary tr act infectious disease 13910092 N39.0 resolvedmo nitor for recurrence Neuropathy 830070096 G62 .9 see hpibutrans 15 mg patch weeklyibup rofen 600 mg q 8 hrs prn - pt has hx of gi bleed so will need to monitor usechange flexeril to 10 mg TID scheduledf /u with Dr Bernardo Middleton neurologis t and they will decide what further testing pt will needresult s of copper lab : 1.3 Vitamin D deficiency 347 54263 E55.9 Vit D level at 9not started on supplement by CDHstarted here on Vit D 3 5,000 units qdrecheck Vit D level in 6 weeks Type 1 iam betes mellitus 53420204 E10.9 glargine 21 units q am, 25 units qhsaccuche cks with sliding scalemonit or and adjust insulin prn Post-traum atic stress disorder 40438415 F43.10 mood stablecymb jair 60 mg qdwellbutr in sr 100 mg bidhydroxy zine 10 mg tid prnpsych referralmo nitor mood 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 350936043 F19.10 no suboxone or methadoneb utrans 15 mg patch q week for pain Chronic depression 79853 0009 F34.1 meds as above Acute bact erial endocarditis 626991355 I33.0 finished 6 week course of vanco in hospital, midline removedrep eat echo showed no vegetation Gastrointe stinal hemorrhage 76615920 K92.2 hx of gi bleedsucra lfate 1 gram qidprilose c 40 mg bid Renal mass 226086139 N28 .89 incidental finding on renal ULneeds out pt f/u with renal UL in 3-6 months or contrast enhanced CT or NILO abdomen [id number] Héctor Alexander MD [facility] on [address] [place] [address] 01/07/2021 16:54:51 01/12/2021 12:58:35 Neuropathy 868137617 G62.9 voltaren gel 2 gm to hands QID. continue butrans 15 mg weekly and flexeril 10 mg TID. Follow up with neuro. Low back pain 662674572 M54.5 voltaren gel 4 gm to lower back QID. d/c lidoderm patch. continue to monitor. [id number] ZACH Marin [facility] on [address] [place] [address] 01/13/2021 15:06:57 01/17/2021 12:02:09 Visual hallucinations 45840453 R44.1 resolved off morphine, gabapentin and trazodonem onitor for sxs Urinary tr act infectious disease 41066795 N39.0 resolvedmo nitor for recurrence Neuropathy 408059636 G62 .9 will trial gabapentin 100 mg [...] lab : 1.3 Vitamin D deficiency 347 06352 E55.9 Vit D level at 9not started on supplement by CDHstarted here on Vit D 3 5,000 units qdrecheck Vit D level in 5 weeks Type 1 iam betes mellitus 07041449 E10.9 accuchecks btwn 70s and 300scontin ue glargine 21 units q am, 25 units qhsaccuche cks with sliding scalemonit or and adjust insulin prn Post-traum atic stress disorder 68162747 F43.10 mood stablecymb jair 60 mg qdwellbutr in sr 100 mg bidhydroxy zine 10 mg tid prnpsych referralmo nitor mood 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 967754589 F19.10 no suboxone or methadoneb utrans 15 mg patch q week for pain Chronic depression 18421 0009 F34.1 meds as above Acute bact erial endocarditis 111878687 I33.0 finished 6 week course of vanco in hospital, midline removedrep eat echo showed no vegetation Gastrointe stinal hemorrhage 06073179 K92.2 hx of gi bleedsucra lfate 1 gram qidprilose c 40 mg bid Renal mass 490936554 N28 .89 incidental finding on renal ULneeds out pt f/u with renal UL in 3-6 months or contrast enhanced CT or NILO abdomen [id number] ASA VALENTIN PA-C [facility] on [address] [place] [address] 01/19/2021 11:51:49 01/24/2021 10:53:20 Uncontrolled type 1 diabetes mellitus 604799075 E10.65 Start Humalog 2 ux SQ tidacConti nue correction al HumalogCon tinue Lantus 21 ux SQ q am and 25 ux SQ qhsMonitor sugars and adjust meds prn Quadripleg ia with quadriparesis 3391227820 9100 G82.50 PT/OTNeuro followingR ecent very extensive and essentiall y negative w/uConvers ion D/O should be in the DDx given hx PTSDMonito r and f/u prn Vitamin D deficiency 347 13252 E55.9 RepletingC ontinue D3 5k ux po dailyHas f/iu level next month Gastrointe stinal hemorrhage 34450868 K92.2 Prilosec 40 mg po bid-consid er reduction trial to once daily since GI bleed was 3 months agoConside r d/c Motrin since hx GI bleed and also getting scheduled topical diclofenac Renal mass 642152248 N28 .89 renal u/s to f/u 2.9 cm heterogeno us hypoechoic mildly vascular mass-like structure upper pole of R kidney seen on u/s 11/2020 at [facility] [id number] ZACH Alexander [facility] on [address] [place] [address] 01/27/2021 15:01:35 01/31/2021 08:15:11 Uncontrolled type 1 diabetes mellitus 659908932 E10.65 Humalog 2 ux SQ tidacConti nue correction al HumalogCon tinue Lantus 21 ux SQ q am and 25 ux SQ qhsMonitor sugars and adjust meds prn Quadripleg ia with quadriparesis 6942236982 9100 G82.50 cont PT/OTNeeds cervical and lumbar MRI w contrast scheduledA lso request EMG testingRef er to neuro for consultSta rt Baclofen 5 mg TID for spasmsAlso will add Oxycodone 2.5 mg Q6h PRN-patien t states she has tolerated this in pastIf hallucinat ions recur will d/c oxycodone [id number] ZACH Alexander [facility] on [address] [place] [address] 01/30/2021 15:56:19 02/01/2021 12:39:58 Quadriplegia with quadriparesis 8863553948 9100 G82.50 cont PT/OTNeeds cervical and lumbar MRI w contrast scheduledE MG testing orderedAwa iting neuro consultInc rease Baclofen 10 mg TID for spasmsIncr ease Oxycodone 5 mg Q6h PRNIf hallucinat ions recur will d/c oxycodone- patient aware [id number] Thu Li MD [facility] on [address] [place] [address] 02/07/2021 20:14:48 02/13/2021 13:28:21 Quadriplegia with quadriparesis 2588255498 9100 G82.50 Continues to need intensive PT/OT for strengthen ing, balance, gait training, safety and function.C ontinue Baclofen 10 mg TID, voltaren gel to hands, APAP 650 mg q 4 hrs prn, and oxycodone 5 mg q 6 hrs prn.Monito r safety and function. Uncontroll ed type 1 diabetes mellitus 210243175 E10.65 Poor control.Co ntinue Lantus 21 ux SQ q am and 25 ux SQ qhs, humalog 2U with meals and SS as ordered.Mo nitor sugars and adjust meds prn Vitamin D deficiency 347 12440 E56.8 Continue D3 5000 IU qd.Recheck level next month. Gastrointe stinal hemorrhage 04369487 K92.89 Continue omeprazole 40 mg BID.Taper as able.Monit or sxs. Renal mass 386722931 N28 .89 incidental finding on renal ULneeds out pt f/u with renal UL in 3-6 months or contrast enhanced CT or NILO abdomen Visual hallucinations 64 536728 R44.1 No further sxs since return from hospital.M onitor MS. Neuropathy 699122282 G62 .89 As above.F/U with neuro Post-traum atic stress disorder 52493149 F43.12 Continue duloxetine 60 mg qd, wellbutrin SR 100 mg BID and hydroxyzin e 10 mg TID prnPsych involved. 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 939082630 F19.10 no suboxone or methadoneb utrans 15 mg patch q week for pain Chronic depression 08171 0009 F34.1 meds as above Acute bact erial endocarditis 923960841 I33.0 finished 6 week course of vanco in hospital, midline removedrep eat echo showed no vegetation Chronic pain syndrome 37 3785918 G89.4 Continue meds as above and gabapentin 100 mg TID, butrans 15 mg patch weekly, and ibuprofen 600 mg q 8 hrs prn.Monito r sxs. [id number] ASA VALENTIN [facility] [address] [place] [address] [phone] 3 02/10/2021 17:13:12 02/13/2021 14:51:22 Eruption [id number] R21 refuses exam bumps could be a number of thingschec k urine for GC/chlam-f /u when results are availableR e-approach pt for exam next weekNo indication for U/APt educated about:-imp ortance of not having sexual encounters with other patients on the unit-prote cting against HIV/STIs if she is going to engage in such behavior-w as not interested in participat ing in this discussion [id number] ASA VALENTIN PA-C [facility] on [address] [place] [address] [phone] 3 02/17/2021 16:48:48 02/20/2021 16:13:30 Chronic pain syndrome 387259362 G89.4 Increase Baclofen from 10 ux tid to 15 ux tid and titrate aggressive lyd/c Voltaren gel since ineffectiv eStart Lidocaine 3% cream tid prn hand painConsid er rheum w/u given [place] neck deformitie s of handsMonit or and f/u prn Uncontroll ed type 1 diabetes mellitus 420904339 E10.65 Decrease hs Lantus from 25 to [...] time but consider in the future Eruption [id number] R21 Bumps resolved per ptNo symptoms or dysuriaRev iew GC/chlam when results are available [id number] ASA VALENTIN PA-C [facility] on [address] [place] [address] [phone] 3 02/23/2021 16:16:37 02/27/2021 16:18:42 Chronic pain syndrome 978717459 G89.4 Increase Baclofen from 15 mg po tid to 20 mg po tidNo change in oxycodone IR 5 mg po q 6 h prn at this time despite her request to make is q 4 h prnCheck CBCD, CMP, RF, RANJAN, and ACPA (anti-citr ullinated peptide antibodies )Monitor and f/u prn [id number] ASA VALENTIN [facility] on [address] [place] [address] [phone] 3 03/06/2021 18:28:01 03/08/2021 11:32:59 Acute otitis externa 06615975 H60.509 Left ear Cortispori n otic suspension 4 gtt L ear qid x 10 days-benef its of abx outweigh risks of non-treatm ent in this patient Chronic pain syndrome 37 3192228 G89.4 Increase Cymbalta from 60 mg po q am to 60 mg po q am and 30 mg po q 1700Recent labs not revealingM onitor and f/u prn [id number] ASA VALENTIN PA-C [facility] on [address] [place] [address] [phone] 3 03/10/2021 09:35:25 03/14/2021 11:07:45 Unintentional weight loss 442404018 R63.4 Increase frequency of monitoring weights to weekly x 4 weeks then monthly-we ight via same method each time and include when entering data in [facility] weightsRD also followingU pdate TSH Uncontroll ed type 1 diabetes mellitus 727812254 E10.65 Pre-lunch sugar remain high, reflecting need [...] futureUpda te A1c Chronic pain syndrome 37 1427981 G89.4 Continue Cymbalta 60 mg po q am and 30 mg po q 1700-room to increaseIn crease gabapentin from 100 mg po tid to 200 mg po tid-monito r for response, sedation, hallucinat ions-pt agreeable to this trialUnlinden gilmore RA based on labsConsul t rheum for completene ss Vitamin D deficiency 347 13445 E55.9 RepletingC ontinue D3 5k ux po dailyUpdat e Total Vit D-level planned for this month; will coordinate draw with TSH Quadripleg ia with quadriparesis [id number] 9100 G82.50 PT/OTClari fy status of neuro f/u and EMG previously orderedRec ent very extensive and essentiall y negative w/uConvers ion D/O should be in the DDx given hx PTSDMonito r and f/u prn Gastrointe stinal hemorrhage 35463255 K92.2 Continue Prilosec 40 mg po bid for nowd/c CarafateCo nsider decrease Prilosec once she can be assessed off Carafate [id number] ASA VALENTIN PA-C [facility] on [address] [place] [address] [phone] 3 03/13/2021 17:28:09 03/21/2021 10:47:41 Chronic pain syndrome 460994479 G89.4 Increase Cymbalta from 60 mg po q am and 30 mg po q 1700 to 60 mg po bidNo changes to oxycodone at this time script for oxycodone IR 5 mg #60 no refills given to nurse Dyslipidemia 810223801 E 78.5 Add Lipitor 20 mg po qhslipid panel 8 weeks [id number] ASA VALENTIN PA-C [facility] on [address] [place] [address] [phone] 3 03/21/2021 18:30:14 03/28/2021 12:19:54 Acute otitis media 6157500 H66.92 Augmentin 875/125 mg po bid x 10 days-benef its of abx outweigh risks of non-treatm ent in this patientDif lucan 150 mg po x 1 on days 2 and 5 to prevent richard vaginitisM onitor and f/u prn [id number] ASA VALENTIN PA[facility] on [address] [place] [address] [phone] 3 03/28/2021 19:45:13 04/06/2021 13:45:41 Chronic pain syndrome 843783411 G89.4 Given the interrupti ons in her Butrans beyond her control, will change prn oxycodone 5 mg from q 6 to q 4 h for nowNo other changes at this timeMonito r and f/u prn Pruritic disorder 567611 002 L29.9 Benadryl 50 mg po q 6 h prn itching [id number] ASA VALENTIN PA-C [facility] on [address] [place] [address] [phone] 3 04/06/2021 16:31:22 04/17/2021 16:27:20 Paronychia of toe of left foot 7201673844 2969427 L03.032 warm soak L foot qid x 5 days for paronychia L 1st toeNo evidence of cellulitis and no indication for topical or oral abx at this timeMonito r and f/u prn [id number] ASA VALENTIN PA-C [facility] on [address] [place] [address] [phone] 3 04/07/2021 16:52:11 04/17/2021 16:31:27 Paronychia of toe of left foot 8764279022 6133337 L03.032 Triple antibiotic bid x 5 days L 1st toeAdd Vit C 500 mg po bid x 30 days, Zinc 220 mg po bid x 14 days, and Vit A 10k ux po daily x 10 days to promote wound healing in a diabetic.N o evidence of cellulitis -abx not indicated at this timeMonito r and f/u prn Blister of foot 85516739 3 S90.822A HeelProtec tive dressingMo nitor and f/u prn [id number] ASA VALENTIN PA-C [facility] on [address] [place] [address] [phone] 3 04/13/2021 18:55:30 04/18/2021 09:45:53 Chronic pain syndrome 182405396 G89.4 add Zanaflex 2 mg po q 8 h prn stiffness- monitor for sedation, hallucinat ions-titra te to comfort-pt agreeable to triald/c Lipitor as likely worsening chronic pain Migraine 41706298 G43.90 9 Add Riboflavin 400 mg po daily for migraine prevention -educated that this will likely cause her urine to turn bright yellow-exp lained that it may take up to 3-4 months to experience an improvemen t in migraines- pt agreeable to try this [id number] ASA VALENTIN PA-C [facility] on [address] [place] [address] [phone] 3 04/17/2021 13:27:26 04/20/2021 08:54:46 Uncontrolled type 1 diabetes mellitus 726164835 E10.65 d/c prandial Humalog since meal intake [...] for renal protection due to soft BPs [id number] Bina Bingham MD [facility] on [address] [place] [address] [phone] 3 04/28/2021 08:13:19 05/01/2021 14:06:27 Type 1 diabetes mellitus 51498831 E10.42 Lantus insulin 24U in eveningHum alog per sliding scalegabap entin 200 mg tid for neuropathy - see meds for chronic painwill monitor Muscle weakness 66783682 M62.81 quadripare sis -seems improved at today's visit - consider psychiatri ginger Connors, LS spine with contrast recommende dfu neurologyP T/OTwill monitor and support as needed Chronic pain 10462944 G8 9.29 ibuprofen 600 mg q8h prnduloxet ine 60 mg dailygabap entin 200 mg tidtizanid ine 2 mg q8h prnoxycodo ne 5 mg q4h prnButrans patch 15 mcg/hr weeklyAPAP 650 mg q4h prnwill monitorPT/ OT prn Mixed anxi ety and depressive disorder 500520485 F41.8 trazodone 50 mg at hsduloxeti ne 60 mg dailybupro pion 100 mg bidgabapen tin 900 mg tidhydroxy zine 10 mg q8h prnwill monitor and support as needed Gastroesop hageal reflux disease without esophagitis 893951735 K21.9 omeprazole 40 mg bidwill monitor [id number] ASA VALENTIN PA-C [facility] on [address] [place] [address] [phone] 3 05/02/2021 18:19:07 05/04/2021 14:35:08 Uncontrolled type 1 diabetes mellitus 512316361 E10.65 Given morning hypoglycem ia, will d/c [...] to soft BPs Chronic pain syndrome 37 7910247 G89.4 Complaints out of proportion to exam findingsRe schedule Brain MRI ASAPNo changes to meds at this timeConsid er Chronic Widespread Pain (CWP) Syndrome/C entralized Pain Syndrome-R heum consult still pending [id number] [facility] VAL[facility] [address] [place] [address] [phone] 3 05/08/2021 17:47:50 05/15/2021 16:00:40 Uncontrolled type 1 diabetes mellitus 074914564 E10.65 Increase Lantus from 21 ux SQ q am to 23 ux SQ q amContinue individual ized correction al insulin, which she still often refusesMon itor sugars and adjust meds prnNot on an ERIC/ARB for renal protection due to soft BPs [id number] ASA VALENTIN PA-C [facility] on [address] [place] [address] [phone] 3 05/10/2021 15:19:30 05/16/2021 08:53:19 Nausea 906081319 R11.0 Nausea likely secondary to hyperglyce adri [...] 05/12/21 Uncontroll ed type 1 diabetes mellitus 920484382 E10.65 Increase Lantus from 23 ux SQ q am to 25 ux SQ q amContinue individual ized correction al insulin, which she still often refusesMon itor sugars and adjust meds prnNot on an ERIC/ARB for renal protection due to soft BPs Chronic pain syndrome 37 2376905 G89.4 Complaints out of proportion to exam [...] CK since pain mostly muscularly based Migraine 44756666 G43.90 9 Continue Riboflavin 400 mg po daily for migraine prevention -re-educat ed that this will likely cause her urine to turn bright yellow-re- explained that it may take up to 3-4 months to experience an improvemen t in migrainesA lready has prn oxycodone in place [id number] ASA VALENTIN PA-C [employer] [facility] on [address] [place] [address] [phone] 3 05/12/2021 15:20:29 05/22/2021 18:13:36 Chronic pain syndrome 541615618 G89.4 CPK slightly above normal range.DDx includes:- Diabetic muscle infarction -Inflammat ory myopathies EMG, Brain MRI, Neuro consult, and Rheum consult pend-adan fy statusIf diabetic muscle infarction , need to get sugars under much better control as they remain out of control for patient reasons.-e ducate pt about thisKnown chronic widespread pain syndrome, fka fibromyalg iaNo changes at this time Anemia 541850714 D64.9 H&H down from priorStool guaiacs pend and will be reviewed when availableM onitor labs Uncontroll ed type 1 diabetes mellitus 810389288 E10.65 Lantus increased 2 days agoContinu e individual ized correction al insulin, which she still often refusesMon itor sugars and adjust meds prnNot on an ERIC/ARB for renal protection due to soft BPs [id number] [facility] [address] [place] [address] [phone] 3 05/24/2021 14:47:08 05/31/2021 11:17:09 Chronic pain syndrome 406125141 G89.4 Talked about diabetic muscle infarction as a possible explanatio n of her muscular pain, which dominates her pain complaints .No changes to pain meds at this time Avulsion i njury of fingernail 630323554 S61.308A No evidence of infectionL ocal careMonito r and f/u prn Anxiety di sorder due to a general medical condition 16119682 F06.4 increase Wellbutrin back to bidadd anxiety x 14 days to the prn Benadryl indication -not adding hydroxyzin e since on Benadryl-b enzos not indicated [id number] [facility] VAL[facility] [address] [place] [address] [phone] 3 05/25/2021 15:11:09 06/05/2021 13:42:02 COVID-19 326356317 U07.1 Vaccinated , <65 y/o, with at [...] per facility protocol Paronychia of finger 444 188554 L03.019 Bacitracin and bandaid to affected fingers daily x 5 daysFollow clinically Uncontroll ed type 1 diabetes mellitus 429831977 E10.65 Increase Lantus from 25 to 28 ux SQ q amContinue individual ized correction al insulin, which she still often refusesMon itor sugars and adjust meds prnNot on an ERIC/ARB for renal protection due to soft BPs [id number] ASA VALENTIN [facility] [address] [place] [address] [phone] 3 06/07/2021 19:12:01 06/13/2021 11:45:27 Onychotillomania 09776382 F98.8 SSRIs ideal for this as well [...] serious resistance and behavioral disturbanc e COVID-19 483201607 U07.1 Clinically recovered [id number] ASA VALENTIN PA-C [facility] on [address] [place] [address] [phone] 3 06/08/2021 12:10:18 06/13/2021 12:56:00 Uncontrolled type 1 diabetes mellitus 827399717 E10.65 Increase Lantus from 28 to 32 ux SQ q am (conservat ively increasing )Continue individual ized correction al insulin, which she still often refusesMon itor sugars and adjust meds prnNot on an ERIC/ARB for renal protection due to soft BPs [id number] ASA VALENTIN PA-C [facility] on [address] [place] [address] [phone] 3 06/12/2021 14:19:02 06/29/2021 12:52:22 Uncontrolled type 1 diabetes mellitus 601477735 E10.65 Continue Lantus 32 ux SQ q am-pt hesistant to increase despite elevated sugars due to sugar 67 yesterday amContinue individual ized correction al insulin, which she still often refuses or takes less ofMonitor sugars and adjust meds prnNot on an ERIC/ARB for renal protection due to soft BPs [id number] ASA VALENTIN PA-C [facility] on [address] [place] [address] [phone] 3 06/21/2021 13:12:50 06/30/2021 10:08:01 Uncontrolled type 1 diabetes mellitus 106998663 E10.65 Continue Lantus 32 ux SQ q [...] BPs Cellulitis of finger of right hand 2822560818 1703200 L03.011 Keflex-cherry efits of abx outweigh risks of non-treatm ent in this patientPro bioticMoni tor and f/u prn Pruritic disorder 936725 002 L29.9 Restart prn BenadrylUn clear of allergen-m ediated or somatiform Monitor and f/u prn Anxiety 69141162 F41.9 Definitely OCD component/ excoriatio n d/o/onycho [...] drug interactio ns Chronic pain syndrome 37 8523679 G89.4 Schedule the Zanaflex and titrateCla rify status of rheum consultCon tinue all other meds as currently orderedPT/ OT prn Nausea 563391767 R11.0 seems improvedf/ u prn Tobacco de pendence syndrome 33057361 F17.200 Counseled 4 minutes on cessation; not interested in quitting Anemia 926635227 D64.9 Clarify stool guaiac resultsUpd ate CBC [id number] ASA VALENTIN PA-C [facility] on [address] [place] [address] 3 06/23/2021 16:48:19 06/30/2021 10:48:25 Cellulitis of finger of right hand 8806367088 1513988 L03.011 d/c KeflexStar t Levaquin 750 mg po daily x 7 days (since also has uncontroll ed DM)-benefi ts of abx outweigh risks iof non-treatm ent in this patientR hand x-ray to assess for periostial lift although osteo less likelyCons ider labs if not improved with change in abx Uncontroll ed type 1 diabetes mellitus 409117001 E10.65 Monitor sugars and adjust meds prnNot on an ERIC/ARB for renal protection due to soft BPs [id number] ASA VALENTIN PA-C [facility] on [address] [place] [address]-781 3 06/27/2021 18:45:15 07/11/2021 15:46:45 Cellulitis of finger of right hand 8042559649 5733055 L03.011 Improved on LevaquinX- ray without periostial lift or other suggestion s of osteoMonit or and f/u prn Uncontroll ed type 1 diabetes mellitus 203632922 E10.65 Sugars hard to interpret since time-stamp on entered values and pt's report that sugars often aren't being done until after meals supports that these are post-prand ial resultsPt does not want to change current regimen due to fear of hypoglycem iaPrevious ly did best on insulin pump-still exploring feasabilit y of [facility] sugars and adjust meds prnNot on an ERIC/ARB for renal protection due to soft BPs Chronic pain syndrome 37 4128305 G89.4 Multi-leve l spinal MRIs are unrevealin [...] clinically Mixed anxi ety and depressive disorder 552718660 F41.8 Improved on decreased ProzacPer EMAR review, pt has been using the Trazodone 25 mg po q 4 h prn anxiety at least once per day on most days, often at night with effect-con overhead garage door 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 scheduling 25 mg po qhs-renew Trazodone 25 mg po q 4 h prn anxiety x 6 months then review again with provider to determine ongoing needNot at all surprised that she found the Ativan to be very effective at targeting her anxiety; however, benzodiaze pine use would be inappropri ate in this patient.Ps ych also following [id number] ASA VALENTIN PA-[facility] on [address] [place] [address] [phone] 3 07/03/2021 16:00:31 07/12/2021 14:25:23 Candidiasis of vagina 64760635 B37.3 Diflucan 150 mg po x 1f/u prn [id number] ASA VALENTIN PA[facility] on [address] [place] [address] [phone] 3 07/07/2021 13:46:53 07/18/2021 14:54:36 Chronic pain syndrome 739235331 G89.4 Reviewed the records from [facility] with pt with focus on insulin neuritis, hyperalges ia secondary to diabetic neuropathy , and somatoform d/o. Reviewed that neuroimagi ng has been unable to provide an explanatio [...] now. Uncontroll ed type 1 diabetes mellitus 701495305 E10.65 Discussed importance of diabetes management , especially in light of new dx end-stage proliferat blaze diabetic retinopath yPt's mother will schedule a follow-up with pt's establishe phillip Endocrinol ogist-like ly will recommend insulin pump since she was most successful with that-discu ssed with pt concerns that she would inappropri ately bolus herself-sh e said that she would not and the [...] retinopathy due to type 1 diabetes mellitus 5083540458 9101 E10.3593 Oxycodone 10 mg po x 1 upon departure to retinal laser surgery appointnir hyde scheduled and prn as recommende d by retinal specialist Anxiety 98341441 F41.9 Willing to trial Abilify 2 mg po daily as recommende d by psych-risk s/benefits /side effects discussed with ptPsych also following [id number] ASA VALENTIN PA-C [facility] on [address] [place] [address] 3 07/13/2021 14:02:12 07/18/2021 15:54:18 Edema of lower extremity 073582042 R60.0 TEDs dailyGabap entin and Motrin can cause/exac erbate edema-cons ider d/c gabapentin as previously referenced Diarrhea 16420679 R19.7 Given comorbidit ies, likely has IBS, [...] retinopathy due to type 1 diabetes mellitus 6692739254 9101 E10.3593 Ativan 0.5 mg po x 1 upon departure to laser eye surgery-ok to given with oxycodone IR 10 mg that has also been ordered-sc ript for 0.5 mg #2 with 1 refill given to nurse [id number] ASA VALENTIN PA[facility] on [address] [place] [address] [phone] 3 07/24/2021 16:43:31 08/01/2021 15:48:41 Edema of lower extremity 911276026 R60.0 Clarify status of TEDsTaper gabapentin -pt in agreement with trial offNo cardiopulm onary symptomsMo nitor and f/u prn 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 5573520463 9101 E10.3593 Following with retinal specialist Await official notes from today's visitRevis it pre-meds for next surgerySee if endo can do telehealth with her since she is an establishe d pt Anxiety 87767877 F41.9 re-add anxiety as prn indication for Benadryl since it has been effective and there is no clinical indication to schedule it-can renew x 6 months then review again to determine ongoing needPsych also following [id number] ZACH [facility] [address] [place] [address] [phone] 3 07/31/2021 15:05:51 08/04/2021 10:55:17 Cellulitis of finger of right hand 3241065231 6608228 L03.011 keflex 500 mg 1 tid x 7 daysprobio tic 1 bid x 10 daysmonito r for resolution [id number] ASA VALENTIN [facility] [address] [place] [address] 81605-578 3 08/02/2021 19:38:36 08/08/2021 09:56:25 Proliferative retinopathy due to type 1 diabetes mellitus 0843722357 9101 E10.3593 Following with retinal specialist Has upcoming laser eye surgery-tr ial Klonopin 0.5 mg since longer T1/2-upon departure for laser eye surgery-pt agreeable to try this-scrip t for Klonopin 0.5 mg #2 with 5 refills given to nurse-Oxyc odone IR 15 mg po x 1 upon departure for laser eye surgery [id number] ASA VALENTIN PA-C [facility] on [address] [place] [address] [phone] 3 08/10/2021 15:54:07 08/17/2021 12:42:18 Proliferative retinopathy due to type 1 diabetes mellitus 9998816028 9101 E10.3593 No changes to pre-med are indicatedM onitor and f/u prn [id number] Bina Bingham MD [facility] on [address] [place] [address] [phone] 3 08/23/2021 08:11:31 08/25/2021 16:09:18 Quadriplegia with quadriparesis 6633600176 9100 G82.50 Type 1 iam betes mellitus 12816700 E10.42 Lantus insulin 32U in eveningHum alog per sliding scalefor neuropathy - see meds for chronic painwill monitor 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 6134450184 9101 E10.3593 fu retina specialist Chronic pain 48708989 G8 9.29 ibuprofen 600 mg q8h prnduloxet ine 60 mg dailytizan idine 2 mg tidoxycodo ne 5 mg q4h prnbaclofe n 20 mg qidButrans patch 15 mcg/hr weeklyAPAP 650 mg q4h prnwill monitorPT/ OT prn Mixed anxi ety and depressive disorder 948435676 F41.8 trazodone 25 mg at hsaripipra zole 2 mg dailydulox etine 60 mg dailywill monitor and support as needed Gastroesop hageal reflux disease without esophagitis 882364708 K21.9 omeprazole 40 mg bidwill monitor [id number] ASA VALENTIN PA-C [facility] on [address] [place] [address] [phone] 3 08/28/2021 20:07:37 08/30/2021 13:12:41 Proliferative retinopathy due to type 1 diabetes mellitus 7399898212 9101 E10.3593 Increase Klonopin from 0.5 to 1 mg po upon departure to laser surgery-sc ript for 1 mg #2 with 1 refill given to Pearl gonzalez oxycodone IR 15 mg po upon departure to laser surgery Chronic pain syndrome 37 3562476 G89.4 Pt has been on oxycodone IR 5 mg po q 4 h prn mod-severe pain, which she takes regularly- considerin g that she was on an extended overnight BARBARA without her oxycodone and did not seem to have any negative effects, need to start tapering oxycodone as she has demonstrat ed that she does not require it [id number] ASA VALENTIN [facility] [address] [place] [address] [phone] 3 09/08/2021 16:01:05 09/11/2021 15:44:46 Proliferative retinopathy due to type 1 diabetes mellitus 6796643864 9101 E10.3593 Klonopin 1 mg and oxycodone IR 15 mg po x 1 upon departure to laser eye surgery-sc ript for Klonopin 1 mg #4 with 5 refills given to nurse [id number] ASA VALENTIN [facility] [address] [place] [address] [phone] 3 09/12/2021 14:24:10 09/14/2021 12:35:31 Candidiasis of vagina 52311232 B37.3 Diflucan 150 mg po x 1-ok despite increased risk of QT prolongati on with Abilify-cisneros s tolerated before and Diflucan is a one-time doseReiter ated importance of glycemic control-sa ys she knows this but still chooses to eat foods inconsiste nt with diabetic dietShould have HIV testing - she's not sure yet if she wants to do thisf/u prn [id number] ASA VALENTIN [facility] [address] [place] [address] [phone] 3 09/15/2021 15:05:55 09/18/2021 13:39:17 Chronic pain syndrome 404106123 G89.4 Given that patient lied about having [...] the list of DDxMonitor and f/u prn [id number] ASA VALENTIN [facility] [address] [place] [address] [phone] 3 09/19/2021 09:24:39 09/21/2021 10:26:50 Pain of right knee joint 1967635869 24397 M25.561 no indication for imaging at this timePT consultHas plenty of meds in place for pain management Ice as toleratedW BATLikely patellofem oral syndrome [id number] ZACH [facility] [address] [place] [address] [phone] 3 09/22/2021 13:31:46 09/25/2021 15:35:51 Pain of right knee joint 4869642483 41208 M25.561 per PA who saw pt on 09/19 continues with no indication for imaging at this timecontin ue PT OTHas plenty of meds in place for pain management and explained to pt that I would not increase pain meds at this timeIce as toleratedW BAT [id number] ASA VALENTIN PA-C [facility] on [address] [place] [address] [phone] 3 10/04/2021 20:07:11 10/10/2021 09:10:24 Pain of right knee joint [id number] M25.561 Would probably benefit from MRI R knee but will defer this to [facility] will address need for referral to [facility] plenty of meds in place for pain management -no indication to adjust oxycodoneI ce as toleratedW BATLikely patellofem oral syndrome 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 [id number] 9101 E10.3593 Once appointmen t at [facility] is verified, pt can have Klonopin 1 mg and oxycodone IR 15 mg upon departure to appointmen t [id number] [facility]SA [facility]IN [facility] [address] [place] [phone] 10/12/2021 13:57:35 10/18/2021 14:48:50 Allergic rhinitis 44200191 J30.9 Add Flonase 1 spray per nostril bid-consid er change to prn when seasons changesNot adding systemic non-sedati ng antihistam ine since has prn Benadryl orderMonit or and f/u prn Héctor Alexander MD [facility] on [address] [place] [address] 06/01/2022 10:14:03 07/06/2022 12:56:40 Sepsis [id number] A41.89 see HPIvanco and zosyn through 06/14/22 then to be re-evaluat ed by IDmonitor erick arias w labs cc to ID and update with concernsho Juan helm, acting DNS, [employer], and therapy present during attempted exampatien t [...] Acute oste omyelitis of ankle and/or foot [id number] M86.172 now s/p left BKAplan was tofollow ortho recsPT OT eval and treatstron g concern for need for right AKAupdate ortho and ID with concernsho maddi now see above Chronic pain syndrome 37 [id number] G89.4 plan was belowchron ic pain syndrome with polysubsta nce abusenow on oxycodone 30 mg q 6 hours hold for sedationga bapentin 100 mg tidthis is less than patient was receiving in hospitalme dications to be crushed therefore cannot start long actingalso concern for patch utilizatio n that patient may swallow patchhowev er now transfer back to hospital Anemia due to blood loss [id number] D50.0 acute on chronic anemia transfused with 4 units pRBC suffered delayed transfusio n reactionmo nitor cbc and need for further txheme eval prnadded to PMH Blood spann sfusion reaction 36068208 T80.89XD see abovesurge ry awareadded to PMH 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 [id number] F19.180 polysubsta nce abuse hxadded to PMH Primary insomnia 7280534 F51.01 plan wasmelaton in 3 mg qhs [...] for herself even though not invoked Payers Insurance Date Sequence Insurance Name Policy Number Policy Rios Covered Member ID Rios Member ID Guarantor Name 06/01/2021 1 [facility] Radha Olivera [id number] Radha Olivera 05/31/2022 1 [place] Radha Olivera [id number] Radha Olivera 12/09/2020 1 [employer] (MEDICARE REPLACEMENT HMO) Radha Olivera [id number] Radha Olivera 07/06/2022 1 [facility] [place] Radha Olivera [id number] Radha Olivera Notes Date Note Type Note Provider Name and Address Organization Details Recorded Time 2 text/html ROS as noted in the HPI Pt seen for acute rounding visit today for discharge planning. Pt returned last evening from weekend [place]. Has been spending more time at her boyfriend's house in [place] and is hoping to move in with [...] and Klonopin and then nurse confirmed with [facility] that pt never had an appointment for that day. When confronted about this today, pt said she only found out when her aunt picked her up that her aunt had rescheduled it from 09/18 to a different date. This was confirmed to not be true. PMHx reviewed Meds reviewed ASA VALENTIN PA-C [address] [facility] [address] [facility], [address], [place], [address], [facility] 09/20/2021 13:15:34 2 text/html ROS as noted in the HPI Pt seen for acute rounding visit today. pt is c/o right knee pain though this was addressed on 09/19/21 with PA who determined that she did not need [...] and Klonopin and then nurse confirmed with [facility] that pt never had an appointment for that day. When confronted about this today, pt said she only found out when her aunt picked her up that her aunt had rescheduled it from 09/18 to a different date. This was confirmed to not be true. ZACH Marin [address] [facility] [facility], [address], [place], [address], [facility] 09/22/2021 13:37:01 2 text/html ROS as noted in the HPI Pt seen for acute rounding visit for [...] referred to [facility] for R knee pain. [place] that insurance referral is required. Says she has another laser eye surgery on 10/13/21 and will need pre-med again with Klonopin and oxycodone. Boyfriend's mother has yet to decide if Radha can move in. Continues to eat foods which are contrary to her diabetes diagnosis. ASA VALENTIN PA-C [address] [facility], [address], [place], [address], [facility] 10/09/2021 15:06:47 2 text/html ROS as noted in the HPI Pt seen for acute rounding visit today [...] far this month) ASA VALENTIN PA-C [address] [facility], [address], [place], [address], [facility] 10/12/2021 14:53:35 3 text/html Patient is [...] continued care and therapy Héctor Alexander MD [address] [place] [address], [address], [place], [address], [facility] 06/01/2022 11:42:48 OBGyn Episode No OBEpisode recorded.
--- OUTSIDE RECORDS SUMMARY | 2025-03-03 19:59 | XMS_ITS | Encounter Summary ---
Author Organization [facility] Address [address] [employer] [employer] [address] [address] Phone Care Team Providers Care Aging Room Hand Name Role Phone Uriel Rosario MD Primary Care Provide r Pcp, Unknown Unavailable Unavailable Alexander Coughlin MD Primary Care Provider Encounter Details Date Type Department Care Team (Late st Contact Info) Description 05/12/2021 Transcribe Orders [facility] [address] [place] [address] [address] [email or web address] Chronic pain syndrome (Primary Dx) Social [...] CREATINE KINASE 309(H) 21 - 215 U/L [facility] Blood 05/12/2021 5:54 AM EST 05/12/2021 7:12 AM EST Tata [facility] BLOOD ORDERABLES Ginny l Result Performing Organization Address [facility]/ZIP Co de Phone Number [address] [address] * Sedimentation rate (ESR) (05/12/2021 5:54 AM EST) ESR 15 0 - 20 mm/h [facility] Blood 05/12/2021 5:54 AM EST 05/12/2021 7:12 AM EST us Tata [facility]LO[facility] ORDERABLES Ginny l Result Performing Organization Address [facility] Co de Phone Number [address] [address] * Lipase (05/12/2021 5:54 AM EST) LIPASE 16 16 - 63 U/L [facility] Blood 05/12/2021 5:54 AM EST 05/12/2021 7:12 AM EST us Tata [facility] BLOOD ORDERABLES Ginny l Result Performing Organization Address [facility] Co de Phone Number [address] [address] * C-Reactive Protein (05/12/2021 5:54 AM EST) C REACTIVE PROTEIN 3.4 0.0 - 4.0 mg/L [facility] Blood 05/12/2021 5:54 AM EST 05/12/2021 7:12 AM EST Tata [facility] BLOOD ORDERABLES Ginny l Result [facility] [address] [place] [address] * CBC and differential (05/12/2021 5:54 AM EST) WBC 5.84 4.00 - 11.00 K/uL [facility] RBC 4.07 3.72 - 5.30 M/uL [facility] HGB 11.2 11.0 - 15.2 g/dL [facility] HCT 32.5 31.6 - 44.1 % [facility] PLT 271 140 - 430 K/uL [facility] MCV 79.9 78.0 - 97.0 fL [facility] MCH 27.5 25.0 - 33.0 pg [facility] MCHC 34.5 32.0 - 36.0 g/dL [facility] RDW 12.8 11.0 - 16.0 % [facility] MPV 10.9 8.4 - 12.8 fl [facility] NRBC 0.00 0 /100 WBCs [facility] ABSOLUTE NRBC 0.00 0 K/uL [facility] DIFF METHOD Auto [facility] NEUTS 66.2 43.0 - 75.0 % [facility] LYMPHS 22.4 18.2 - 47.4 % [facility] MONOS 6.3 4.00 - 11.00 % [facility] EOS 4.1 0.0 - 8.0 % [facility] BASOS 0.7 0.0 - 2.0 % [facility] Granulocytes, immature (%) 0.3 0.0 - 0.9 % [facility] ABSOLUTE NEUTS 3.86 1.80 - 7.70 K/uL [facility] ABSOLUTE LYMPHS 1.31 1.00 - 3.10 K/uL [facility] ABSOLUTE MONOS 0.37 0.20 - 0.80 K/uL [facility] ABSOLUTE EOS 0.24 0.00 - 0.80 K/uL [facility] ABSOLUTE BASOS 0.04 0.00 - 0.09 K/uL [facility] Granulocytes, immature 0.02 0.00 - 0.05 K/uL [facility] Blood 05/12/2021 5:54 AM EST 05/12/2021 7:12 AM EST us [facility] BLOOD ORDERABLES Ginny l Result [address] [address] * Amylase (05/12/2021 5:54 AM EST) AMYLASE 86 28 - 100 U/L [facility] Blood 05/12/2021 5:54 AM EST 05/12/2021 7:12 AM EST Tata [facility] BLOOD ORDERABLES Ginny l Result Performing Organization Address [facility] de Phone Number [address] [address] * (ABNORMAL) Comprehensive metabolic panel (05/12/2021 5:54 AM EST) SODIUM 136 133 - 146 mmol/L [facility] POTASSIUM 4.4 3.3 - 5.1 mmol/L [facility] CHLORIDE 101 96 - 108 mmol/L [facility] CO2 25 21 - 35 mmol/L [facility] BUN 19 6 - 19 mg/dL [facility] CREATININE 0.60 0.5 - 1.5 mg/dL [facility] GLUCOSE 441(H) 70 - 99 mg/dL [facility] ALBUMIN 4.3 3.9 - 4.8 g/dL [facility] TOTAL PROTEIN 6.7 6.5 - 8.0 g/dL [facility] CALCIUM 9.8 8.4 - 10.3 mg/dL [facility] ALKALINE PHOSPHATASE 122(H) 39 - 117 U/L [facility] TOTAL BILIRUBIN 0.2 0.0 - 1.2 mg/dL [facility] AST 12 0 - 37 U/L [facility] ALT 17 0 - 40 U/L [facility] GLOBULIN 2.4 1 - 4.8 g/dL [facility] EGFR >120 >59 mL/min/1.7 3m2 [facility] Comment:Estimated glomerular filtration rate calculated using the CKD-EPI refit equation. ANION GAP 14 10 - 20 mmol/L [facility] Blood 05/12/2021 5:54 AM EST 05/12/2021 7:12 AM EST us [facility]ata [facility] BLOOD ORDERABLES Ginny l Result [facility] [address] [place] [address] documented in this encounter Visit Diagnoses Diagnosis Chronic pain syndrome- Primary documented in this encounter Additional Health Concerns Infection Onset Date Last Indicated Resolved Time MRSA 05/01/2020 05/01/2020 06/20/2022 1:45 AM EST [facility]V-Exposed Comment:Positive COVID-19 05/11/2021 05/11/2021 05/24/2021 8:3 7 PM EST COVID-19 05/22/2021 05/22/2021 06/12/2021 1:25 AM EST documented as of this encounter Care Teams Aging Room Hand Relationship Specialty Start Date End Date Uriel Rosario MD [address] [place] [address] PCP - General Family Medicine 04/30/20 08/13/24 Alexander Coughlin MD PCP - General Family Medicine 08/14/24 Pcp, Unknown 04/30/20 documented as of this encounter Additional Source Comments The information contained in this document represents components of the legal health record. It is not the complete legal health record.[facility]
== END 2025-03-03 16:34 | disposition home or self-care (01) ==
LOC: HO.HMCFM 15:50
PROVIDERS: PCP Family Medicine; Visit Provider Family Medicine
DX: E10.69 Type 1 diabetes mellitus with other specified complication (principal); I10 Essential (primary) hypertension; D64.9 Anemia, unspecified; Z97.10 Presence of artificial limb (complete) (partial), unspecified; S88.112S Complete traumatic amputation at level between knee and ankle, left lower leg, sequela

== ENCOUNTER → 2025-03-03 15:49 | Outpatient (BNVA) | payer OTHER, SELFPAY | PROVIDERS: PCP Family Medicine; Visit Provider Family Medicine | DX: I10 Essential (primary) hypertension (principal); M54.16 Radiculopathy, lumbar region; E10.69 Type 1 diabetes mellitus with other specified complication; E10.40 Type 1 diabetes mellitus with diabetic neuropathy, unspecified; D64.9 Anemia, unspecified; Z97.14 Presence of artificial left leg (complete) (partial); Z89.512 Acquired absence of left leg below knee; Z99.3 Dependence on wheelchair | CPT/HCPCS: 99212 ==